=== PATIENT | female | born 1965 | race Caucasian/White ===

== ENCOUNTER → 2020-01-30 | Outpatient (CLI) | payer OTHER ==
[~2020-01-30] MED LIST: BREO1INH INH; GASTROGRAFIN SOLUTION 30ML (Q9963) As Ordered ONE; HYDR25TAB PO; INCR1INH INH; ISOVUE-370 76% 100ML VIAL As Ordered ONE; K-TA10TA2 PO; LOSA50TA88 PO; MULTCAP PO; MULTIVIT PO; OSTE1TAB2 PO; PROAAER10 INH; PROBCAP14 PO; PURE500C5 PO; TRAM50TA2 OR; TYLENOL #3 OR
--- NOTE | 2020-02-22 11:49 | REP ---
CT CHEST WITH IV CONTRAST HISTORY: Non-Hodgkin's lymphoma. COMPARISON: CT 03/08/2017 and 08/03/2019. TECHNIQUE: CT chest performed following the intravenous administration of 100 mL Isovue-370. Sagittal and coronal reconstruction images are performed. FINDINGS: Compared to prior studies, increased interstitial densities are seen in both lower lobes with peribronchial thickening suggesting interstitial pneumonitis. In addition, there are areas of patchy parenchymal opacity in the anterior inferior right upper lobe, inferior right middle lobe and right lower lobe, as well as in the left lower lobe. These may represent patchy areas of atelectasis or infiltrate. There are some mild underlying interstitial fibrotic changes, which were present on the prior study. There is a small calcified granuloma medially in the right upper lobe, which is seen on prior studies. In the right middle lobe, there are two adjacent nodular opacities on Image #72 measuring 4 mm and 3 mm, not seen on prior studies. These are nonspecific and may be related to the suspected inflammatory changes. There is a nodule in the right lower lobe posteriorly, the epicenter is on Image #85. The maximum diameter is 9 mm. There is a slight increase since the prior study of 2019 when the diameter was approximately 6-7 mm. Please note, the nodule in the right lower lobe was also seen on the exam in 2017 and at that time, it measured 7 mm. On the left, in the upper lobe peripherally, a pleural-based ill-defined focal parenchymal opacity is seen with a broad pleural base, measuring approximately 1.2 x 1.8 x 0.7 cm. Just inferior to this, there is an ill-defined nodular opacity 1.2 cm in diameter. There is another more medial 6 mm nodular opacity in this region. The findings are nonspecific and may be related to inflammatory change or neoplasm. In the left lower lobe, there is an 8 mm nodule on Image #76, which has slightly increased in size since prior studies. Another adjacent subcentimeter more peripheral nodular density also appears slightly increased in size. There is a small hiatal hernia. There is a precarinal lymph node, which measures 2.2 x 1.5 cm and is larger than on the prior study. A subcarinal lymph node measures 1.3 cm in short axis dimension. A right hilar lymph node measures 1.1 cm in diameter. Thoracic aorta is normal in caliber. There is no aneurysm. The heart is normal in size. There is no pleural or pericardial effusion. No axillary adenopathy is seen. There are degenerative changes of the spine. IMPRESSION: Increased interstitial densities and peribronchial thickening in both lower lung zones suggests interstitial pneumonitis and inflammatory change. In addition, there are areas of patchy parenchymal opacity, which may represent patchy areas of atelectasis or infiltrate. Two subcentimeter nodular opacities in the right lower lobe may also be related to inflammatory change. Bilateral lower lobe nodules are minimally increased in size compared to prior studies as discussed in detail above. The peripheral irregular parenchymal opacities in the left upper lobe may be related to inflammatory change or neoplasm. There is a mildly enlarged precarinal lymph node and subcarinal lymph node, which have increased in size since prior studies. MTDD
--- NOTE | 2020-02-22 11:50 | REP ---
CT ABDOMEN AND PELVIS WITH ORAL AND IV CONTRAST HISTORY: Non-Hodgkin's lymphoma. TECHNIQUE: CT abdomen and pelvis performed following the administration of oral contrast, as well as the intravenous administration of 100 mL of Isovue-370. Sagittal and coronal reconstruction images are performed. COMPARISON: Prior CT chest 03/08/2017 and 08/03/2019. FINDINGS: The patient has a prior gastric surgery. There is a small hiatal hernia. Abdominal aorta is normal in caliber. There is klso-my-[id number] atherosclerotic calcification. There is occlusion at the origin of the left common iliac artery. This extends through the left external iliac artery. Distal left external iliac artery is reconstituted by collateral vessels. I do not see a significant periaortic adenopathy. A few subcentimeter inguinal lymph nodes are seen bilaterally. No liver mass is seen. There is evidence of intrahepatic an extrahepatic biliary dilatation. This has increased since the prior CT of 2016. Common bile duct measures about 12 mm maximally. There is no gross abnormality at the distal end of the common bile duct, but MRCP may be performed to further evaluate. The spleen is normal in size with no intrinsic abnormality. There is thickening of both adrenal glands, which appears similar to the prior studies. No pancreatic mass is seen. Pancreatic duct measures 4 mm, which is slightly dilated. Small cysts are seen in both kidneys. There is no hydronephrosis. No definite bowel abnormality is seen. No pelvic mass is seen. Urinary bladder is not well distended and not well evaluated. 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 Stable adrenal gland thickening bilaterally. Increase intrahepatic and extrahepatic biliary dilatation with no gross abnormality of the distal common bile duct. Further evaluation may be made with MRCP exam. Subcentimeter inguinal lymph nodes bilaterally. No other evidence of significant adenopathy in the abdomen or pelvis. MTDD
== END ==
LOC: M RAD 13:25
PROVIDERS: ATTEND Specialist
DX: I74.5 Embolism and thrombosis of iliac artery (principal); C82.90 Follicular lymphoma, unspecified, unspecified site; R91.8 Other nonspecific abnormal finding of lung field
CPT/HCPCS: 71260; 74177; Q9963; Q9967

== ENCOUNTER → 2020-03-14 | Outpatient (CLI) | payer OTHER ==
[~2020-03-14] MED LIST changes: -GASTROGRAFIN SOLUTION 30ML (Q9963) As Ordered ONE; -ISOVUE-370 76% 100ML VIAL As Ordered ONE
--- NOTE | 2020-03-14 12:22 | RADONC.CN ---
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 She is seen for consideration of ISRT to address this presumed early-stage disease. Diagnosis/Treatment History Oncologic History Patient presented to PCP in Summer 2019 with a complaint of palpable adenopathy in the left groin. She had an excisional biopsy on 12/27/19 which revealed FL grade I. She underwent staging CT chest abdomen and pelvis, which showed multiple enlarged nodes in the left inguinal region, fewer scattered small nodes in the right inguinal region and occlusion of the left common and external iliac arteries in the absence of clear extrinsic mass effect. Her CT chest showed multiple peripheral pulmonary nodules of uncertain etiology. She was evaluated by Dr. Simms underwent BM biopsy which was negative, and was subsequently referred for ISRT. Interval History Patient reports she has some intermittent nausea which is chronic. She has no fevers, night sweat or unintended weight loss. She describes that she has had left hip pain for many years. She has received intrarticular steroids for this. She reports that any use of the left leg results in descending pain, cramping and heaviness, which has been worsening in recent months. The only thing that improves this pain is rest. She reports no swelling or discoloration of the skin of the left left. No ulceration of the feet BL. Pain affects her daily activities like walking and climbing stairs. She does report that in the past week she has noticed a palpable "lump" in the right groin, previously was not noticeable. Past Medical History: History of morbid obesity Past Surgical History: Darío en y in 1999 Hysterectomy Family History: Father melanoma Paternal grandmother melanoma Social History: Current 1 pack per day smoker for 36 years Does not drink Allergies / Meds Allergies: Coded Allergies: No Known Allergies (Unverified , 01/22/20) Home Meds Reported Medications Potassium Chloride (K-Tab ER) 10 Meq Tablet.er, 1 TAB PO DAILY for 30 Days, #30 TAB 01/22/20 Losartan Potassium (Losartan Potassium) 50 Mg Tablet, 1 TAB PO DAILY for 30 Days, #30 TAB 01/22/20 Hydrochlorothiazide (Hydrochlorothiazide) 25 Mg Tablet, 25 MG PO DAILY for 30 Days, #30 TAB 01/22/20 Ascorbic Acid (Vitamin C) 500 Mg Capsule.er, 1 CAP PO DAILY for 30 Days, #30 CAP 01/22/20 Vit D3-Vit K/Berberine/Hops (Ostera Tablet) 1 Each Tablet, 1 TAB PO, TAB 01/22/20 Lactobacillus Acidophilus (Probiotic) 1 Each Capsule, 1 CAP PO, CAP 01/22/20 Albuterol Sulfate (Proair Hfa) 8.5 Gm Hfa.aer.ad, 2 PUFF INH Q4-6HP PRN for wheezing for 21 Days, #1 INHALER 01/22/20 Umeclidinium [place] (Incruse Ellipta) 62.5 Mcg Blst.w.dev, 1 PUFF INH DAILY, #1 PUFF 01/22/20 Fluticasone/Vilanterol (Breo Ellipta 100-25 Mcg INH) 1 Each Blst.w.dev, 1 PUFF INH DAILY, INHALER 01/22/20 Multivitamin (Multivitamins) 1 Each Capsule, 1 CAP PO DAILY for 30 Days, #30 CAP 01/22/20 Review of Systems Constitutional: Denies: Chills, Fever, Night Sweats Eyes: Denies: Pain, Vision change HEENT: Denies: Head Aches, Dysphagia, Sore Throat Skin: Denies: Rash, Lesions, Bruising Pulmonary: Reports: Dyspnea; Denies: Cough Cardiovascular: Denies: Chest Pain, Palpitations, Edema Gastrointestinal: Reports: Nausea, Vomiting; Denies: Abdominal Pain, Diarrhea Genitourinary: Denies: Dysuria, Frequency, Incontinence Hematologic: Reports: Enlarged Lymph Nodes; Denies: Bruising, Petecchia Musculoskeletal: Denies: Neck pain, Back pain Neurological: Denies: Weakness, Numbness, Incoordination Psych: Reports: Mood Normal; Denies: Memory Issues, Thoughts of Self Harm Vital Signs Ht 65" Wt 114 lb BMI 19 T 98 P 67 RR 18 BP 126/80 O2 94% Pain 0 Fatigue 1 General Exam: Positive: Alert, Cooperative, No Acute Distress Eye Exam: Positive: PERRLA, EOMI ENT EXAM: Positive: Atraumatic, Pharynx Normal, Other ENT (Edentulous) Neck Exam: Positive: Supple Chest Exam: Positive: Clear to auscultation, Normal air movement Heart Exam: Positive: Rate Normal, Regular Rhythm Abdomen Exam: Positive: Normal bowel sounds, Soft; Negative: Tenderness Extremity Exam: Negative: Cyanosis, Edema, Normal pulses (Unable to appreciate popliteal or DP pulses on left, palpable left femoral pulse), Tenderness Skin Exam: Positive: Nl turgor and temperature; Negative: Rash Neuro Exam: Positive: Normal Gait, Normal Speech, Cranial Nerves 3-12 NL Psych Exam: Positive: Mental status NL, Mood NL; Negative: Anxiety Other Physical Findings Complete slava exam: On visual inspection there are no masses appreciable in the posterior oropharynx. There is no palpable cervical, axillary or epitrochlear adenopathy BL. The abdomen is soft and I do not appreciate an enlarged liver or spleen, I feel no masses in the epigastrium, RLQ or LLQ. There are no palpable lesions in the popliteal fossae BL. In the left inguinal region there is a 2 cm healed incision at the biopsy site. I feel multiple mobile nodes in the inguinal chain, the largest approximately 2 cm, it is soft. In the right inguinal region there is a single mobile but firm node palpable, it is non-tender, it is approximately 2 cm in maximal dimension. Diagnostic and Laboratory Diagnostic Review Radiologic images, relevant labs and pathology reports were personally reviewed and discussed with Ms. Dow. Assessment and Plan Impression Ms. 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 She is seen for consideration of ISRT to address this presumed early-stage disease. Stage Stage IA v Stage IIA FL, grade 1 Performance Status ECOG 1 Plan We had an extensive discussion with Ms. Dow regarding the diagnosis at hand and available therapeutic options. We discussed smoking cessation, she expressed no desire to quit at this time. With respect to her LLE pain, I do not think this is musculoskeletal in nature but rather intermittent claudication from her occluded left common and external iliac arteries. I recommended we obtain an ultrasound and refer her to a vascular surgeon regarding revascularization procedures, which I think would be in her immediate best interest. She has a PCP appointment scheduled tomorrow and will raise this issue. If she is unsuccessful at obtaining referral there, I will place the referral order. With respect to the pulmonary nodules present on her CT chest, I think these should be followed expectantly for now with a low threshold for biopsy should they evolve on subsequent imaging, given her tobacco use. With respect to her FL, which is biopsy proven in the left inguinal region, I have suspicion that she may harbor disease in the right inguinal region as well based on my exam today which reveals a previously undocumented, palpable node, which the patient states she first noticed last week. With this new finding in the setting of inconclusive prior CT staging, I think a PET-CT is necessary to characterize the lesion, stage her accurately, and inform treatment. If she has stage IA on PET-CT I will offer her ISRT 24 Gy in 12 fractions with 3D conformal planning. If she has stage IIA disease I will consult Dr. Simms's opinion on whether systemic therapy would be warranted, but would still consider giving her ISRT to the BL groins. We discussed the logistics of receiving radiation therapy in detail including the need for a 1-time planning session. With the low doses used in early stage FL, I explained that her side effects would likely be limited to fatigue and mild skin reaction. I do not think ISRT would pose a risk of complication to any vascular interventions for her claudication. These could be carried out at any time. After discussing the risks, benefits and alternatives to radiation therapy, Ms. Dow was amenable to pursuing radiotherapy. All questions were answered to the patient's satisfaction. We will obtain PET-CT and finalize our plans We instructed the patient that if there were any questions,concerns or changes in clinical status in the interim to contact us. Recommendations PET-CT to complete staging given new palpable node in the right inguinal region Referral to vascular surgery for apparent PVD Expectant management of lung nodules at this time Pending PET, ISRT 24 Gy in 12 fractions with 3D conformal planning KING ANDRADE MD Mar 14, 2020 12:22
== END ==
LOC: M ONCR 09:36
PROVIDERS: ATTEND General Practice
DX: C82.95 Follicular lymphoma, unspecified, lymph nodes of inguinal region and lower limb (principal)

== ENCOUNTER → 2020-04-01 | Outpatient (CLI) | payer OTHER ==
--- NOTE | 2020-04-01 17:56 | REP ---
INDICATION: STAGING FOLLICULAR LYMPHOMA. Left inguinal region. Left groin adenopathy status post excisional biopsy 27 December 2019. COMPARISON: Comparison CT study abdomen pelvis and chest January 30, 2020.. TECHNIQUE: Sixty minutes following the intravenous injection of a 8.44 mCi dose of F-18 FDG, three-dimensional PET scintigraphy is acquired from the skull base to the proximal thighs. Triplanar noncontrast CT scanning is acquired through the same anatomic range for attenuation correction, and image registration with scan parameters optimized to minimize radiation exposure to the patient. PET scintigraphy and CT datasets were fused and displayed on a workstation with multiplanar and projection display capability. FINDINGS: Head and neck soft tissues are unremarkable. There is some focal uptake adjacent to the right mandible which appears to be skeletal muscle uptake in the masseter muscle on the right. No hypermetabolic slava uptake is seen in the head and neck soft tissues. No abnormal hypermetabolic uptake is seen in the axillary or supraclavicular soft tissues. There is faintly hypermetabolic slava uptake in the precarinal lymph node, maximum standard uptake value 3.03. There is similar borderline uptake in the subcarinal lymph node region, maximum SUV value 2.86. The right lower lobe pulmonary nodule is not hypermetabolic, 1.09. No abnormal pulmonary parenchymal hypermetabolic uptake is appreciated. The left upper lobe infiltrate noted on January 30, 2020 has resolved. In the abdomen, normal a [place] and splenic FDG accumulation is seen. The spleen is not enlarged. Patient is status post gastric bypass. There is does appear to be slava uptake in the celiac axis region of the upper abdomen although these are difficult to separate or measure on accompanying CT study because the patient has so little intra-abdominal adipose tissue. Maximum standard uptake value in these a celiac axis lymph nodes is 4.78. No other intra-or pelvic hypermetabolic slava uptake is appreciated. There is mildly hypermetabolic left inguinal slava uptake, maximum standard uptake value 2.41. No abnormal skeletal uptake is seen. By way of reference organ uptake, maximum standard uptake value in the liver ranges to 2.89. Maximum standard uptake value in the blood pool is 2.80. IMPRESSION: Low level borderline 2 faintly hypermetabolic uptake is seen in precarinal and subcarinal lymph nodes. There is mildly hypermetabolic celiac axis adenopathy suspected in the upper abdomen. A 1 cm borderline hypermetabolic lymph node is seen in the left inguinal soft tissues. <Electronically signed by José Miguel Sloan > 04/01/20 [id number]
== END ==
LOC: M PLARAD 13:11
PROVIDERS: ATTEND General Practice
DX: C82.95 Follicular lymphoma, unspecified, lymph nodes of inguinal region and lower limb (principal)
CPT/HCPCS: 78815; A9552

== ENCOUNTER → 2020-05-03 | Outpatient (CLI) | payer OTHER ==
[~2020-05-03] MED LIST changes: +ONDA8TAB10 PO; +PROC10TA4 PO
--- NOTE | 2020-05-03 15:12 | REP ---
INDICATION: ATHSCL NINILCHIK ARTERIES OF EXT W/ CLAUDICATION. COMPARISON: None. TECHNIQUE: Multiple Doppler and real-time ultrasonographic images of the lower extremities. FINDINGS: Right lower extremity: Brachial peak systole: 140 mmHg Dorsalis pedis peak systole: 135 mmHg TECHNICAL DOCUMENTATION SPECIALIST peak systole: 150 mmHg LINDA: 1.07 PLASTERER FOREMAN: 100 velocity, triphasic phasicity Profunda: 49 velocity, triphasic phasicity SFA prox: 67 velocity, triphasic phasicity SFA mid: 85 velocity, triphasic phasicity SFA dist: 75 velocity, triphasic phasicity Pop: 45 velocity, triphasic phasicity ADAL prox: 48 velocity, triphasic phasicity Tib/P tr: 53 velocity, biphasic phasicity TECHNICAL DOCUMENTATION SPECIALIST pr: 55 velocity, triphasic phasicity TECHNICAL DOCUMENTATION SPECIALIST dst: 68 velocity, triphasic phasicity ADAL dst: 21 velocity, biphasic phasicity Left lower extremity: Brachial peak systole: 140 mmHg Dorsalis pedis peak systole: 40 mmHg TECHNICAL DOCUMENTATION SPECIALIST peak systole: 75 mmHg LINDA: 0.54 PLASTERER FOREMAN: 25 velocity, monophasic phasicity Profunda: 12 velocity, monophasic phasicity SFA prox: 30 velocity, monophasic phasicity SFA mid: 30 velocity, monophasic phasicity SFA dist: 26 velocity, monophasic phasicity Pop: 16 velocity, monophasic phasicity ADAL prox: 12 velocity, monophasic phasicity Tib/P tr: 19 velocity, monophasic phasicity TECHNICAL DOCUMENTATION SPECIALIST pr: 18 velocity, monophasic phasicity TECHNICAL DOCUMENTATION SPECIALIST dst: 13 velocity, monophasic phasicity ADAL dst: 6 velocity, phasicity Right lower extremity: There is minimal atheromatous plaque. The velocities and waveforms are normal. Left lower extremity: There is abnormal PLASTERER FOREMAN inflow velocity and waveforms. There is slow flow throughout the left lower extremity. There is minimal atheromatous plaque. IMPRESSION: Peak flow velocities and waveforms as indicated above. <Electronically signed by Edward Cano > 05/03/20 [id number]
== END ==
LOC: M RAD 12:21
PROVIDERS: ATTEND Physician Assistant
DX: I70.213 Atherosclerosis of native arteries of extremities with intermittent claudication, bilateral legs (principal)

== ENCOUNTER → 2020-06-18 | Outpatient (CLI) | payer OTHER ==
[~2020-06-18] MED LIST changes: +ACETAMINOPHEN 325 MG TAB PO PRN; +CLOP75TA2 PO; +CLOPIDOGREL 75 MG TAB As Ordered ONE; +CLOPIDOGREL 75 MG TAB PO ONE; +ISOVUE-300 61% 50ML VIAL As Ordered ONE; +LIDOCAINE 1% MDV 20ML VIAL As Ordered ONE; +MIDAZOLAM INJ 2MG/2ML VIAL (J2250 PER 1MG) As Ordered ONE; +MULT-90 PO; +NS 1,000 ML IV SCH; +ONDANSETRON 4MG/2ML VIAL As Ordered ONE; +OXYC1TAB23 PO; +VENTAER INH; +ceFAZolin 1GM VIAL (J0690 PER 500MG) As Ordered ONE; +fentaNYL 100 MCG/2 ML INJECTION (J3010) As Ordered ONE
[2020-06-18 07:05] LABS: HEMATOCRIT 41.3 % (36.0-47.0); HEMOGLOBIN 13.9 g/dl (12.0-15.5); MEAN CORPUSCULAR HEMOGLOBIN 30.8 pg (27.0-33.0); MEAN CORPUSCULAR HGB CONC 33.7 g/dl (32.0-36.5); MEAN CORPUSCULAR VOLUME 91.4 fl (80.0-96.0); PLATELET COUNT, AUTOMATED 300 10^3/uL (150-450); RED BLOOD COUNT 4.52 10^6/uL (4.00-5.40); WHITE BLOOD COUNT 8.9 10^3/uL (4.0-10.0)
[2020-06-18 07:25] LABS: BLOOD UREA NITROGEN 7 MG/DL (7-18); CALCIUM LEVEL 8.3 MG/DL (8.5-10.1); CARBON DIOXIDE LEVEL 29 MEQ/L (21-32); CHLORIDE LEVEL 98 MEQ/L (98-107); CREATININE FOR GFR 0.54 MG/DL (0.55-1.30); GLOMERULAR FILTRATION RATE > 60.0 (>51); GLUCOSE, FASTING 82 MG/DL (70-100); POTASSIUM SERUM 4.2 MEQ/L (3.5-5.1); SODIUM LEVEL 130 MEQ/L (136-145)
--- NOTE | 2020-06-18 10:15 | ROOPDOC ---
[facility] Report Of Operation Report of Operation DATE OF PROCEDURE: 06/18/20 PREPROCEDURE DIAGNOSES: Atherosclerosis of the [place] arteries with lifestyle limiting claudication left lower extremity POSTPROCEDURE DIAGNOSES: Same PROCEDURE: 1. Ultrasound-guided access bilateral common femoral artery 2. Aortoiliofemoral arteriogram 3. Left lower extremity runoff from left femoral sheath access 4. 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 Stenting left external iliac artery with 7 x 57 express balloon expandable stent, extension proximal with 8 x 57 express stent with right iliac protection with 7 x 40 [place] balloon 6. Bilateral common iliac artery via by 8 x 39 covered viabahn vbx stent placement, kissing stents 7. Proximal extension kissing stents bilaterally with 8 x 27 express stents 8. Completion arteriograms 9. Mynx closure bilateral common femoral artery SURGEON: Myah Rios MD ANESTHESIA: Local anesthesia 9 mL lidocaine. Moderate intravenous conscious sedation was supervised by Dr. Rios. The patient was independent we monitored by registered nurse assigned to the Department of radiology using automated blood pressure, EKG, and pulse oximetry. The detailed sedation record is permanently stored in the hospital information system. The following is a brief sedation record: [Time 07:49, stop time 19:21, Versed 1.5 mg IV, fentanyl 75 g IV, heparin 4000 units IV, Ancef 1 g IV. CONTRAST: 84 mL Isovue-300 INDICATION FOR PROCEDURE: This is a very pleasant 55-year-old patient with atherosclerosis of the [place] arteries and worsening left lower extremity claudication. Risks benefits and alternatives to an arteriogram and potential intervention were explained to the patient. She is agreeable to proceed. Informed consent was obtained. INTERPRETATION: 1. The distal aorta is ectatic but patent with some irregularity in the left lateral aspect near the origin of the left common iliac artery. The right common iliac artery has a dictation calcification but appears otherwise overall patent. He has good flow into the hypogastric which gives collateral circulation over to the left hypogastric. There is also some collateral flow to the left ex ternal iliac artery and common femoral artery. The right external iliac arteries patent with good flow into the right common femoral artery. The left common iliac artery has bulky plaque at its origin is occluded for approximately 4 cm, then has a trickle flow through the external iliac artery from flow from the hypogastric. There is considerable disease and calcium in the external iliac artery proximally, but distally it is widely patent with good flow into the common femoral artery. 2. The left common femoral artery has good runoff into the profunda in the SFA with no signs of stenosis or obvious calcification or disease. There is good flow through the profunda into the posterior tibial artery which is the main runoff to the foot. The peroneal artery is also widely patent. The anterior tibial artery is patent to the lower calf, where it dwindles down to her diminutive size and has some collateral flow distal to that. We do not see reconstitution into the anterior tibial artery at the ankle or the dorsal pedis at the foot. However, the posterior tibial artery supplies the pedal vessels rapidly. 3. After predilation of the left iliac system, we noted still bulky plaque proximally and at the mid external iliac artery, an additional angioplasty was performed. Following this, there was a patent lumen for stent placement. 4. After placement of express stents through the left iliac system with 1 cm overlap, we did not have residual stenosis, but we still did not have antegrade flow due to bulky plaque proximal to the stent origin. After extension with balloon expandable covered viabahn vbx stents from common iliac to kissing stents, there still was some residual proximal to the stent on the left that was preventing good antegrade flow. In order to preserve flow through the lumbar vessels, we extended the kissing stents with bare-metal express balloon expandable stent, and following this there was widely patent flow through both iliac systems an excellent pulse at the left common femoral artery. No extravasation, embolization, or dissection were noted. 5. Arteriogram of the left lower extremity femoral system showed no signs of embolization postprocedure with rapid flow distal. REPORT OF OPERATION: The patient was brought to the angiographic suite in stable condition. Her bilateral groins were prepped and draped in a sterile fashion. A timeout was performed. Sedation was administered without complication. Local anesthesia was administered to the right skin and subcutaneous tissue over the femoral artery and a microneedle was used to access the artery and her ultrasound guidance. A wire was passed through this access needle was removed. A 4 Taiwanese sheath was placed and flushed with saline. A Glidewire and flushing catheter were advanced into the distal aorta. Aortoiliofemoral arteriogram was performed, please see interpretation above. Next, local anesthesia was administered to the skin and subcutaneous tissue over the left groin and a microneedle was used to access left common femoral artery under ultrasound guidance. A wire was passed through this access needle was removed and a 4 [place] sheath was placed and flushed with saline. We could not advance a Glidewire through the blockage, but wanted to try a little harder to cross the lesion. We then exchange the sheath for 5 [place] sheath and flushed the sheath was saline. A [place] catheter was placed over the wire and with this, we were able to cross the lesion into the true lumen of the aorta. Quick arteriogram confirmed we were in the true lumen. Heparin was given and allowed to circulate. Next, we predilated the left iliac system with a 5 x 100 [place] balloon. We still had some pretty tight stenosis proximally and distally, so we repeated the angioplasty both proximal and distal. Following this, we replaced the sheath on the left with a 7 [place]ese sheath and flushed the sheath was saline. We advanced a 7 x 57 express stent into the external iliac artery and deployed this. Arteriogram confirmed there was no extravasation postplacement. We then extended this proximally with an 8 x 57 express stent. We protected the right iliac artery with a 7 x 40 [place] balloon. Following this, there is still bulky pl aque proximal to the stent that was preventing good antegrade flow. We then elected to place bilateral kissing stents, and we utilized vbx covered balloon expandable stents due to the bulky plaque at the distal aorta, with care taken to place and just below the lumbar vessels as these are providing some collateral flow on the left. We deployed the stent from the common iliac artery into the distal aorta, but still there was some bulky plaque on the left that was preventing good antegrade flow. We therefore extended distance proximally with 8 x 27 bare-metal stents to preserve lumbar flow. Following this, the bulky plaque was excluded laterally, and there was good antegrade flow through both stents inflow through the lumbar arteries. There was an excellent pulse in the left femoral artery. There was good flow through the right iliac system as well. Arteriogram of the left femoral arteries confirmed that there was no signs of embolization. There was no dissection or extravasation. We then deployed Mynx closure device in both femoral vessels with good hemostasis. Pressure was held and sterile dressings were applied. The patient was taken to recovery in stable condition. She tolerated the procedure and the sedation well. ESTIMATED BLOOD LOSS: 4 mL COMPLICATIONS: None PLAN: It is okay to resume home diet and medications. We will give the patient a dose of Plavix prior to discharge. 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 No strenuous exercise or lifting greater than 5 pounds for 72 hours. Okay to remove dressings and shower tomorrow. Continue efforts for smoking cessation as this will be imperative to maintain stent patency long-term. We will see her back in a week to check both groin access sites in her perfusion. We appreciate the opportunity to participate in the care of this patient. MYAH RIOS MD Jun 18, 2020 10:15
[2020-06-18] MEDS: ONDANSETRON 4MG/2ML VIAL IV PRN ×2 (11:09→12:00)
[2020-06-18 13:45] VITALS: BP 152/88
== END ==
LOC: M IRPRO 06:33
PROVIDERS: ATTEND Surgery Vascular Surgery
DX: I70.212 Atherosclerosis of native arteries of extremities with intermittent claudication, left leg (principal); I70.8 Atherosclerosis of other arteries; I70.92 Chronic total occlusion of artery of the extremities; I10 Essential (primary) hypertension; F32.9 Major depressive disorder, single episode, unspecified; F41.9 Anxiety disorder, unspecified; F17.210 Nicotine dependence, cigarettes, uncomplicated; M06.9 Rheumatoid arthritis, unspecified; C85.90 Non-Hodgkin lymphoma, unspecified, unspecified site; Z79.899 Other long term (current) drug therapy
CPT/HCPCS: 37221; 75630; 80048; 85027; 99152; 99153; C1725; C1760; C1769; C1874; C1876; C1887; C1894; J0690; J1644; J2250; J2405; J3010; Q9967

== ENCOUNTER 2020-06-19 08:20 | Day surgery (SDC) | payer OTHER ==
[~2020-06-19] VITALS: Ht 162.6 cm; Wt 56.4 kg
[~2020-06-19 08:20] MED LIST changes: -ACETAMINOPHEN 325 MG TAB PO PRN; -CLOPIDOGREL 75 MG TAB As Ordered ONE; -CLOPIDOGREL 75 MG TAB PO ONE; +HYDR-3490 PO; -HYDR25TAB PO; -ISOVUE-300 61% 50ML VIAL As Ordered ONE; -LIDOCAINE 1% MDV 20ML VIAL As Ordered ONE; -MIDAZOLAM INJ 2MG/2ML VIAL (J2250 PER 1MG) As Ordered ONE; -MULT-90 PO; -NS 1,000 ML IV SCH; -ONDANSETRON 4MG/2ML VIAL As Ordered ONE; -OXYC1TAB23 PO; -ceFAZolin 1GM VIAL (J0690 PER 500MG) As Ordered ONE; -fentaNYL 100 MCG/2 ML INJECTION (J3010) As Ordered ONE
[2020-06-19] MEDS ORDERED: NOREPINEPHRINE BITARTRATE 8 MG in D5W 492 ML IV SCH (09:00)
[2020-06-19] MEDS: NS 1,000 ML IV ONE ×2 (09:06)
[2020-06-19] MEDS ORDERED: LIDOCAINE 1% MDV 20ML VIAL As Ordered ONE (09:10)
[2020-06-19] MEDS ORDERED: ISOVUE-300 61% 50ML VIAL As Ordered ONE ×2 (09:10→10:22)
[2020-06-19 09:29] LABS: BASO # 0.1 10^3/uL (0.0-0.2); BASO % 0.3 % (0.0-1.0); EOS % 0.1 % (0.0-3.0); HEMATOCRIT 31.8 % (36.0-47.0); LYMPH # 1.1 10^3/uL (1.5-5.0); LYMPH % 5.5 % (24.0-44.0); MEAN CORPUSCULAR HEMOGLOBIN 30.4 pg (27.0-33.0); MEAN CORPUSCULAR HGB CONC 32.7 g/dl (32.0-36.5); NEUTROPHILS # 16.7 10^3/uL (1.5-8.5); NEUTROPHILS % 83.2 % (36.0-66.0); PLATELET COUNT, AUTOMATED 258 10^3/uL (150-450); RED BLOOD COUNT 3.42 10^6/uL (4.00-5.40)
[2020-06-19 09:30] LABS: PROTHROMBIN TIME 13.4 SECONDS (12.5-14.3)
[2020-06-19 09:31] LABS: HEMOGLOBIN 10.4 g/dl (12.0-15.5); PARTIAL THROMBOPLASTIN TIME 27.6 SECONDS (24.2-38.5)
[2020-06-19] MEDS ORDERED: MIDAZOLAM INJ 2MG/2ML VIAL (J2250 PER 1MG) As Ordered ONE (09:41)
[2020-06-19] MEDS ORDERED: fentaNYL 100 MCG/2 ML INJECTION (J3010) As Ordered ONE (09:41)
[2020-06-19 09:42] LABS: ALBUMIN 2.8 GM/DL (3.2-5.2); ALT/SGPT 104 U/L (12-78); AMYLASE 40 U/L (25-115); BILIRUBIN,DIRECT 0.2 MG/DL (0.0-0.2); BILIRUBIN,TOTAL 0.5 MG/DL (0.2-1.0); CK-MB VALUE MASS 1.9 NG/ML (<3.6); CPK CREATINE PHOSPHOKINASE 77 U/L (26-192); LIPASE 85 U/L (73-393); MB/CK RELATIVE INDEX 2.47 (< OR =4); TOTAL PROTEIN 5.2 GM/DL (6.4-8.2); TROPONIN I < 0.02 NG/ML (< 0.10)
--- NOTE | 2020-06-19 09:44 | CR.PDOC ---
General Date of Consultation: Jun 19, 2020 Consultation REASON FOR CONSULTATION/CHIEF COMPLAINT: Left groin and left lower quadrant abdominal pain HISTORY OF PRESENT ILLNESS: This very pleasant 55-year-old patient who underwent a lower extremity arteriogram yesterday with bilateral femoral access and stenting of the bilateral common iliac arteries into the external iliac artery on the left. Postoperatively, she had mild complaints of groin pain, which I attributed to opening a chronic occlusion in the left iliac arteries with stents, which can cause mild discomfort for 24-48 hours postprocedure. We ultrasounded her groin several times postprocedure and did not note any hematoma, and there was no extravasation on imaging during the procedure. She did not have a high access point on the femoral artery, and her access on the left femoral artery was fairly distal over the femoral head. Nevertheless, today she awoke from sleep at 3 AM with severe left groin and abdominal pain. It was so bad that when she tried to stand up she almost fainted. She was brought to the ER by EMS. They gave her 100 g of fentanyl which did not help her pain. It did however lower her blood pressure considerably and she was 70 mmHg systolic in the ER. They gave her fluid boluses which brought it up appropriately, now it is 135 mmHg. Nevertheless, despite the fact that we don't see extravasation on imaging, we want to make sure that she is not having any bleeding because her blood pressure was low in the ER, and we are not 100% sure that this was due to the fentanyl or if it's due to an active bleeding situation, we elected to bring her urgently to interventional radiology for a repeat angiogram to see if there is active bleeding. We can treated right away which will further expedite her care. Alternatively, we could do a CTA, which still might be necessary if we do not identify a bleeding source, but this could delay the process of treating a bleed if one is present. Therefore, we di scussed the risks benefits alternatives to repeat arteriogram urgently today. The patient is agreeable to proceed. Informed consent was obtained. If we do not identify bleeding, I plan to send her for a CT scan of the abdomen and pelvis to see if there is another etiology for her complaints. She does not have a known history of lower back issues, or other neuropathic pain, so from my standpoint this is bleeding until proven otherwise. ALLERGIES: Please see below. HOME MEDICATIONS: Please see below. PAST MEDICAL HISTORY: Hypertension, depression, anxiety, COPD, rheumatoid arthritis, lymphoma, peripheral vascular disease PAST SURGICAL HISTORY: Arteriogram lower extremities with iliac stenting 06/18/2020 FAMILY HISTORY: Hypertension heart disease SOCIAL HISTORY: Patient is a current smoker. She has cut back to half a pack a day, but is still smoking and having difficulty quitting. She is trying to quit. She lives with her . REVIEW OF SYSTEMS: CONSTITUTIONAL: Denies fevers or chills HEENT: Denies vision or hearing changes CARDIOVASCULAR: Denies chest pain RESPIRATORY: Positive occasional shortness of breath GENITOURINARY: Denies dysuria MUSCULOSKELETAL: Positive left groin and leg pain GASTROINTESTINAL: Denies vomiting diarrhea. Positive nausea SKIN: Denies rashes NEUROLOGICAL: Denies stroke seizures or headaches. PSYCHIATRIC: Positive anxiety depression ENDOCRINE: Denies diabetes or thyroid disease HEMATOLOGIC/LYMPHATIC: History lymphoma ALLERGIC/IMMUNOLOGIC: Denies PHYSICAL EXAMINATION: VITAL SIGNS: Please see below. GENERAL APPEARANCE: Patient is in acute distress from left groin and leg pain HEENT: Vision and hearing grossly intact, normocephalic, TMI RESPIRATORY: Slightly coarse breath sounds bilaterally no wheezes CARDIOVASCULAR: Regular rate and rhythm ABDOMEN: Patient has guarding of her lower abdomen and left groin. No palpable hematoma left groin and access site. EXTREMITIES: DP and PT Doppler signals present bilateral lower extremities. Feet are cool bilaterally. But capillary refill is 1 second. NEUROLOGICAL: Alert and oriented 3. Moves all extremities equally. PSYCHIATRIC: Patient is in distress but cooperative. LABORATORY DATA: Please see below. ASSESSMENT/PLAN: This a very pleasant 55-year-old patient who has severe pain in her left groin and flank status post bilateral common iliac artery kissing stents and extension of her left iliac stents for occlusion of the left iliac arteries, done with an arteriogram yesterday. 1. Plan for urgent repeat arteriogram to see if there is any active bleeding and we plan to treat this if identified. 2. Plan for CT of the abdomen and pelvis if no source of bleeding is identified, to see if we can find an alternative explanation for the patient's pain. We appreciate the opportunity to participate in the care of this patient. Vital Signs/I&O Vital Signs Date Time Temp Pulse Resp B/P (MAP) Pulse Ox O2 Delivery O2 Flow Rate FiO2 06/19/20 08:52 98.8 22 72/49 (57) 100 Room Air 06/19/20 08:50 105 Laboratory Data Labs 24H Laboratory Tests 2 06/19/20 08:53: POC Glucose (Misc Panel) 155H, POC Sodium (Misc Panel) 135L, POC Potassium (Misc Panel) 4.2, POC Chloride (Misc Panel) 99, POC Total CO2 (Misc Panel) 25.0, POC Blood Urea Nitrogen (Misc Panel 13, POC Ionized Calcium (Misc Panel) 4.0L, POC Creatinine (Misc Panel) 1.0, POC Hematocrit (Misc Panel) 34.0L 06/19/20 08:54: Prothrombin Time 13.4, Prothromb Time International Ratio 1.00, Activated Partial Thromboplast Time 27.6 CBC/BMP Allergies Coded Allergies: No Known Allergies (Unverified , 01/22/20) Home Medications Scheduled Ascorbic Acid (Vitamin C) 500 Mg Capsule.er, 1 CAP PO DAILY for 30 Days, #30 (Reported) Clopidogrel Bisulfate (Clopidogrel) 75 Mg Tablet, 75 MG PO DAILY for 60 Days, #60 Fluticasone/Vilanterol (Breo Ellipta 100-25 Mcg INH) 1 Each Blst.w.dev, 1 PUFF INH DAILY, (Reported) Hydrochlorothiazide (Hydrochlorothiazide) 25 Mg Tablet, 25 MG PO DAILY for 30 Days, #30 (Reported) Losartan Potassium (Losartan Potassium) 50 Mg Tablet, 1 TAB PO DAILY for 30 Days, #30 (Reported) Multivitamin (Multivitamins) 1 Each Capsule, 1 CAP PO DAILY for 30 Days, #30 (Reported) Potassium Chloride (K-Tab ER) 10 Meq Tablet.er, 1 TAB PO DAILY for 30 Days, #30 (Reported) Umeclidinium [place] (Incruse Ellipta) 62.5 Mcg Blst.w.dev, 1 PUFF INH DAILY, #1 (Reported) Scheduled PRN Albuterol Sulfate (Proair Hfa) 8.5 Gm Hfa.aer.ad, 2 PUFF INH Q4-6HP PRN for wheezing for 21 Days, #1 (Reported) Albuterol Sulfate (Ventolin Hfa) 18 Gm Hfa.aer.ad, 2 PUFF INH Q4-6HP PRN for wheezing for 30 Days, #1 (Reported) Ondansetron HCl (Ondansetron HCl) 8 Mg Tablet, 8 MG PO Q8HP PRN for NAUSEA OR VOMITING, #30 Prochlorperazine Maleate (Prochlorperazine Maleate) 10 Mg Tablet, 10 MG PO Q8HP PRN for NAUSEA OR VOMITING, #30 Miscellaneous Medications Lactobacillus Acidophilus (Probiotic) 1 Each Capsule, 1 CAP PO, (Reported) Vit D3-Vit K/Berberine/Hops (Ostera Tablet) 1 Each Tablet, 1 TAB PO, (Reported) MYAH GÓMEZ MD Jun 19, 2020 09:44
[2020-06-19] MEDS ORDERED: ceFAZolin 2 GM/D5W 50 ML IV BAG (J0690 PER 500MG) As Ordered ONE (10:05)
--- OUTSIDE RECORDS SUMMARY | 2020-06-19 10:52 | CCD | Continuity of Care Document ---
Author Jessica Coppola Organization Unknown Address [address], [address] [place] [address] Phone [phone] Care Team Providers [facility] Field Coordinator Name Role Phone Melissa Faria M.D. AUTM [phone] Problems Active Problems Provider Date Essential hypertension WING Saab Onset: 04/09/2020 Social History Type Date Description Comments Sex Unknown ETOH Use Denies alcohol use Tobacco Use Start: 05/24/75 Patient is a current smoker, smo kes every day 1 ppd x 20 years Recreational Drug Use Denies Drug Use Smoking Status Reviewed: 04/23/20 Patient is a current smoker, smokes every day 1 ppd x 20 years Allergies, Adverse Reactions, Alerts Description No Known Drug Allergies Medications Active Medications SIG Qnty Indications Ordering Provide r Date Breo Ellipta 100-25mcg/Inh Aerosol 1 inhalation daily 60units Mick Cameron MD 04/04/2018 Incruse Ellipta 62.5mcg/Inh Aeroso l 1 puff every day Unknown Hydrochlorothiazide 12.5mg Capsule s 1 by mouth every day Unknown Potassium Chloride Madelyn ER 10Meq Tablets ER 1 tab by mouth every day Unknown Losartan Potassium 50mg Tablets 1 tab by mouth every day Unknown Ventolin HFA 108(90Base) mcg/Act A erosol 2 puffs qid/prn Unknown Albuterol Sulfate (2 .5mg/3ML) 0.083% Nebulizer 1 vial four times a day as needed Unknown Multi Vitamin Daily Tablets 1 every day Unknown Vitamin D 125mcg (5000 Ut) Capsule s 1 every day Unknown Vitamin C 500mg Capsules 1 ev miryam day Unknown Zinc 50mg Tablets 1 every day 30tabs Unknown Immunizations Description No Information Available Vital Signs Date Vital Result Comment 05/21/2020 10:54am BP Systolic 169 mmHg BP Diastolic 95 mmHg Height 64 inches 5'4" Weight 129.38 lb BMI (Body Mass Index) 22.2 kg/m2 [place] Body Weight 120 lb Weight 58.684 kg BSA (Body Surface Area) 1.63 m2 04/23/2020 11:06am BP Systolic 138 mmHg BP Diastolic 62 mmHg Height 64 inches 5'4" Weight 126.00 lb BMI (Body Mass Index) 21.6 kg/m2 [place] Body Weight 120 lb Weight 57.154 kg BSA (Body Surface Area) 1.61 m2 Results Description No Information Available Procedures Description No Information Available Medical Devices Description No Information Available Encounters Type Date Location Provider Dx Diagnosis Office Visit 04/23/2020 11:00a [facility] WING Mcguire I70.213 Athscl [place] arteries of extrm w intrmt [place], bi legs I70.8 Atherosclerosis of other art eries F17.210 Nicotine dependence, cigaret johnny, uncomplicated Assessments Date Code Description Provider 05/21/2020 I70.213 Atherosclerosis of n ative arteries of extremities with intermittent claudication, bilateral legs WING Saab 05/21/2020 I70.8 Atherosclerosis of other arterie s WING Saab 05/21/2020 F17.210 Nicotine dependence, cigarettes, uncomplicated WING Saab 04/23/2020 I70.213 Atherosclerosis of n ative arteries of extremities with intermittent claudication, bilateral legs WING Saab 04/23/2020 I70.8 Atherosclerosis of other arterie s WING Saab 04/23/2020 F17.210 Nicotine dependence, cigarettes, uncomplicated WING Saab Plan of Treatment No Information Available Functional Status Description No Information Available Mental Status Description No Information Available Referrals Refer to Reason for Referral Status Appt Date Alie Sim, P.AJamal ARTERIAL OCCLUSION Closed 05/2019 [address] [facility] [address], [address] [place] [address] [place] [address] [phone]
--- OUTSIDE RECORDS SUMMARY | 2020-06-19 10:53 | CCD ---
Author Author [facility] Organization [facility] Address [address] [place] [address] Phone Care Team Providers Care Claim Adjuster Name Role Phone Giaan CHING, Melissa Hernandez Unavailable [phone] Reason for Referral No Reason for Referral Recorded Problems Includes: Active, inactive, and resolved Problems All Visits Onset Date - Time Resolved Date - Time Provider Co ndition Status Cardiac Catheterization Technician Malignant Lymphoma Follicular 05/08/2020 - 12:00AM Lula Ramirez DOG RACES MANAGER Active Note: Unchanged Primary Cardiac Catheterization Technician Lymphoma Inguinal & Lower Limb(s) Lymph Nodes - 12:00AM Melissa Faria MD Active Note: Unchanged Essential Hypertension Benign 12/28/2017 - 12:00AM Faustina hy A Jenn POULTRY VACCINATOR Active Note: Unchanged Chronic Obstructive Pulmonary Disease 12/28/2017 - 12:00AM Dorothea A Jenn POULTRY VACCINATOR Active Note: Unchanged Acute bronchitis due to other specified organisms 12/15/2017 - 12:00AM Unknown - Unknown Dorothea A Jenn POULTRY VACCINATOR Resolved Note: Unchanged Arthralgia - Ulna / Radius / Wrist Left 12/15/2017 - 12:00AM Dorothea A Jenn POULTRY VACCINATOR Active Note: Unchanged Chronic Obstructive Pulmonary Disease with Acute Lower Respiratory Infection 12/15/2017 - 12:00AM Mick Ngo MD Active Note: Unchanged Plan of Treatment Pending Tests Order Diagnosis Results Due Ordering Provi jenn X-RAY Wrist Left X-Ray Pain in left wrist 12/29/17 Dorothea A Jenn POULTRY VACCINATOR *Labs (Manual) *FASTING Essential (primary) hypertension Dorothea A Jenn POULTRY VACCINATOR *Labs (Manual) CBC Essential (primary) hypertension Dorothea A Jenn POULTRY VACCINATOR *Labs (Manual) CMP Essential (primary) hypertension Dorothea A Jenn POULTRY VACCINATOR *Labs (Manual) LIPID Essential (primary) hypertension Dorothea A Jenn POULTRY VACCINATOR X-RAY Hip Left X-Ray Pain in left hip 08/24/18 Dorothea Hernandez D er POULTRY VACCINATOR *Labs (Manual) *FASTING Essential (primary) hypertension Dorothea A Jenn POULTRY VACCINATOR *Labs (Manual) CBC Essential (primary) hypertension Dorothea A Jenn POULTRY VACCINATOR *Labs (Manual) CMP Essential (primary) hypertension Dorothea A Jenn POULTRY VACCINATOR *Labs (Manual) LIPID Essential (primary) hypertension Dorothea A Jenn POULTRY VACCINATOR X-RAY Mammography- Ultrasound If Indicated Enc ntr screen mammogram for malignant neoplasm of breast 11/23/18 Dorothea A Jenn POULTRY VACCINATOR *Labs (Manual) CMP 08/08/19 Mick hooker MD *Labs (Manual) CBC 08/08/19 Mick hooker MD *Labs (Manual) TSH 08/08/[address] Scan Chest CT Scan Without Contrast Hypokalemia 08/08/19 Mick Ngo MD Ultrasound Left Groin Area Neoplasm of unspecif ied behavior of other specified sites 11/07/19 Mick Ngo MD Ultrasound Left Groin Area Neoplasm of unspecif ied behavior of other specified sites 11/07/19 Mick Ngo MD Future Appointments Date Time Location Provider STANDARD OV 07/09/2020 1:00PM Family Medicine [facility] Lula Ramirez NP Findings Encounter Date REFERRAL TO DR. HERNANDEZ AT [facility] FOR CONSULTATION ON OTHER CANCER TREATMENT. PLEASE SEND NOTES AND W/U FROM DECEMBER 2019. FFUP 2M MED CHK EXTENDED VISIT with Lula Ramirez NP 05/08/2020 REFER TO VASCULAR SURGEON FOR OCCLUSIO N OF COMMON AND EXTERNAL ILIAC ARTERIES FFUP IN 2M MED CHECK EXTENDED VISIT with Lula Ramirez NP 0 Ordered follow-up visit RTC 3 MONTHS SCHEDULE PE S TANDARD OV with Dorothea Vences POULTRY VACCINATOR 11/09/2018 Ordered follow-up visit RTC 3 MONTHS STANDARD OV with Dorothea A Jenn POULTRY VACCINATOR 08/10/2018 Ordered follow-up visit RTC 1 MONTH EXTENDED VISIT with Faustina hy A Jenn POULTRY VACCINATOR 03/23/2018 Ordered follow-up visit RTC 1 MONTH EMERGENCY ROOM FO LLOW-UP with Dorothea A Jenn POULTRY VACCINATOR 03/15/2018 Ordered follow-up visit RTC 1 MONTH STANDARD OV with Dorothea A Jenn POULTRY VACCINATOR 01/11/2018 Ordered follow-up visit RTC 2 WEEKS EXTENDED VISIT with Faustina hy A Jenn POULTRY VACCINATOR 12/28/2017 Ordered follow-up visit RTC 10 DAYS NEW PATIENT EVALU ATION with Dorothea A Jenn POULTRY VACCINATOR 12/15/2017 Assessments Includes: Assessments for all patient encounters Findings Encounter Date Follicular lymphoma of the [employer]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 EXTENDED VISIT with Lula Lacey Ramirez NP 05/08/2020 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 EXTENDED VISIT with [place] Noe Ramirez NP 03/15/2020 Chronic obstructive pulmonary disease [J 44.9 - Chronic obstructive pulmonary disease, unspecified] EXTENDED VISIT with Lula Noe Ramirez NP 0 Intermittent claudication EXTENDED VISIT with Lula Noe Ramirez NP 03/15/2020 Postprocedural hematoma of skin and subcutaneous tissu e WRITE-IN (SAME DAY) with Mick Ngo MD 01/02/2020 Benign essential hypertension SURGERY with Melissa Clement 12/27/2019 Lymphadenopathy L GROIN SURGERY with Melissa Faria MD 09/2019 Lymphadenopathy EXTENDED VISIT with Mick Ngo MD 11/15/2019 Benign essential hypertension EXTENDED VISIT with Mick Ngo MD 10/24/2019 Chronic obstructive pulmonary disease EXTENDED VISIT with Kianna Ngo MD 10/24/2019 Enlargement of lymph nodes EXTENDED VISIT with Mick hooker MD 10/24/2019 Benign essential hypertension EXTENDED VISIT with Mick Ngo MD 07/25/2019 Chronic obstructive pulmonary disease with acute lower respiratory infection EXTENDED VISIT with Mick Ngo MD 07/25/2019 Chronic obstructive pulmonary disease STANDARD OV with Dorothea A Jenn POULTRY VACCINATOR 11/09/2018 Essential hypertension STANDARD OV with Dorothea A Jenn POULTRY VACCINATOR 10/22 Arthralgia of the left pelvis/hip/femur STANDARD OV with Faustina hy A Jenn POULTRY VACCINATOR 08/10/2018 Benign essential hypertension STANDARD OV with Dorothea A Jenn F DOG RACES MANAGER 08/10/2018 Chronic obstructive pulmonary disease STANDARD OV with Dorothea A Jenn POULTRY VACCINATOR 08/10/2018 Upper respiratory infection STANDARD OV with Dorothea A Jenn POULTRY VACCINATOR 08/10/2018 Pneumonia RESOLVING EXTENDED VISIT with Dorothea Hernandez Jenn POULTRY VACCINATOR Benign essential hypertension EMERGENCY ROOM FOLLOW-UP with Dorothea Hernandez Jenn POULTRY VACCINATOR 03/15/2018 Pneumonia EMERGENCY ROOM FOLLOW-UP with Dorothea Hernandez De r POULTRY VACCINATOR 03/15/2018 Benign essential hypertension STANDARD OV with Dorothea Hernandez Jenn F DOG RACES MANAGER 01/11/2018 Tendonitis STANDARD OV with Dorothea Hernandez Jenn POULTRY VACCINATOR 018 Benign essential hypertension EXTENDED VISIT with Dorothea Hernandez De r POULTRY VACCINATOR 12/28/2017 Bronchitis EXTENDED VISIT with Dorothea A Jenn POULTRY VACCINATOR 11/2017 Chronic obstructive pulmonary disease EXTENDED VISIT with Ka thy A Jenn POULTRY VACCINATOR 12/28/2017 Arthralgia of the left ulna/radius/wrist NEW PATIENT E VALUATION with Dorothea David Jenn POULTRY VACCINATOR 12/15/2017 Benign essential hypertension NEW PATIENT EVALUATION with Ka thy A Jenn POULTRY VACCINATOR 12/15/2017 Bronchitis NEW PATIENT EVALUATION with Dorothea A Jenn POULTRY VACCINATOR 12/15/2017 Chronic obstructive pulmonary disease NEW PATIENT EVAL UATION with Dorothea David Jenn POULTRY VACCINATOR 12/15/2017 Instructions Instructions not supported for this document typeNo Instructions Recorded Medical Equipment - Implanted Devices Includes: Current and historical DevicesNo Medical Equipment Recorded Medications Includes: Current and historical Medications Current Medications (continue as prescribed) Klor-Con M10 10 MEQ Oral Tablet Extended Release 05/03/2020 - 08/01/2020 Provider: Lula Ramirez DOG RACES MANAGER Diagnosis: Hypokalemia TAKE ONE TABLET BY MOUTH EVERY DAY FOR HYPOKALEMIA Losartan Potassium 50 MG Oral Tablet 05/03/2020 - 08/01/2020 Provider: Lula Ramirez DOG RACES MANAGER Diagnosis: Essential (primary) hypertension TAKE ONE TABLET BY MOUTH EVERY MORNING Ventolin HFA 108 (90 Base) MCG/ACT Inhalation Aerosol Solution 03/15/2020 - 07/13/2020 Provider: Lula Ramirez DOG RACES MANAGER Diagnosis: HCC-Chronic obstruct danny pulmon disease w acute lower resp in 2 puffs,4 times a day as needed Incruse Ellipta 62.5 MCG/INH Inhalation Aerosol Powder Breath Activated 03/15/2020 - 07/13/2020 Provider: Lula Ramirez DOG RACES MANAGER Diagnosis: HCC-Chronic obstruct danny pulmon disease w acute lower resp in one puff qd hydroCHLOROthiazide 25 MG Oral Tablet 02/28/2020 Pr ovider: Lula Ramirez DOG RACES MANAGER Diagnosis: Essential (primary) hypertension 1 every day Albuterol Sulfate (2.5 MG/3ML) 0.083% Inhalation Nebul ization solution 11/15/2019 Provider: Mick Ngo MD Diagnosis: Other pneumonia, uns pecified organism 1 vial QIDREVIEWED BUT NOT DISPENSED Breo Ellipta 100-25 MCG/INH Inhalation Aerosol Powder Breath Activated 07/25/2019 Provider: Diagnosis: from pulmo Past Medications on file Klor-Con M10 10 MEQ Oral Tablet Extended Release 02/28/2020 - 05/03/2020 Provider: Lula Ramirez DOG RACES MANAGER Diagnosis: Hypokalemia TAKE ONE TABLET BY MOUTH EVERY DAY FOR HYPOKALEMIA Losartan Potassium 50 MG Oral Tablet 02/28/2020 - 05/03/2020 Provider: Lula Ramirez DOG RACES MANAGER Diagnosis: Essential (primary) hypertension TAKE ONE TABLET BY MOUTH EVERY MORNING Ventolin HFA 108 (90 Base) MCG/ACT Inhalation Aerosol Solution 11/15/2019 - 03/15/2020 Provider: Mick Ngo MD Diagnosis: HCC-Chronic obstruct danny pulmon disease w acute lower resp in 2 puffs,4 times a day as needed Incruse Ellipta 62.5 MCG/INH Inhalation Aerosol Powder Breath Activated 11/15/2019 - 03/15/2020 Provider: Mick Ngo MD Diagnosis: HCC-Chronic obstruct danny pulmon disease w acute lower resp in one puff qd Klor-Con M10 10 MEQ Oral Tablet Extended Release 11/07/2019 - 02/28/2020 Provider: Mick Ngo MD Diagnosis: Hypokalemia TAKE ONE TABLET BY MOUTH EVERY DAY FOR HYPOKALEMIA Losartan Potassium 50 MG Oral Tablet 11/07/2019 - 02/28/2020 Provider: Mick Ngo MD Diagnosis: Essential (primary) hypertension TAKE ONE TABLET BY MOUTH EVERY MORNING hydroCHLOROthiazide 25 MG Oral Tablet 10/24/2019 - 0 Provider: Mick Ngo MD Diagnosis: Essential (primary) hypertension 1 every day Incruse Ellipta 62.5 MCG/INH Inhalation Aerosol Powder Breath Activated 07/25/2019 - 11/15/2019 Provider: Mick Ngo MD Diagnosis: HCC-Chronic obstruct danny pulmon disease w acute lower resp in one puff qd Losartan Potassium 50 MG Oral Tablet 07/25/2019 - 11/07/2019 Provider: Mick Ngo MD Diagnosis: Essential (primary) hypertension 1 Every morning PO Klor-Con M10 10 MEQ Oral Tablet Extended Release 07/25/2019 - 11/07/2019 Provider: Mick Ngo MD Diagnosis: Hypokalemia 10 meq po QD for hypokalemia Ventolin HFA 108 (90 Base) MCG/ACT Inhalation Aerosol Solution 07/25/2019 - 11/15/2019 Provider: Mick Ngo MD Diagnosis: HCC-Chronic obstruct danny pulmon disease w acute lower resp in 2 puffs,4 times a day as needed Albuterol Sulfate (2.5 MG/3ML) 0.083% Inhalation Nebul ization solution 07/25/2019 - 11/15/2019 Provider: Mick Ngo MD Diagnosis: Other pneumonia, uns pecified organism 1 vial QID hydroCHLOROthiazide 12.5 MG Oral Capsule 07/25/2019 - 2019 Provider: Mick Ngo MD Diagnosis: Essential (primary) hypertension 1 Every morning PO Incruse Ellipta 62.5 MCG/INH Inhalation Aerosol Powder Breath Activated 06/26/2019 - 07/25/2019 Provider: Melissa Faria MD Diagnosis: HCC-Chronic obstruct danny pulmon disease w acute lower resp in NEEDS TO KEEP F/U APPT Incruse Ellipta 62.5 MCG/INH Inhalation Aerosol Powder Breath Activated 05/31/2019 - 05/31/2019 Provider: Mick Ngo MD Diagnosis: HCC-Chronic obstruct danny pulmon disease w acute lower resp in 1 every day PO telephoned to [facility] will need a f/u for any m ore fills. Ventolin HFA 108 (90 Base) MCG/ACT Inhalation Aerosol Solution 05/31/2019 - 07/25/2019 Provider: iMck Ngo MD Diagnosis: HCC-Chronic obstruct danny pulmon disease w acute lower resp in 2 puffs,4 times a day as needed Incruse Ellipta 62.5 MCG/INH Inhalation Aerosol Powder Breath Activated 02/03/2019 - 05/31/2019 Provider: Dorothea Campos Diagnosis: HCC-Chronic obstruct danny pulmon disease w acute lower resp in 1 every day PO Breo Ellipta 100-25MCG/INH Inhalation Aerosol Powder B reath Activated 11/09/2018 - 07/25/2019 Provider: Diagnosis: from pulmo Ventolin HFA 108 (90 Base)MCG/ACT Inhalation Aerosol S olution 11/09/2018 - 05/31/2019 Provider: Dorothea Campos Diagnosis: HCC-Chronic obstruct danny pulmon disease w acute lower resp in 2 puffs,4 times a day as needed Losartan Potassium 50MG Oral Tablet 11/09/2018 - 07/25/2019 Provider: Dorothea Campos Diagnosis: Essential (primary) hypertension 1 Every morning PO Klor-Con M10 Oral Tablet Extended Release 11/09/2018 - 07/24 Provider: Dorothea ZunigaP Diagnosis: Hypokalemia 10 meq po QD for hypokalemia Albuterol Sulfate (2.5 MG/3ML)0.083% Inhalation Nebuli zation solution 11/09/2018 - 07/25/2019 Provider: Dorothea ZunigaP Diagnosis: Other pneumonia, uns pecified organism 1 vial QID hydroCHLOROthiazide 12.5MG Oral Capsule 11/09/2018 - 020 Provider: Dorothea ZunigaP Diagnosis: Essential (primary) hypertension 1 Every morning PO Incruse Ellipta 62.5MCG/INH Inhalation Aerosol Powder Breath Activated 11/09/2018 - 02/03/2019 Provider: Dorothea ZunigaP Diagnosis: HCC-Chronic obstruct danny pulmon disease w acute lower resp in 1 every day PO Ventolin HFA 108 (90 Base)MCG/ACT Inhalation Aerosol, solution 08/10/2018 - 11/09/2018 Provider: Dorothea ZunigaP Diagnosis: HCC-Chronic obstruct danny pulmon disease w acute lower resp in 2 puffs,4 times a day as needed predniSONE 20MG Oral Tablet 08/10/2018 - 08/10/2018 Provider : Dorothea ZunigaP Diagnosis: Chronic obstructive pulmonary disease w (acute) exacerbation Take as directed TAKE 2 TABS ONCE A DAY X 5 DAYS Losartan Potassium 50MG Oral Tablet 08/10/2018 - 11/09/2018 Provider: Dorothea ZunigaP Diagnosis: Essential (primary) hypertension 1 Every morning PO Levaquin 500MG Oral Tablet 08/10/2018 - 08/10/2018 Provider: Dorothea ZunigaP Diagnosis: Acute upper respirat ory infection, unspecified 500mg po QD x 10 days Klor-Con M10 Oral Tablet, controlled-release 08/10/2018 - Provider: Dorothea aCmpos Diagnosis: Hypokalemia 10 meq po QD for hypokalemia Incruse Ellipta 62.5MCG/INH Inhalation Aerosol Powder Breath Activated 08/10/2018 - 11/09/2018 Provider: Dorothea Campos Diagnosis: HCC-Chronic obstruct danny pulmon disease w acute lower resp in 1 every day PO hydroCHLOROthiazide 12.5MG Oral Capsule, conventional 2018 - 11/09/2018 Provider: Dorothea Campos Diagnosis: Essential (primary) hypertension 1 Every morning PO Albuterol Sulfate (2.5 MG/3ML)0.083% Inhalation Nebuli zation solution 08/10/2018 - 11/09/2018 Provider: Dorothea ZunigaP Diagnosis: Other pneumonia, uns pecified organism 1 vial QID D/C THE PREVIOUS SCRIPT Albuterol Sulfate (2.5 MG/3ML)0.083% Inhalation Nebuli zation solution 03/15/2018 - 08/10/2018 Provider: Dorothea ZunigaP Diagnosis: Other pneumonia, uns pecified organism 1 vial QID D/C THE PREVIOUS SCRIPT PredniSONE 20MG Oral Tablet 03/15/2018 - 08/10/2018 Provider : Dorothea Campos Diagnosis: Chronic obstructive pulmonary disease w (acute) exacerbation Take as directed TAKE 2 TABS ONCE A DAY X 5 DAYS Albuterol Sulfate 1.25MG/3ML Inhalation Nebulization s olution 03/15/2018 - 03/15/2018 Provider: Dorothea ZunigaP Diagnosis: Other pneumonia, uns pecified organism Four Times a Day Ventolin HFA 108 (90 Base)MCG/ACT Inhalation Aerosol S olution 03/15/2018 - 08/10/2018 Provider: Dorothea Vences POULTRY VACCINATOR Diagnosis: HCC-Chronic obstruct danny pulmon disease w acute lower resp in 2 puffs,4 times a day as needed Incruse Ellipta 62.5MCG/INH Inhalation Aerosol Powder Breath Activated 03/15/2018 - 08/10/2018 Provider: Dorothea Campos Diagnosis: HCC-Chronic obstruct danny pulmon disease w acute lower resp in 1 every day PO Losartan Potassium 50MG Oral Tablet 03/15/2018 - 08/10/2018 Provider: Dorothea ZunigaP Diagnosis: Essential (primary) hypertension 1 Every morning PO HydroCHLOROthiazide 12.5MG Oral Capsule 03/15/2018 - 019 Provider: Dorothea Vences POULTRY VACCINATOR Diagnosis: Essential (primary) hypertension 1 Every morning PO Klor-Con M10 Oral Tablet Extended Release 03/15/2018 - 08/10 Provider: Dorothea Vences POULTRY VACCINATOR Diagnosis: Hypokalemia 10 meq po QD for hypokalemia Levaquin 500MG Oral Tablet 03/09/2018 - 08/10/2018 Provider: Dorothea Vences POULTRY VACCINATOR Diagnosis: Acute upper respirat ory infection, unspecified 500mg po QD x 10 days Klor-Con M10 Oral Tablet Extended Release 03/09/2018 - 03/15 Provider: Dorothea Vences POULTRY VACCINATOR Diagnosis: Hypokalemia 10 meq po QD for hypokalemia HydroCHLOROthiazide 12.5MG Oral Capsule 01/11/2018 - 018 Provider: Dorothea Vences POULTRY VACCINATOR Diagnosis: Essential (primary) hypertension 1 Every morning Tylenol with Codeine #3 300-30MG Oral Tablet 01/11/2018 - Provider: Dorothea Vences POULTRY VACCINATOR Diagnosis: Inj unsp musc/fasc/t end at forearm level, left arm, init 1 every 4 - 6 hours as needed Losartan Potassium 50MG Oral Tablet 12/28/2017 - 03/15/2018 Provider: Dorothea Vences POULTRY VACCINATOR Diagnosis: Essential (primary) hypertension 1 Every morning Zithromax 250MG Oral Tablet 12/15/2017 - 12/28/2017 Provider : Dorothea Vences POULTRY VACCINATOR Diagnosis: Acute bronchitis due to other specified organisms Take as directed 2 TABS TODAY, THEN 1 TAB DAILY X 4 D AYS Losartan Potassium 25MG Oral Tablet 12/15/2017 - 12/28/2017 Provider: Dorothea Vences POULTRY VACCINATOR Diagnosis: Essential (primary) hypertension 1 Every morning Ventolin HFA 108 (90 Base)MCG/ACT Inhalation Aerosol, solution 12/15/2017 - 03/15/2018 Provider: Dorothea Vences POULTRY VACCINATOR Diagnosis: HCC-Chronic obstruct danny pulmon disease w acute lower resp in 2 puffs,4 times a day as needed Incruse Ellipta 62.5MCG/INH Inhalation Aerosol Powder Breath Activated 12/15/2017 - 03/15/2018 Provider: Dorothea Campos Diagnosis: HCC-Chronic obstruct danny pulmon disease w acute lower resp in 1 every day Ventolin HFA 108 (90 Base)MCG/ACT Inhalation Aerosol, solution 12/15/2017 - 12/15/2017 Provider: Diagnosis: Medications Administered Includes: Administered Medications in patient's chartNo Administered Medications Recorded Vital Signs Includes: Vital Signs from 05/09/2019 through 05/09/2020 Vital Name 05/08/2020 01:11P 03/15/2020 10:17A 01/02/2020 01:45P 12/27/2019 02:13P 11/15/2019 11:00A Blood Pressure Sitting L 130/84 162/94 176/80 BP Cuff Size Regular Regular Regular Regular Regular Pulse Rate-Sitting (bpm) 85 76 87 77 92 Respiration Rate (breaths/min) 20 20 18 24 24 Temp-Temporal 97.7 96.9 96.9 97.8 Height (in) 63.25 63.25 63.25 63.25 63.25 Weight (lb) 123 122 122 123 Body Mass Index (kg/m2) 21.6 21.4 21.4 2 1.6 Body Surface Area (m2) 1.58 1.57 1.57 1. 58 Oxygen Saturation (%) 96 94 96 98 93 Flow Rate (l/min) (None (Room Air)) (None (Room Air)) (None (Emily m Air)) (None (Room Air)) FiO2 (%) 21 21 21 21 Blood Pressure Sitting R 132/86 118/92 Temp-Tympanic (F) 98.9 Vital Name 11/15/2019 10:46A 10/24/2019 02:41P 10/24/2019 02:25P 07/25/2019 02:22P 07/25/2019 01:35P Blood Pressure Sitting L 142/86 138/94 190/80 BP Cuff Size Regular Regular Regular Pulse Rate-Sitting (bpm) 88 Respiration Rate (breaths/min) 20 Height (in) 63.25 63.25 Weight (lb) 127.5 Body Mass Index (kg/m2) 22.4 Body Surface Area (m2) 1.60 Oxygen Saturation (%) 92 Blood Pressure Sitting R 160/92 Temp-Tympanic (F) 96.2 Vital Name 07/25/2019 01:28P BP Cuff Size Regular Pulse Rate-Sitting (bpm) 84 Respiration Rate (breaths/min) 24 Height (in) 63.25 Weight (lb) 128 Body Mass Index (kg/m2) 22.5 Body Surface Area (m2) 1.60 Oxygen Saturation (%) 94 Blood Pressure Sitting R 192/100 Temp-Tympanic (F) 98 Results Includes: Results from 05/09/2019 through 05/09/2020 CBC WITH AUTO DIFF [facility] Ordered by Melissa Faria MD on 04/09/[address] [place] [address], [phone] Collected: 04/09/2020 Reported: 04/09/2020 14:42 tel :[phone] WHITE BLOOD COUNT 9.5 3/uL (4.0-10.0) N (Normal) RED BLOOD COUNT 4.56 6/uL (4.00-5.40) N (Normal) HEMOGLOBIN 13.9 g/dl (12.0-15.5) N (Normal) HEMATOCRIT 41.9 % (36.0-47.0) N (Normal) MEAN CORPUSCULAR VOLUME 91.9 fl (80.0-96.0) N (Normal) MEAN CORPUSCULAR HEMOGLOBIN 30.5 pg (27.0-33.0) N (Normal) MEAN CORPUSCULAR HGB CONC 33.2 g/dl (32.0-36.5) N (Normal) RED CELL DISTRIBUTION WIDTH 14.8 % (11.5-14.5) H (High) PLATELET COUNT, AUTOMATED 333 3/uL (150-450) N (Normal) NEUTROPHILS % 68.4 % (36.0-66.0) H (High) LYMPH % 20.7 % (24.0-44.0) L (Low) MONO % 9.5 % (0.0-5.0) H (High) EOS % 0.5 % (0.0-3.0) N (Normal) BASO % 0.6 % (0.0-1.0) N (Normal) IMMATURE GRANULOCYTE % 0.3 % (0-3.0) N (Normal) NUCLEATED RED BLOOD CELL % 0.0 % (0-0) N (Normal) NEUTROPHILS # 6.5 3/uL (1.5-8.5) N (Normal) LYMPH # 2.0 3/uL (1.5-5.0) N (Normal) MONO # 0.9 3/uL (0.0-0.8) H (High) EOS # 0.1 3/uL (0.0-0.5) N (Normal) BASO # 0.1 3/uL (0.0-0.2) N (Normal) Reviewed by Melissa Faria MD on 2019; All test results are final unless otherwise noted. Reported Physicians [facility] Ordered by Melissa Faria MD on 04/09/[address] [place] [address], [phone] Collected: 04/09/2020 Reported: 04/09/2020 14:42 tel :[phone] Reported Physicians See Note None Note: Reported Physicians:Ordering: ELVIRA [id number] ArevaloAttending: Albert FELIX To: Albert FELIX To: Melissa Faria Reviewed by Melissa Faria MD on 2019; All test results are final unless otherwise noted. LDH LACTATE DEHYDROGENASE [facility] Ordered by Melissa Faria MD on 02/29/[address] [place] [address], [phone] Collected: 02/29/2020 Reported: 02/29/2020 14:44 tel :[phone] LDH LACTATE DEHYDROGENASE 152 U/L (84-246) N (Normal) Reviewed by Melissa Faria MD on 2019; All test results are final unless otherwise noted. Reported Physicians [facility] Ordered by Melissa Faria MD on 02/29/[address] [place] [address], [phone] Collected: 02/29/2020 Reported: 02/29/2020 14:44 tel :[phone] Reported Physicians See Note None Note: Reported Physicians:Ordering: ELVIRA [id number], JERRY UJamalAttending: Albert FELIX To: Albert FELIX To: Melissa Faria Reviewed by Melissa Faria MD on 2019; All test results are final unless otherwise noted. COMPREHENSIVE METABOLIC PROFIL [facility] Ordered by Melissa Faria MD on 02/29/[address] [place] [address], [phone] Collected: 02/29/2020 Reported: 02/29/2020 14:44 tel : GLUCOSE, FASTING 95 MG/DL (70-100) N (Normal) BLOOD UREA NITROGEN 8 MG/DL (7-18) N (Normal) CREATININE FOR GFR 0.50 MG/DL (0.55-1.30) L (Low) GLOMERULAR FILTRATION RATE > 60.0 (>51) N (Normal) Note: Units are mL/min/1.73 m2 Chroni c Kidney Disease Staging per NKF: Stage I & II GFR >=60 Normal to Mildly Decreased Stage III GFR 30- 59 Moderately Decreased Stage IV GFR 15-29 Severely Decreased Stage V GFR <15 Very Little GFR Left ESRD GFR <15 on SUPERVISOR ELECTRIC SODIUM LEVEL 128 MEQ/L (136-145) L (Low) POTASSIUM SERUM 3.8 MEQ/L (3.5-5.1) N (Normal) CHLORIDE LEVEL 94 MEQ/L (98-107) L (Low) CARBON DIOXIDE LEVEL 29 MEQ/L (21-32) N (Normal) ANION GAP 5 MEQ/L (8-16) L (Low) CALCIUM LEVEL 8.2 MG/DL (8.5-10.1) L (Low) AST/SGOT 14 U/L (7-37) N (Normal) ALT/SGPT 29 U/L (12-78) N (Normal) ALKALINE PHOSPHATASE 129 U/L (45-117) H (High) BILIRUBIN,TOTAL 0.4 MG/DL (0.2-1.0) N (Normal) TOTAL PROTEIN 7.1 GM/DL (6.4-8.2) N (Normal) ALBUMIN 3.3 GM/DL (3.2-5.2) N (Normal) ALBUMIN/GLOBULIN RATIO 0.9 (1.2-2.2) L (Low) Reviewed by Melissa Faria MD on 2019; All test results are final unless otherwise noted. Reported Physicians [facility] Ordered by Melissa Faria MD on 02/29/[address] [place] [address], [phone] Collected: 02/29/2020 Reported: 02/29/2020 14:44 tel :[phone] Reported Physicians See Note None Note: Reported Physicians:Ordering: ELVIRA [id number], JERRY ArzateAttending: Albert FELIX To: Albert FELIX To: Melissa Faria Reviewed by Melissa Faria MD on 2019; All test results are final unless otherwise noted. CBC WITH AUTO DIFF [facility] Ordered by Melissa Faria MD on 02/29/2020 [address] [place], [phone] Collected: 02/29/2020 Reported: 02/29/2020 14:18 tel :[phone] WHITE BLOOD COUNT 25.6 3/uL (4.0-10.0) H (High) RED BLOOD COUNT 4.25 6/uL (4.00-5.40) N (Normal) HEMOGLOBIN 12.8 g/dl (12.0-15.5) N (Normal) HEMATOCRIT 39.2 % (36.0-47.0) N (Normal) MEAN CORPUSCULAR VOLUME 92.2 fl (80.0-96.0) N (Normal) MEAN CORPUSCULAR HEMOGLOBIN 30.1 pg (27.0-33.0) N (Normal) MEAN CORPUSCULAR HGB CONC 32.7 g/dl (32.0-36.5) N (Normal) RED CELL DISTRIBUTION WIDTH 15.2 % (11.5-14.5) H (High) PLATELET COUNT, AUTOMATED 318 3/uL (150-450) N (Normal) NEUTROPHILS % 86.3 % (36.0-66.0) H (High) LYMPH % 5.7 % (24.0-44.0) L (Low) MONO % 6.8 % (0.0-5.0) H (High) EOS % 0.0 % (0.0-3.0) N (Normal) BASO % 0.3 % (0.0-1.0) N (Normal) IMMATURE GRANULOCYTE % 0.9 % (0-3.0) N (Normal) NUCLEATED RED BLOOD CELL % 0.0 % (0-0) N (Normal) NEUTROPHILS # 22.1 3/uL (1.5-8.5) H (High) LYMPH # 1.5 3/uL (1.5-5.0) N (Normal) MONO # 1.8 3/uL (0.0-0.8) H (High) EOS # 0.0 3/uL (0.0-0.5) N (Normal) BASO # 0.1 3/uL (0.0-0.2) N (Normal) Reviewed by Melissa Faria MD on 2019; All test results are final unless otherwise noted. Reported Physicians [facility] Ordered by Melissa Faria MD on 02/29/[address] [place] [address], [address] Collected: 02/29/2020 Reported: 02/29/2020 14:18 tel :[phone] Reported Physicians See Note None Note: Reported Physicians:Ordering: ELVIRA [id number], JERRY ArzateAttending: Albert FELIX To: Albert FELIX To: Melissa Faria Reviewed by Melissa Faria MD on 2019; All test results are final unless otherwise noted. CBC WITH AUTO DIFF [facility] Ordered by Melissa Faria MD on 02/20/[address] [place] [address], [address] Collected: 02/20/2020 Reported: 02/20/2020 10:05 tel :[phone] WHITE BLOOD COUNT 10.6 3/uL (4.0-10.0) H (High) RED BLOOD COUNT 4.76 6/uL (4.00-5.40) N (Normal) HEMOGLOBIN 14.3 g/dl (12.0-15.5) N (Normal) HEMATOCRIT 43.5 % (36.0-47.0) N (Normal) MEAN CORPUSCULAR VOLUME 91.4 fl (80.0-96.0) N (Normal) MEAN CORPUSCULAR HEMOGLOBIN 30.0 pg (27.0-33.0) N (Normal) MEAN CORPUSCULAR HGB CONC 32.9 g/dl (32.0-36.5) N (Normal) RED CELL DISTRIBUTION WIDTH 14.6 % (11.5-14.5) H (High) PLATELET COUNT, AUTOMATED 277 3/uL (150-450) N (Normal) NEUTROPHILS % 75.6 % (36.0-66.0) H (High) LYMPH % 11.7 % (24.0-44.0) L (Low) MONO % 11.6 % (0.0-5.0) H (High) EOS % 0.2 % (0.0-3.0) N (Normal) BASO % 0.5 % (0.0-1.0) N (Normal) IMMATURE GRANULOCYTE % 0.4 % (0-3.0) N (Normal) NUCLEATED RED BLOOD CELL % 0.0 % (0-0) N (Normal) NEUTROPHILS # 8.0 3/uL (1.5-8.5) N (Normal) LYMPH # 1.2 3/uL (1.5-5.0) L (Low) MONO # 1.2 3/uL (0.0-0.8) H (High) EOS # 0.0 3/uL (0.0-0.5) N (Normal) BASO # 0.1 3/uL (0.0-0.2) N (Normal) Reviewed by Melissa Faria MD on 2019; All test results are final unless otherwise noted. Reported Physicians [facility] Ordered by Melissa Faria MD on 02/20/[address] [place] [address], [address] Collected: 02/20/2020 Reported: 02/20/2020 10:05 tel :[phone] Reported Physicians See Note None Note: Reported Physicians:Ordering: ELVIRA [id number], JERRY ArzateAttending: Albert FELIX To: Albert FELIX To: Melissa Faria Reviewed by Melissa Faria MD on 2019; All test results are final unless otherwise noted. CBC WITH AUTO DIFF [facility] Ordered by Melissa Faria MD on 01/22/[address] [place] [address], [address] Collected: 01/22/2020 Reported: 01/22/2020 15:11 tel :[phone] WHITE BLOOD COUNT 14.0 3/uL (4.0-10.0) H (High) RED BLOOD COUNT 4.55 6/uL (4.00-5.40) N (Normal) HEMOGLOBIN 13.7 g/dl (12.0-15.5) N (Normal) HEMATOCRIT 41.3 % (36.0-47.0) N (Normal) MEAN CORPUSCULAR VOLUME 90.8 fl (80.0-96.0) N (Normal) MEAN CORPUSCULAR HEMOGLOBIN 30.1 pg (27.0-33.0) N (Normal) MEAN CORPUSCULAR HGB CONC 33.2 g/dl (32.0-36.5) N (Normal) RED CELL DISTRIBUTION WIDTH 14.6 % (11.5-14.5) H (High) PLATELET COUNT, AUTOMATED 381 3/uL (150-450) N (Normal) NEUTROPHILS % 82.2 % (36.0-66.0) H (High) LYMPH % 8.6 % (24.0-44.0) L (Low) MONO % 8.2 % (0.0-5.0) H (High) EOS % 0.0 % (0.0-3.0) N (Normal) BASO % 0.5 % (0.0-1.0) N (Normal) IMMATURE GRANULOCYTE % 0.5 % (0-3.0) N (Normal) NUCLEATED RED BLOOD CELL % 0.0 % (0-0) N (Normal) NEUTROPHILS # 11.5 3/uL (1.5-8.5) H (High) LYMPH # 1.2 3/uL (1.5-5.0) L (Low) MONO # 1.1 3/uL (0.0-0.8) H (High) EOS # 0.0 3/uL (0.0-0.5) N (Normal) BASO # 0.1 3/uL (0.0-0.2) N (Normal) Reviewed by Melissa Faria MD on 2019; All test results are final unless otherwise noted. Reported Physicians [facility] Ordered by Melissa Faria MD on 01/22/2020 [address] [place], [address] Collected: 01/22/2020 Reported: 01/22/2020 15:11 tel :[phone] Reported Physicians See Note None Note: Reported Physicians:Ordering: ELVIRA [id number], JERRY UJamalAttending: Albert FELIX To: Albert FELIX To: Melissa Faria Reviewed by Melissa Faria MD on 2019; All test results are final unless otherwise noted. LDH LACTATE DEHYDROGENASE [facility] Ordered by Melissa Faria MD on 01/22/[address] [place] [address], [address] Collected: 01/22/2020 Reported: 01/22/2020 15:32 tel :[phone] LDH LACTATE DEHYDROGENASE 151 U/L (84-246) N (Normal) Reviewed by Melissa Farai MD on 2019; All test results are final unless otherwise noted. Reported Physicians [facility] Ordered by Melissa Faria MD on 01/22/[address] [place] [address], [address] Collected: 01/22/2020 Reported: 01/22/2020 15:32 tel :[phone] Reported Physicians See Note None Note: Reported Physicians:Ordering: ELVIRA [id number], JERRY ArzateAttending: Albert FELIX To: Albert FELIX To: Melissa Faria Reviewed by Melissa Faria MD on 2019; All test results are final unless otherwise noted. COMPREHENSIVE METABOLIC PROFIL [facility] Ordered by Melissa Faria MD on 01/22/[address] [place] [address], [address] Collected: 01/22/2020 Reported: 01/22/2020 15:32 tel :[phone] GLUCOSE, FASTING 95 MG/DL (70-100) N (Normal) BLOOD UREA NITROGEN 5 MG/DL (7-18) L (Low) CREATININE FOR GFR 0.46 MG/DL (0.55-1.30) L (Low) GLOMERULAR FILTRATION RATE > 60.0 (>51) N (Normal) Note: Units are mL/min/1.73 m2 Chroni c Kidney Disease Staging per NKF: Stage I & II GFR >=60 Normal to Mildly Decreased Stage III GFR 30- 59 Moderately Decreased Stage IV GFR 15-29 Severely Decreased Stage V GFR <15 Very Little GFR Left ESRD GFR <15 on SUPERVISOR ELECTRIC SODIUM LEVEL 129 MEQ/L (136-145) L (Low) POTASSIUM SERUM 4.1 MEQ/L (3.5-5.1) N (Normal) CHLORIDE LEVEL 96 MEQ/L (98-107) L (Low) CARBON DIOXIDE LEVEL 31 MEQ/L (21-32) N (Normal) ANION GAP 2 MEQ/L (8-16) L (Low) CALCIUM LEVEL 8.0 MG/DL (8.5-10.1) L (Low) AST/SGOT 18 U/L (7-37) N (Normal) ALT/SGPT 31 U/L (12-78) N (Normal) ALKALINE PHOSPHATASE 171 U/L (45-117) H (High) BILIRUBIN,TOTAL 0.6 MG/DL (0.2-1.0) N (Normal) TOTAL PROTEIN 7.3 GM/DL (6.4-8.2) N (Normal) ALBUMIN 3.2 GM/DL (3.2-5.2) N (Normal) ALBUMIN/GLOBULIN RATIO 0.8 (1.2-2.2) L (Low) Reviewed by Melissa Faria MD on 2019; All test results are final unless otherwise noted. Reported Physicians [facility] Ordered by Melissa Faria MD on 01/22/2020 [address] [place], [address] Collected: 01/22/2020 Reported: 01/22/2020 15:32 tel : Reported Physicians See Note None Note: Reported Physicians:Ordering: ELVIRA [id number], JERRY UJamalAttending: Albert FELIX To: Albert FELIX To: Melissa Faria Reviewed by Melissa Faria MD on 2019; All test results are final unless otherwise noted. CBC W AUTO DIFF [facility] Ordered by Mick Ngo MD on 08/03/2019 Collected: 08/03/2019 Reported: 08/03/2019 12:[address] [place] [address], [address] MCV BldCo Auto 89.0 FemtoLiter_[SI_Volume_Units] (80-96) N (Normal) Note: Responsible Observer: MCV MCV 100 .0600 (B) RDW RBC Auto 15 percent (11-15) N (Normal) Note: Responsible Observer: RDW RDW 100 .0900 (B) Manual diff Bld Manual Diff Added None Note: Responsible Observer: CBC Manual D ifferential Added 100.1990 (B) PMV Bld 10.1 FemtoLiter_[SI_Volume_Units] (9.1-13.1) N (Normal) Note: Responsible Observer: MPV MPV 100 .1100 (B) Imm Granulocytes Bld Ql Auto See Note (0-2) N (Normal) Note: [id number] ible Observer: IG% IG% 100.1375 (B) Hct VFr Bld Auto 47.5 percent (37-47) H (High) Note: Responsible Observer: HEMATOCRIT H EMATOCRIT 100.0500 (B) MCHC BldCo-mCnc 32.8 GramsPerDeciLiter_[Mass_Concentration_Units] (33-37) L (Low) Note: Responsible Observer: MCHC MCHC 1 00.0800 (B) Imm Granulocytes # Bld Auto 0.0 Unit (0-0.1) None Note: Responsible Observer: IG# IG# 100 .1400 (B) Monocytes/leuk NFr Bld Auto 15.8 percent (4-12) H (High) Note: Responsible Observer: MONO % MONO % 100.1225 (B) Hgb Bld-sCnc 15.6 GramsPerDeciLiter_[Mass_Concentration_Units] (10.7-15.4) H (High) Note: Responsible Observer: HGB HEMOGLOB IN 100.0400 (B) WBC # Bld Auto 8.1 ThousandsPerMicroLiter_[Number_Concentration_Units] (4.45-10 .71) N (Normal) Note: Responsible Observer: WBC WHITE BL OOD COUNT 100.0100 (E) Basophils # Bld Auto 0.1 Unit (0.0-0.2) N (Normal) Note: Responsible Observer: BASO # BASO# 100.1350 (B) Basophils/leuk NFr Bld Auto 0.7 percent (0.4-1.3) N (Normal) Note: Responsible Observer: BASO % BASO % 100.1325 (B) Eosinophil # Bld Auto 0.8 Unit (0.0-0.5) H (High) Note: Responsible Observer: EOS # EOS# 100.1300 (D) Eosinophil/leuk NFr Bld Auto 9.4 percent (0-7) H (High) Note: Responsible Observer: EOS % EOS % 100.1275 (B) Lymphocytes # Bld Auto 2.4 Unit (0.6-4.6) N (Normal) Note: Responsible Observer: LYMPH # LYMP H# 100.1200 (B) Lymphocytes/leuk NFr Bld Auto 30.2 percent (14-46) N (Normal) Note: Responsible Observer: LYMPH % LYMP H % 100.1175 (B) Monocytes # Bld Auto 1.3 Unit (0.2-1.2) H (High) Note: Responsible Observer: MONO # MONO# 100.1250 (C) Neutrophils # Bld Auto 3.5 Unit (1.7-7.6) N (Normal) Note: Responsible Observer: NEUT# NEUT# 100.1150 (B) Neutrophils/leuk NFr Bld Auto 43.8 percent (41-77) N (Normal) Note: Responsible Observer: NEUT% NEUT% 100.1125 (B) Platelet # Bld Auto 284 ThousandsPerMicroLiter_[Number_Concentration_Units] (130-472 ) N (Normal) Note: Responsible Observer: PLATELET COU NT PLATELET COUNT 100.1000 (D) MCH RBC Qn Auto 29.2 PicoGram_[SI_Mass_Units] (27-31) N (Normal) Note: Responsible Observer: MCH MCH 100 .0700 (B) RBC # Bld Auto 5.34 MillionsPerMicroLiter_[Number_Concentration_Units] (4.20-5.4 0) N (Normal) Note: Responsible Observer: RBC Red Bloo d Count 100.0300 (B) NUCLEATED RED BLOOD CELL# 0 Unit None Note: Responsible Observer: NRBC# NUCLEA LOOB RBC 100.1362 (A) NUCLEATED RED BLOOD CELL 0 percent None Note: Responsible Observer: NRBC% NRBC% 100.1360 (B) NOTES See Note None Note: @08/03/19 1221: MANUAL DIFF added. RFLXG = DIFF. Reviewed by Mick Ngo MD on 07/22; All test results are final unless otherwise noted. [facility] Ordered by Mick Ngo MD on 08/03/2019 Collected: 08/03/2019 Reported: 08/03/2019 13:[address] [place] [address], [address] ALT SerPl w P-5'-P-cCnc 32 enzyme_unit_per_liter (10-49) N (Normal) Note: Responsible Observer: SGPT/ALT SGP T/ALT 400.1750 (G) Calcium SerPl-mCnc 8.4 MilliGramsPerDeciLiter_[Mass_Concentration_Units] (8.5-10.1) L (Low) Note: Responsible Observer: Calcium Calc ium 400.2500 (G) Bilirub SerPl-mCnc 0.4 MilliGramsPerDeciLiter_[Mass_Concentration_Units] (0.3-1.2) N (Normal) Note: Responsible Observer: T DESIREE Total Bilirubin 400.2600 (G) CO2 SerPl-sCnc 28 MilliMolesPerLiter_[Substance_Concentration_Units] (20-31) N (Normal) Note: Responsible Observer: CO2 Carbon D ioxide 400.1400 (G) Chloride SerPl-sCnc 101 MilliMolesPerLiter_[Substance_Concentration_Units] (99-109) N (Normal) Note: Responsible Observer: Chloride Chl oride 400.1250 (G) Glucose SerPl-mCnc 81 MilliGramsPerDeciLiter_[Mass_Concentration_Units] (74-106) N (Normal) Note: Responsible Observer: Glucose Gluc ose 400.1500 (G) Potassium SerPl-sCnc 4.5 MilliMolesPerLiter_[Substance_Concentration_Units] (3.5-5.5) N (Normal) Note: Responsible Observer: K Potassium 400.1210 (G) Prot SerPl-mCnc 7.0 GramsPerDeciLiter_[Mass_Concentration_Units] (5.7-8.2) N (Normal) Note: Responsible Observer: TP Total Pro tein 400.2800 (G) Sodium SerPl-sCnc 133 MilliMolesPerLiter_[Substance_Concentration_Units] (132-146) N (Normal) Note: Responsible Observer: Sodium Sodiu m 400.1100 (G) AST SerPl w P-5'-P-cCnc 19 enzyme_unit_per_liter (0-33) N (Normal) Note: Responsible Observer: SGOT / AST S GOT / AST 400.1900 (G) BUN SerPl-mCnc 7 MilliGramsPerDeciLiter_[Mass_Concentration_Units] (9-23) L (Low) Note: Responsible Observer: BUN Blood Ur ea Nitrogen 400.1000 (G) Anion Gap SerPl-sCnc 9 MilliMolesPerLiter_[Substance_Concentration_Units] (8-16) N (Normal) Note: Responsible Observer: ANION GAP AN ION GAP 400.1402 (E) Albumin SerPl BCP-mCnc 3.6 GramsPerDeciLiter_[Mass_Concentration_Units] (3.2-4.8) N (Normal) Note: Responsible Observer: Albumin Albu min 400.2700 (G) ALP SerPl-cCnc 125 enzyme_unit_per_liter (45-129) N (Normal) Note: Responsible Observer: ALP Alkaline Phosphatase 400.2000 (G) GFR/BSA.pred SerPl-ArVRat Greater Than 60 (ABOVE 60) None Note: Responsible Observer: GFR Glomerul ar Filt Rate Calc 400.1605 (D) Creatinine 0.6 MilliGramsPerDeciLiter_[Mass_Concentration_Units] (0.5-1.1) N (Normal) Note: Responsible Observer: Creatinine C reatinine 400.1600 (G) Reviewed by Mick Ngo MD on 07/22; All test results are final unless otherwise noted. Reported Physicians [facility] Ordered by Mick Ngo MD on 08/03/2019 Collected: 08/03/2019 Reported: 08/03/2019 13:[address] [place] [address], [address] Reported Physicians See Note None Note: Reported Physicians:Ordering: Mick Morris: Mick Ngo Reviewed by Mick Ngo MD on 07/22; All test results are final unless otherwise noted. MANUAL DIFF [facility] Ordered by Mick Ngo MD on 08/03/2019 Collected: 08/03/2019 Reported: 08/03/2019 12:[address] [place] [address], [address] MANUAL DIFF See Note None Note: NOTES OTHER/NOT INTERPRETED Atypical Mononuc # Bld Manual 3 Basophils # Bld Manual 2 %Cells counted 100 Lymphocytes # Bld Manual 28 %Monocytes # Bld Manual 21 %Morphology Bld-Imp APPEARS NORMAL Neutrophils # Bld Manual 46 %Platelet # Bld Est APPEARS NORMAL @08/03/19 1221: MANUAL DIFF added. RFLXG = DIFF.Responsible Observer: TOTAL CELLS TOTAL CELLS COUNTED 100.2105 (A) Reviewed by Mick Ngo MD on 07/22; All test results are final unless otherwise noted. [facility] Ordered by Mick Ngo MD on 08/03/2019 Collected: 08/03/2019 Reported: 08/03/2019 13:[address] [place] [address], [address] TSH SerPl DL<=0.005 mIU/L-aCnc 1.81 MicroInternationalUnitsPerMilliLiter_[Arbitrary_Con (0.35-5. 50) N (Normal) Note: Responsible Observer: TSH TSH 600 .7055 (D) Reviewed by Mick Ngo MD on 07/22; All test results are final unless otherwise noted. Reported Physicians [facility] Ordered by Mick Ngo MD on 08/03/2019 Collected: 08/03/2019 Reported: 08/03/2019 13:[address] [place] [address], [address] Reported Physicians See Note None Note: Reported Physicians:Ordering: Mick Morris: Mick Ngo Reviewed by Mick Ngo MD on 07/22; All test results are final unless otherwise noted. History of Present Illness History of Present Illness not supported for this document typeNo History of Present Illness Recorded Social History Description Last Updated Current every day smoker 05/08/2020 Current smoker 10CPD 05/08/2020 Social history unchanged 05/08/2020 33 YRS. 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 ~TONSILLECTOMY A CHILD. ~BRINA AGE 24 ~ ~[id number] ~ ~ X 3 12/15/2017 History of essential hypertension 12/15/2017 No history of coronary artery disease 12/15/2017 No history of hyperlipidemia 12/15/2017 No history of type 2 diabetes mellitus 12/15/2017 Family History Includes: Family History in patient's chart Description Last Updated MOTHER 72 CHF, HTN, ~FATHER 75 [facility], HEART PROBLEMS ~4 BROTHERS ALL HEALTHY ~2 SISTERS ALL HEALTHY ~ 64 DM ~SON 34 HEALTHY ~SON 30 HEALTHY 12/15/2017 Family history of heart disease 12/15/2017 Family history of hypertension 12/15/2017 No family history of cancer 12/15/2017 No family history of early deaths 12/15/2017 Review of Systems Review of Systems not supported for this document typeNo Review of Systems Recorded Mental Status Mental Status not supported for this document typeNo Mental Status Recorded Functional Status Functional Status not supported for this document typeNo Functional Status Recorded Physical Exam Physical Exam not supported for this document typeNo Physical Exam Recorded Immunizations Includes: Immunizations in patient's chartNo Immunizations Recorded Allergies Includes: Active, inactive, and resolved AllergiesNo Known Allergies Encounters Includes: Encounters from 05/09/2019 through 05/09/2020 Encounter Provider Location Date Check-In Time Check-Out Time D iagnosis EXTENDED VISIT Lula Ramirez NP [facility] 05/08/2020 12:49PM 2:42PM Cardiac Catheterization Technician Malignant Lympho ma Follicular EXTENDED VISIT Lula Noe Ramirez NP [facility], 03/15/2020 10:03AM 11:13AM Arterial Occlusion, Intermittent Claudication, Chronic Obstructive Pulmonary Disease RX UPDATE Lula Noe Ramirez NP [facility] 02/28/2020 01/04/2020 8:12AM 01/04/2020 11:59PM SUTURE REMOVAL Melissa Faria MD [facility], 2:12PM 2:47PM WRITE-IN (SAME DAY) Mick Ngo MD [facility], 01/02/2020 1:27PM 2:45PM Postprocedural Compl ication of Skin and Subcutaneous Tissue Hematoma SURGERY Melissa Faria MD [facility], 12/27/19 20 2:10PM 3:21PM Essential Hypertension Benign, Lymphaden opathy EXTENDED VISIT Mick Ngo MD [facility], 11/15/2019 10:42AM 11:31AM Lymphadenopathy EXTENDED VISIT Mick Ngo MD [facility], 10/24/2019 2:18PM 3:02PM Chronic Obstructive Pulmonar y Disease, Essential Hypertension Benign, Enlargement of Lymph Nodes EXTENDED VISIT Mick Ngo MD [facility], 07/25/2019 12:52PM 2:50PM Chronic Obstructive Pulmonar y Disease with Acute Lower Respiratory Infection, Essential Hypertension Benign RX UPDATE Mick Ngo MD [facility], 11/09/2018 12:01PM 11/09/2018 11:59PM Insurance Includes: Active Insurance Policies Plan Name Member ID Group # Subscriber Relationship Effective Da johnny 1 - [employer] 1 [id number] Jessica banks Self Advance Directives Includes: Current Advance DirectivesNo Advance Directives Recorded Health Concerns Includes: Active Health ConcernsNo Active Health Concerns Recorded Goals Includes: Active GoalsNo Active Goals Recorded Interventions Includes: Interventions for active GoalsNo Interventions Recorded Evaluations & Outcomes Includes: Evaluations & Outcomes for active GoalsNo Outcomes Recorded
--- OUTSIDE RECORDS SUMMARY | 2020-06-19 10:54 | CCD ---
Author Author [facility] Organization [facility] Address Unknown Phone Unavailable Support Name Relationship Address Phone UE Next Of Kin Unknown Unavailable Michelle OLIVARES Next Of Kin [address] [place] [address] BETO OLIVARES Next Of Kin [address] [place] [address] AD[place] Next Of Kin [address] [place] [address] Marva OLIVARES ANDMAE Next Of Kin [address] [place] [phone] [place] [address] Racquel CESPEDES Next Of Kin [address] [place] [address] HOME ELISE ABRKER Next Of Kin [address] [place] [phone] [employer] Next Of Kin - - -, - - - NO OTHERS Next Of Kin Unknown Unavailable LETTUCE FEED YOU Next Of Kin Unknown Unavailable EFRAIN OLIVARES Next Of Kin [address] [place] [phone] LUCERO OLIVARES Next Of Kin [address] [place] [phone] LUCERO OLIVARES Next Of Kin [address] [place] [phone] UN Next Of Kin Unknown Unavailable [place]CD[place] [address] SH[place]ITA [place] [address] Michelle OLIVARES Next Of Kin [address] [place] [phone] Efrain Olivares ECON Unknown [phone] Rickey Olivares ECON [address] [place] [address] [phone] Care Team Providers Care Comfort Advisor Name Role Phone Dayo Brown MD Unavailable Unavailable Dayo Brown MD Unavailable Unavailable Dayo Brown MD Unavailable Unavailable Dayo Brown MD Unavailable Unavailable Dayo Brown MD Unavailable Unavailable Dayo Brown MD Unavailable Unavailable Sim, L Alie RPA Unavailable Unavailable Sim, L Alie RPA Unavailable Unavailable Sim, L Alie RPA Unavailable Unavailable Sim, L Alie RPA Unavailable Unavailable Sim, L Alie RPA Unavailable Unavailable Sim, L Alie RPA Unavailable Unavailable Sim, L Alie RPA Unavailable Unavailable Sim, L Alie RPA Unavailable Unavailable Sim, L Alie RPA Unavailable Unavailable Sim, L Alie RPA Unavailable Unavailable Sim, L Alie RPA Unavailable Unavailable Sim, L Alie RPA Unavailable Unavailable Sim, L Alie RPA Unavailable Unavailable Sim, L Alie RPA Unavailable Unavailable Sim, L Alie RPA Unavailable Unavailable Sim, L Alie RPA Unavailable Unavailable Sim, L Alie RPA Unavailable Unavailable Sim, L Alie RPA Unavailable Unavailable Sim, L Alie RPA Unavailable Unavailable Sim, L Alie RPA Unavailable Unavailable Sim, L Alie RPA Unavailable Unavailable Sim, L Alie RPA Unavailable Unavailable Sim, L Alie RPA Unavailable Unavailable Sim, L Alie RPA Unavailable Unavailable Sim, L Alie RPA Unavailable Unavailable Sim, L Alie RPA Unavailable Unavailable Sim, L Alie RPA Unavailable Unavailable Sim, L Alie RPA Unavailable Unavailable Sim, L Alie RPA Unavailable Unavailable Sim, L Alie RPA Unavailable Unavailable Sim, L Laie RPA Unavailable Unavailable Sim, L Alie RPA Unavailable Unavailable Mick Ngo MD Unavailable Unavailable Mick Ngo MD Unavailable Unavailable Mick Ngo MD Unavailable Unavailable Mick Ngo MD Unavailable Unavailable Mick Ngo MD Unavailable Unavailable Mick Ngo MD Unavailable Unavailable Mick Ngo MD Unavailable Unavailable Mcik Ngo MD Unavailable Unavailable Mick Ngo MD Unavailable Unavailable Mick Ngo MD Unavailable Unavailable Mick Ngo MD Unavailable Unavailable Mick Ngo MD Unavailable Unavailable Jeni, Mick CHING Unavailable Unavailable Jeni, Mick CHING Unavailable Unavailable Jeni, Mick CHING Unavailable Unavailable Jeni, Mick CHING Unavailable Unavailable Jeni, Mick HCING Unavailable Unavailable Jeni, Mick CHING Unavailable Unavailable Jeni, Mick CHING Unavailable Unavailable Jeni, Mick CHING Unavailable Unavailable Jeni, Mick CHING Unavailable Unavailable Jeni, Mick CHING Unavailable Unavailable Jeni, Mick CHING Unavailable Unavailable Jeni, Mick CHING Unavailable Unavailable Jeni, Mick CHING Unavailable Unavailable Jeni, Mick CHING Unavailable Unavailable Jeni, Mick CHING Unavailable Unavailable Jeni, Mick CHING Unavailable Unavailable Jeni, Mick CHING Unavailable Unavailable Jeni, Mick CHING Unavailable Unavailable Jeni, Mick CHING Unavailable Unavailable Jeni, Mick CHING Unavailable Unavailable Jeni, Mick CHING Unavailable Unavailable Jeni, Mick CHING Unavailable Unavailable Jeni, Mick CHING Unavailable Unavailable Jeni, Mick CHING Unavailable Unavailable Jeni, Mick CHING Unavailable Unavailable Jeni, Mick CHING Unavailable Unavailable Jeni, Mick CHING Unavailable Unavailable Jeni, Mick CHING Unavailable Unavailable Jeni, Mick CHING Unavailable Unavailable Jeni, Mick CHING Unavailable Unavailable Jeni, Mick CHING Unavailable Unavailable Jeni, Mick CHING Unavailable Unavailable Jeni, Mick CHING Unavailable Unavailable Jeni, Mick CHING Unavailable Unavailable Jeni, Mick CHING Unavailable Unavailable Jeni, Mick CHING Unavailable Unavailable Jeni, Mick CHING Unavailable Unavailable Jeni, Mick CHING Unavailable Unavailable Jeni, Mick CHING Unavailable Unavailable Jeni, Mick CHING Unavailable Unavailable Jeni, Mick CHING Unavailable Unavailable Jeni, Mick CHING Unavailable Unavailable PUC, Lopez KAT MD Unavailable Unavailable Lopez HERNANDEZ MD Unavailable Unavailable Lopez HERNANDEZ MD Unavailable Unavailable Lopez HERNANDEZ MD Unavailable Unavailable Lopez HERNANDEZ MD Unavailable Unavailable PUCLopez MD Unavailable Unavailable PUCLopez MD Unavailable Unavailable PUCLopez MD Unavailable Unavailable PUCLopez MD Unavailable Unavailable PUCLopez MD Unavailable Unavailable PUCLopez MD Unavailable Unavailable Lopez HERNANDEZ MD Unavailable Unavailable Lopez HERNANDEZ MD Unavailable Unavailable PUCLopez MD Unavailable Unavailable PUCLopez MD Unavailable Unavailable PUC, Lopez KAT MD Unavailable Unavailable PUC, Lopez KAT MD Unavailable Unavailable PUC, Lopez KAT MD Unavailable Unavailable PUCLopez MD Unavailable Unavailable Lopez HERNANDEZ MD Unavailable Unavailable DAVID, Lopez KAT MD Unavailable Unavailable PUC, Lopez KAT MD Unavailable Unavailable PUC, Lopez KAT MD Unavailable Unavailable PUC, Lopez KAT MD Unavailable Unavailable PUC, Lopez KAT MD Unavailable Unavailable PUC, Lopez KAT MD Unavailable Unavailable PUC, Lopez KAT MD Unavailable Unavailable PUC, Lopez KAT MD Unavailable Unavailable PUC, Lopez KAT MD Unavailable Unavailable PUC, Lopez KAT MD Unavailable Unavailable PUC, Lopez KAT MD Unavailable Unavailable PUC, Lopze KAT MD Unavailable Unavailable PUC, Lopez KTA MD Unavailable Unavailable PUC, Lopez KAT MD Unavailable Unavailable PUC, Lopez KAT MD Unavailable Unavailable PUC, Lopez KAT MD Unavailable Unavailable PUC, Lopez KAT MD Unavailable Unavailable PUC, Lopez KAT MD Unavailable Unavailable PUC, Lopez KAT MD Unavailable Unavailable PUC, Lopez KAT MD Unavailable Unavailable PUC, Lopez KAT MD Unavailable Unavailable PUC, Lopez KAT MD Unavailable Unavailable PUC, Lopez KAT MD Unavailable Unavailable PUC, Lopez KAT MD Unavailable Unavailable PUC, Lopez KAT MD Unavailable Unavailable PUC, Lopez KAT MD Unavailable Unavailable PUC, S NORTH CHING Unavailable Unavailable PUC, Lopez KAT MD Unavailable Unavailable PUC, Lopez KAT MD Unavailable Unavailable PUC, Lopez KAT MD Unavailable Unavailable PUC, Lopez KAT MD Unavailable Unavailable PUC, Lopez KAT MD Unavailable Unavailable PUC, Lopez KAT MD Unavailable Unavailable PUC, Lopez KAT MD Unavailable Unavailable PUC, Lopez KAT MD Unavailable Unavailable PUC, Lopez KAT MD Unavailable Unavailable PUC, Lopez KAT MD Unavailable Unavailable PUC, Lopez KAT MD Unavailable Unavailable PUC, Lopez KAT MD Unavailable Unavailable PUC, Lopez KAT MD Unavailable Unavailable PUC, Lopez KAT MD Unavailable Unavailable PUC, Lopez KAT MD Unavailable Unavailable PUC, Lopez KAT MD Unavailable Unavailable PUC, Lopez KAT MD Unavailable Unavailable PUC, Lopez KAT MD Unavailable Unavailable PUC, Lopez KAT MD Unavailable Unavailable PUC, Lopez KAT MD Unavailable Unavailable PUC, Lopez KAT MD Unavailable Unavailable PUC, Lopez KAT MD Unavailable Unavailable PUC, Lopez KAT MD Unavailable Unavailable PUC, Lopez KAT MD Unavailable Unavailable PUC, Lopez KAT MD Unavailable Unavailable PUC, Lopez KAT MD Unavailable Unavailable PUC, Lopez KAT MD Unavailable Unavailable PUC, Lopez KAT MD Unavailable Unavailable PUC, Lopez KAT MD Unavailable Unavailable PUC, Lopez KAT MD Unavailable Unavailable PUC, Lopez KAT MD Unavailable Unavailable PUC, Lopez KAT MD Unavailable Unavailable PUC, Lopez KAT MD Unavailable Unavailable PUC, Lopez KAT MD Unavailable Unavailable PUC, Lopez KAT MD Unavailable Unavailable Mick Ngo MD Unavailable Unavailable Mick Ngo MD Unavailable Unavailable Mick Ngo MD Unavailable Unavailable Mick Ngo MD Unavailable Unavailable Mick Ngo MD Unavailable Unavailable Mick Ngo MD Unavailable Unavailable Mick Ngo MD Unavailable Unavailable JeniMick MD Unavailable Unavailable JeniMick MD Unavailable Unavailable JeniMick MD Unavailable Unavailable JeniMick MD Unavailable Unavailable JeniMick MD Unavailable Unavailable Jeni, Mick CHING Unavailable Unavailable JeniMick MD Unavailable Unavailable JeniMick MD Unavailable Unavailable JeniMick MD Unavailable Unavailable JeniMick MD Unavailable Unavailable JeniMick krishnamurthy MD Unavailable Unavailable JeniMick krishnamurthy MD Unavailable Unavailable JeniMick MD Unavailable Unavailable JeniMick MD Unavailable Unavailable JeniMick MD Unavailable Unavailable JeniMick MD Unavailable Unavailable JeniMick MD Unavailable Unavailable JeniMick MD Unavailable Unavailable JeniMick MD Unavailable Unavailable JeniMick krishnamurthy MD Unavailable Unavailable JeniMick krishnamurthy MD Unavailable Unavailable JeniMick MD Unavailable Unavailable JeniMick MD Unavailable Unavailable JeniMick MD Unavailable Unavailable JeniMick MD Unavailable Unavailable JeniMick MD Unavailable Unavailable Mick Ngo MD Unavailable Unavailable Mick Ngo MD Unavailable Unavailable Mick Ngo MD Unavailable Unavailable Mick Ngo MD Unavailable Unavailable Mick Ngo MD Unavailable Unavailable Mick Ngo MD Unavailable Unavailable JeniMick MD Unavailable Unavailable JeniMick MD Unavailable Unavailable JeniMick MD Unavailable Unavailable JeniMick MD Unavailable Unavailable Mick Ngo MD Unavailable Unavailable Mick Ngo MD Unavailable Unavailable JeniMick krishnamurthy MD Unavailable Unavailable Mick Ngo MD Unavailable Unavailable JeniMick MD Unavailable Unavailable JeniMick MD Unavailable Unavailable JeniMick MD Unavailable Unavailable JeniMick krishnamurthy MD Unavailable Unavailable JeniMick krishnamurthy MD Unavailable Unavailable Mick Ngo MD Unavailable Unavailable JeniMick krishnamurthy MD Unavailable Unavailable Giana, Marva Torres MD Unavailable Unavailable Giana, Marva Torres MD Unavailable Unavailable Giana, Marva Torres MD Unavailable Unavailable Giana, Marva Torres MD Unavailable Unavailable Giana, Marva Torres MD Unavailable Unavailable Giana, Marva Torres MD Unavailable Unavailable Giana, Marva Torres MD Unavailable Unavailable Giana, Marva Torres MD Unavailable Unavailable Giana, Marva Torres MD Unavailable Unavailable Giana, Marva Torres MD Unavailable Unavailable Giana, Marva Torres MD Unavailable Unavailable Giana, Marva Torres MD Unavailable Unavailable Giana, Marva Torres MD Unavailable Unavailable Giana, Marva Torres MD Unavailable Unavailable Giana, Marva Torres MD Unavailable Unavailable Giana, Marva Torres MD Unavailable Unavailable Giana, Marva Torres MD Unavailable Unavailable Giana, Marva Torres MD Unavailable Unavailable Giana, Marva Torres MD Unavailable Unavailable Giana, Marva Torres MD Unavailable Unavailable Giana, Marva Torres MD Unavailable Unavailable Giana, Marva Torres MD Unavailable Unavailable Giana, Marva Torres MD Unavailable Unavailable Giana, Marva Torres MD Unavailable Unavailable Giana, Marva Torres MD Unavailable Unavailable Giana, Marva Torres MD Unavailable Unavailable Giana, Marva Torres MD Unavailable Unavailable Giana, Marva Torres MD Unavailable Unavailable Giana, Marva Torres MD Unavailable Unavailable Giana, Marva Torres MD Unavailable Unavailable Giana, Marva Torres MD Unavailable Unavailable Giana, Marva Torres MD Unavailable Unavailable Giana, Marva Torres MD Unavailable Unavailable Giana, Marva Torres MD Unavailable Unavailable Giana, Mrava Torres MD Unavailable Unavailable Giana, Marva Torres MD Unavailable Unavailable Giana, Marva Torres MD Unavailable Unavailable Giana, Marva Torres MD Unavailable Unavailable Giana, Marva Torres MD Unavailable Unavailable Giana, Marva Torres MD Unavailable Unavailable Giana, Marva Torres MD Unavailable Unavailable Giana, Marva Torres MD Unavailable Unavailable Giana, Marva Torres MD Unavailable Unavailable Giana, Marva Torres MD Unavailable Unavailable Giana, Marva Torres MD Unavailable Unavailable Giana, Marva Torres MD Unavailable Unavailable Giana, Marva Torres MD Unavailable Unavailable Giana, Marva Torres MD Unavailable Unavailable Giana, Marva Torres MD Unavailable Unavailable Giana, Marva Torres MD Unavailable Unavailable Giana, Marva Torres MD Unavailable Unavailable Giana, Marva Torres MD Unavailable Unavailable Giana, Marva Torres MD Unavailable Unavailable Giana, Marva Torres MD Unavailable Unavailable Giana, Marva Torres MD Unavailable Unavailable Giana, Marva Torres MD Unavailable Unavailable Giana, Marva Torres MD Unavailable Unavailable Giana, Marva Torres MD Unavailable Unavailable Gaina, Marva Torres MD Unavailable Unavailable Giana, Marva Torres MD Unavailable Unavailable Giana, Marva Torres MD Unavailable Unavailable Giana, Marva Torres MD Unavailable Unavailable Giana, Marva Torres MD Unavailable Unavailable Giana, Marva Torres MD Unavailable Unavailable Giana, Marva Torres MD Unavailable Unavailable Giana, Marva Torres MD Unavailable Unavailable Giana, Marva Torres MD Unavailable Unavailable Giana, Marva Torres MD Unavailable Unavailable Giana, Marva Torres MD Unavailable Unavailable Giana, C Melissa CHING Unavailable Unavailable Giana, C Melissa CHING Unavailable Unavailable Giana, C Melissa CHING Unavailable Unavailable Giana, C Melissa CHING Unavailable Unavailable Giana, C Melissa CHING Unavailable Unavailable Giana, C Melissa CHING Unavailable Unavailable Giana, C Melissa MD Unavailable Unavailable [place], Mariae Lula PAPERHANGER PIPE Unavailable Unavailable [place], Mariae [place] PAPERHANGER PIPE Unavailable Unavailable James, Mariae Lula PAPERHANGER PIPE Unavailable Unavailable James, Mariae Lula PAPERHANGER PIPE Unavailable Unavailable [place], Mariae Lula PAPERHANGER PIPE Unavailable Unavailable James, Mariae [place] PAPERHANGER PIPE Unavailable Unavailable [place], Mariae Lula PAPERHANGER PIPE Unavailable Unavailable [place], Mariae Lula PAPERHANGER PIPE Unavailable Unavailable James, Mariae Lula PAPERHANGER PIPE Unavailable Unavailable James, Mariae [place] PAPERHANGER PIPE Unavailable Unavailable [place], Mariae [place] PAPERHANGER PIPE Unavailable Unavailable James, Mariae Lula PAPERHANGER PIPE Unavailable Unavailable James, Mariae [place] PAPERHANGER PIPE Unavailable Unavailable James, Mariae [place] PAPERHANGER PIPE Unavailable Unavailable Re-disclosure Warning The records that you are about to access may contain information from federally-assisted alcohol or drug abuse programs. If such information is present, then the following federally mandated warning applies: This information has been disclosed to you from records protected by federal confidentiality rules (42 CFR part 2). The federal rules prohibit you from making any further disclosure of this information unless further disclosure is expressly permitted by the written consent of the person to whom it pertains or as otherwise permitted by 42 CFR part 2. A general authorization for the release of medical or other information is NOT sufficient for this purpose. The Federal rules restrict any use of the information to criminally investigate or prosecute any alcohol or drug abuse patient.The records that you are about to access may contain highly sensitive health information, the redisclosure of which is protected by Article 27-F of the [place] State Public Health law. If you continue you may have access to information: Regarding HIV / AIDS; Provided by facilities licensed or operated by the [facility] Office of Mental Health; or Provided by the [facility] Office for People With Developmental Disabilities. If such information is present, then the following [facility] mandated warning applies: This information has been disclosed to you from confidential records which are protected by state law. State law prohibits you from making any further disclosure of this information without the specific written consent of the person to whom it pertains, or as otherwise permitted by law. Any unauthorized further disclosure in violation of state law may result in a fine or detention sentence or both. A general authorization for the release of medical or other information is NOT sufficient authorization for further disc losure. Family History Family Member Name Family Member Gender Family Member Status Date o f Status Description Data Source(s) Unknown Male Problem [facility] ([facility]) pacemaker Encounters Encounter Providers Location Date Indications Data Source(s ) Outpatient Attender: NORTH HERNANDEZ MD 06/05/2020 07:29:00 AM E [facility] Admission cancelled. Disregard status an d admitted date. Outpatient<td ID="encounterTypeDescripti onID0">EXTENDED VISIT</td><td>Lula Ramirez NP</td><td>[facility]</td><td>05/08/2020</td><td>12:49PM</td><td>2:42PM</td><td><content ID="encounterDiagnosisID0-0">Alterations Tailor Malignant Lymphoma Follicular</content></td> Attender: Lula Ramirez NP [facility] 05/08/2020 12:49:00 PM EST - 05/08/2020 02:42:00 PM EST Alterations Tailor Malignant Lymphoma Follicular [place] ([facility]) Alterations Tailor Malignant Lymphoma Follicular Outpatient Attender: Alie Zaldivar/Juliana/Raghu/Clari meléndez 04/23/2020 10:00:00 AM EST [facility] Outpatient<td ID="encounterTypeDescripti onID1">EXTENDED VISIT</td><td>Lula Ramirez NP</td><td>[facility]</td><td>03/15/2020</td><td>10:03AM</td><td>11:13AM</td><td><content ID="encounterDiagnosisID1-0">Arterial Occlusion</content>, <content ID="encounterDiagnosisID1-1">Intermittent Claudication</content>, <content ID="encounterDiagnosisID1-2">Chronic Obstructive Pulmonary Disease</content></td> Attender: Lula Ramirez NP [facility] 03/15/2020 10:03:00 AM EDT - 03/15/2020 11:13:00 AM ED T Intermittent ClaudicationArterial OcclusionIntermittent ClaudicationArterial OcclusionChronic Obstructive Pulmonary DiseaseChronic Obstructive Pulmonary Disease PO ([facility]) Intermittent Claudication Arterial Occlusion Intermittent Claudication Arterial Occlusion Chronic Obstructive Pulmonary Disease Chronic Obstructive Pulmonary Disease Outpatient Admitter: Dayo Brown MDReferrer: Dayo Brown MD 02/20/2020 12:00:00 AM EDT [facility] Outpatient<td ID="encounterTypeDescripti onID3">SUTURE REMOVAL</td><td>Melissa Faria MD</td><td>[facility]</td><td>01/04/2020</td><td>2:12PM</td><td>2:47PM</td><td></td> Attender: Melissa Faria MD [facility] 01/04/2020 02:12:00 PM EDT - 01/04/2020 02:47:00 PM EDT PO ([facility]) Outpatient<td ID="encounterTypeDescripti onID2">RX UPDATE</td><td>Lula Ramirez NP</td><td>[facility]</td><td>02/28/2020</td><td>01/04/2020 8:12AM</td><td>01/04/2020 11:59PM</td><td></td> Attender: Lula Ramirez NP [facility] 01/04/2020 08:12:00 AM EDT - 01/04/2020 11:59:00 PM EDT [place] ([facility]) Outpatient<td ID="encounterTypeDescripti onID4">WRITE-IN (SAME DAY)</td><td>Mick Ngo MD</td><td>[facility]</td><td>01/02/2020</td><td>1:27PM</td><td>2:45PM</td><td><content ID="encounterDiagnosisID4-0">Postprocedural Complication of Skin and Subcutaneous Tissue Hematoma</content></td> Attender: Mick Ngo MD [facility], 01/02/2020 01:27:00 PM EDT - 01/02/2020 02:45:00 PM ED T Postprocedural Complication of Skin and Subcutaneous Tissue HematomaPostprocedural Complication of Skin and Subcutaneous Tissue HematomaPostprocedural Complication of Skin and Subcutaneous Tissue Hematoma [place] ([facility]) Postprocedural Complication of Skin and Subcutaneous Tissue Hematoma Postprocedural Complication of Skin and Subcutaneous Tissue Hematoma Postprocedural Complication of Skin and Subcutaneous Tissue Hematoma Outpatient<td ID="encounterTypeDescripti onID5">SURGERY</td><td>Melissa Faria MD</td><td>[facility]</td><td>12/27/2019</td><td>2:10PM</td><td>3:21PM</td><td><content ID="encounterDiagnosisID5-0">Essential Hypertension Benign</content>, <content ID="encounterDiagnosisID5-1">Lymphadenopathy</content></td> Attender: Melissa Faria MD [facility], 12/27/2019 02:10:00 PM EDT - 12/27/2019 03:21:00 PM EDT LymphadenopathyLymphadenopathyLymphadenopathyLymphadenopathyEssential Hypertension BenignEssential Hypertension BenignEssential Hypertension BenignEssential Hypertension Benign [place] ([facility]) Lymphadenopathy Lymphadenopathy Lymphadenopathy Lymphadenopathy Essential Hypertension Benign Essential Hypertension Benign Essential Hypertension Benign Essential Hypertension Benign Outpatient<td ID="encounterTypeDescripti onID6">EXTENDED VISIT</td><td>Mick Ngo MD</td><td>[facility]</td><td>11/15/2019</td><td>10:42AM</td><td>11:31AM</td><td><content ID="encounterDiagnosisID6-0">Lymphadenopathy</content></td> Attender: Mick Ngo MD [facility], 11/15/2019 10:42:00 AM EDT - 11/15/2019 11:31:00 AM EDT LymphadenopathyLymphadenopathyLymphadenopathyLymphadenopathyLymphadenopathy [place] ([facility]) Lymphadenopathy Lymphadenopathy Lymphadenopathy Lymphadenopathy Lymphadenopathy Outpatient Attender: Mick Ngo MD 11/06/2019 0 1:25:00 PM EDT ENLARGED LYNPH NODES R59.0 [facility] ENLARGED LYNPH NODES R59.0 Outpatient<td ID="encounterTypeDescripti onID7">EXTENDED VISIT</td><td>Mick Ngo MD</td><td>[facility],</td><td>10/24/2019</td><td>2:18PM</td><td>3:02PM</td><td><content ID="encounterDiagnosisID7-0">Chronic Obstructive Pulmonary Disease</content>, <content ID="encounterDiagnosisID7-1">Essential Hypertension Benign</content>, <content ID="encounterDiagnosisID7-2">Enlargement of Lymph Nodes</content></td> Attender: Mick Ngo MD [facility], 10/24/2019 02:18:00 PM EDT - 10/24/2019 03:02:00 PM EDT Enlargement of Lymph NodesEnlargement of Lymph NodesEnlargement of Lymph NodesEnlargement of Lymph NodesEnlargement of Lymph NodesEnlargement of Lymph NodesEssential Hypertension BenignChronic Obstru ctive Pulmonary DiseaseEssential Hypertension BenignChronic Obstructive Pulmonary DiseaseEssential Hypertension BenignChronic Obstructive Pulmonary DiseaseEssential Hypertension BenignChronic Obstructive Pulmonary DiseaseEs sential Hypertension BenignChronic Obstructive Pulmonary DiseaseEssential Hypertension BenignChronic Obstructive Pulmonary Disease [place] ([facility]) Enlargement of Lymph Nodes Enlargement of Lymph Nodes Enlargement of Lymph Nodes Enlargement of Lymph Nodes Enlargement of Lymph Nodes Enlargement of Lymph Nodes Essential Hypertension Benign Chronic Obstructive Pulmonary Disease Essential Hypertension Benign Chronic Obstructive Pulmonary Disease Essential Hypertension Benign Chronic Obstructive Pulmonary Disease Essential Hypertension Benign Chronic Obstructive Pulmonary Disease Essential Hypertension Benign Chronic Obstructive Pulmonary Disease Essential Hypertension Benign Chronic Obstructive Pulmonary Disease Outpatient Attender: Mick Ngo MD 08/03/2019 1 1:40:00 AM EDT PULMONARY NODULES, COPD/I10,J44.9 [facility] PULMONARY NODULES, COPD/I10,J44.9 Outpatient<td ID="encounterTypeDescripti [email or web address]">EXTENDED VISIT</td><td>Mick Ngo MD</td><td>[facility],</td><td>07/25/2019</td><td>12:52PM</td><td>2:50PM</td><td><content ID="[email or web address]">Chronic Obstructive Pulmonary Disease with Acute Lower Respiratory Infection</content>, <content ID="[email or web address] 1">Essential Hypertension Benign</content></td> Attender: Mick Ngo MD [facility], 07/25/2019 12:52:00 PM EST - 07/25/2019 02:50:00 PM EST Essential Hypertension BenignEssential H ypertension BenignEssential Hypertension BenignEssential Hypertension BenignEssential Hypertension BenignEssential Hypertension BenignEssential Hypertension BenignChronic Obstructive Pulmonary Disease with Acute Lower Respiratory InfectionChronic Obstructive Pulmonary Disease with Acute Lower Respiratory InfectionChronic Obstructive Pulmonary Disease with Acute Lower Respiratory InfectionChronic Obstructive Pulmonary Disease with Acute Lower Respiratory InfectionChronic Obstructive Pulmonary Disease with Acute Lower Respiratory InfectionChronic Obstructive Pulmonary Disease with Acute Lower Respiratory InfectionChronic Obstructive Pulmonary Disease with Acute Lower Respiratory Infection [place] ([facility]) Essential Hypertension Benign Essential Hypertension Benign Essential Hypertension Benign Essential Hypertension Benign Essential Hypertension Benign Essential Hypertension Benign Essential Hypertension Benign Chronic Obstructive Pulmonary Disease wi th Acute Lower Respiratory Infection Chronic Obstructive Pulmonary Disease wi th Acute Lower Respiratory Infection Chronic Obstructive Pulmonary Disease wi th Acute Lower Respiratory Infection Chronic Obstructive Pulmonary Disease wi th Acute Lower Respiratory Infection Chronic Obstructive Pulmonary Disease wi th Acute Lower Respiratory Infection Chronic Obstructive Pulmonary Disease wi th Acute Lower Respiratory Infection Chronic Obstructive Pulmonary Disease wi th Acute Lower Respiratory Infection Outpatient<td ID="encounterTypeDescripti [email or web address]">RX UPDATE</td><td>Mick Ngo MD</td><td>[facility]</td><td>05/31/2019</td><td>11/09/2018 12:01PM</td><td>11/09/2018 11:59PM</td><td></td> Attender: Mick Ngo MD [facility] 05/31/2019 12:01:00 PM EST - 11/09/2018 11:59:00 PM EDT [place] ([facility]) Medications Medication Brand Name Start Date Product Form Dose Route Admi nistrative Instructions Pharmacy Instructions Status Indications Reaction Description Data Source(s) 50 mg 05/22/2020 12:00:00 AM EST tablet 30 TAKE ONE TABLET BY MOUTH EVERY MORNING TAKE ONE TABLET BY MOUTH EVERY MORNING SOLD: 05/24/2020 [facility] 10 mEq 05/22/2020 12:00:00 AM EST tablet,ER particles/cry stals 30 TAKE ONE TABLET BY MOUTH EVERY DAY FOR HYPOKALEMIA TAKE ONE TABLET BY MOUTH EVERY DAY FOR HYPOKALEMIA SOLD: 05/24/2020 [facility] Losartan Potassium 50 MG Oral Tablet Losartan Potassium 50 M G Oral Tablet 05/03/2020 12:00:00 AM EST active losartan potassium 50 MG Oral Tablet [place] ([facility]) Potassium Chloride 10 MEQ Extended Relea se Oral Tablet [Klor-Con] Klor-Con M10 10 MEQ Oral Tablet Extended Release Klor-Con M10 10 MEQ Oral Tablet Extended Release 05/03/2020 12:00:00 AM EST active potassium chloride 10 MEQ Extended Release Oral Tablet [Klor-Con] [place] ([facility]) 10 mg 04/24/2020 12:00:00 AM EST tablet 30 TAKE ONE TABLET BY MOUTH EVERY 8 HOURS NEEDED FOR NAUSEA AND VOMITING TAKE ONE TABLET BY MOUTH EVERY 8 HOURS NEEDED FOR NAUSEA AND VOMITING SOLD: 04/26/2020 [facility] 8 mg 04/24/2020 12:00:00 AM EST tablet 18 TAKE ONE TABLET BY MOUTH EVERY 8 HOURS NEEDED FOR NAUSEA AND VOMITING TAKE ONE TABLET BY MOUTH EVERY 8 HOURS NEEDED FOR NAUSEA AND VOMITING SOLD: 04/26/2020 [facility] 62.5 mcg/actuation 04/23/2020 12:00:00 AM EST blister with d evice 30 INHALE 1 PUFF ONCE DAILY INHALE 1 PUFF ONCE DAILY SOLD: 04/26/2020 [facility] 62.5 mcg/actuation 04/23/2020 12:00:00 AM EST blister with d evice 30 INHALE 1 PUFF ONCE DAILY INHALE 1 PUFF ONCE DAILY SOLD: 05/24/2020 [facility] 7 ACTUAT umeclidinium 0.0625 MG/ACTUAT D ry Powder Inhaler [Incruse] Incruse Ellipta 62.5 MCG/INH Inhalation Aerosol Powder Breath Activated Incruse Ellipta 62.5 MCG/INH Inhalation Aerosol Powder Breath Activated 03/15/2020 12:00:00 AM EDT 1 active 7 ACTUAT umeclidinium 0.0625 MG/ACTUAT Dry Powder Inhaler [Incruse] PO ([facility]) 200 ACTUAT Albuterol 0.09 MG/ACTUAT Mete red Dose Inhaler [Ventolin] Ventolin HFA 108 (90 Base) MCG/ACT Inhalation Aerosol Solution Ventolin HFA 108 (90 Base) MCG/ACT Inhalation Aerosol Solution 03/15/2020 12:00:00 AM EDT 18 active [id number] 200 ACTUAT albuterol 0.09 MG/ACTUAT Metered Dose Inhaler [Ventolin] [place] ([facility]) 25 mg 02/29/2020 12:00:00 AM EDT tablet 30 TAKE ONE TABLET BY MOUTH EVERY DAY TAKE ONE TABLET BY MOUTH EVERY DAY SOLD: 04/26/2020 [facility] 25 mg 02/29/2020 12:00:00 AM EDT tablet 30 TAKE ONE TABLET BY MOUTH EVERY DAY TAKE ONE TABLET BY MOUTH EVERY DAY SOLD: 03/06/2020 [facility] 25 mg 02/29/2020 12:00:00 AM EDT tablet 30 TAKE ONE TABLET BY MOUTH EVERY DAY TAKE ONE TABLET BY MOUTH EVERY DAY SOLD: 05/24/2020 [facility] 25 mg 02/29/2020 12:00:00 AM EDT tablet 22 TAKE ONE TABLET BY MOUTH EVERY DAY TAKE ONE TABLET BY MOUTH EVERY DAY SOLD: 03/26/2020 [facility] 50 mg 02/28/2020 12:00:00 AM EDT tablet 30 TAKE ONE TABLET BY MOUTH EVERY MORNING TAKE ONE TABLET BY MOUTH EVERY MORNING SOLD: 03/06/2020 [facility] 50 mg 02/28/2020 12:00:00 AM EDT tablet 30 TAKE ONE TABLET BY MOUTH EVERY MORNING TAKE ONE TABLET BY MOUTH EVERY MORNING SOLD: 04/26/2020 [facility] 10 mEq 02/28/2020 12:00:00 AM EDT tablet,ER particles/cry stals 30 TAKE ONE TABLET BY MOUTH EVERY DAY FOR HYPOKALEMIA TAKE ONE TABLET BY MOUTH EVERY DAY FOR HYPOKALEMIA SOLD: 03/06/2020 [facility] 50 mg 02/28/2020 12:00:00 AM EDT tablet 22 TAKE ONE TABLET BY MOUTH EVERY MORNING TAKE ONE TABLET BY MOUTH EVERY MORNING SOLD: 03/26/2020 [facility] Potassium Chloride 10 MEQ Extended Relea se Oral Tablet [Klor-Con] Klor-Con M10 10 MEQ Oral Tablet Extended Release Klor-Con M10 10 MEQ Oral Tablet Extended Release 02/28/2020 12:00:00 AM EDT aborted potassium chloride 10 MEQ Extended Release Oral Tablet [Klor-Con] [place] ([facility]) 10 mEq 02/28/2020 12:00:00 AM EDT tablet,ER particles/cry stals 22 TAKE ONE TABLET BY MOUTH EVERY DAY FOR HYPOKALEMIA TAKE ONE TABLET BY MOUTH EVERY DAY FOR HYPOKALEMIA SOLD: 03/26/2020 [facility] Hydrochlorothiazide 25 MG Oral Tablet hydroCHLOROthiaz joanne 25 MG Oral Tablet hydroCHLOROthiazide 25 MG Oral Tablet 02/28/2020 12:00:00 AM EDT 1 active hydrochlorothiazide 25 MG Oral T ablet [place] ([facility]) Losartan Potassium 50 MG Oral Tablet Losartan Potassium 50 M G Oral Tablet 02/28/2020 12:00:00 AM EDT aborted losartan potassium 50 MG Oral Tablet [place] ([facility]) 10 mEq 02/28/2020 12:00:00 AM EDT tablet,ER particles/cry stals 30 TAKE ONE TABLET BY MOUTH EVERY DAY FOR HYPOKALEMIA TAKE ONE TABLET BY MOUTH EVERY DAY FOR HYPOKALEMIA SOLD: 04/26/2020 [facility] 62.5 mcg/actuation 12/26/2019 12:00:00 AM EDT blister with d evice 30 INHALE ONE PUFF BY MOUTH EVERY DAY INHALE ONE PUFF BY MOUTH EVERY DAY SOLD: 02/27/2020 [facility] 62.5 mcg/actuation 12/26/2019 12:00:00 AM EDT blister with d evice 30 INHALE ONE PUFF BY MOUTH EVERY DAY INHALE ONE PUFF BY MOUTH EVERY DAY SOLD: 12/27/2019 [facility] 62.5 mcg/actuation 12/26/2019 12:00:00 AM EDT blister with d evice 30 INHALE ONE PUFF BY MOUTH EVERY DAY INHALE ONE PUFF BY MOUTH EVERY DAY SOLD: 03/23/2020 [facility] 62.5 mcg/actuation 12/26/2019 12:00:00 AM EDT blister with d evice 30 INHALE ONE PUFF BY MOUTH EVERY DAY INHALE ONE PUFF BY MOUTH EVERY DAY SOLD: 01/23/2020 [facility] 50 mg 11/27/2019 12:00:00 AM EDT tablet 30 TAKE ONE TABLET BY MOUTH EVERY MORNING TAKE ONE TABLET BY MOUTH EVERY MORNING SOLD: 12/27/2019 [facility] 50 mg 11/27/2019 12:00:00 AM EDT tablet 30 TAKE ONE TABLET BY MOUTH EVERY MORNING TAKE ONE TABLET BY MOUTH EVERY MORNING SOLD: 01/23/2020 [facility] 10 mEq 11/27/2019 12:00:00 AM EDT tablet,ER particles/cry stals 30 TAKE ONE TABLET BY MOUTH EVERY DAY FOR HYPOKALEMIA TAKE ONE TABLET BY MOUTH EVERY DAY FOR HYPOKALEMIA SOLD: 01/23/2020 [facility] 50 mg 11/27/2019 12:00:00 AM EDT tablet 30 TAKE ONE TABLET BY MOUTH EVERY MORNING TAKE ONE TABLET BY MOUTH EVERY MORNING SOLD: 12/01/2019 [facility] 10 mEq 11/27/2019 12:00:00 AM EDT tablet,ER particles/cry stals 30 TAKE ONE TABLET BY MOUTH EVERY DAY FOR HYPOKALEMIA TAKE ONE TABLET BY MOUTH EVERY DAY FOR HYPOKALEMIA SOLD: 12/01/2019 [facility] 10 mEq 11/27/2019 12:00:00 AM EDT tablet,ER particles/cry stals 30 TAKE ONE TABLET BY MOUTH EVERY DAY FOR HYPOKALEMIA TAKE ONE TABLET BY MOUTH EVERY DAY FOR HYPOKALEMIA SOLD: 12/27/2019 [facility] 90 mcg/actuation 11/21/2019 12:00:00 AM EDT HFA aerosol inha ler 18 INHALE TWO PUFFS BY MOUTH FOUR TIMES A DAY NEEDED INHALE TWO PUFFS BY MOUTH FOUR TIMES A DAY NEEDED SOLD: 11/25/2019 [facility] 90 mcg/actuation 11/21/2019 12:00:00 AM EDT HFA aerosol inha ler 18 INHALE TWO PUFFS BY MOUTH FOUR TIMES A DAY NEEDED INHALE TWO PUFFS BY MOUTH FOUR TIMES A DAY NEEDED SOLD: 04/26/2020 [facility] 90 mcg/actuation 11/21/2019 12:00:00 AM EDT HFA aerosol inha ler 18 INHALE TWO PUFFS BY MOUTH FOUR TIMES A DAY NEEDED INHALE TWO PUFFS BY MOUTH FOUR TIMES A DAY NEEDED SOLD: 01/28/2020 [facility] 90 mcg/actuation 11/21/2019 12:00:00 AM EDT HFA aerosol inha ler 18 INHALE TWO PUFFS BY MOUTH FOUR TIMES A DAY NEEDED INHALE TWO PUFFS BY MOUTH FOUR TIMES A DAY NEEDED SOLD: 02/29/2020 [facility] 200 ACTUAT Albuterol 0.09 MG/ACTUAT Mete red Dose Inhaler [Ventolin] Ventolin HFA 108 (90 Base) MCG/ACT Inhalation Aerosol Solution Ventolin HFA 108 (90 Base) MCG/ACT Inhalation Aerosol Solution 11/15/2019 12:00:00 AM EDT 18 aborted [id number] 200 ACTUAT albuterol 0.09 MG/ACTUAT Metered Dose Inhaler [Ventolin] [facility]) Albuterol 0.83 MG/ML Inhalant Solution A lbuterol Sulfate (2.5 MG/3ML) 0.083% Inhalation Nebulization solution Albuterol Sulfate (2.5 MG/3ML) 0.083% Inhalation Nebulization solution 11/15/2019 12:00:00 AM EDT active albuterol 0.83 MG/ML Inhalation Solution [place] ([facility]) 7 ACTUAT umeclidinium 0.0625 MG/ACTUAT D ry Powder Inhaler [Incruse] Incruse Ellipta 62.5 MCG/INH Inhalation Aerosol Powder Breath Activated Incruse Ellipta 62.5 MCG/INH Inhalation Aerosol Powder Breath Activated 11/15/2019 12:00:00 AM EDT 1 aborted 7 ACTUAT umeclidinium 0.0625 MG/ACTUAT Dry Powder Inhaler [Incruse] [place] ([facility]) Potassium Chloride 10 MEQ Extended Relea se Oral Tablet [Klor-Con] Klor-Con M10 10 MEQ Oral Tablet Extended Release Klor-Con M10 10 MEQ Oral Tablet Extended Release 11/07/2019 12:00:00 AM EDT aborted potassium chloride 10 MEQ Extended Release Oral Tablet [Klor-Con] [place] ([facility]) Losartan Potassium 50 MG Oral Tablet Losartan Potassium 50 M G Oral Tablet 11/07/2019 12:00:00 AM EDT aborted losartan potassium [address] [facility]) 90 mcg/actuation 11/01/2019 12:00:00 AM EDT HFA aerosol inha ler 18 INHALE 2 PUFFS BY MOUTH FOUR TIMES A DAY NEEDED INHALE 2 PUFFS BY MOUTH FOUR TIMES A DAY NEEDED SOLD: 11/01/2019 [facility] 25 mg 10/25/2019 12:00:00 AM EDT tablet 30 TAKE ONE TABLET BY MOUTH EVERY DAY TAKE ONE TABLET BY MOUTH EVERY DAY SOLD: 12/01/2019 [facility] 25 mg 10/25/2019 12:00:00 AM EDT tablet 30 TAKE ONE TABLET BY MOUTH EVERY DAY TAKE ONE TABLET BY MOUTH EVERY DAY SOLD: 12/27/2019 [facility] 25 mg 10/25/2019 12:00:00 AM EDT tablet 30 TAKE ONE TABLET BY MOUTH EVERY DAY TAKE ONE TABLET BY MOUTH EVERY DAY SOLD: 11/01/2019 [facility] 25 mg 10/25/2019 12:00:00 AM EDT tablet 30 TAKE ONE TABLET BY MOUTH EVERY DAY TAKE ONE TABLET BY MOUTH EVERY DAY SOLD: 01/23/2020 [facility] Hydrochlorothiazide 25 MG Oral Tablet hydroCHLOROthiaz joanne 25 MG Oral Tablet hydroCHLOROthiazide 25 MG Oral Tablet 10/24/2019 12:00:00 AM EDT 1 aborted hydrochlorothiazide 25 MG Oral T ablet [place] ([facility]) 2.5 mg /3 mL (0.083 %) 08/31/2019 12:00:00 AM EDT solu tion for nebulization 75 INHALE ONE VIAL VIA NEBULIZER FOUR TIMES A DAY INHALE ONE VIAL VIA NEBULIZER FOUR TIMES A DAY SOLD: 09/02/2019 [facility] 50 mg 08/31/2019 12:00:00 AM EDT tablet 30 TAKE ONE TABLET BY MOUTH EVERY MORNING TAKE ONE TABLET BY MOUTH EVERY MORNING SOLD: 11/01/2019 [facility] 62.5 mcg/actuation 08/31/2019 12:00:00 AM EDT blister with d evice 30 INHALE ONE PUFF BY MOUTH ONCE DAILY INHALE ONE PUFF BY MOUTH ONCE DAILY SOLD: 10/02/2019 [facility] 62.5 mcg/actuation 08/31/2019 12:00:00 AM EDT blister with d evice 30 INHALE ONE PUFF BY MOUTH ONCE DAILY INHALE ONE PUFF BY MOUTH ONCE DAILY SOLD: 09/02/2019 [facility] 12.5 mg 08/31/2019 12:00:00 AM EDT capsule 30 TAKE ONE CAPSULE BY MOUTH EVERY MORNING TAKE ONE CAPSULE BY MOUTH EVERY MORNING SOLD: 10/02/2019 [facility] 10 mEq 08/31/2019 12:00:00 AM EDT tablet,ER particles/cry stals 30 TAKE ONE TABLET BY MOUTH EVERY DAY FOR HYPOKALEMIA TAKE ONE TABLET BY MOUTH EVERY DAY FOR HYPOKALEMIA SOLD: 09/02/2019 [facility] 10 mEq 08/31/2019 12:00:00 AM EDT tablet,ER particles/cry stals 30 TAKE ONE TABLET BY MOUTH EVERY DAY FOR HYPOKALEMIA TAKE ONE TABLET BY MOUTH EVERY DAY FOR HYPOKALEMIA SOLD: 10/02/2019 [facility] 50 mg 08/31/2019 12:00:00 AM EDT tablet 30 TAKE ONE TABLET BY MOUTH EVERY MORNING TAKE ONE TABLET BY MOUTH EVERY MORNING SOLD: 10/02/2019 [facility] 50 mg 08/31/2019 12:00:00 AM EDT tablet 30 TAKE ONE TABLET BY MOUTH EVERY MORNING TAKE ONE TABLET BY MOUTH EVERY MORNING SOLD: 09/02/2019 [facility] 62.5 mcg/actuation 08/31/2019 12:00:00 AM EDT blister with d evice 30 INHALE ONE PUFF BY MOUTH ONCE DAILY INHALE ONE PUFF BY MOUTH ONCE DAILY SOLD: 11/01/2019 [facility] 10 mEq 08/31/2019 12:00:00 AM EDT tablet,ER particles/cry stals 30 TAKE ONE TABLET BY MOUTH EVERY DAY FOR HYPOKALEMIA TAKE ONE TABLET BY MOUTH EVERY DAY FOR HYPOKALEMIA SOLD: 11/01/2019 [facility] 12.5 mg 08/31/2019 12:00:00 AM EDT capsule 30 TAKE ONE CAPSULE BY MOUTH EVERY MORNING TAKE ONE CAPSULE BY MOUTH EVERY MORNING SOLD: 09/02/2019 [facility] 62.5 mcg/actuation 08/31/2019 12:00:00 AM EDT blister with d evice 30 INHALE ONE PUFF BY MOUTH ONCE DAILY INHALE ONE PUFF BY MOUTH ONCE DAILY SOLD: 12/01/2019 [facility] 7 ACTUAT umeclidinium 0.0625 MG/ACTUAT D ry Powder Inhaler [Incruse] Incruse Ellipta 62.5 MCG/INH Inhalation Aerosol Powder Breath Activated Incruse Ellipta 62.5 MCG/INH Inhalation Aerosol Powder Breath Activated 07/25/2019 12:00:00 AM EST 1 aborted 7 ACTUAT umeclidinium 0.0625 MG/ACTUAT Dry Powder Inhaler [Incruse] [facility] 30 ACTUAT fluticasone furoate 0.1 MG/ACT UAT / vilanterol 0.025 MG/ACTUAT Dry Powder Inhaler [Breo] Breo Ellipta 100-25 MCG/INH Inhalation Aerosol Powder Breath Activated Breo Ellipta 100-25 MCG/INH Inhalation A erosol Powder Breath Activated 07/25/2019 12:00:00 AM EST active 30 ACTUAT fluticasone furoate 0.1 MG/ACTUAT / vilanterol 0.025 MG/ACTUAT Dry Powder Inhaler [Breo] [place] ([facility]) Losartan Potassium 50 MG Oral Tablet Losartan Potassium 50 M G Oral Tablet 07/25/2019 12:00:00 AM EST 1 aborted losartan potassium 50 MG Oral Tablet [place] ([facility]) Potassium Chloride 10 MEQ Extended Relea se Oral Tablet [Klor-Con] Klor-Con M10 10 MEQ Oral Tablet Extended Release Klor-Con M10 10 MEQ Oral Tablet Extended Release 07/25/2019 12:00:00 AM EST aborted potassium chloride 10 MEQ Extended Release Oral Tablet [Klor-Con] [facility]) 200 ACTUAT Albuterol 0.09 MG/ACTUAT Mete red Dose Inhaler [Ventolin] Ventolin HFA 108 (90 Base) MCG/ACT Inhalation Aerosol Solution Ventolin HFA 108 (90 Base) MCG/ACT Inhalation Aerosol Solution 07/25/2019 12:00:00 AM EST 18 aborted [id number] 200 ACTUAT albuterol 0.09 MG/ACTUAT Metered Dose Inhaler [Ventolin] [facility]) Hydrochlorothiazide 12.5 MG Oral Capsule hydroCHLOROthiazide 12.5 MG Oral Capsule hydroCHLOROthiazide 12.5 MG Oral Capsule 07/25/2019 12:00:00 AM EST 1 aborted hydrochlorothiazide 12.[address] [facility]) Albuterol 0.83 MG/ML Inhalant Solution A lbuterol Sulfate (2.5 MG/3ML) 0.083% Inhalation Nebulization solution Albuterol Sulfate (2.5 MG/3ML) 0.083% Inhalation Nebulization solution 07/25/2019 12:00:00 AM EST aborted albuterol 0.83 MG/ML Inhalation Solution [facility]) 7 ACTUAT umeclidinium 0.0625 MG/ACTUAT D ry Powder Inhaler [Incruse] Incruse Ellipta 62.5 MCG/INH Inhalation Aerosol Powder Breath Activated Incruse Ellipta 62.5 MCG/INH Inhalation Aerosol Powder Breath Activated 06/26/2019 12:00:00 AM EST 1 aborted 7 ACTUAT umeclidinium 0.0625 MG/ACTUAT Dry Powder Inhaler [Incruse] [facility]) 7 ACTUAT umeclidinium 0.0625 MG/ACTUAT D ry Powder Inhaler [Incruse] Incruse Ellipta 62.5 MCG/INH Inhalation Aerosol Powder Breath Activated Incruse Ellipta 62.5 MCG/INH Inhalation Aerosol Powder Breath Activated 05/31/2019 12:00:00 AM EST 1 aborted 7 ACTUAT umeclidinium 0.0625 MG/ACTUAT Dry Powder Inhaler [Incruse] [facility]) 200 ACTUAT Albuterol 0.09 MG/ACTUAT Mete red Dose Inhaler [Ventolin] Ventolin HFA 108 (90 Base) MCG/ACT Inhalation Aerosol Solution Ventolin HFA 108 (90 Base) MCG/ACT Inhalation Aerosol Solution 05/31/2019 12:00:00 AM EST 18 aborted [id number] 200 ACTUAT albuterol 0.09 MG/ACTUAT Metered Dose Inhaler [Ventolin] [place] ([facility]) 7 ACTUAT umeclidinium 0.0625 MG/ACTUAT D ry Powder Inhaler [Incruse] Incruse Ellipta 62.5 MCG/INH Inhalation Aerosol Powder Breath Activated Incruse Ellipta 62.5 MCG/INH Inhalation Aerosol Powder Breath Activated 02/03/2019 12:00:00 AM EDT 1 aborted 7 ACTUAT umeclidinium 0.0625 MG/ACTUAT Dry Powder Inhaler [Incruse] [place] ([facility]) Losartan Potassium 50 MG Oral Tablet Losartan Potassiu m 50MG Oral Tablet Losartan Potassium 50MG Oral Tablet 11/09/2018 12:00:00 AM EDT 1 aborted losartan potassium 50 MG Oral Ta blet [place] ([facility]) Potassium Chloride 10 MEQ Extended Relea se Oral Tablet [Klor-Con] Klor-Con M10 Oral Tablet Extended Release Klor-Con M10 Oral Tablet Extended Release 11/09/2018 12:00:00 AM EDT aborted potassium chloride 10 MEQ Extended Release Oral Tablet [Klor-Con] [facility]) Hydrochlorothiazide 12.5 MG Oral Capsule hydroCHLOROthiazide 12.5MG Oral Capsule hydroCHLOROthiazide 12.5MG Oral Capsule 11/09/2018 12:00:00 AM EDT 1 aborted hydrochlorothiazide 12.[address] [facility]) Albuterol 0.83 MG/ML Inhalant Solution A lbuterol Sulfate (2.5 MG/3ML)0.083% Inhalation Nebulization solution Albuterol Sulfate (2.5 MG/3ML)0.083% Inh alation Nebulization solution 11/09/2018 12:00:00 AM EDT aborted albuterol 0.83 MG/ML Inhalation Solution [facility]) 30 ACTUAT fluticasone furoate 0.1 MG/ACT UAT / vilanterol 0.025 MG/ACTUAT Dry Powder Inhaler [Breo] Breo Ellipta 100-25MCG/INH Inhalation Aerosol Powder Breath Activated Breo Ellipta 100-25MCG/INH Inhalation Ae rosol Powder Breath Activated 11/09/2018 12:00:00 AM EDT aborted 30 ACTUAT fluticasone furoate 0.1 MG/ACTUAT / vilanterol 0.025 MG/ACTUAT Dry Powder Inhaler [Breo] [place] ([facility]) 200 ACTUAT Albuterol 0.09 MG/ACTUAT Mete red Dose Inhaler [Ventolin] Ventolin HFA 108 (90 Base)MCG/ACT Inhalation Aerosol Solution Ventolin HFA 108 (90 Base)MCG/ACT Inhalation Aerosol Solution 11/09/2018 12:00:00 AM EDT 18 aborted [id number] 200 ACTUAT albuterol 0.09 MG/ACTUAT Metered Dose Inhaler [Ventolin] [place] ([facility]) Insurance Providers Payer name Policy type / Coverage type Policy ID Covered green party ID Covered green party's relationship to ferguson Policy [place] Plan Information [place]IG[place]EL [place]EL [place] [id number] SP [id number] MIGUEL ANGEL [facility] [id number] S [id number] [place] [id number] SP [id number] Miguel [employer] [place] Other 0 Self 0 [place] Other 0 Self 0 [place] [id number] Self [id number] CARLENE CLAIMS ADMIN [place] W [id number] Empl [id number] EXCELLUS C [id number] Spouse [id number] [place] Other 0 Self 0 [place] Other 0 Self 0 [place] Other 0 Self 0 [place] Other 0 Self 0 [place] Other 0 Self 0 [place] Other 0 Self 0 [place] Other 0 Self 0 [employer] XIX [id number] 18 [id number] [facility] Health Maintenance Organization (HMO) [id number] Self [id number] [facility] Other [place]EPP Self NYEPP [facility] Other [place]EPP Self NYEPP [facility] Other [place]EPP Self NYEPP [facility] Other NYEPP Self NYEPP [facility] Health Maintenance Organization (HMO) [id number] Self [id number] [facility] COMMERCIAL [id number] [facility] Commercial Health Maintenance Organization (HMO) [id number] Self [id number] [facility] Other NYEPP Self NYEPP [facility] Other [place]EPP Self NYEPP [facility] Other [place]EPP Self NYEPP [facility] Other [place]EPP Self [place] MEDICAID (101) [id number] MEDICAID [id number] Patient [id number] MEDICAID [id number] Brandi [id number] [employer] [id number] [facility] [id number] Patient [id number] SELF PAY UNAVAILABLE Patient UNAVAILA BLE [place] CLAIM OPERATIONS [id number] 1 [id number] BC/BS PPO/EPO (28) [id number] CARLENE CLAIMS ADMIN [place] WC W [id number] Empl [id number] BLUE CROSS OUT OF STATE [id number] PT [id number] B/S BLUE PPO/HSA (33) [id number] Problems, Conditions, and Diagnoses Code Display Name Description Problem Type Effective Dates Data Source(s) [id number] 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 Follicular Problem 05/08/2020 12: 00:00 AM ANTONY FONTENOT ([facility]) [id number] Essential hypertension Essential hypertension Problem 04/09/2020 12:00:00 AM EST MEDENT ([facility], ) [id number] 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 Management) 01/04/2020 12:00:00 AM [facility] ([facility]) EXC TR-EXT MLG+IRINEO > 4 CM EXC TR-EXT MLG+IRINEO > 4 CM 2019 12:00:00 AM [facility] ([facility]) REPAIR INTERMEDIATE N/H/F/XTRNL GENT >30.0 CM LAYER CLOSURE OF WOUND(S) 12/27/2019 12:00:00 AM [facility] ([facility]) EXCISION- B9+IRINEO 2.1-3 CM (trunk,arm,leg) EXCISION- B 9+IRINEO 2.1-3 CM (trunk,arm,leg) 12/27/2019 12:00:00 AM [facility] ([facility]) Results ID Date Data Source [id number] 06/05/2020 09:02:00 AM [facility] <0.90 Index Interpretation ----- < 0.90 Negative 0.90-1.09 Equivocal > 1.09 PositiveAs recommended by the Food and Drug Administration(FDA), all samples with positive or equivocalresults in a Borrelia burgdorferi antibody screenwill be tested using a blot method. Positive orequivocal screening test results should not beinterpreted as truly positive until verified as suchusing a supplemental assay (e.g., B. burgdorferi blot).The screening test and/or blot for B. burgdorferiantibodies may be falsely negative in early stagesof Lyme disease, including the period when erythemamigrans is apparent.THIS TEST WAS PERFORMED AT:[employer] [phone] GRIFFIN Reportable Result Name Value Range Interpretation Code Description Data Shanta rce(s) Supporting Document(s) Hemoglobin A1c [Mass/volume] in Blood 5.2 % 3.8-5.6 [facility] The following ranges may be u sed for interpretation of results: HGBA1C degree of glucose control: Greater than 8%: Action Suggested * Less than 7%: Goal of Diabetic Therapy Less than 5.6%: NormalFactors such as duration of diabetes, adherence to therapyand the age of the patient should also be considered inassessing the degree of blood glucose control.* High risk of developing roasterman complications such asretinopathy, nephropathy, neuropathy, cardiopathy, etc. Some danger of hypoglycemic reaction in Type I diabetics.Some glucose intolerant individuals and "Sub Clinical"diabetics may demonstrate HGBA1C levels in this area. Glucose mean value [Moles/volume] in Blood Estimated f rom glycated hemoglobin 103 mg/dL [facility] An A1C of 7% - the goal of diabetic ther apy - is equivalentto an EAG of 154 mg/dl. ID Date Data Source [id number] 06/05/2020 10:24:[address] [facility] <0.90 Index Interpretation ----- < 0.90 Negative 0.90-1.09 Equivocal > 1.09 PositiveAs recommended by the Food and Drug Administration(FDA), all samples with positive or equivocalresults in a Borrelia burgdorferi antibody screenwill be tested using a blot method. Positive orequivocal screening test results should not beinterpreted as truly positive until verified as suchusing a supplemental assay (e.g., B. burgdorferi blot).The screening test and/or blot for B. burgdorferiantibodies may be falsely negative in early stagesof Lyme disease, including the period when erythemamigrans is apparent.THIS TEST WAS PERFORMED AT:[employer] [address]VTRVNYAntonella GRIFFIN Reportable Result Name Value Range Interpretation Code Description Data Shanta rce(s) Supporting Document(s) Urea nitrogen [Mass/volume] in Serum or Plasma 6 mg/dL 9-[address] [facility] Sodium [Moles/volume] in Serum or Plasma 131 mmol/L 132-[address] [facility] Potassium [Moles/volume] in Serum or Plasma 4.6 mmol/L 3.5-5.[address] [facility] Chloride [Moles/volume] in Serum or Plasma 96 mmol/L 99-109 [place] [address] [facility] Carbon dioxide, total [Moles/volume] in Serum or Plasma 29 mmol/L 20 -[address] [facility] Anion gap in Serum or Plasma 11 mmol/L 8-16 N [facility] Glucose [Mass/volume] in Serum or Plasma 89 mg/dL 74-[address] [facility] Creatinine 0.5 mg/dL 0.5-1.1 [facility] Glomerular filtration rate/1.73 sq M.pre dicted [Volume Rate/Area] in Serum or Plasma Greater Than [address] [facility] Alanine aminotransferase [Enzymatic acti vity/volume] in Serum or Plasma by With P-5'-P 199 U/L 10-49 Above high normal [facility] Aspartate aminotransferase [Enzymatic ac tivity/volume] in Serum or Plasma by With P-5'-P 85 U/L 0-33 Above high normal [facility] Alkaline phosphatase [Enzymatic activity/volume] in Serum or Plasma 276 U/L 45-[address] [facility] @Review & document. Calcium [Mass/volume] in Serum or Plasma 8.2 mg/dL 8.5-10.[address] [facility] Bilirubin.total [Mass/volume] in Serum or Plasma 0.5 mg/dL 0.3-1.2 [facility] Albumin [Mass/volume] in Serum or Plasma by Bromocresol purple (BCP) dye binding method 3.5 g/dL 3.2-4.8 [facility] ital Protein [Mass/volume] in Serum or Plasma 6.8 g/dL 5.7-8.2 [facility] ID Date Data Source [id number] 06/05/2020 10:36:[address] [facility] <0.90 Index Interpretation ----- < 0.90 Negative 0.90-1.09 Equivocal > 1.09 PositiveAs recommended by the Food and Drug Administration(FDA), all samples with positive or equivocalresults in a Borrelia burgdorferi antibody screenwill be tested using a blot method. Positive orequivocal screening test results should not beinterpreted as truly positive until verified as suchusing a supplemental assay (e.g., B. burgdorferi blot).The screening test and/or blot for B. burgdorferiantibodies may be falsely negative in early stagesof Lyme disease, including the period when erythemamigrans is apparent.THIS TEST WAS PERFORMED AT:[employer] [id number] GRIFFIN Reportable Result Name Value Range Interpretation Code Description Data Shanta rce(s) Supporting Document(s) Leukocytes [#/volume] in Blood by Automated count 9.6 10*3/uL 4.45-[address] [facility] Erythrocytes [#/volume] in Blood by Automated count 4.67 10*6/uL 4.20 -5.[address] [facility] Hemoglobin [Moles/volume] in Blood 14.5 g/dL 10.7-15.[address] [facility] Hematocrit [Volume Fraction] of Blood by Automated count 43.0 % 3 7-[address] [facility] Erythrocyte mean corpuscular volume [Ent itic volume] in Cord blood by Automated count 92.1 fL 80-96 N [facility] Erythrocyte mean corpuscular hemoglobin [Entitic mass] by Automated count 31.0 pg 27-31 N [facility] l Erythrocyte mean corpuscular hemoglobin concentration [Mass/volume] in Cord blood 33.7 g/dL 33-37 N [facility] Erythrocyte distribution width [Entitic volume] by Automated count 14 % 11-[address] [facility] Platelets [#/volume] in Blood by Automated count 350 10*3/uL 130-[address] [facility] Platelet mean volume [Entitic volume] in Blood 9.4 fL 9.1-13.[address] [facility] Neutrophils/100 leukocytes in Blood by Automated count 76.2 % 41- [address] [facility] Neutrophils [#/volume] in Blood by Automated count 7.3 U 1.7-7.[address] [facility] Lymphocytes/100 leukocytes in Blood by Automated count 12.7 % 14-[address] [facility] Lymphocytes [#/volume] in Blood by Automated count 1.2 U 0.6-4.[address] [facility] Monocytes/100 leukocytes in Blood by Automated count 9.9 % 4-[address] [facility] Monocytes [#/volume] in Blood by Automated count 1.0 U 0.2-1.[address] [facility] Eosinophils/100 leukocytes in Blood by Automated count 0.2 % 0-[address] [facility] Eosinophils [#/volume] in Blood by Automated count 0.0 U 0.0-0.[address] [facility] Basophils/100 leukocytes in Blood by Automated count 0.7 % 0.4-[address] [facility] Basophils [#/volume] in Blood by Automated count 0.1 U 0.0-0.[address] [facility] NUCLEATED RED BLOOD CELL 0 % [facility] NUCLEATED RED BLOOD CELL# 0 U [facility] Immature granulocytes [Presence] in Blood by Automated count 0-[address] [facility] Immature granulocytes [#/volume] in Blood by Automated count 0.0 U 0-0.[address] [facility] Manual Differential panel - Blood NO [facility] ID Date Data Source [id number] 06/05/2020 11:23:00 AM [facility] <0.90 Index Interpretation ----- < 0.90 Negative 0.90-1.09 Equivocal > 1.09 PositiveAs recommended by the Food and Drug Administration(FDA), all samples with positive or equivocalresults in a Borrelia burgdorferi antibody screenwill be tested using a blot method. Positive orequivocal screening test results should not beinterpreted as truly positive until verified as suchusing a supplemental assay (e.g., B. burgdorferi blot).The screening test and/or blot for B. burgdorferiantibodies may be falsely negative in early stagesof Lyme disease, including the period when erythemamigrans is apparent.THIS TEST WAS PERFORMED AT:[employer] [address]INVRDGAntonella GRIFFIN Reportable Result Name Value Range Interpretation Code Description Data Shanta rce(s) Supporting Document(s) Vitamin B12 952 pg/mL 211-911 Above high normal [facility] ID Date Data Source [id number] 06/11/2020 08:12:00 AM [facility] <0.90 Index Interpretation ----- < 0.90 Negative 0.90-1.09 Equivocal > 1.09 PositiveAs recommended by the Food and Drug Administration(FDA), all samples with positive or equivocalresults in a Borrelia burgdorferi antibody screenwill be tested using a blot method. Positive orequivocal screening test results should not beinterpreted as truly positive until verified as suchusing a supplemental assay (e.g., B. burgdorferi blot).The screening test and/or blot for B. burgdorferiantibodies may be falsely negative in early stagesof Lyme disease, including the period when erythemamigrans is apparent.THIS TEST WAS PERFORMED AT:[employer] [address]KYKCCI MERATI,MDNo Reportable Result Name Value Range Interpretation Code Description Data Shanta rce(s) Supporting Document(s) Hepatitis B virus surface Ag [Presence] in Serum or Plasma b y Immunoassay NON-REACTIVE [facility] Hepatitis B Core IgM Ab NON-REACTIVE NON-REACTIVE [facility] Virus identified in Unspecified specimen NON-REACTIVE [facility] For additional information, please refer [email or web address]/faq/[email or web address](This link is being provided for informational/educational purposes only.) Hepatitis C virus Ab [Presence] in Serum or Plasma by Immuno assay NON-REACTIVE [facility] Hepatitis C virus Ab Signal/Cutoff in Serum or Plasma by Imm unoassay 0.[address] <[address] [facility] HCV antibody was non-reactive. There is no laboratoryevidence of HCV infection.In most cases, no further action is required. However,if recent HCV exposure is suspected, a test for HCV RNA(test code 05902) is suggested.For additional information please refer [email or web address]/[email or web address](This link is being provided for informational/educational purposes only.)THIS TEST WAS PERFORMED AT:[employer] [address]MICHAEL CLEMONS MD ID Date Data Source [id number] 06/05/2020 10:24:[address] [facility] <0.90 Index Interpretation ----- < 0.90 Negative 0.90-1.09 Equivocal > 1.09 PositiveAs recommended by the Food and Drug Administration(FDA), all samples with positive or equivocalresults in a Borrelia burgdorferi antibody screenwill be tested using a blot method. Positive orequivocal screening test results should not beinterpreted as truly positive until verified as suchusing a supplemental assay (e.g., B. burgdorferi blot).The screening test and/or blot for B. burgdorferiantibodies may be falsely negative in early stagesof Lyme disease, including the period when erythemamigrans is apparent.THIS TEST WAS PERFORMED AT:[employer] [address]AQBZQLAntonella GRIFFIN Reportable Result Name Value Range Interpretation Code Description Data Shanta rce(s) Supporting Document(s) Lactate dehydrogenase [Enzymatic activity/volume] in Serum o r Plasma 174 U/L 120-[address] [facility] ID Date Data Source [id number] 06/05/2020 10:36:[address] [facility] <0.90 Index Interpretation ----- < 0.90 Negative 0.90-1.09 Equivocal > 1.09 PositiveAs recommended by the Food and Drug Administration(FDA), all samples with positive or equivocalresults in a Borrelia burgdorferi antibody screenwill be tested using a blot method. Positive orequivocal screening test results should not beinterpreted as truly positive until verified as suchusing a supplemental assay (e.g., B. burgdorferi blot).The screening test and/or blot for B. burgdorferiantibodies may be falsely negative in early stagesof Lyme disease, including the period when erythemamigrans is apparent.THIS TEST WAS PERFORMED AT:[employer] [phone] GRIFFIN Reportable Result Name Value Range Interpretation Code Description Data Shanta rce(s) Supporting Document(s) Erythrocyte sedimentation rate by Westergren method 15 mm/hr 0-[address] [facility] @[employer] manual test result: 15@by HuseyinJoaquin hortonaine at 06/05/20 1036. ID Date Data Source [id number] 06/11/2020 08:12:00 AM [facility] <0.90 Index Interpretation ----- < 0.90 Negative 0.90-1.09 Equivocal > 1.09 PositiveAs recommended by the Food and Drug Administration(FDA), all samples with positive or equivocalresults in a Borrelia burgdorferi antibody screenwill be tested using a blot method. Positive orequivocal screening test results should not beinterpreted as truly positive until verified as suchusing a supplemental assay (e.g., B. burgdorferi blot).The screening test and/or blot for B. burgdorferiantibodies may be falsely negative in early stagesof Lyme disease, including the period when erythemamigrans is apparent.THIS TEST WAS PERFORMED AT:[employer] [address]WIRAEK MERATI,MDNo Reportable Result Name Value Range Interpretation Code Description Data Shanta rce(s) Supporting Document(s) Cortisol [Mass/volume] in Serum or Plasma --pre dose cortico tropin 15.5 mcg/dL [facility] Reference Range: For 8 a.m.(7-9 a.m.) Sp ecimen: 4.0-22.0Reference Range: For 4 p.m.(3-5 p.m.) Specimen: 3.0-17.0 * Please interpret above results accordingly *THIS TEST WAS PERFORMED AT:[employer] [address]IKNEKO MERATI,MD ID Date Data Source [id number] 06/05/2020 10:24:00 AM [facility] <0.90 Index Interpretation ----- < 0.90 Negative 0.90-1.09 Equivocal > 1.09 PositiveAs recommended by the Food and Drug Administration(FDA), all samples with positive or equivocalresults in a Borrelia burgdorferi antibody screenwill be tested using a blot method. Positive orequivocal screening test results should not beinterpreted as truly positive until verified as suchusing a supplemental assay (e.g., B. burgdorferi blot).The screening test and/or blot for B. burgdorferiantibodies may be falsely negative in early stagesof Lyme disease, including the period when erythemamigrans is apparent.THIS TEST WAS PERFORMED AT:[employer] [address]BCGNWYAntonella GRIFFIN Reportable Result Name Value Range Interpretation Code Description Data Shanta rce(s) Supporting Document(s) Iron [Mass/volume] in Serum or Plasma 31 ug/dL 50-[address] [facility] Iron values may be falsely elevated in s nguyễn samples frompatients treated with anticoagulants (e.g., hemodialysispatients) Iron binding capacity [Moles/volume] in Serum or Plasma 9 20-[address] [facility] Iron binding capacity [Mass/volume] in Serum or Plasma 334 ug/dL 250 -[address] [facility] ID Date Data Source [id number] 06/11/2020 08:12:[address] [facility] <0.90 Index Interpretation ----- < 0.90 Negative 0.90-1.09 Equivocal > 1.09 PositiveAs recommended by the Food and Drug Administration(FDA), all samples with positive or equivocalresults in a Borrelia burgdorferi antibody screenwill be tested using a blot method. Positive orequivocal screening test results should not beinterpreted as truly positive until verified as suchusing a supplemental assay (e.g., B. burgdorferi blot).The screening test and/or blot for B. burgdorferiantibodies may be falsely negative in early stagesof Lyme disease, including the period when erythemamigrans is apparent.THIS TEST WAS PERFORMED AT:[employer] [address]MUMWPIAntonella GRIFFIN Reportable Result Name Value Range Interpretation Code Description Data Shanta rce(s) Supporting Document(s) Mycoplasma pneumoniae IgG Ab [Units/volume] in Serum by Immu noassay 1.38 <=0.[address] [facility] Reference Range: <=0.90 Negative 0.91-1.09 Equivocal >=1.10 PositiveA positive IgG result indicates that the patient hasantibody to Mycoplasma. It does not differentiatebetween an active or past infection. The clinicaldiagnosis must be interpreted in conjunction withthe clinical signs and symptoms of the patient. Mycoplasma pneumoniae IgM Ab [Units/volume] in Serum by Immu noassay 179 U/mL <770 [facility] Reference Range: <770 U/ml Negativ e 770-950 U/mL Low positive >950 U/mL PositiveA positive IgM antibody result is consistent withrecent infection. However, a negative result does notnecessarily rule out recent infection as someindividuals may not mount another IgM response, ifpreviously infected.A positive IgM antibody result with or without apositive IgG antibody result, is consistent with recentinfection. However, a negative result does notnecessarily rule out recent infection as someindividuals may not mount another IgM response, ifpreviously infected. A positive IgG antibody result inthe absence of a positive IgM antibody result,indicates that the patient has antibody to Mycoplasma.It does not differentiate between an active or pastinfection. The clinical diagnosis must be interpretedin conjunction with the clinical signs and symptoms ofthe patient.THIS TEST WAS PERFORMED AT:[employer]/[address]AYLEEN HERRONGB[address] [place], [place] [address]IDAN GAMEZ MD,PHD ID Date Data Source [id number] 06/05/2020 10:24:[address] [facility] <0.90 Index Interpretation ----- < 0.90 Negative 0.90-1.09 Equivocal > 1.09 PositiveAs recommended by the Food and Drug Administration(FDA), all samples with positive or equivocalresults in a Borrelia burgdorferi antibody screenwill be tested using a blot method. Positive orequivocal screening test results should not beinterpreted as truly positive until verified as suchusing a supplemental assay (e.g., B. burgdorferi blot).The screening test and/or blot for B. burgdorferiantibodies may be falsely negative in early stagesof Lyme disease, including the period when erythemamigrans is apparent.THIS TEST WAS PERFORMED AT:[employer] [address]PONQHCAntonella GRIFFIN Reportable Result Name Value Range Interpretation Code Description Data Shanta rce(s) Supporting Document(s) Folate [Mass/volume] in Serum or Plasma 25.0 ng/mL [facility] @Instrument will autodilute FOLATE INTERPRETATION NORMAL: GREATER THAN 5.38 INDETERMINATE: 3.38 - 5.38 DEFICIENT: LESS THAN 3.37 ID Date Data Source [id number] 06/11/2020 08:12:[address] [facility] <0.90 Index Interpretation ----- < 0.90 Negative 0.90-1.09 Equivocal > 1.09 PositiveAs recommended by the Food and Drug Administration(FDA), all samples with positive or equivocalresults in a Borrelia burgdorferi antibody screenwill be tested using a blot method. Positive orequivocal screening test results should not beinterpreted as truly positive until verified as suchusing a supplemental assay (e.g., B. burgdorferi blot).The screening test and/or blot for B. burgdorferiantibodies may be falsely negative in early stagesof Lyme disease, including the period when erythemamigrans is apparent.THIS TEST WAS PERFORMED AT:[employer] [address]MGNLHJAntonella GRIFFIN Reportable Result Name Value Range Interpretation Code Description Data Shanta rce(s) Supporting Document(s) Nuclear Ab [Presence] in Serum NEGATIVE Above high chang l [facility] For additional information, please refer tohttp://education.[employer]/faq/[email or web address](This link is being provided for informational/educational purposes only.)THIS TEST WAS PERFORMED AT:[employer] [address]MICHAEL CLEMONS MD DNA double strand Ab [Units/volume] in Serum <1 [IU]/mL [facility] IU/mL I nterpretation < or = 4 Negative 5-9 Indeterminate > or = 10 PositiveTHIS TEST WAS PERFORMED AT:[employer] [address]MICHAEL CLEMONS MD ID Date Data Source [id number] 06/05/2020 10:24:00 AM [facility] <0.90 Index Interpretation ----- < 0.90 Negative 0.90-1.09 Equivocal > 1.09 PositiveAs recommended by the Food and Drug Administration(FDA), all samples with positive or equivocalresults in a Borrelia burgdorferi antibody screenwill be tested using a blot method. Positive orequivocal screening test results should not beinterpreted as truly positive until verified as suchusing a supplemental assay (e.g., B. burgdorferi blot).The screening test and/or blot for B. burgdorferiantibodies may be falsely negative in early stagesof Lyme disease, including the period when erythemamigrans is apparent.THIS TEST WAS PERFORMED AT:[employer] [address]GJPEILAntonella GRIFFIN Reportable Result Name Value Range Interpretation Code Description Data Shanta rce(s) Supporting Document(s) Ferritin [Mass/volume] in Serum or Plasma 26 ng/mL 10-[address] [facility] ID Date Data Source [id number] 06/11/2020 08:12:00 AM [facility] <0.90 Index Interpretation ----- < 0.90 Negative 0.90-1.09 Equivocal > 1.09 PositiveAs recommended by the Food and Drug Administration(FDA), all samples with positive or equivocalresults in a Borrelia burgdorferi antibody screenwill be tested using a blot method. Positive orequivocal screening test results should not beinterpreted as truly positive until verified as suchusing a supplemental assay (e.g., B. burgdorferi blot).The screening test and/or blot for B. burgdorferiantibodies may be falsely negative in early stagesof Lyme disease, including the period when erythemamigrans is apparent.THIS TEST WAS PERFORMED AT:[employer] [address]PSZFMKAntonella GRIFFIN Reportable Result Name Value Range Interpretation Code Description Data Shanta rce(s) Supporting Document(s) Thiamine [Mass/volume] in Blood 242 nmol/L 78-[address] [facility] Vitamin supplementation within 24 hours prior toblood draw may affect the accuracy of the results.This test was developed and its analytical performancecharacteristics have been determined by [employer] [place], [place]. It hasnot been cleared or approved by the U.S. Food and DrugAdministration. This assay has been validated pursuantto the CLIA regulations and is used for clinicalpurposes.THIS TEST WAS PERFORMED AT:[employer]/[facility] [place], [place] [address]AIDAN GAMEZ MD,PHD ID Date Data Source [id number] 06/05/2020 10:24:00 AM [facility] <0.90 Index Interpretation ----- < 0.90 Negative 0.90-1.09 Equivocal > 1.09 PositiveAs recommended by the Food and Drug Administration(FDA), all samples with positive or equivocalresults in a Borrelia burgdorferi antibody screenwill be tested using a blot method. Positive orequivocal screening test results should not beinterpreted as truly positive until verified as suchusing a supplemental assay (e.g., B. burgdorferi blot).The screening test and/or blot for B. burgdorferiantibodies may be falsely negative in early stagesof Lyme disease, including the period when erythemamigrans is apparent.THIS TEST WAS PERFORMED AT:[employer] [address]XMIBLBAntonella GRIFFIN Reportable Result Name Value Range Interpretation Code Description Data Shanta rce(s) Supporting Document(s) Thyroxine (T4) free [Mass/volume] in Serum or Plasma 1.17 ng/dL 0.89- 1.[address] [facility] ID Date Data Source [id number] 06/11/2020 08:12:00 AM [facility] <0.90 Index Interpretation ----- < 0.90 Negative 0.90-1.09 Equivocal > 1.09 PositiveAs recommended by the Food and Drug Administration(FDA), all samples with positive or equivocalresults in a Borrelia burgdorferi antibody screenwill be tested using a blot method. Positive orequivocal screening test results should not beinterpreted as truly positive until verified as suchusing a supplemental assay (e.g., B. burgdorferi blot).The screening test and/or blot for B. burgdorferiantibodies may be falsely negative in early stagesof Lyme disease, including the period when erythemamigrans is apparent.THIS TEST WAS PERFORMED AT:[employer] [address]PZYUWOAntonella GRIFFIN Reportable Result Name Value Range Interpretation Code Description Data Shanta rce(s) Supporting Document(s) Corticotropin [Mass/volume] in Plasma 6 pg/mL 6-50 [facility] Reference range applies only to specimen s collectedbetween 7am-10am.THIS TEST WAS PERFORMED AT:[employer]/[address] [id number] [place] [address]DVCZSFVAIDAN GAMEZ MD,PHD ID Date Data Source [id number] 06/05/2020 10:24:[address] [facility] <0.90 Index Interpretation ----- < 0.90 Negative 0.90-1.09 Equivocal > 1.09 PositiveAs recommended by the Food and Drug Administration(FDA), all samples with positive or equivocalresults in a Borrelia burgdorferi antibody screenwill be tested using a blot method. Positive orequivocal screening test results should not beinterpreted as truly positive until verified as suchusing a supplemental assay (e.g., B. burgdorferi blot).The screening test and/or blot for B. burgdorferiantibodies may be falsely negative in early stagesof Lyme disease, including the period when erythemamigrans is apparent.THIS TEST WAS PERFORMED AT:[employer] [address]CWNAFMAntonella GRIFFIN Reportable Result Name Value Range Interpretation Code Description Data Shanta rce(s) Supporting Document(s) Thyrotropin [Units/volume] in Serum or Plasma by Detec tion limit <= 0.005 mIU/L 1.13 u[iU]/mL 0.35[facility]5.50 [facility] Date Data Source [id number] 06/11/2020 08:12:00 AM [facility] <0.90 Index Interpretation ----- < 0.90 Negative 0.90-1.09 Equivocal > 1.09 PositiveAs recommended by the Food and Drug Administration(FDA), all samples with positive or equivocalresults in a Borrelia burgdorferi antibody screenwill be tested using a blot method. Positive orequivocal screening test results should not beinterpreted as truly positive until verified as suchusing a supplemental assay (e.g., B. burgdorferi blot).The screening test and/or blot for B. burgdorferiantibodies may be falsely negative in early stagesof Lyme disease, including the period when erythemamigrans is apparent.THIS TEST WAS PERFORMED AT:[employer] [address]GSLHLQAntonella GRIFFIN Reportable Result Name Value Range Interpretation Code Description Data Shanta rce(s) Supporting Document(s) Pyridoxine [Mass/volume] in Serum or Plasma 12.5 ng/mL 2.1-21.7 [facility] Vitamin supplementation within 24 hours prior toblood draw may affect the accuracy of the results.This test was developed and its analytical performancecharacteristics have been determined by [employer] [place], [place]. It hasnot been cleared or approved by the U.S. Food and DrugAdministration. This assay has been validated pursuantto the CLIA regulations and is used for clinicalpurposes.THIS TEST WAS PERFORMED AT:[employer] [id number] [place], [place] [address]AIDAN GAMEZ MD,PHD ID Date Data Source [id number] 06/05/2020 10:24:00 AM [facility] <0.90 Index Interpretation ----- < 0.90 Negative 0.90-1.09 Equivocal > 1.09 PositiveAs recommended by the Food and Drug Administration(FDA), all samples with positive or equivocalresults in a Borrelia burgdorferi antibody screenwill be tested using a blot method. Positive orequivocal screening test results should not beinterpreted as truly positive until verified as suchusing a supplemental assay (e.g., B. burgdorferi blot).The screening test and/or blot for B. burgdorferiantibodies may be falsely negative in early stagesof Lyme disease, including the period when erythemamigrans is apparent.THIS TEST WAS PERFORMED AT:[employer] [address]ENKOQAAntonella GRIFFIN Reportable Result Name Value Range Interpretation Code Description Data Shanta rce(s) Supporting Document(s) Rheumatoid factor [Units/volume] in Serum by Nephelometry 59.0 [ IU]/mL 0.0-14.[address] [facility] ID Date Data Source [id number] 06/11/2020 08:12:[address] [facility] <0.90 Index Interpretation ----- < 0.90 Negative 0.90-1.09 Equivocal > 1.09 PositiveAs recommended by the Food and Drug Administration(FDA), all samples with positive or equivocalresults in a Borrelia burgdorferi antibody screenwill be tested using a blot method. Positive orequivocal screening test results should not beinterpreted as truly positive until verified as suchusing a supplemental assay (e.g., B. burgdorferi blot).The screening test and/or blot for B. burgdorferiantibodies may be falsely negative in early stagesof Lyme disease, including the period when erythemamigrans is apparent.THIS TEST WAS PERFORMED AT:[employer] [address]NJLERZAntonella GRIFFIN Reportable Result Name Value Range Interpretation Code Description Data Shanta rce(s) Supporting Document(s) Rickettsia spotted fever group IgG Ab [Presence] in Serum Not Detected [facility] Rickettsia spotted fever group IgM Ab [Presence] in Serum Not Detected [facility] THIS TEST WAS PERFORMED AT:[employer]/JAYLEEN [id number] [place] [address]NXLSUYRAIDAN GAMEZ MD,PHD ID Date Data Source [id number] 06/11/2020 08:12:[address] [facility] <0.90 Index Interpretation ----- < 0.90 Negative 0.90-1.09 Equivocal > 1.09 PositiveAs recommended by the Food and Drug Administration(FDA), all samples with positive or equivocalresults in a Borrelia burgdorferi antibody screenwill be tested using a blot method. Positive orequivocal screening test results should not beinterpreted as truly positive until verified as suchusing a supplemental assay (e.g., B. burgdorferi blot).The screening test and/or blot for B. burgdorferiantibodies may be falsely negative in early stagesof Lyme disease, including the period when erythemamigrans is apparent.THIS TEST WAS PERFORMED AT:[employer] [address]EPONUEAntonella GRIFFIN Reportable Result Name Value Range Interpretation Code Description Data Shanta rce(s) Supporting Document(s) Bartonella henselae IgG Ab [Units/volume] in Serum Negative [facility] Bartonella henselae IgM Ab [Units/volume] in Serum Negative [facility] Bartonella lemus IgG Ab [Units/volume] in Serum or Plasma Negative [facility] Bartonella lemus IgM Ab [Units/volume] in Serum Negative [facility] Reference Range: NegativeWhereas sera fr om 10% of healthy controls exhibitBartonella henselae and Bartonella lemus IgG titersof 1:64 - 1:128,none show titers of 1:256 or above.Sera from 95% of patients with clinically defined catscratch disease show IgG titers of 1:64 and above; 79%exhibit titers of 1:256 and above. IgM titers at 1:20or higher have not been detected in the normal adultpopulation. Individuals infected with either B.henselae or B. lemus may not have initial IgGtiters greater than or equal to 1:64; confirmation ofinfection with either organism may therefore requiretesting of serial specimens to detect increasing IgGtiters or the presence of IgM. IgG crossreactivitybetween B. henselae and B. lemus may occur at anytiter. Crossreactivity of IgM between the two speciesis limited, and typically is not seen.The two major clinical manifestations associated withB. lemus infection are urban trench fever andendocarditis. Due to the acute nature of urban trenchfever, both B. lemus IgG and IgM may be positive.In contrast, B. lemus-associated endocarditistypically reflects chronic infection, and thesepatients nearly always exhibit an IgG positive butIgM negative result pattern.This test was developed and its analytical performancecharacteristics have been determined by [employer] [facility] [place], [place]. It hasnot been cleared or approved by the U.S. Food a nd DrugAdministration. This assay has been validated pursuantto the CLIA regulations and is used for clinicalpurposes.THIS TEST WAS PERFORMED AT:[employer]/[address] [id number] [place] [address]PAJON GAMEZ MD,PHD Bartonella henselae IgG Ab [Titer] in Serum by Immunofluorescence [facility] Bartonella henselae IgM Ab [Titer] in Serum by Immunofluorescence [facility] Bartonella lemus IgG Ab [Titer] in Serum [facility] Bartonella lemus IgM Ab [Titer] in Serum [facility] ID Date Data Source [id number] 06/11/2020 08:12:[address] [facility] <0.90 Index Interpretation ----- < 0.90 Negative 0.90-1.09 Equivocal > 1.09 PositiveAs recommended by the Food and Drug Administration(FDA), all samples with positive or equivocalresults in a Borrelia burgdorferi antibody screenwill be tested using a blot method. Positive orequivocal screening test results should not beinterpreted as truly positive until verified as suchusing a supplemental assay (e.g., B. burgdorferi blot).The screening test and/or blot for B. burgdorferiantibodies may be falsely negative in early stagesof Lyme disease, including the period when erythemamigrans is apparent.THIS TEST WAS PERFORMED AT:[employer] [address]HRDEWZAntonella GRIFFIN Reportable Result Name Value Range Interpretation Code Description Data Shanta rce(s) Supporting Document(s) Aegmmgl-9-Wkqbjkjsx dehydrogenase [Entitic Catalytic A ctivity] in Blood 13.5 U/g Hgb 7.0-20.5 [facility] THIS TEST WAS PERFORMED AT:[employer]/[address] [id number] [place] [address]XIJQRKVAIDAN GAMEZ MD,PHD ID Date Data Source [id number] 06/11/2020 08:12:00 AM [facility] <0.90 Index Interpretation ----- < 0.90 Negative 0.90-1.09 Equivocal > 1.09 PositiveAs recommended by the Food and Drug Administration(FDA), all samples with positive or equivocalresults in a Borrelia burgdorferi antibody screenwill be tested using a blot method. Positive orequivocal screening test results should not beinterpreted as truly positive until verified as suchusing a supplemental assay (e.g., B. burgdorferi blot).The screening test and/or blot for B. burgdorferiantibodies may be falsely negative in early stagesof Lyme disease, including the period when erythemamigrans is apparent.THIS TEST WAS PERFORMED AT:[employer] [address]VXZVJYAntonella GRIFFIN Reportable Result Name Value Range Interpretation Code Description Data Shanta rce(s) Supporting Document(s) IgM [Mass/volume] in Serum or Plasma 33 mg/dL 50-[address] [facility] THIS TEST WAS PERFORMED AT:[employer] [address]KZMKOE MERATI,MD ID Date Data Source [id number] 06/11/2020 08:12:00 AM [facility] <0.90 Index Interpretation ----- < 0.90 Negative 0.90-1.09 Equivocal > 1.09 PositiveAs recommended by the Food and Drug Administration(FDA), all samples with positive or equivocalresults in a Borrelia burgdorferi antibody screenwill be tested using a blot method. Positive orequivocal screening test results should not beinterpreted as truly positive until verified as suchusing a supplemental assay (e.g., B. burgdorferi blot).The screening test and/or blot for B. burgdorferiantibodies may be falsely negative in early stagesof Lyme disease, including the period when erythemamigrans is apparent.THIS TEST WAS PERFORMED AT:[employer] [address]GNPKWKAntonella GRIFFIN Reportable Result Name Value Range Interpretation Code Description Data Shanta rce(s) Supporting Document(s) IgG [Mass/volume] in Serum or Plasma 802 mg/dL 600-1640 [facility] THIS TEST WAS PERFORMED AT:[employer] [address]LEOBFJ MERATI,MD ID Date Data Source [id number] 06/11/2020 08:12:[address] [facility] <0.90 Index Interpretation ----- < 0.90 Negative 0.90-1.09 Equivocal > 1.09 PositiveAs recommended by the Food and Drug Administration(FDA), all samples with positive or equivocalresults in a Borrelia burgdorferi antibody screenwill be tested using a blot method. Positive orequivocal screening test results should not beinterpreted as truly positive until verified as suchusing a supplemental assay (e.g., B. burgdorferi blot).The screening test and/or blot for B. burgdorferiantibodies may be falsely negative in early stagesof Lyme disease, including the period when erythemamigrans is apparent.THIS TEST WAS PERFORMED AT:[employer] [address]VOWEPQAntonella GRIFFIN Reportable Result Name Value Range Interpretation Code Description Data Shanta rce(s) Supporting Document(s) IgA [Mass/volume] in Serum or Plasma 205 mg/dL 47-310 [facility] THIS TEST WAS PERFORMED AT:[employer] [address]YCLZPR MERATI,MD ID Date Data Source [id number] 06/11/2020 08:12:00 AM [facility] <0.90 Index Interpretation ----- < 0.90 Negative 0.90-1.09 Equivocal > 1.09 PositiveAs recommended by the Food and Drug Administration(FDA), all samples with positive or equivocalresults in a Borrelia burgdorferi antibody screenwill be tested using a blot method. Positive orequivocal screening test results should not beinterpreted as truly positive until verified as suchusing a supplemental assay (e.g., B. burgdorferi blot).The screening test and/or blot for B. burgdorferiantibodies may be falsely negative in early stagesof Lyme disease, including the period when erythemamigrans is apparent.THIS TEST WAS PERFORMED AT:[employer] [address]TTBRSJ MERATI,MDNo Reportable Result Name Value Range Interpretation Code Description Data [facility] rce(s) Supporting Document(s) IgE [Units/volume] in Serum or Plasma 9 kU/L <EQ=873 [facility] THIS TEST WAS PERFORMED AT:[employer] [address]NSNXVF MERATI,MD ID Date Data Source [id number] 06/11/2020 08:12:00 AM [facility] <0.90 Index Interpretation ----- < 0.90 Negative 0.90-1.09 Equivocal > 1.09 PositiveAs recommended by the Food and Drug Administration(FDA), all samples with positive or equivocalresults in a Borrelia burgdorferi antibody screenwill be tested using a blot method. Positive orequivocal screening test results should not beinterpreted as truly positive until verified as suchusing a supplemental assay (e.g., B. burgdorferi blot).The screening test and/or blot for B. burgdorferiantibodies may be falsely negative in early stagesof Lyme disease, including the period when erythemamigrans is apparent.THIS TEST WAS PERFORMED AT:[employer] [id number] [place] [address]OSLGZIAntonella GRIFFIN Reportable Result Name Value Range Interpretation Code Description Data Shanta rce(s) Supporting Document(s) Babesia microti IgM Ab [Presence] in Serum <1:20 [facility] Babesia microti IgG Ab [Presence] in Serum <1:64 [facility] B microti IgG+IgM Ser-Imp [facility] Antibody Not DetectedElevated antibody l evels to B. microti indicateexposure to the organism. Human babesiosis infectionis transmitted by the bite of an infected Ixodestick or less frequently from transfusion with bloodfrom an infected donor. Definitive diagnosis ismade by identifying intraerythrocytic organisms inperipheral blood. In patients with low parasitemia,antibody detection by IFA is recommended. IgG levelsgreater than or equal to 1:1024 can be detected inacute phase patients with parasites in blood smears.The IFA assay can be used as a seroepidemiologictool to study the frequency and distribution of B.microti in endemic areas especially in persons withmixed infections also involving Borrelia burgdorferi.This test was developed and its analytical performancecharacteristics have been determined by [employer] [place]. It hasnot been cleared or approved by the U.S. Food and DrugAdministration. This assay has been validated pursuantto the CLIA regulations and is used for clinicalpurposes.THIS TEST WAS PERFORMED AT:[employer] [id number] [place], [place] [address]AIDAN GAMEZ MD,PHD ID Date Data Source [id number] 06/11/2020 08:12:00 AM [facility] <0.90 Index Interpretation ----- < 0.90 Negative 0.90-1.09 Equivocal > 1.09 PositiveAs recommended by the Food and Drug Administration(FDA), all samples with positive or equivocalresults in a Borrelia burgdorferi antibody screenwill be tested using a blot method. Positive orequivocal screening test results should not beinterpreted as truly positive until verified as suchusing a supplemental assay (e.g., B. burgdorferi blot).The screening test and/or blot for B. burgdorferiantibodies may be falsely negative in early stagesof Lyme disease, including the period when erythemamigrans is apparent.THIS TEST WAS PERFORMED AT:[employer] [address]PHELYA MERATI,MDNo Reportable Result Name Value Range Interpretation Code Description Data Shanta rce(s) Supporting Document(s) Mary Talley virus early diffuse IgG Ab [Units/volume] in Serum 29.20 U/mL Above high normal [facility] U/mL Interpretation ---- <9.00 Negative 9.00-10.99 Equivocal >10.99 PositiveThe potential exists for cross-reactivity with HIV(Human Immunodeficiency Virus) which could cause afalse positive EBV-EA result.THIS TEST WAS PERFORMED AT:[employer] [address]VRVEKE MERATI,MD ID Date Data Source [id number] 06/11/2020 08:12:[address] [facility] <0.90 Index Interpretation ----- < 0.90 Negative 0.90-1.09 Equivocal > 1.09 PositiveAs recommended by the Food and Drug Administration(FDA), all samples with positive or equivocalresults in a Borrelia burgdorferi antibody screenwill be tested using a blot method. Positive orequivocal screening test results should not beinterpreted as truly positive until verified as suchusing a supplemental assay (e.g., B. burgdorferi blot).The screening test and/or blot for B. burgdorferiantibodies may be falsely negative in early stagesof Lyme disease, including the period when erythemamigrans is apparent.THIS TEST WAS PERFORMED AT:[employer] [place] [address]CLKTOIAntonella GRIFFIN Reportable Result Name Value Range Interpretation Code Description Data Shanta rce(s) Supporting Document(s) Mary Talley virus capsid IgG Ab [Units/volume] in Ser um by Immunoassay >750.00 U/mL Above high normal [facility] spital U/mL Interpretation ---- <18.00 Negative 18.00-21.99 Equivocal >21.99 PositiveTHIS TEST WAS PERFORMED AT:[employer] [address]IOCPQH MERATI,MD ID Date Data Source [id number] 06/11/2020 08:12:[address] [facility] <0.90 Index Interpretation ----- < 0.90 Negative 0.90-1.09 Equivocal > 1.09 PositiveAs recommended by the Food and Drug Administration(FDA), all samples with positive or equivocalresults in a Borrelia burgdorferi antibody screenwill be tested using a blot method. Positive orequivocal screening test results should not beinterpreted as truly positive until verified as suchusing a supplemental assay (e.g., B. burgdorferi blot).The screening test and/or blot for B. burgdorferiantibodies may be falsely negative in early stagesof Lyme disease, including the period when erythemamigrans is apparent.THIS TEST WAS PERFORMED AT:[employer] [address]EOTTMXAntonella GRIFFIN Reportable Result Name Value Range Interpretation Code Description Data Shanta rce(s) Supporting Document(s) Mary Talley virus capsid IgM Ab [Presence] in Serum [facility] U/mL Interpretation ---- <36.00 Negative 36.00-43.99 Equivocal >43.99 PositiveTHIS TEST WAS PERFORMED AT:[employer] [address]CLJYVF MERATI,MD ID Date Data Source [id number] 06/11/2020 08:12:00 AM [facility] <0.90 Index Interpretation ----- < 0.90 Negative 0.90-1.09 Equivocal > 1.09 PositiveAs recommended by the Food and Drug Administration(FDA), all samples with positive or equivocalresults in a Borrelia burgdorferi antibody screenwill be tested using a blot method. Positive orequivocal screening test results should not beinterpreted as truly positive until verified as suchusing a supplemental assay (e.g., B. burgdorferi blot).The screening test and/or blot for B. burgdorferiantibodies may be falsely negative in early stagesof Lyme disease, including the period when erythemamigrans is apparent.THIS TEST WAS PERFORMED AT:[employer] [address]NCQBDY MERATI,MDNo Reportable Result Name Value Range Interpretation Code Description Data Shanta rce(s) Supporting Document(s) DHEA Sulfate 33 mcg/dL 8-188 [facility] DHEA-S values fall with advancing age.Fo r reference, the reference intervals for 31-40 yearold patients are:Male: 106-464 mcg/dLFemale: 23-266 mcg/dLTHIS TEST WAS PERFORMED AT:[employer] [address]NWWHXG MERATI,MD ID Date Data Source [id number] 06/11/2020 08:12:00 AM [facility] <0.90 Index Interpretation ----- < 0.90 Negative 0.90-1.09 Equivocal > 1.09 PositiveAs recommended by the Food and Drug Administration(FDA), all samples with positive or equivocalresults in a Borrelia burgdorferi antibody screenwill be tested using a blot method. Positive orequivocal screening test results should not beinterpreted as truly positive until verified as suchusing a supplemental assay (e.g., B. burgdorferi blot).The screening test and/or blot for B. burgdorferiantibodies may be falsely negative in early stagesof Lyme disease, including the period when erythemamigrans is apparent.THIS TEST WAS PERFORMED AT:[employer] [address]BKYNPZAntonella GRIFFIN Reportable Result Name Value Range Interpretation Code Description Data Shanta rce(s) Supporting Document(s) Borrelia burgdorferi Ab [Units/volume] in Serum by Immunoassay <0.[address] [facility] Index Interpretation ----- < 0.90 Negative 0.90-1.09 Equivocal > 1.09 PositiveAs recommended by the Food and Drug Administration(FDA), all samples with positive or equivocalresults in a Borrelia burgdorferi antibody screenwill be tested using a blot method. Positive orequivocal screening test results should not beinterpreted as truly positive until verified as suchusing a supplemental assay (e.g., B. burgdorferi blot).The screening test and/or blot f or B. burgdorferiantibodies may be falsely negative in early stagesof Lyme disease, including the period when erythemamigrans is apparent.THIS TEST WAS PERFORMED AT:[employer] [address]UFKVIFMD BABITA GRIFFIN Date Data Source [id number] 06/11/2020 08:12:[address] [facility] <0.90 Index Interpretation ----- < 0.90 Negative 0.90-1.09 Equivocal > 1.09 PositiveAs recommended by the Food and Drug Administration(FDA), all samples with positive or equivocalresults in a Borrelia burgdorferi antibody screenwill be tested using a blot method. Positive orequivocal screening test results should not beinterpreted as truly positive until verified as suchusing a supplemental assay (e.g., B. burgdorferi blot).The screening test and/or blot for B. burgdorferiantibodies may be falsely negative in early stagesof Lyme disease, including the period when erythemamigrans is apparent.THIS TEST WAS PERFORMED AT:[employer] [address]JSYPALAntonella GRIFFIN Reportable Result Name Value Range Interpretation Code Description Data Shanta rce(s) Supporting Document(s) Thyroid Peroxidase Abs 1 [IU]/mL <9 [facility] THIS TEST WAS PERFORMED AT:[employer] [id number] MERATI,MD ID Date Data Source [id number] 06/11/2020 08:12:00 AM [facility] <0.90 Index Interpretation ----- < 0.90 Negative 0.90-1.09 Equivocal > 1.09 PositiveAs recommended by the Food and Drug Administration(FDA), all samples with positive or equivocalresults in a Borrelia burgdorferi antibody screenwill be tested using a blot method. Positive orequivocal screening test results should not beinterpreted as truly positive until verified as suchusing a supplemental assay (e.g., B. burgdorferi blot).The screening test and/or blot for B. burgdorferiantibodies may be falsely negative in early stagesof Lyme disease, including the period when erythemamigrans is apparent.THIS TEST WAS PERFORMED AT:[employer] [address]NSEGLE MERATI,MDNo Reportable Result Name Value Range Interpretation Code Description Data [facility](s) Supporting Document(s) TRIIODOTHYRONINE, FREE, SERUM 5.0 pg/mL 2.3-4.[address] [facility] THIS TEST WAS PERFORMED AT:[employer] [id number] MERATI,MD ID Date Data Source [id number] 06/11/2020 08:12:00 AM [facility] <0.90 Index Interpretation ----- < 0.90 Negative 0.90-1.09 Equivocal > 1.09 PositiveAs recommended by the Food and Drug Administration(FDA), all samples with positive or equivocalresults in a Borrelia burgdorferi antibody screenwill be tested using a blot method. Positive orequivocal screening test results should not beinterpreted as truly positive until verified as suchusing a supplemental assay (e.g., B. burgdorferi blot).The screening test and/or blot for B. burgdorferiantibodies may be falsely negative in early stagesof Lyme disease, including the period when erythemamigrans is apparent.THIS TEST WAS PERFORMED AT:[employer] [address] [place] [id number] GRIFFIN Reportable Result Name Value Range Interpretation Code Description Data Shanta rce(s) Supporting Document(s) Ehrlichia chaffeensis IgG Ab [Titer] in Serum by Immunofluoresce nce <1:64 <1:64 [facility] Ehrlichia chaffeensis IgM Ab [Titer] in Serum by Immunofluoresce nce <1:20 <1:20 [facility] Ehrlichia chaffeensis IgG+IgM Ab [Presence] in Serum or Plasma [facility] Antibody Not Detected Service comment [facility] Ehrlichia chaffeenis has been identified as thecausative agent of Human Monocytic Ehrlichiosis (HME).Infected individuals produce specific antibodies toE. chaffeensis that can be detected by an immuno-fluorescent antibody (IFA) test. Single IgG IFAtiters of 1:64 or greater indicate exposure toE. chaffeensis. A four-fold rise in IgG titersbetween acute and convalescent samples and/or thepresence of IgM antibody against E. chaffeensissuggest recent or current infection.This test was developed and its analytical performancecharacteristics have been determined by [employer] [place], [place]. It hasnot been cleared or approved by the U.S. Food and DrugAdministration. This assay has been validated pursuantto the CLIA regulations and is used for clinicalpurposes.THIS TEST WAS PERFORMED AT:[employer] [id number] [place], [place] [address]AIDAN GAMEZ MD,PHD ID Date Data Source [id number] 06/11/2020 08:12:00 AM [facility] <0.90 Index Interpretation ----- < 0.90 Negative 0.90-1.09 Equivocal > 1.09 PositiveAs recommended by the Food and Drug Administration(FDA), all samples with positive or equivocalresults in a Borrelia burgdorferi antibody screenwill be tested using a blot method. Positive orequivocal screening test results should not beinterpreted as truly positive until verified as suchusing a supplemental assay (e.g., B. burgdorferi blot).The screening test and/or blot for B. burgdorferiantibodies may be falsely negative in early stagesof Lyme disease, including the period when erythemamigrans is apparent.THIS TEST WAS PERFORMED AT:[employer] [address]CKYFORAntonella GRIFFIN Reportable Result Name Value Range Interpretation Code Description Data Shanta rce(s) Supporting Document(s) Cyclic citrullinated peptide IgG Ab [Units/volume] in Serum or Plasma <[address] [facility] Reference RangeNegative: <20W eak Positive: 20-39Moderate Positive: 40-59Strong Positive: >59THIS TEST WAS PERFORMED AT:[employer] [address]HAEL CLEMONS MD ID Date Data Source [id number] 06/11/2020 08:12:[address] [facility] <0.90 Index Interpretation ----- < 0.90 Negative 0.90-1.09 Equivocal > 1.09 PositiveAs recommended by the Food and Drug Administration(FDA), all samples with positive or equivocalresults in a Borrelia burgdorferi antibody screenwill be tested using a blot method. Positive orequivocal screening test results should not beinterpreted as truly positive until verified as suchusing a supplemental assay (e.g., B. burgdorferi blot).The screening test and/or blot for B. burgdorferiantibodies may be falsely negative in early stagesof Lyme disease, including the period when erythemamigrans is apparent.THIS TEST WAS PERFORMED AT:[employer] [address]EAUNLJAntonella GRIFFIN Reportable Result Name Value Range Interpretation Code Description Data Shanta rce(s) Supporting Document(s) HSCRP - CRP HIGH SENST(CARDIO) 1.9 mg/L [facility] Reference RangeOptimal <1.0Shavon DUQUE et al. Endocr Pract.2017;23(Suppl 2):1- 87.For ages >17 Years:hs-CRP mg/L Risk According to AHA/CDC Guidelines<1.0 Lower relative cardiovascular risk.1.0-3.0 Average relative cardiovascular risk.3.1-10.0 Higher relative cardiovascular risk. Consider retesting in 1 to 2 weeks to exclude a benign transient elevation in the baseline CRP value secondary to infection or inflammation.>10.0 Persistent elevation, upon retesting, may be associated with infection and inflammation.THIS TEST WAS PERFORMED AT:[employer] [address]WIITDG MERATI,MD ID Date Data Source [id number] 06/11/2020 08:12:00 AM [facility] <0.90 Index Interpretation ----- < 0.90 Negative 0.90-1.09 Equivocal > 1.09 PositiveAs recommended by the Food and Drug Administration(FDA), all samples with positive or equivocalresults in a Borrelia burgdorferi antibody screenwill be tested using a blot method. Positive orequivocal screening test results should not beinterpreted as truly positive until verified as suchusing a supplemental assay (e.g., B. burgdorferi blot).The screening test and/or blot for B. burgdorferiantibodies may be falsely negative in early stagesof Lyme disease, including the period when erythemamigrans is apparent.THIS TEST WAS PERFORMED AT:[employer] [address]OBGJWY MERATI,MDNo Reportable Result Name Value Range Interpretation Code Description Data Shanta rce(s) Supporting Document(s) 25-Hydroxyvitamin D2+25-Hydroxyvitamin D3 [Mass/volume ] in Serum or Plasma 29 ng/mL 30-100 [facility] Vitamin D Status 25-OH Vitamin D :Deficiency: <20 ng/mLInsufficiency: 20 - 29 ng/mLOptimal: > or = 30 ng/mLFor 25-OH Vitamin D testing on patients onD2-supplementation and patients for whom quantitationof D2 and D3 fractions is required, the QuestAssureD(TM)25- OH VIT D, (D2,D3), LC/MS/MS is recommended: ordercode 91532 (patients >2yrs).See Note 1Note 1For additional information, please refer tohttp://education.[employer]/faq/UBM556(This link is being provided for informational/educational purposes only.)THIS TEST WAS PERFORMED AT:[employer] [address]MICHAEL CLEMONS MD ID Date Data Source [id number] 06/11/2020 08:12:[address] [facility] <0.90 Index Interpretation ----- < 0.90 Negative 0.90-1.09 Equivocal > 1.09 PositiveAs recommended by the Food and Drug Administration(FDA), all samples with positive or equivocalresults in a Borrelia burgdorferi antibody screenwill be tested using a blot method. Positive orequivocal screening test results should not beinterpreted as truly positive until verified as suchusing a supplemental assay (e.g., B. burgdorferi blot).The screening test and/or blot for B. burgdorferiantibodies may be falsely negative in early stagesof Lyme disease, including the period when erythemamigrans is apparent.THIS TEST WAS PERFORMED AT:[employer] [address]GBWUUH MERATI,MDNo Reportable Result Name Value Range Interpretation Code Description Data Shanta rce(s) Supporting Document(s) Chlamydophila pneumoniae IgG Ab [Titer] in Serum by Im munofluorescence 1:128 titer <1:64 Above high normal [facility] Chlamydophila pneumoniae IgA Ab [Titer] in Serum by Im munofluorescence 1:128 titer <1:16 Above high normal [facility] Chlamydophila pneumoniae IgM Ab [Titer] in Serum by Im munofluorescence <1:10 titer <1:10 [facility] Chlamydophila pneumoniae IgA and IgG and IgM [Interpretation] in Seru m [facility] Chlamydia trachomatis IgG Ab [Titer] in Serum by Immunofluor escence <1:64 titer <1:64 [facility] Chlamydia trachomatis IgA Ab [Titer] in Serum by Immunofluor escence <1:16 titer <1:16 [facility] Chlamydia trachomatis IgM Ab [Titer] in Serum by Immunofluor escence <1:10 titer <1:10 [facility] Chlamydia trachomatis IgA and IgG and IgM [Interpretation] in Serum [facility] Antibody Not Detected Chlamydophila psittaci IgG Ab [Titer] in Serum by Immu nofluorescence <1:64 titer <1:64 [facility] Chlamydophila psittaci IgA Ab [Titer] in Serum by Immu nofluorescence <1:16 titer <1:16 [facility] Chlamydophila psittaci IgM Ab [Titer] in Serum by Immu nofluorescence <1:10 titer <1:10 [facility] Chlamydophila psittaci IgA and IgG and IgM [Interpretation] in Serum [facility] Antibody Not DetectedReference Range: IgG <1:64 IgA <1:16 IgM <1:10The immunofluorescent detection of specific antibodiesto Chlamydia trachomatis, Chlamydophila pneumoniae andC. psittaci may be complicated by crossreactiveantibodies, non-specific antibody stimulation, or pastexposure to more than one of these organisms. IgMtiters of 1:10 or greater are indicative of recentinfection; however, IgM antibody is very cross-reactive, often demonstrating titers to multipleorganisms. Any IgG titer may indicate past exposureto that particular organism. Infection by a particularorganism typically yields IgG titers that are higherthan antibody titers to non-infecting organisms. IgAtiters may help to identify the infecting organismwhen crossreative IgG is present. IgA is typicallypresent at low titers during primary infection, butmay be elevated in recurrent exposures or in chronicinfection.This test was developed and its analytical performancecharacteristics have been determined by [facility] [place], [place]. It hasnot been cleared or approved by the U.S. Food and DrugAdministration. This assay has been validated pursuantto the CLIA regulations and is used for clinicalpurposes.THIS TEST WAS PERFORMED AT:[employer] [id number] [place], [place] [address]IDAN GAMEZ MD,PHD ID Date Data Source [id number] 06/11/2020 08:12:00 AM [facility] <0.90 Index Interpretation ----- < 0.90 Negative 0.90-1.09 Equivocal > 1.09 PositiveAs recommended by the Food and Drug Administration(FDA), all samples with positive or equivocalresults in a Borrelia burgdorferi antibody screenwill be tested using a blot method. Positive orequivocal screening test results should not beinterpreted as truly positive until verified as suchusing a supplemental assay (e.g., B. burgdorferi blot).The screening test and/or blot for B. burgdorferiantibodies may be falsely negative in early stagesof Lyme disease, including the period when erythemamigrans is apparent.THIS TEST WAS PERFORMED AT:[employer] [address]SMJHQM MERATI,MDNo Reportable Result Name Value Range Interpretation Code Description Data Shanta rce(s) Supporting Document(s) Thyroglobulin Ab [Units/volume] in Serum or Plasma Less Than 1 < or = 1 [facility] Thyroglobulin [Mass/volume] in Serum or Plasma 20.0 ng/mL [facility] Reference Range: Intact Thyro id 2.8-40.9 Athyrotic <0.1 Note: Abnormal flagging is based on the reference interval for patients with intact thyroid.This test was performed using the [employer] Coulterchemiluminescent method. Values obtained fromdifferent assay methods cannot be usedinterchangeably. Thyroglobulin levels, regardlessof value, should not be interpreted as absoluteevidence of the presence or absence of disease.For additional information, please refer tohttp://education.[employer]/faq/PWX149(This link is being provided for informational/educational purposes only.)THIS TEST WAS PERFORMED AT:[employer] [address]MICHAEL CLEMONS MD ID Date Data Source [id number] 06/10/2020 05:07:00 PM [facility] TEST CODE: [id number] TEST NAME: B ABESIA ZULEYMAI ANTIBODY (wa1 iGG) Name Value Range Interpretation Code Description Data Shanta rce(s) Supporting Document(s) Laboratory studies (set) REPORT [facility] TEST NAME FLAG RESULT UNITS OF MEASURE========= ==== ====== BABESIA DUNCANI (WA1) ANTIBODY (IGG), IFA <1:256RESULT COMMENT:REFERENCE RANGE: <1:256 INTERPRETIVE CRITERIA: <1:256 Antibody not detected > or = 1:256 Antibody detectedBabesia zuleymai, also known as WA1, has been associatedwith symptoms similar to those caused by Babesia microti.Little, if any, cross-reactivity occurs between Babesiamicroti and WA1.This test was developed and its analytical performancecharacteristics have been determined by [facility]. It has not been cleared or approvedby FDA. This assay has been validated pursuant to theCLIA regulations and is used for clinical purposes.THIS TEST WAS PERFORMED AT:[employer] [facility]FECTI[facility], [id number] [place] [address]Lacey ZHANG ID Date Data Source [id number] 04/09/2020 02:23:00 PM [facility]) Name Value Range Interpretation Code Description Data Shanta rce(s) Supporting Document(s) Reported Physicians See Note Reported Physici ans [place] ([facility]) Note: Reported Physicians:Ordering: ELVIRA [id number], JERRY ArzateAttending: Albert FELIX To: Albert FELIX To: Melissa Faria ID Date Data Source [id number] 04/09/2020 02:23:00 PM [facility] ([facility]) Name Value Range Interpretation Code Description Data Shanta rce(s) Supporting Document(s) WHITE BLOOD COUNT 9.5 3/uL Normal WHITE BLOOD COUNT [place] ([facility]) RED BLOOD COUNT 4.56 6/uL Normal [facility] B[facility]) Hemoglobin [Mass/volume] in Mixed venous blood by Oximetry 13.9 g/d l Normal HEMOGLOBIN [place] ([facility]) Hematocrit [Pure volume fraction] of Blood by Automated count 41.9 % Normal HEMATOCRIT [place] ([facility]) MEAN CORPUSCULAR HEMOGLOBIN 30.5 pg Normal MEAN COR PUSCULAR HEMOGLOBIN [place] ([facility]) MEAN CORPUSCULAR VOLUME 91.9 fl Normal MEAN CORPUSC ULAR VOLUME [place] ([facility]) RED CELL DISTRIBUTION WIDTH 14.8 % Above high no rmal RED CELL DISTRIBUTION WIDTH [place] ([facility]) MEAN CORPUSCULAR HGB CONC 33.2 g/dl Normal MEAN CORPU SCULAR HGB CONC [place] ([facility]) PLATELET COUNT, AUTOMATED 333 3/uL Normal PLATELET C OUNT, AUTOMATED [place] ([facility]) NEUTROPHILS % 68.4 % Above high normal NEUTROPHILS % [facility]) MONO % 9.5 % Above high normal MONO % [place] ([facility]) LYMPH % 20.7 % Below low normal LYMPH % [place] ([facility]) EOS % 0.5 % Normal EOS % [place] ([facility]) BASO % 0.6 % Normal BASO % [place] ([facility]) IMMATURE GRANULOCYTE % 0.3 % Normal IMMATURE GRAN ULOCYTE % [place] ([facility]) NEUTROPHILS # 6.5 3/uL Normal NEUTROPHILS # [place] ([facility]) NUCLEATED RED BLOOD CELL % 0.0 % Normal NUCLEATED RED BLOOD CELL % [place] ([facility]) LYMPH # 2.0 3/uL Normal LYMPH # [place] ([facility]) MONO # 0.9 3/uL Above high normal MONO # [facility] ([facility]) EOS # 0.1 3/uL Normal EOS # [place] ([facility]) BASO # 0.1 3/uL Normal BASO # [place] ([facility]) ID Date Data Source [id number] 02/29/2020 02:01:00 PM EDT [place] ([facility]) Name Value Range Interpretation Code Description Data Shanta rce(s) Supporting Document(s) Reported Physicians See Note Reported Physici ans [facility]) Note: Reported Physicians:Ordering: ELVIRA [id number]: Albert FELIX To: Albert FELIX To: Melissa Faria ID Date Data Source [id number] 02/29/2020 02:01:00 PM EDT [place] ([facility]) Name Value Range Interpretation Code Description Data Sahnta rce(s) Supporting Document(s) RED BLOOD COUNT 4.25 6/uL Normal [facility]LOOD COUNT [facility] WHITE BLOOD COUNT 25.6 3/uL Above high normal WHITE BLOOD COUNT [facility]) MEAN CORPUSCULAR VOLUME 92.2 fl Normal MEAN CORPUSC ULAR VOLUME [facility]) Hemoglobin [Mass/volume] in Mixed venous blood by Oximetry 12.8 g/d l Normal HEMOGLOBIN [facility]) Hematocrit [Pure volume fraction] of Blood by Automated count 39.2 % Normal HEMATOCRIT [facility]) MEAN CORPUSCULAR HEMOGLOBIN 30.1 pg Normal MEAN COR PUSCULAR HEMOGLOBIN [facility]) MEAN CORPUSCULAR HGB CONC 32.7 g/dl Normal MEAN CORPU SCULAR HGB CONC [place] ([facility]) PLATELET COUNT, AUTOMATED 318 3/uL Normal PLATELET C OUNT, AUTOMATED [place] ([facility]) RED CELL DISTRIBUTION WIDTH 15.2 % Above high no rmal RED CELL DISTRIBUTION WIDTH [facility]) LYMPH % 5.7 % Below low normal LYMPH % [place] ([facility]) NEUTROPHILS % 86.3 % Above high normal NEUTROPHILS % [facility] EOS % 0.0 % Normal EOS % [place] ([facility]) MONO % 6.8 % Above high normal MONO % [facility]) BASO % 0.3 % Normal BASO % [place] ([facility]) NUCLEATED RED BLOOD CELL % 0.0 % Normal NUCLEATED RED BLOOD CELL % [place] ([facility]) IMMATURE GRANULOCYTE % 0.9 % Normal IMMATURE GRAN ULOCYTE % [place] ([facility]) LYMPH # 1.5 3/uL Normal LYMPH # [place] ([facility]) NEUTROPHILS # 22.1 3/uL Above high normal NEUTROPHILS # G [place] ([facility]) EOS # 0.0 3/uL Normal EOS # [place] ([facility]) MONO # 1.8 3/uL Above high normal MONO # [place] ([facility]) BASO # 0.1 3/uL Normal BASO # [place] ([facility]) ID Date Data Source [id number] 02/29/2020 02:01:00 PM EDT [place] ([facility]) Name Value Range Interpretation Code Description Data Shanta rce(s) Supporting Document(s) Reported Physicians See Note Reported Physici ans [place] ([facility]) Note: Reported Physicians:Ordering: ELVIRA [id number], JERRY UJamalAttending: Albert FELIX To: Albert FELIX To: Melissa Faria ID Date Data Source [id number] 02/29/2020 02:01:00 PM EDT [place] ([facility]) Name Value Range Interpretation Code Description Data Shanta rce(s) Supporting Document(s) GLUCOSE, FASTING 95 MG/DL Normal GLUCOSE, FASTING GR EEJ[facility]minSELECT [facility]) BLOOD UREA NITROGEN 8 MG/DL Normal BLOOD UREA NITRO GEN [place] ([facility]) CREATININE FOR GFR 0.50 MG/DL Below low normal CREATININE FOR GFR [place] ([facility]) GLOMERULAR FILTRATION RATE > 60.0 Normal GLOMERULA R FILTRATION RATE [place] ([facility]) Note: Units are mL/min/1.73 m2 Chroni c Kidney Disease Staging per NKF: Stage I & II GFR >=60 Normal to Mildly Decreased Stage III GFR 30- 59 Moderately Decreased Stage IV GFR 15-29 Severely Decreased Stage V GFR <15 Very Little GFR Left ESRD GFR <15 on PAINTER MIRROR SODIUM LEVEL 128 MEQ/L Below low normal SODIUM LEVEL [place] ([facility]) POTASSIUM SERUM 3.8 MEQ/L Normal POTASSIUM SERUM [facility]) CHLORIDE LEVEL 94 MEQ/L Below low normal CHLORIDE LEVEL [facility]) CARBON DIOXIDE LEVEL 29 MEQ/L Normal CARBON DIOXIDE LEVEL [facility]) Anion gap in Body fluid 5 MEQ/L Below low normal ANION GAP [facility]) CALCIUM LEVEL 8.2 MG/DL Below low normal CALCIUM LEVEL [facility]) AST/SGOT 14 U/L Normal AST/SGOT [place] ([facility]) ALT/SGPT 29 U/L Normal ALT/SGPT [place] ([facility]) BILIRUBIN,TOTAL 0.4 MG/DL Normal BILIRUBIN,TOTAL [facility]) Alkaline phosphatase [Enzymatic activity/volume] in Se rum, Plasma or Blood 129 U/L Above high normal ALKALINE PHOSPHATASE [facility]) TOTAL PROTEIN 7.1 GM/DL Normal TOTAL PROTEIN [facility]) Albumin [Mass/volume] in Blood by Bromocresol purple ( BCP) dye binding method 3.3 GM/DL Normal ALBUMIN [facility]) ALBUMIN/GLOBULIN RATIO 0.9 Below low normal ALBUMIN /GLOBULIN RATIO [facility]) ID Date Data Source [id number] 02/29/2020 02:01:00 PM EDT [place] ([facility]) Name Value Range Interpretation Code Description Data Shanta rce(s) Supporting Document(s) Reported Physicians See Note Reported Physici ans [place] ([facility]) Note: Reported Physicians:Ordering: ELVIRA [id number], JERRY ArzateAttending: Albert FELIX To: Albert FELIX To: Melissa Faria ID Date Data Source [id number] 02/29/2020 02:01:00 PM EDT [place] ([facility]) Name Value Range Interpretation Code Description Data Shanta rce(s) Supporting Document(s) LDH LACTATE DEHYDROGENASE 152 U/L Normal LDH LACTAT E DEHYDROGENASE [facility]) ID Date Data Source [id number] 02/22/2020 02:00:00 PM [facility] Hematopathology Report See Addendum Ricardo Sanchez: NILS OLIVARESMRN: [id number] Number: [id number] Date: 02/20/2020 10:00Received Date: 02/21/2020 15:43Physician(s): DAYO BROWN MD Haghir, Shahandeh MDCopy To:[facility]) ReceivedA: Bone Marrow, Flow Cytometry; received 1 green bone marrow, 1 aspiratesmear and 1 pb smearClinical HistoryHistory of follicular lymphoma.TEST REQUESTED/PERFORMED: Flow Cytometry Analysis DiagnosisFlow cytometry of blood/bone marrow: No evidence of previous follicularlymphoma.Anais eYh M.D.;Resident PathologistElectronically Signed By Fransisca Bear M.D. Attending Pathologist 02/22/2020 14:00:35The attending pathologist named above attests that he/she has personallyreviewed the relevant preparation(s) for the specimen(s) and rendered thefinal diagnosis. Addendum 02/28/2020 Cytogenetic report [id number] shows a normal female karyotype. Thediagnosis is unchanged. Addendum Electronically Signed By: Collette Sepulveda MD, PhD 02/28/2020 11:14 ProceduresFlow Cytometry Date Ordered:02/21/2020 Status: Signed Out02/22/2020 InterpretationPERIPHERAL BLOOD: CBC performed at [facility] on 02/20/20.WBC *10.6 K/uLRBC 4.76 M/uLHgb 14.3 g/dLHct 43.5 %MCV 91.4 fLMCH 30.0 pgMCHC 32.9 g/dLRDW *14.6 %Platelets 277 K/uLDifferential Count (automated):75.6 %Neutrophils 0.2 % Eosinophils 0.5 % Kwslxxqdq78.7 % Lymphocytes 0.4 % Immature Oxwnqyohfcvw22.6 % Monocytes-------100.0 % A peripheral blood film is reviewed. BONE MARROW ASPIRATE:Differential Count (100 cells):31 % Erythroid Precursors 2 % Blasts 1 % Xmmruncmqlume32 % N. Myelocytes 8 % N. Metamyelocytes and Band Forms33 % Vteuirpwdoj69 % Lymphocytes 2 % Plasma Cells--------100 % Lymphoid Panel: The following markers were assayed: CD45 (gate), CD2, CD3, CD4, CD5, CD7,CD8, CD10, CD11c, CD19,CD20, CD22, CD23, CD25, CD33, CD34, CD38, CD56, CD57, CD64, CD103, CD117,CD123, HLA-DR, [place],Lambda, and FMC7.# events: [id number]: 92%Flow Cytometry Differential (CD45/SSC)Lymphocyte [place]: 11%CD45 dim [place]: 0%Monocyte [place]: 4%Granulocyte [place]: 72%Nucleated/Erythroid [place]: 7%The lymphocyte gate showsB-cells (CD19): 13%T-cells (CD3): 58%NK-cells (CD3-/CD56+): 28%[place]/Lambda Ratio: 1.6CD4/CD8 Ratio: 1.8Results: (expressed as % of lymphocyte gate)B-cell markers: [place] = 5, Lambda = 4, CD19 = 12, CD20 = 15, CD22 = 13,CD19/10 = 2, CD19/CD5 = 0, CD19/CD2 3 = 6, FMC7 = 11, CD38/CD20 = 11Light chain as % of B-Cells: CD19/[place] = 48, CD19/Lambda = 31,CD19/CD5/[place] = 1, CD19/CD5/Lambda = 1CD19/CD10/[place] = 8, CD19/CD10/Lambda = 5, CD38 on CD19/5 positive cells =71%T-cell Markers: CD2 = 77, CD3 = 58, CD3/CD4 = 37, CD3/CD8 = 20, CD5 = 59,CD7 = 80, CD3/57 = 6NK-cell Markers: CD56 = 27, CD57 = 20Other Markers: CD25 = 6, CD103 = 6, CD11c = 30, CD103/CD11c = 2, CD103/25= 0, CD103/22 = 0, CD10 = 4, CD38 = 69Results: (expressed as % of CD45 dim gate)B-cell markers: [place] = 3, Lambda = 2, CD19 = 20, CD20 = 7, CD22 = 13,CD19/10 = 12, CD19/CD5 = 2, CD19/CD23 = 7, FMC7 = 6, CD38/CD20 = 5Light chain as % of B-Cells: CD19/[place] = 51, CD19/Lambda = 65,CD19/CD10/[place] = 19, CD19/CD10/Lambda = 26T-cell Markers: CD2 = 37, CD3 = 20, CD3/CD4 = 12, CD3/CD8 = 5, CD5 = 14,CD7 = 51, CD3/57 = 2NK-cell Markers: CD56 = 21, CD57 = 18Basophil Markers: CD123 (HLA-DR-) = 6Other Markers: CD10 = 35, CD38 = 61, CD33 = 29, CD34 = 19, CD64 = 28,CD117 = 16, CD123 = 24, HLA-DR = 58, CD25 = 3, CD103 = 4, CD11c = 47Results-CommentsLymphocytes consist predominantly of T cells with normal expression of panT-cell markers and a normal CD4/CD8 ratio, normal proportions of NK andcytotoxic T cells, and polyclonal B cells.CD34+ blasts comprise fewer than 1% of cells studied. Blasts, monocytes,and granulocytes show no definitive immunophenotypic aberrancies.Procedure Electronically Signed By:Fransisca Bear M.D.02/22/2020 This report may include one or more immunohistochemical stain/fluorochromeconjugated monoclonal antibody results that use analyte specific reagents.All positive and negative controls have been reviewed by the attendingpathologist and are satisfactory. The tests were developed and theirperformance characteristics determined by [facility] Pathology department.They have not been cleared or approved by the US Food and DrugAdministration. The FDA has determined that such clearance or approval isnot necessary. Name Value Range Interpretation Code Description Data Shanta rce(s) Supporting Document(s) ID Date Data Source [id number] 02/20/2020 09:38:00 AM [facility] ([facility]) Name Value Range Interpretation Code Description Data Shanta rce(s) Supporting Document(s) Reported Physicians See Note Reported [facility] ([facility]) Note: Reported Physicians:Ordering: ELVIRA [id number], JERRY ArzateAttending: Albert FELIX To: Albert FELIX To: Melissa Faria ID Date Data Source [id number] 02/20/2020 09:38:[facility] Name Value Range Interpretation Code Description Data Shanta rce(s) Supporting Document(s) RED BLOOD COUNT 4.76 6/uL Normal RED BLOOD COUNT YADIRAE JAVIER ([facility]) WHITE BLOOD COUNT 10.6 3/uL Above high normal WHITE BLOOD COUNT [place] ([facility]) Hematocrit [Pure volume fraction] of Blood by Automated count 43.5 % Normal HEMATOCRIT [place] ([facility]) Hemoglobin [Mass/volume] in Mixed venous blood by Oximetry 14.3 g/d l Normal HEMOGLOBIN [place] ([facility]) MEAN CORPUSCULAR VOLUME 91.4 fl Normal MEAN CORPUSC ULAR VOLUME [place] ([facility]) MEAN CORPUSCULAR HEMOGLOBIN 30.0 pg Normal MEAN COR PUSCULAR HEMOGLOBIN [place] ([facility]) MEAN CORPUSCULAR HGB CONC 32.9 g/dl Normal MEAN CORPU SCULAR HGB CONC [place] ([facility]) PLATELET COUNT, AUTOMATED 277 3/uL Normal PLATELET C OUNT, AUTOMATED [place] ([facility]) RED CELL DISTRIBUTION WIDTH 14.6 % Above high no rmal RED CELL DISTRIBUTION WIDTH [place] ([facility]) LYMPH % 11.7 % Below low normal LYMPH % [place] ([facility]) NEUTROPHILS % 75.6 % Above high normal NEUTROPHILS % [facility] EOS % 0.2 % Normal EOS % [place] ([facility]) BASO % 0.5 % Normal BASO % [place] ([facility]) MONO % 11.6 % Above high normal MONO % [place] ([facility]) NUCLEATED RED BLOOD CELL % 0.0 % Normal NUCLEATED RED BLOOD CELL % [place] ([facility]) IMMATURE GRANULOCYTE % 0.4 % Normal IMMATURE GRAN ULOCYTE % [place] ([facility]) LYMPH # 1.2 3/uL Below low normal LYMPH # [place] ([facility]) NEUTROPHILS # 8.0 3/uL Normal NEUTROPHILS # [place] ([facility]) BASO # 0.1 3/uL Normal BASO # [place] ([facility]) MONO # 1.2 3/uL Above high normal MONO # [place] ([facility]) EOS # 0.0 3/uL Normal EOS # [place] ([facility]) ID Date Data Source [id number] 02/27/2020 03:04:00 PM [facility] Cytogenetics ReportName: BENITO OLIVARESMRN: [id number] Number: [id number] Date: 02/20/2020 00:00Received Date: 02/21/2020 15:36Physician(s): DAYO BROWN MD HAGHIR, SHAHANDEH F,MDSpecimen(s) ReceivedA: Bone Marrow - Karyotype analysis and FISHClinical [id number] patient with history of follicular lymphoma.TEST REQUESTED/PERFORMED: Karyotype Analysis and Fluorescence in situhybridization - FISH DiagnosisNormal female karyotype Please correlate with concurrent Hematopathology report ([id number]). Electronically Signed By Vince Infante, Ph.D., [facility], Director ofCytogenetics 02/27/2020 15:04:52Gross DescriptionChromosome Bwkuifko57,XX[20] DescriptionA normal female karyotype was observed in twenty metaphases analyzed.Within the limits of the resolution of this karyotype analysis, noconsistent structural and/ or numerical chromosome aberration wasdetected. As no abnormalities were detected by karyotype analysis, theFISH study was canceled by Dr. Jesus Bear. Test DataSpecimen Processed: Bone Marrow Chromosome Analysis:Metaphases Counted Metaphases Analyzed Metaphases Karyotyped BandingTechnique Band Resolution Culture 20 20 2 GTL 400 48 HR DSP30/ [id number] Disclaimer: Conventional chromosome analysis may not detectsubmicroscopic chromosome aberrations or low level mosaicism. Name Value Range Interpretation Code Description Data Shanta rce(s) Supporting Document(s) ID Date Data Source [id number] 01/22/2020 02:51:00 PM EDT [place] ([facility]) Name Value Range Interpretation Code Description Data Shanta rce(s) Supporting Document(s) Reported Physicians See Note Reported Physici ans [place] ([facility]) Note: Reported Physicians:Ordering: ELVIRA [id number], JERRY ArzateAttending: Albert FELIX To: Albert FELIX To: Melissa Faria ID Date Data Source [id number] 01/22/2020 02:51:00 PM EDT [place] ([facility]) Name Value Range Interpretation Code Description Data Shanta rce(s) Supporting Document(s) GLUCOSE, FASTING 95 MG/DL Normal GLUCOSE, FASTING [facility]) CREATININE FOR GFR 0.46 MG/DL Below low normal CREATININE FOR GFR [facility]) BLOOD UREA NITROGEN 5 MG/DL Below low normal BLOOD UREA NITROGEN [facility]) GLOMERULAR FILTRATION RATE > 60.0 Normal GLOMERULA R FILTRATION RATE [facility]) Note: Units are mL/min/1.73 m2 Chroni c Kidney Disease Staging per NKF: Stage I & II GFR >=60 Normal to Mildly Decreased Stage III GFR 30- 59 Moderately Decreased Stage IV GFR 15-29 Severely Decreased Stage V GFR <15 Very Little GFR Left ESRD GFR <15 on PAINTER MIRROR SODIUM LEVEL 129 MEQ/L Below low normal SODIUM LEVEL [facility]) POTASSIUM SERUM 4.1 MEQ/L Normal POTASSIUM SERUM [facility]) CARBON DIOXIDE LEVEL 31 MEQ/L Normal CARBON DIOXIDE LEVEL [facility]) CHLORIDE LEVEL 96 MEQ/L Below low normal CHLORIDE LEVEL [facility]) CALCIUM LEVEL 8.0 MG/DL Below low normal CALCIUM LEVEL [facility]) AST/SGOT 18 U/L Normal AST/SGOT [facility]) Anion gap in Body fluid 2 MEQ/L Below low normal ANION GAP [facility]) ALT/SGPT 31 U/L Normal ALT/SGPT [place] ([facility]) Alkaline phosphatase [Enzymatic activity/volume] in Se rum, Plasma or Blood 171 U/L Above high normal ALKALINE PHOSPHATASE [place] ([facility]) BILIRUBIN,TOTAL 0.6 MG/DL Normal BILIRUBIN,TOTAL GREE [facility] ([facility]) Albumin [Mass/volume] in Blood by Bromocresol purple ( BCP) dye binding method 3.2 GM/DL Normal ALBUMIN [place] ([facility]) TOTAL PROTEIN 7.3 GM/DL Normal TOTAL PROTEIN [place] ([facility]) ALBUMIN/GLOBULIN RATIO 0.8 Below low normal ALBUMIN /GLOBULIN RATIO [place] ([facility]) ID Date Data Source [id number] 01/22/2020 02:51:00 PM EDT [place] ([facility]) Name Value Range Interpretation Code Description Data Shanta rce(s) Supporting Document(s) Reported Physicians See Note Reported Physici ans [place] ([facility]) Note: Reported Physicians:Ordering: ELVIRA [id number] ArevaloAttending: Albert FELIX To: Albert FELIX To: Melissa Faria ID Date Data Source [id number] 01/22/2020 02:51:00 PM EDT [place] ([facility]) Name Value Range Interpretation Code Description Data Shanta rce(s) Supporting Document(s) LDH LACTATE DEHYDROGENASE 151 U/L Normal LDH LACTAT E DEHYDROGENASE [facility]) ID Date Data Source [id number] 01/22/2020 02:51:00 PM EDT [place] ([facility]) Name Value Range Interpretation Code Description Data Shanta rce(s) Supporting Document(s) Reported Physicians See Note Reported Physici ans [place] ([facility]) Note: Reported Physicians:Ordering: ELVIRA [id number], JERRY UJamalAttending: Albert FELIX To: Albert FELIX To: Melissa Faria ID Date Data Source [id number] 01/22/2020 02:51:00 PM EDT [place] ([facility]) Name Value Range Interpretation Code Description Data Shanta rce(s) Supporting Document(s) WHITE BLOOD COUNT 14.0 3/uL Above high normal WHITE BLOOD COUNT [place] ([facility]) Hemoglobin [Mass/volume] in Mixed venous blood by Oximetry 13.7 g/d l Normal HEMOGLOBIN [place] ([facility]) RED BLOOD COUNT 4.55 6/uL Normal RED BLOOD COUNT [place] ([facility]) MEAN CORPUSCULAR VOLUME 90.8 fl Normal MEAN CORPUSC ULAR VOLUME [place] ([facility]) MEAN CORPUSCULAR HEMOGLOBIN 30.1 pg Normal MEAN COR PUSCULAR HEMOGLOBIN [place] ([facility]) Hematocrit [Pure volume fraction] of Blood by Automated count 41.3 % Normal HEMATOCRIT [place] ([facility]) RED CELL DISTRIBUTION WIDTH 14.6 % Above high no rmal RED CELL DISTRIBUTION WIDTH [place] ([facility]) MEAN CORPUSCULAR HGB CONC 33.2 g/dl Normal MEAN CORPU SCULAR HGB CONC [place] ([facility]) NEUTROPHILS % 82.2 % Above high normal NEUTROPHILS % [facility] ([facility]) LYMPH % 8.6 % Below low normal LYMPH % [place] ([facility]) PLATELET COUNT, AUTOMATED 381 3/uL Normal PLATELET C OUNT, AUTOMATED [place] ([facility]) MONO % 8.2 % Above high normal MONO % [place] ([facility]) EOS % 0.0 % Normal EOS % [place] ([facility]) BASO % 0.5 % Normal BASO % [place] ([facility]) IMMATURE GRANULOCYTE % 0.5 % Normal IMMATURE GRAN ULOCYTE % [place] ([facility]) NUCLEATED RED BLOOD CELL % 0.0 % Normal NUCLEATED RED BLOOD CELL % [place] ([facility]) LYMPH # 1.2 3/uL Below low normal LYMPH # [place] ([facility]) MONO # 1.1 3/uL Above high normal MONO # [place] ([facility]) NEUTROPHILS # 11.5 3/uL Above high normal NEUTROPHILS # [facility] BASO # 0.1 3/uL Normal BASO # [place] ([facility]) EOS # 0.0 3/uL Normal EOS # [place] ([facility]) ID Date Data Source [id number] 01/01/2020 10:29:00 AM EDT [facility] Name Value Range Interpretation Code Description Data Shanta rce(s) Supporting Document(s) Pathology Report [facility] . 01Material submitted: .inguinal area - LEFT GROIN. Modifiers: left. 01Clinician provided ICD-10:R59.1. 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 Thefollicles are mostly comprised of small round to irregular lymphoid cellsand fewer than five centroblasts per high power field are presentconsistent with low grade. Immunoperoxidase stain for B-cell marker LZ08hehaht the neoplastic cells while T-cell marker CD3 stains backgroundbenign T lymphocytes. T-cell marker CD5 also stains benign lymphocytes.Bcl-2 and CD10 are both strongly positive consistent with the diagnosis offollicular lymphoma. *This case was presented for intradepartmental review*[facility] 01/01/2020 0936 Local . 01Comment:These findings were discussed with Dr. Faria at 9:00 am on 01/01/2020. This report may include one or more immunoperoxidase stain results whichuse analyte-specific reagents. These tests were developed and theirperformance characteristics determined by [facility]. They have not beencleared or approved by the U.S. Food and Drug Administration. The F.D.A.has determined that such clearance or approval is not necessary. Thepositive and negative controls have been reviewed by the pathologist andare satisfactory.. 01Electronically signed: .Vidal Quintero MD, Pathologist. Gross description: .Specimen received in formalin and labeled "left groin" is a crawford to dullyellow smooth to irregular rubbery mass measuring 2.6 x 1.6 x 1.1 cm.Specimen is serially sectioned revealing a faint crawford to glass homogeneouscut surface. Submitted entirely. (4 blocks) [facility] 12/28/2019 1052 Local. 01Pathologist provided ICD- 10:C83.80. 01CPT .997633, [id number], [id number] ID Date Data Source [id number] 11/07/2019 03:02:00 PM EDT [place] [address] [id number] [phone] NAME SEX PT STATUS ACCOUNT NUMBER NILS OLIVARES REG REF [id number] ORDERING PHYSICIAN LOCATION MEDICAL RECORD NO. Mick Ngo M.D. [place] [id number] ATTENDING PHYSICIAN DATE OF DATE OF EXAM/TIME Mick Ngo MD 1965 11/06/19 / 5 TYPE / EXAM US EXTREMITY NON VASC LIMITED REASON FOR EXAM ENLARGED LYMPH NODES COMPARISON: None available. FINDINGS: Images demonstrate enlarged nodes in the left groin area one of the nodes measures approximately 2.3 x 0.9 x 1.9 cm another node measures approximately 2.1 x 0.8 x 1.6 cm. A third node is seen, as well. IMPRESSION: Enlarged groin lymph nodes, as described. Reported By Crow Oliveira MD on 11/07/19 1502 Signed By Crow Oliveira MD on 11/07/19 1507 Date Time CC: Crow Oliveira MD; Mick Ngo M.D. Techn: OLAF Trans Dt/Tm: Trans by: DT Prt Dt/Tm: : Total DLP = 0.00 mGy-cm : Total Radiation Dose = 0.0000 mSv Lifetime Dose: 2.1320 mSv Name Value Range Interpretation Code Description Data Shanta rce(s) Supporting Document(s) ID Date Data Source [id number] 08/07/2019 08:50:00 AM EDT [facility] [address] [place] [address] [phone] NAME SEX PT STATUS ACCOUNT NUMBER NILS OLIVARES REG REF [id number] ORDERING PHYSICIAN LOCATION MEDICAL RECORD NO. Mick Ngo M.D. CT [id number] ATTENDING PHYSICIAN DATE OF DATE OF EXAM/TIME Mick Ngo MD 1965 08/03/191249 TYPE / EXAM CT Thorax without contrast REASON FOR EXAM PULMONARY NODULES, COPD CLINICAL HISTORY: 54 years of age, Female, pulmonary nodules, COPD. TECHNIQUE: Noncontrast CT helical sections of the chest obtained scanning from the thoracic inlet to the hemidiaphragms. Multiple coronal, sagittal, and MIPS reformatted images were generated. Evaluation of solid organs and vasculature are limited, due to the lack of intravenous contrast administration. Dose reduction techniques were used including automated exposure control and adjustment of mA and/or KV according to patient size. Radiation dose: CTDI: 4.28 DLP: [address]: 03/08/2017. FINDINGS: Thyroid: Status post left thyroid lobectomy. The right thyroid gland is unremarkable. Lungs: The trachea and central airways are patent. There are no focal pulmonary consolidations. Mild hyperinflation with flattening of the diaphragms, compatible with COPD. There is emphysematous changes in the medial aspect of the right upper lobe. There is no pleural effusion or pneumothorax. Pulmonary nodules: * 2 mm right upper lobe no dule, (series 3, image 31), unchanged. * 5 mm subpleural right upper lobe nodule, (series 3, image 34), unchanged. * 3 mm right upper lobe nodule, (series 3, image 57), unchanged. * 4 mm subpleural left middle lobe nodule, (series 3, image 67), unchanged. * 2 mm right middle lobe nodule, (series 3, image 82), unchanged. * 6 mm subpleural right middle lobe nodule, (series 3, image 86), unchanged. * 2 mm right lower lobe nodule, (series 3, image 83), unchanged. * 6 mm right lower lobe nodule, (series 3, image 84), unchanged. * 5 mm fissural nodule in the right major fissure, (series 5, image 55), unchanged. * 5 mm lingular nodule, (series 3, image 80), unchanged. * 2 mm left lower lobe nodule, (series 3, image 27), unchanged. * 5 mm left lower lobe nodule, (series 3, image 83), unchanged. * 3 mm left lower lobe nodule, (series 3, image 84), unchanged. Mediastinum/vascular: The heart is normal in size. There is no significant pericardial effusion. The aorta is normal in course and caliber. Scattered atherosclerotic calcifications are present. Shotty mediastinal and hilar lymph nodes are present, a nonspecific finding. Upper abdomen: Status post gastric surgery, possibly gastric sleeve procedure. Mild left hepatic biliary ductal dilatation, similar, slightly increased from previous study. Limited noncontrast evaluation of the upper abdomen is otherwise grossly unremarkable. Musculoskeletal: Multilevel degenerative changes are present involving the thoracic spine. IMPRESSION: 1. Hyperinflation with flattening the diaphragms compatible with COPD. Emphysematous changes. No focal pulmonary consolidation, pleural effusion or pneumothorax. 2. Multiple pulmonary nodules measuring up to 6 mm without significant change from prior study. Follow-up recommended as per the Fleischner study recommendations, see below. 3. Other incidental findings are present in the body the report. Fleischner Society 2017 Guidelines for Management of Incidentally Detected Pulmonary Nodules in Adults: SOLID NODULES Nodule Size: <6mm Patient at Low Risk: No routine follow-up. Patient at High Risk: Optional CT at 12 months. Nodule Size: 6-8 mm Patient at Low Risk: CT at 3-6 months, then consider CT at 18-24 months. Patient at High Risk: CT at 3-6 months, then CT at 18-24 months. Reference: "Guidelines for Management of Incidental Pulmonary Nodules Detected on CT Images: From the Fleischner Society 2017" by Loyda Dodson et al. Radiology. 2017. Volume 284: Issue 1, pages images 228 to 243 Reported By Michael Ibrahim DO on 08/07/19 0850 Signed By Michael Ibrahim DO on 08/07/19 0943 Date Time CC: Michael Ibrahim DO; Mick Ngo M.D. Techn: EBEBR Trans Dt/Tm: Trans by: DT Prt Dt/Tm: : Total DLP = 164.00 mGy-cm : Total Radiation Dose = 2.1320 mSv Lifetime Dose: 2.1320 mSv Name Value Range Interpretation Code Description Data Shanta rce(s) Supporting Document(s) ID Date Data Source [id number] 08/03/2019 12:46:[address] [facility] @08/03/19 1221: MANUAL DIFF added. RFLXG = DIFF. @08/03/19 1221: MANUAL DIFF added. RFLXG = DIFF. Name Value Range Interpretation Code Description Data Shanta rce(s) Supporting Document(s) Leukocytes [#/volume] in Blood by Automated count 8.1 10*3/uL 4.45-10 .71 [facility] Erythrocytes [#/volume] in Blood by Automated count 5.34 10*6/uL 4.20 -5.40 [facility] Hemoglobin [Moles/volume] in Blood 15.6 g/dL 10.7-15.[address] Above high n ormal [facility] Hematocrit [Volume Fraction] of Blood by Automated count 47.5 % 37-[address] [facility] Erythrocyte mean corpuscular volume [Ent itic volume] in Cord blood by Automated count 89.0 fL 80-96 N [facility] Erythrocyte mean corpuscular hemoglobin [Entitic mass] by Automated count 29.2 pg 27-31 N [facility] l Erythrocyte mean corpuscular hemoglobin concentration [Mass/volume] in Cord blood 32.8 g/dL 33-37 Below low normal [facility] Erythrocyte distribution width [Entitic volume] by Automated count 15 % 11-15 [facility] Platelets [#/volume] in Blood by Automated count 284 10*3/uL 130-[address] [facility] Platelet mean volume [Entitic volume] in Blood 10.1 fL 9.1-13.[address] [facility] Neutrophils/100 leukocytes in Blood by Automated count 43.8 % 41- [address] [facility] Neutrophils [#/volume] in Blood by Automated count 3.5 U 1.7-7.[address] [facility] Lymphocytes/100 leukocytes in Blood by Automated count 30.2 % 14- [address] [facility] Lymphocytes [#/volume] in Blood by Automated count 2.4 U 0.6-4.[address] [facility] Monocytes/100 leukocytes in Blood by Automated count 15.8 % 4-[address] [facility] Monocytes [#/volume] in Blood by Automated count 1.3 U 0.2-1.[address] [facility] Eosinophils/100 leukocytes in Blood by Automated count 9.4 % 0-[address] [facility] Eosinophils [#/volume] in Blood by Automated count 0.8 U 0.0-0.[address] [facility] Basophils/100 leukocytes in Blood by Automated count 0.7 % 0.4-[address] [facility] Basophils [#/volume] in Blood by Automated count 0.1 U 0.0-0.[address] [facility] NUCLEATED RED BLOOD CELL 0 % [facility] NUCLEATED RED BLOOD CELL# 0 U [facility] Immature granulocytes [Presence] in Blood by Automated count 0-[address] [facility] Immature granulocytes [#/volume] in Blood by Automated count 0.0 U 0-0.[address] [facility] Manual Differential panel - Blood Manual Diff Added [facility] ID Date Data Source [id number] 08/03/2019 01:18:[address] [facility] @08/03/19 1221: MANUAL DIFF added. RFLXG = DIFF. @08/03/19 1221: MANUAL DIFF added. RFLXG = DIFF. Name Value Range Interpretation Code Description Data Shanta rce(s) Supporting Document(s) Urea nitrogen [Mass/volume] in Serum or Plasma 7 mg/dL 9-[address] [facility] Sodium [Moles/volume] in Serum or Plasma 133 mmol/L 132-[address] [facility] Potassium [Moles/volume] in Serum or Plasma 4.5 mmol/L 3.5-5.[address] [facility] Chloride [Moles/volume] in Serum or Plasma 101 mmol/L 99-[address] [facility] Carbon dioxide, total [Moles/volume] in Serum or Plasma 28 mmol/L 20 -[address] [facility] Anion gap in Serum or Plasma 9 mmol/L 8-16 N [facility] Glucose [Mass/volume] in Serum or Plasma 81 mg/dL 74-[address] [facility] Creatinine 0.6 mg/dL 0.5-1.1 N [facility] Glomerular filtration rate/1.73 sq M.pre dicted [Volume Rate/Area] in Serum or Plasma Greater Than [address] [facility] Alanine aminotransferase [Enzymatic acti vity/volume] in Serum or Plasma by With P-5'-P 32 U/L 10-49 N [facility] ital Aspartate aminotransferase [Enzymatic ac tivity/volume] in Serum or Plasma by With P-5'-P 19 U/L 0-33 N [facility] pital Alkaline phosphatase [Enzymatic activity/volume] in Serum or Plasma 125 U/L 45-[address] [facility] Calcium [Mass/volume] in Serum or Plasma 8.4 mg/dL 8.5-10.[address] [facility] Bilirubin.total [Mass/volume] in Serum or Plasma 0.4 mg/dL 0.3-1.[address] [facility] Albumin [Mass/volume] in Serum or Plasma by Bromocresol purple (BCP) dye binding method 3.6 g/dL 3.2-4.8 [facility] ital Protein [Mass/volume] in Serum or Plasma 7.0 g/dL 5.7-8.[address] [facility] ID Date Data Source [id number] 08/03/2019 12:46:[address] [facility] @08/03/19 1221: MANUAL DIFF added. RFLXG = DIFF. @08/03/19 1221: MANUAL DIFF added. RFLXG = DIFF. Name Value Range Interpretation Code Description Data Shanta rce(s) Supporting Document(s) Cells counted [#] 100 [facility] Neutrophils [#/volume] in Blood by Manual count 46 % 41-[address] [facility] Lymphocytes [#/volume] in Blood by Manual count 28 % 14-[address] [facility] Monocytes [#/volume] in Blood by Manual count 21 % 4-12 [place] [facility] Basophils [#/volume] in Blood by Manual count 2 % 0-[address] [facility] Mononuclear cells atypical [#/volume] in Blood by Manual count 3 0-[address] [facility] Platelets [#/volume] in Blood by Estimate APPEARS NORMAL NORMAL [facility] Morphology [Interpretation] in Blood Narrative APPEARS NORMAL NORMAL [facility] ID Date Data Source [id number] 08/03/2019 01:18:[address] [facility] @08/03/19 1221: MANUAL DIFF added. RFLXG = DIFF. @08/03/19 1221: MANUAL DIFF added. RFLXG = DIFF. Name Value Range Interpretation Code Description Data Shanta rce(s) Supporting Document(s) Thyrotropin [Units/volume] in Serum or Plasma by Detec tion limit <= 0.005 mIU/L 1.81 u[iU]/mL 0.35-5.50 [facility] Date Data Source [id number] 08/03/2019 11:46:[address] [facility] PO ([facility]) Name Value Range Interpretation Code Description Data Sahnta rce(s) Supporting Document(s) Reported Physicians See Note Reported [facility] [place] ([facility]) Note: Reported Physicians:Ordering: Mick Morrisding: Mick Ngo ID Date Data Source [id number] 08/03/2019 11:46:[address] [facility] PO ([facility]) Name Value Range Interpretation Code Description Data Shanta rce(s) Supporting Document(s) Thyrotropin [Units/volume] in Serum or Plasma by Detec tion limit <= 0.005 mIU/L 1.81 MicroInternationalUnitsPerMilliLiter_[Arbitrary_Con Nor mal TSH SerPl DL<=0.005 mIU/L[facility] ([facility]) Note: Responsible Observer: TSH TSH 600 .7055 (D) ID Date Data Source [id number] 08/03/2019 11:46:00 AM EDT PO ([facility]) Name Value Range Interpretation Code Description Data Shanta rce(s) Supporting Document(s) MANUAL DIFF See Note MANUAL DIFF PO ([facility]) Note: NOTES OTHER/NOT INTERPRETED Atypical Mononuc # Bld Manual 3 Basophils # Bld Manual 2 %Cells counted 100 Lymphocytes # Bld Manual 28 %Monocytes # Bld Manual 21 %Morphology Bld-Imp APPEARS NORMAL Neutrophils # Bld Manual 46 %Platelet # Bld Est APPEARS NORMAL @08/03/19 1221: MANUAL DIFF added. RFLXG = DIFF.Responsible Observer: TOTAL CELLS TOTAL CELLS COUNTED 100.2105 (A) ID Date Data Source [id number] 08/03/2019 11:46:00 AM EDT PO ([facility]) Name Value Range Interpretation Code Description Data Shanta rce(s) Supporting Document(s) Reported Physicians See Note Reported Physici ans [place] ([facility]) Note: Reported Physicians:Ordering: Mick Morrisding: Mick Ngo ID Date Data Source [id number] 08/03/2019 11:46:00 AM EDT PO ([facility]) Name Value Range Interpretation Code Description Data Shanta rce(s) Supporting Document(s) Calcium [Mass/volume] in Serum or Plasma 8.4 MilliGramsPerDeciLiter_[Mass_Concentration_Units] Below low normal Calcium SerPl-mCnc [place] ([facility]) Note: Responsible Observer: Calcium Calc ium 400.2500 (G) Alanine aminotransferase [Enzymatic acti vity/volume] in Serum or Plasma by With P-5'-P 32 enzyme_unit_per_liter Normal ALT SerPl w P-5' -P-cCnc [place] ([facility]) Note: Responsible Observer: SGPT/ALT SGP T/ALT 400.1750 (G) Carbon dioxide, total [Moles/volume] in Serum or Plasm a 28 MilliMolesPerLiter_[Substance_Concentration_Units] Normal CO2 [facility] ([facility]) Note: Responsible Observer: CO2 Carbon D ioxide 400.1400 (G) Bilirubin.total [Mass/volume] in Serum or Plasma 0.4 MilliGramsPerDeciLiter_[Mass_Concentration_Units] Normal Bilirub [facility] ([facility]) Note: Responsible Observer: T DESIREE Total Bilirubin 400.2600 (G) Glucose [Mass/volume] in Serum or Plasma 81 MilliGramsPerDeciLiter_[Mass_Concentration_Units] Normal Glucose [facility] ([facility]) Note: Responsible Observer: Glucose Gluc ose 400.1500 (G) Chloride [Moles/volume] in Serum or Plasma 101 MilliMolesPerLiter_[Substance_Concentration_Units] Normal Chloride [facility] ([facility]) Note: Responsible Observer: Chloride Chl oride 400.1250 (G) Potassium [Moles/volume] in Serum or Plasma 4.5 MilliMolesPerLiter_[Substance_Concentration_Units] Normal Potassium [facility] ([facility]) Note: Responsible Observer: K Potassium 400.1210 (G) Protein [Mass/volume] in Serum or Plasma 7.0 GramsPerDeciLiter_[Mass_Concentration_Units] Normal Pro t [facility] ([facility]) Note: Responsible Observer: TP Total Pro tein 400.2800 (G) Sodium [Moles/volume] in Serum or Plasma 133 MilliMolesPerLiter_[Substance_Concentration_Units] Normal Sodium [facility] ([facility]) Note: Responsible Observer: Sodium Sodiu m 400.1100 (G) Aspartate aminotransferase [Enzymatic ac tivity/volume] in Serum or Plasma by With P-5'-P 19 enzyme_unit_per_liter Normal AST [facility] P-[facility]' [facility] [place] ([facility]) Note: Responsible Observer: SGOT / AST S GOT / AST 400.1900 (G) Urea nitrogen [Mass/volume] in Serum or Plasma 7 MilliGramsPerDeciLiter_[Mass_Concentration_Units] Below low normal BUN [facility] ([facility]) Note: Responsible Observer: BUN Blood Ur ea Nitrogen 400.1000 (G) Anion gap in Serum or Plasma 9 MilliMolesPerLiter_[Substance_Concentration_Units] Normal Anion Gap [facility] ([facility]) Note: Responsible Observer: ANION GAP AN ION GAP 400.1402 (E) Creatinine [Moles/volume] in Vitreous fluid 0.6 MilliGramsPerDeciLiter_[Mass_Concentration_Units] Normal Creatinine [place] ([facility]) Note: Responsible Observer: Creatinine C reatinine 400.1600 (G) Alkaline phosphatase [Enzymatic activity/volume] in Se rum or Plasma 125 enzyme_unit_per_liter Normal ALP [facility] ( [facility]) Note: Responsible Observer: ALP Alkaline Phosphatase 400.2000 (G) Albumin [Mass/volume] in Serum or Plasma by Bromocresol purple (BCP) dye binding method 3.6 GramsPerDeciLiter_[Mass_Concentration_Units] Normal Albumin [facility]) Note: Responsible Observer: Albumin [place] 400.2700 (G) Glomerular filtration rate/1.73 sq M.pre dicted [Volume Rate/Area] in Serum or Plasma Greater Than 60 [facility] [place] [facility]) Note: Responsible Observer: GFR Glomerul ar Filt Rate Calc 400.1605 (D) ID Date Data Source [id number] 08/03/2019 11:46:00 AM [facility] ([facility]) Name Value Range Interpretation Code Description Data Shanta rce(s) Supporting Document(s) Erythrocyte mean corpuscular volume [Ent itic volume] in Cord blood by Automated count 89.0 FemtoLiter_[SI_Volume_Units] Normal MCV Bld Co Auto [place] ([facility]) Note: Responsible Observer: MCV MCV 100 .0600 (B) Erythrocyte distribution width [Entitic volume] by Automated cou nt 15 percent Normal RDW RBC Auto [place] ([facility]) Note: Responsible Observer: RDW RDW 100 .0900 (B) Manual Differential panel - Blood Manual Diff Added Manual diff d [place] ([facility]) Note: Responsible Observer: CBC Manual D ifferential Added 100.1990 (B) Platelet mean volume [Entitic volume] in Blood 10.1 Fe mtoLiter_[SI_Volume_Units] Normal PMV Bld [place] ([facility]) Note: Responsible Observer: MPV MPV 100 .1100 (B) Immature granulocytes [Presence] in Blood by Automated count See No te Normal Imm Granulocytes Bld Ql Auto [place] ([facility]) Note: [id number] ible Observer: IG% IG% 100.1375 (B) Erythrocyte mean corpuscular hemoglobin concentration [Mass/volume] in Cord blood 32.8 GramsPerDeciLiter_[Mass_Concentration_Units] Below low normal MCHC BldCo-mCnc [place] ([facility]) Note: Responsible Observer: MCHC MCHC 1 00.0800 (B) Hematocrit [Volume Fraction] of Blood by Automated count 47.5 pe rcent Above high normal Hct VFr d Auto [place] ([facility]) Note: Responsible Observer: HEMATOCRIT H EMATOCRIT 100.0500 (B) Monocytes/100 leukocytes in Blood by Automated count 15.8 percen t Above high normal Monocytes/leuk NFr Bld Auto PO ([facility]) Note: Responsible Observer: MONO % MONO % 100.1225 (B) Immature granulocytes [#/volume] in Blood by Automated count 0.0 Un it Imm Granulocytes # d Auto [place] ([facility]) Note: Responsible Observer: IG# IG# 100 .1400 (B) Hemoglobin [Moles/volume] in Blood 15.6 GramsPerDeciLiter_[Mass_Concentration_Units] Above high normal H gb Bld-sCnc [place] ([facility]) Note: Responsible Observer: HGB HEMOGLOB IN 100.0400 (B) Leukocytes [#/volume] in Blood by Automated count 8.1 ThousandsPerMicroLiter_[Number_Concentration_Units] Normal WBC # d Auto [place] ([facility]) Note: Responsible Observer: WBC WHITE BL OOD COUNT 100.0100 (E) Eosinophils [#/volume] in Blood by Automated count 0.8 Unit Above high normal Eosinophil # Bld Auto [place] ([facility]) Note: Responsible Observer: EOS # EOS# 100.1300 (D) Basophils [#/volume] in Blood by Automated count 0.1 Unit Normal Basophils # Bld Auto [place] ([facility]) Note: Responsible Observer: BASO # BASO# 100.1350 (B) Basophils/100 leukocytes in Blood by Automated count 0.7 percent Normal Basophils/leuk NFr Bld Auto [place] ([facility]) Note: Responsible Observer: BASO % BASO % 100.1325 (B) Eosinophils/100 leukocytes in Blood by Automated count 9.4 perce nt Above high normal Eosinophil/leuk NFr Bld Auto PO ([facility]) Note: Responsible Observer: EOS % EOS % 100.1275 (B) Lymphocytes [#/volume] in Blood by Automated count 2.4 Unit Normal Lymphocytes # Bld Auto [place] ([facility]) Note: Responsible Observer: LYMPH # LYMP H# 100.1200 (B) Lymphocytes/100 leukocytes in Blood by Automated count 30.2 percent Normal Lymphocytes/leuk NFr Bld Auto [place] ([facility]) Note: Responsible Observer: LYMPH % LYMP H % 100.1175 (B) Monocytes [#/volume] in Blood by Automated count 1.3 Unit Above high normal Monocytes # Bld Auto [place] ([facility]) Note: Responsible Observer: MONO # MONO# 100.1250 (C) Neutrophils [#/volume] in Blood by Automated count 3.5 Unit Normal Neutrophils # Bld Auto [place] ([facility]) Note: Responsible Observer: NEUT# NEUT# 100.1150 (B) Neutrophils/100 leukocytes in Blood by Automated count 43.8 percent Normal Neutrophils/leuk NFr Bld Auto PO ([facility]) Note: Responsible Observer: NEUT% NEUT% 100.1125 (B) Platelets [#/volume] in Blood by Automated count 284 ThousandsPerMicroLiter_[Number_Concentration_Units] Normal Platelet # Bld Auto PO ([facility]) Note: Responsible Observer: PLATELET COU NT PLATELET COUNT 100.1000 (D) Erythrocyte mean corpuscular hemoglobin [Entitic mass] by Automated count 29.2 PicoGram_[SI_Mass_Units] Normal MCH RBC Qn Auto [place] ([facility]) Note: Responsible Observer: MCH MCH 100 .0700 (B) Erythrocytes [#/volume] in Blood by Automated count 5. 34 MillionsPerMicroLiter_[Number_Concentration_Units] Normal RBC # Bld Auto [place] ([facility]) Note: Responsible Observer: RBC Red Bloo d Count 100.0300 (B) NUCLEATED RED BLOOD CELL# 0 Unit NUCLEATED RED BLOOD CELL# PO ([facility]) Note: Responsible Observer: NRBC# NUCLEA LOBO RBC 100.1362 (A) NUCLEATED RED BLOOD CELL 0 percent NUCLEATED R ED BLOOD CELL [place] ([facility]) Note: Responsible Observer: NRBC% NRBC% 100.1360 (B) Notes [TIMP] See Note NOTES [place] ([facility]) Note: @08/03/19 1221: MANUAL DIFF added. RFLXG = DIFF. Procedure Vital Signs ID Date Data Source UNK Name Value Range Interpretation Code Description Data Source(s) Body surface area Derived from formula 1.63 m2 1.63 m2 [facility] ([facility]) Body weight 58.684 kg 58.684 kg [facility] ([facility]) [place] body weight 120 [lb_av] 120 [lb_av] [facility] Body mass index (BMI) [Ratio] 22.2 kg/m2 22.2 k g/m2 [facility] ([facility]) Body weight 129.38 [lb_av] 129.38 [lb_av] [facility] Body height 64 [in_i] 64 [in_i] [facility] ([facility]) 5'4" Diastolic blood pressure 95 mm[Hg] 95 mm[Hg] [facility] ([facility]) Systolic blood pressure 169 mm[Hg] 169 mm[Hg] [facility] Inhaled oxygen concentration 21 % 21 % [place] ([facility]) Inhaled oxygen flow rate 0 L/min 0 L/min [place] ([facility]) Oxygen saturation in Arterial blood by Pulse oximetry 96 % 96 % [place] ([facility]) Body surface area Derived from formula 1.58 m2 1.58 m2 [place] ([facility]) Body mass index (BMI) [Ratio] 21.6 kg/m2 21.6 k g/m2 [place] ([facility]) Body weight 123 [lb_av] 123 [lb_av] [place] ([facility]) Body height 63.25 [in_i] 63.25 [in_i] [place] ([facility]) Body temperature 97.7 [degF] 97.7 [degF] [facility] ([facility]) Respiratory rate 20 /min 20 /min [place] ([facility]) Heart rate 85 /min 85 /min [place] ([facility]) Diastolic blood pressure 84 mm[Hg] 84 mm[Hg] [place] ([facility]) Systolic blood pressure 130 mm[Hg] 130 mm[Hg] [facility] Body surface area Derived from formula 1.61 m2 1.61 m2 [facility] ([facility], ) Body weight 57.154 kg 57.154 kg [facility] ([facility]) [place] body weight 120 [lb_av] 120 [lb_av] [place] [facility] ([facility], ) Body mass index (BMI) [Ratio] 21.6 kg/m2 21.6 k g/m2 [facility] ([facility], ) Body weight 126.00 [lb_av] 126.00 [lb_av] [facility] [facility] ([facility]) Body height 64 [in_i] 64 [in_i] [facility] ([facility], ) 5'4" Diastolic blood pressure 62 mm[Hg] 62 mm[Hg] [facility] ([facility]) Systolic blood pressure 138 mm[Hg] 138 mm[Hg] [facility] Inhaled oxygen concentration 21 % 21 % [facility]) Inhaled oxygen flow rate 0 L/min 0 L/min [place] ([facility]) Oxygen saturation in Arterial blood by Pulse oximetry 94 % 94 % [place] ([facility]) Body surface area Derived from formula 1.57 m2 1.57 m2 [place] ([facility]) Body mass index (BMI) [Ratio] 21.4 kg/m2 21.4 k g/m2 [place] ([facility]) Body weight 122 [lb_av] 122 [lb_av] [place] ([facility]) Body height 63.25 [in_i] 63.25 [in_i] [place] ([facility]) Body temperature 96.9 [degF] 96.9 [degF] [place] ([facility]) Respiratory rate 20 /min 20 /min [place] ([facility]) Heart rate 76 /min 76 /min [place] ([facility]) Diastolic blood pressure 86 mm[Hg] 86 mm[Hg] [place] ([facility]) Systolic blood pressure 132 mm[Hg] 132 mm[Hg] G [facility]) Inhaled oxygen concentration 21 % 21 % [place] ([facility]) Inhaled oxygen flow rate 0 L/min 0 L/min [place] ([facility]) Oxygen saturation in Arterial blood by Pulse oximetry 96 % 96 % [place] ([facility]) Body surface area Derived from formula 1.57 m2 1.57 m2 [place] ([facility]) Body mass index (BMI) [Ratio] 21.4 kg/m2 21.4 k g/m2 [place] ([facility]) Body weight 122 [lb_av] 122 [lb_av] [place] ([facility]) Body height 63.25 [in_i] 63.25 [in_i] [place] ([facility]) Body temperature 96.9 [degF] 96.9 [degF] [place] ([facility]) Respiratory rate 18 /min 18 /min [place] ([facility]) Heart rate 87 /min 87 /min [place] ([facility]) Diastolic blood pressure 92 mm[Hg] 92 mm[Hg] [place] ([facility]) Systolic blood pressure 118 mm[Hg] 118 mm[Hg] [facility] ([facility]) Inhaled oxygen concentration 21 % 21 % [place] ([facility]) Inhaled oxygen flow rate 0 L/min 0 L/min [place] ([facility]) Oxygen saturation in Arterial blood by Pulse oximetry 98 % 98 % [place] ([facility]) Body height 63.25 [in_i] 63.25 [in_i] [place] ([facility]) Body temperature 97.8 [degF] 97.8 [degF] [place] ([facility]) Respiratory rate 24 /min 24 /min [place] ([facility]) Heart rate 77 /min 77 /min [place] ([facility]) Diastolic blood pressure 94 mm[Hg] 94 mm[Hg] [place] ([facility]) Systolic blood pressure 162 mm[Hg] 162 mm[Hg] [facility] ([facility]) Oxygen saturation in Arterial blood by Pulse oximetry 93 % 93 % [place] ([facility]) Body surface area Derived from formula 1.58 m2 1.58 m2 [place] ([facility]) Body mass index (BMI) [Ratio] 21.6 kg/m2 21.6 k g/m2 [place] ([facility]) Body weight 123 [lb_av] 123 [lb_av] [place] ([facility]) Body height 63.25 [in_i] 63.25 [in_i] [place] ([facility]) Body temperature 98.9 [degF] 98.9 [degF] [place] ([facility]) Respiratory rate 24 /min 24 /min [place] ([facility]) Heart rate 92 /min 92 /min [place] ([facility]) Diastolic blood pressure 80 mm[Hg] 80 mm[Hg] [place] ([facility]) Systolic blood pressure 176 mm[Hg] 176 mm[Hg] [facility] ([facility]) Body height 63.25 [in_i] 63.25 [in_i] [place] ([facility]) Diastolic blood pressure 86 mm[Hg] 86 mm[Hg] [place] ([facility]) Systolic blood pressure 142 mm[Hg] 142 mm[Hg] [facility] ([facility]) Oxygen saturation in Arterial blood by Pulse oximetry 92 % 92 % [place] ([facility]) Body surface area Derived from formula 1.60 m2 1.60 m2 [place] ([facility]) Body mass index (BMI) [Ratio] 22.4 kg/m2 22.4 k g/m2 [place] ([facility]) Body weight 127.5 [lb_av] 127.5 [lb_av] [facility] ([facility]) Body height 63.25 [in_i] 63.25 [in_i] [place] ([facility]) Body temperature 96.2 [degF] 96.2 [degF] [facility] ([facility]) Respiratory rate 20 /min 20 /min [place] ([facility]) Heart rate 88 /min 88 /min [place] ([facility]) Diastolic blood pressure 94 mm[Hg] 94 mm[Hg] [place] ([facility]) Systolic blood pressure 138 mm[Hg] 138 mm[Hg] [facility] ([facility]) Diastolic blood pressure 92 mm[Hg] 92 mm[Hg] [place] ([facility]) Systolic blood pressure 160 mm[Hg] 160 mm[Hg] [facility] ([facility]) Diastolic blood pressure 80 mm[Hg] 80 mm[Hg] [place] ([facility]) Systolic blood pressure 190 mm[Hg] 190 mm[Hg] [facility] ([facility]) Oxygen saturation in Arterial blood by Pulse oximetry 94 % 94 % [place] ([facility]) Body surface area Derived from formula 1.60 m2 1.60 m2 [place] ([facility]) Body mass index (BMI) [Ratio] 22.5 kg/m2 22.5 k g/m2 [place] ([facility]) Body weight 128 [lb_av] 128 [lb_av] [place] ([facility]) Body height 63.25 [in_i] 63.25 [in_i] [place] ([facility]) Body temperature 98 [degF] 98 [degF] [place] ([facility]) Respiratory rate 24 /min 24 /min [place] ([facility]) Heart rate 84 /min 84 /min [place] ([facility]) Diastolic blood pressure 100 mm[Hg] 100 mm[Hg] [place] ([facility]) Systolic blood pressure 192 mm[Hg] 192 mm[Hg] [facility] Patient Treatment Plan of Care Planned Activity Planned Date Details Description Data Source (s) Losartan Potassium 50 MG Oral Tablet 05/03/2020 12:00:00 AM [facility] ([facility]) Potassium Chloride 10 MEQ Extended Release Oral Tablet [Klor-Con] 05/03/2020 12:00:00 AM [facility] ([facility]) 7 ACTUAT umeclidinium 0.0625 MG/ACTUAT Dry Powder Inha ler [Incruse] 03/15/2020 [facility] 200 ACTUAT Albuterol 0.09 MG/ACTUAT Metered Dose Inhal er [Ventolin] 03/15/2020 12:00:00 AM [facility] ([facility]) Losartan Potassium 50 MG Oral Tablet 02/28/2020 12:00[facility] Potassium Chloride 10 MEQ Extended Release Oral Tablet [Klor-Con] 02/28/2020 12:00:00 AM EDT [place] ([facility]) Hydrochlorothiazide 25 MG Oral Tablet 02/28/2020 12:00[facility] 7 ACTUAT umeclidinium 0.0625 MG/ACTUAT Dry Powder Inha ler [Incruse] 11/15/2019 12:00:[facility] 200 ACTUAT Albuterol 0.09 MG/ACTUAT Metered Dose Inhal er [Ventolin] 11/15/2019 12:00:00 AM EDT [place] ([facility]) Albuterol 0.83 MG/ML Inhalant Solution 11/15/2019 12:00:00 AM EDT [place] ([facility]) Losartan Potassium 50 MG Oral Tablet 11/07/2019 12:00:00 AM EDT [place] ([facility]) Potassium Chloride 10 MEQ Extended Release Oral Tablet [Klor-Con] 11/07/2019 12:00:00 AM EDT [place] ([facility]) Hydrochlorothiazide 25 MG Oral Tablet 10/24/2019 12:00:00 AM [facility] ([facility]) Hydrochlorothiazide 12.5 MG Oral Capsule 07/25/2019 12:00:00 AM [facility]) Albuterol 0.83 MG/ML Inhalant Solution 07/25/2019 12:00:00 AM [facility] ([facility]) 200 ACTUAT Albuterol 0.09 MG/ACTUAT Metered Dose Inhal er [Ventolin] 07/25/2019 12:00:00 AM [facility] ([facility]) Potassium Chloride 10 MEQ Extended Release Oral Tablet [Klor-Con] 07/25/2019 12:00:00 AM [facility] ([facility]) Losartan Potassium 50 MG Oral Tablet 07/25/2019 12:00:00 AM [facility]) 7 ACTUAT umeclidinium 0.0625 MG/ACTUAT Dry Powder Inha ler [Incruse] 07/25/2019 12:00:00 AM EST [place] ([facility]) 7 ACTUAT umeclidinium 0.0625 MG/ACTUAT Dry Powder Inha ler [Incruse] 06/26/2019 12:00:00 AM EST [place] ([facility]) 200 ACTUAT Albuterol 0.09 MG/ACTUAT Metered Dose Inhal er [Ventolin] 05/31/2019 12:00:00 AM EST [place] ([facility]) 7 ACTUAT umeclidinium 0.0625 MG/ACTUAT Dry Powder Inha ler [Incruse] 05/31/2019 12:00:00 AM EST [place] ([facility]) 7 ACTUAT umeclidinium 0.0625 MG/ACTUAT Dry Powder Inha ler [Incruse] 02/03/2019 12:00:00 AM EDT [place] ([facility]) Hydrochlorothiazide 12.5 MG Oral Capsule 11/09/2018 12:00:00 AM EDT [place] ([facility]) Albuterol 0.83 MG/ML Inhalant Solution 11/09/2018 12:00:00 AM EDT [place] ([facility]) Potassium Chloride 10 MEQ Extended Release Oral Tablet [Klor-Con] 11/09/2018 12:00:00 AM EDT [place] ([facility]) Losartan Potassium 50 MG Oral Tablet 11/09/2018 12:00:00 AM EDT [place] ([facility]) 200 ACTUAT Albuterol 0.09 MG/ACTUAT Metered Dose Inhal er [Ventolin] 11/09/2018 12:00:00 AM EDT [place] ([facility])
--- NOTE | 2020-06-19 11:37 | ROOPDOC ---
[facility] Report Of Operation Report of Operation DATE OF PROCEDURE: 06/19/20 PREPROCEDURE DIAGNOSES: 1. Atherosclerosis of the [place] arteries 2. Pain left lower quadrant abdomen and left groin POSTPROCEDURE DIAGNOSES: 1. Atherosclerosis of the [place] arteries 2. Pseudoaneurysm posterior wall left iliac artery PROCEDURE: 1. Ultrasound-guided access left common femoral artery 2. Left aortoiliac arteriogram 3. Placement of 8 x 39, 8 x 39, 8 x 29, 8 x 29, 8 x 29 VBX stents left common iliac artery to distal left external iliac artery 4. Completion arteriogram 5. Mynx closure left common femoral artery SURGEON: Myah Rios MD ANESTHESIA: Local anesthesia 8 mL lidocaine. Moderate intravenous conscious sedation with supervised by Dr. Rios. The patient was independently monitored by registered nurse assigned to the Department of radiology using automated blood pressure, EKG, and pulse oximetry. The detailed sedation record is presently stored in the hospital information system. The following is a brief sedation record: Start time 09:42, stop time 10:43, Versed 1 mg IV, fentanyl 25 g IV. 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 She did well post procedure, and multiple completion images with arteriogram showed widely patent flow through the left iliac system case closed, no extravasation or pseudoaneurysm was noted at that time. The patient had acute severe left lower quadrant and left groin pain early this morning, and was brought to the emergency room. She was hypotensive and in severe pain. I was notified and we brought her urgently for an arteriogram to rule out bleeding postprocedure. Even though we did not see extravasation on her completion images, her symptoms certainly were consistent with an active bleeding issue. Risks benefits and alternatives to arteriogram and potential intervention were explained to the patient. She was agreeable to proceed. Informed consent was obtained. INTERPRETATION: 1. The left iliac artery stents are widely patent. On initial contrast inject ion, there is a large blush around the central portion of the distal common iliac artery proximal external iliac artery on the left, but it is extremely difficult to say where this is coming from. 2. After placement of an 8 x 39 covered stent in the midportion of the vessel, we still did not note occlusion of the source of the bleed. We then placed additional stents distally because it appeared the blush originated distally, but this did not resolve the blush. We then extended proximally, but this also did not resolve the blush. There was one millimeter between the common iliac artery kissing covered stent placed yesterday and the most proximal of her new stents today, and when I covered this with the balloon, arteriogram revealed resolution of the pseudo-aneurysm blush. Oblique imaging was performed, and we initially still could not see the source of bleed, but further oblique imaging with an almost lateral exposure did reveal that there was a small pseudoaneurysm on the posterior aspect of the iliac artery between the 2 covered stents. We therefore covered this last proximal bit of artery with a covered stent, and there was widely patent flow through the left iliac system with no extravasation, no ongoing bleeding, and the patient's pain immediately subsided. Runoff through the femoral arteries was still widely patent. REPORT OF OPERATION: The patient was brought the angiographic suite urgently. Her bilateral groins were prepped and draped in a sterile fashion. A timeout was performed. Sedation and antibiotics were administered without complication. Microneedle was used to access left common femoral artery under ultrasound guidance. A wire was passed through this access needle was removed. A 4 [place] sheath was placed and flushed with saline. An aorto left iliac arteriogram was performed, please see interpretation above. We exchange the sheath over an O35 wire for 7 [place] sheath. An 8 x 39 balloon expandable covered stent was placed in the midportion of the vessel, but we still did not note occlusion of the s ource of the bleed. We then placed additional stents distally because it appeared the blush originated distally, but this also did not resolve the blush. We then extended with another covered stent proximally, but this also did not resolve the blush. There was one millimeter between the common iliac artery kissing covered stent placed yesterday and the most proximal of her new stents today, and when I covered this with the balloon, arteriogram revealed resolution of the pseudo-aneurysm blush. Oblique imaging was performed, and we initially still could not see the source of bleed, but further oblique imaging with an almost lateral exposure did reveal that there was a small pseudoaneurysm on the posterior aspect of the iliac artery between the 2 covered stents. We therefore covered this last proximal bit of artery with a covered stent, and there was widely patent flow through the left iliac system with no extravasation, no ongoing bleeding, and the patient's pain immediately subsided. Runoff through the femoral arteries was still widely patent. A Mynx closure device was deployed in the left common femoral artery with good hemostasis. Pressure was held and sterile dressings were applied. The patient was taken to recovery in stable condition. She tolerated the procedure well. ESTIMATED BLOOD LOSS: Approximately 4 mL. COMPLICATIONS: None. PLAN: We will monitor the patient for hours postprocedure. At that time, if she is hemodynamically stable and is able to ambulate without significant pain, she can be discharged home. However, I have spoken to the patient and said that if her blood pressure remains low or if she is having ongoing pain that prevents her from ambulating safely, we would like to keep her overnight for observation and analgesia. She is resistant to the idea of staying overnight, but we will insist if needed. For now, we'll continue to monitor her closely. She can restart her Plavix tomorrow. Okay to resume home diet and medications. We appreciate the opportunity to participate in the care of this patient. MYAH RIOS MD Jun 19, 2020 11:37
--- OUTSIDE RECORDS SUMMARY | 2020-06-19 11:40 | CCD ---
Author Author [facility] Organization [facility] Address Unknown Phone Unavailable Support Name Relationship Address Phone UE Next Of Kin Unknown Unavailable Michelle OLIVARES Next Of Kin [address] [place] [address] BETO OLIVARES Next Of Kin [address] [place] [address] ADIRONDACK Next Of Kin [address] [place] [address] Marva OLIVARES ANDMAE Next Of Kin [address] [place] [phone] [place] [address] Racquel CESPEDES Next Of Kin [address] [place] [address] HOME ELISE BARKER Next Of Kin [address] [place] [phone] [employer] Next Of Kin - - -, - - - NO OTHERS Next Of Kin Unknown Unavailable LETTUCE FEED YOU Next Of Kin Unknown Unavailable EFRAIN OLIVARES Next Of Kin [address] [place] [address] LUCERO OLIVARES Next Of Kin [address] [place] [phone] LUCERO OLIVARES Next Of Kin [address] [place] [phone] UN Next Of Kin Unknown Unavailable [place] [address] SHANITA [place] [address] Michelle OLIVARES Next Of Kin [address] [place] [phone] Efrain Olivares ECON Unknown [phone] Rickey Olivares ECON [address] [place] [address] [phone] Care Team Providers Care Line Runner Name Role Phone Dayo Brown MD Unavailable [...] L Alie RPA Unavailable Unavailable Sim, L Alei RPA Unavailable Unavailable Sim, L Alie RPA [...] Unavailable Sim, L Alie RPA Unavailable Unavailable Ism, L Alie RPA Unavailable Unavailable Sim, L [...] Unavailable Giana, C Melissa MD Unavailable Unavailable [place], Mariae Lula TECHNOLOGY RESOURCE TEACHER Unavailable Unavailable [place], Mariae Corning TECHNOLOGY RESOURCE TEACHER Unavailable Unavailable James, Mariae Lula TECHNOLOGY RESOURCE TEACHER Unavailable Unavailable James, Mariae Lula TECHNOLOGY RESOURCE TEACHER Unavailable Unavailable [place], Mariae Lula TECHNOLOGY RESOURCE TEACHER Unavailable Unavailable James, Mariae Corning TECHNOLOGY RESOURCE TEACHER Unavailable Unavailable [place], Mariae Lula TECHNOLOGY RESOURCE TEACHER Unavailable Unavailable [place], Mariae Lula TECHNOLOGY RESOURCE TEACHER Unavailable Unavailable James, Mariae Lula TECHNOLOGY RESOURCE TEACHER Unavailable Unavailable James, Mariae Corning TECHNOLOGY RESOURCE TEACHER Unavailable Unavailable [place], Mariae Corning TECHNOLOGY RESOURCE TEACHER Unavailable Unavailable James, Mariae Lula TECHNOLOGY RESOURCE TEACHER Unavailable Unavailable James, Mariae Corning TECHNOLOGY RESOURCE TEACHER Unavailable Unavailable James, Mariae Corning TECHNOLOGY RESOURCE TEACHER Unavailable Unavailable Re-disclosure Warning The records that [...] is protected by Article 27-F of the [place] Public Health law. If you continue you may have access to information: Regarding HIV / AIDS; Provided by facilities licensed or operated by the [facility] Office of Mental Health; or Provided by the [facility] Office for People With Developmental Disabilities. If such information is present, then the following [facility] mandated warning applies: This information has been [...] law may result in a fine or chcf sentence or both. A general authorization for the release of medical or other information is NOT sufficient authorization for further disc losure. Family History Family Member Name Family Member Gender Family Member Status Date o f Status Description Data Source(s) Unknown Male Problem [facility] ([facility]) pacemaker Encounters Encounter Providers Location Date Indications Data Source(s ) Outpatient Attender: NORTH HERNANDEZ MD 06/05/2020 07:29:00 AM E [facility] Admission cancelled. Disregard status an d admitted date. Outpatient<td ID="encounterTypeDescripti onID0">EXTENDED VISIT</td><td>Lula Ramirez NP</td><td>[facility]</td><td>05/08/2020</td><td>12:49PM</td><td>2:42PM</td><td><content ID="encounterDiagnosisID0-0">Corporate Development Analyst Malignant Lymphoma Follicular</content></td> Attender: Lula Ramirez NP [facility] 05/08/2020 12:49:00 PM EST - 05/08/2020 02:42:00 PM EST Corporate Development Analyst Malignant Lymphoma Follicular PO ([facility]) Corporate Development Analyst Malignant Lymphoma Follicular Outpatient Attender: Alie Zaldivar/Juliana/Raghu/Clari meléndez 04/23/2020 10:00:00 AM EST [facility] ([facility] ) Outpatient<td ID="encounterTypeDescripti onID1">EXTENDED VISIT</td><td>Lula Ramirez NP</td><td>[facility]</td><td>03/15/2020</td><td>10:03AM</td><td>11:13AM</td><td><content ID="encounterDiagnosisID1-0">Arterial Occlusion</content>, <content ID="encounterDiagnosisID1-1">Intermittent Claudication</content>, <content ID="encounterDiagnosisID1-2">Chronic Obstructive Pulmonary Disease</content></td> Attender: Lula Ramirez NP [facility] 03/15/2020 10:03:00 AM EDT - 03/15/2020 11:13:00 AM ED T Intermittent ClaudicationArterial OcclusionIntermittent ClaudicationArterial OcclusionChronic Obstructive Pulmonary DiseaseChronic Obstructive Pulmonary Disease PO ([facility]) Intermittent Claudication Arterial Occlusion Intermittent Claudication Arterial Occlusion Chronic Obstructive Pulmonary Disease Chronic Obstructive Pulmonary Disease Outpatient Admitter: Dayo Brown MDReferrer: Dayo Brown MD 02/20/2020 12:00:00 AM EDT C85.10 [facility] C85.10 Outpatient<td ID="encounterTypeDescripti onID3">SUTURE REMOVAL</td><td>Melissa Faria MD</td><td>[facility]</td><td>01/04/2020</td><td>2:12PM</td><td>2:47PM</td><td></td> Attender: Melissa Faria MD [facility] 01/04/2020 02:12:00 PM EDT - 01/04/2020 02:47:00 PM EDT PO ([facility]) Outpatient<td ID="encounterTypeDescripti onID2">RX UPDATE</td><td>Lula Ramirez NP</td><td>[facility]</td><td>02/28/2020</td><td>01/04/2020 8:12AM</td><td>01/04/2020 11:59PM</td><td></td> Attender: Lula Ramirez NP [facility] 01/04/2020 08:12:00 AM EDT - 01/04/2020 11:59:00 PM EDT [place] ([facility]) Outpatient<td ID="encounterTypeDescripti onID4">WRITE-IN (SAME DAY)</td><td>Mick Ngo MD</td><td>[facility]</td><td>01/02/2020</td><td>1:27PM</td><td>2:45PM</td><td><content ID="encounterDiagnosisID4-0">Postprocedural Complication of Skin and Subcutaneous Tissue Hematoma</content></td> Attender: Mick Ngo MD [facility], 01/02/2020 01:27:00 PM EDT - 01/02/2020 02:45:00 PM ED T Postprocedural Complication of Skin and Subcutaneous Tissue HematomaPostprocedural Complication of Skin and Subcutaneous Tissue HematomaPostprocedural Complication of Skin and Subcutaneous Tissue Hematoma [place] ([facility]) Postprocedural Complication of Skin and Subcutaneous Tissue Hematoma Postprocedural Complication of Skin and Subcutaneous Tissue Hematoma Postprocedural Complication of Skin and Subcutaneous Tissue Hematoma Outpatient<td ID="encounterTypeDescripti onID5">SURGERY</td><td>Melissa Faria MD</td><td>[facility]</td><td>12/27/2019</td><td>2:10PM</td><td>3:21PM</td><td><content ID="encounterDiagnosisID5-0">Essential Hypertension Benign</content>, <content ID="encounterDiagnosisID5-1">Lymphadenopathy</content></td> Attender: Melissa Faria MD [facility], 12/27/2019 02:10:00 PM EDT - 12/27/2019 03:21:00 PM EDT LymphadenopathyLymphadenopathyLymphadenopathyLymphadenopathyEssential Hypertension BenignEssential Hypertension BenignEssential Hypertension BenignEssential Hypertension Benign PO ([facility]) Lymphadenopathy Lymphadenopathy Lymphadenopathy Lymphadenopathy Essential Hypertension Benign Essential Hypertension Benign Essential Hypertension Benign Essential Hypertension Benign Outpatient<td ID="encounterTypeDescripti onID6">EXTENDED VISIT</td><td>Mick Ngo MD</td><td>[facility]</td><td>11/15/2019</td><td>10:42AM</td><td>11:31AM</td><td><content ID="encounterDiagnosisID6-0">Lymphadenopathy</content></td> Attender: Mick Ngo MD [facility], 11/15/2019 10:42:00 AM EDT - 11/15/2019 11:31:00 AM EDT LymphadenopathyLymphadenopathyLymphadenopathyLymphadenopathyLymphadenopathy [place] ([facility]) Lymphadenopathy Lymphadenopathy Lymphadenopathy Lymphadenopathy Lymphadenopathy Outpatient Attender: Mick Ngo MD 11/06/2019 0 1:25:00 PM EDT ENLARGED LYNPH NODES R59.0 [facility] ENLARGED LYNPH NODES R59.0 Outpatient<td ID="encounterTypeDescripti onID7">EXTENDED VISIT</td><td>Mick Ngo MD</td><td>[facility],</td><td>10/24/2019</td><td>2:18PM</td><td>3:02PM</td><td><content ID="encounterDiagnosisID7-0">Chronic Obstructive Pulmonary Disease</content>, <content ID="encounterDiagnosisID7-1">Essential Hypertension Benign</content>, <content ID="encounterDiagnosisID7-2">Enlargement of Lymph Nodes</content></td> Attender: Mick Ngo MD [facility], 10/24/2019 02:18:00 PM EDT - 10/24/2019 03:02:00 PM EDT Enlargement of Lymph NodesEnlargement of Lymph NodesEnlargement of Lymph NodesEnlargement of Lymph NodesEnlargement of Lymph NodesEnlargement of Lymph NodesEssential Hypertension BenignChronic Obstru ctive Pulmonary DiseaseEssential Hypertension BenignChronic Obstructive Pulmonary DiseaseEssential Hypertension BenignChronic Obstructive Pulmonary DiseaseEssential Hypertension BenignChronic Obstructive Pulmonary DiseaseEs sential Hypertension BenignChronic Obstructive Pulmonary DiseaseEssential Hypertension BenignChronic Obstructive Pulmonary Disease [place] ([facility]) Enlargement of Lymph Nodes Enlargement of Lymph [...] 1 1:40:00 AM EDT PULMONARY NODULES, COPD/I10,J44.9 [facility] PULMONARY NODULES, COPD/I10,J44.9 Outpatient<td ID="encounterTypeDescripti onID8">EXTENDED VISIT</td><td>Mick Ngo MD</td><td>[facility],</td><td>07/25/2019</td><td>12:52PM</td><td>2:50PM</td><td><content ID="encounterDiagnosisID8-0">Chronic Obstructive Pulmonary Disease with Acute Lower Respiratory Infection</content>, <content ID="encounterDiagnosisID8- 1">Essential Hypertension Benign</content></td> Attender: Mick Ngo MD [facility], 07/25/2019 12:52:00 PM EST - 07/25/2019 [...] Pulmonary Disease with Acute Lower Respiratory Infection [place] ([facility]) Essential Hypertension Benign Essential Hypertension Benign Essential [...] Respiratory Infection Outpatient<td ID="encounterTypeDescripti onID9">RX UPDATE</td><td>Mick Ngo MD</td><td>[facility]</td><td>05/31/2019</td><td>11/09/2018 12:01PM</td><td>11/09/2018 11:59PM</td><td></td> Attender: Mick Ngo MD [facility] 05/31/2019 12:01:00 PM EST - 11/09/2018 11:59:00 PM EDT PO ([facility]) Medications Medication Brand Name Start Date Product [...] active losartan potassium 50 MG Oral Tablet [place] ([facility]) Potassium Chloride 10 MEQ Extended Relea se Oral Tablet [Klor-Con] Klor-Con M10 10 MEQ Oral Tablet Extended Release Klor-Con M10 10 MEQ Oral Tablet Extended Release 05/03/2020 12:00:00 AM EST active potassium chloride 10 MEQ Extended Release Oral Tablet [Klor-Con] [place] ([facility]) 10 mg 04/24/2020 12:00:00 AM EST tablet [...] 0.0625 MG/ACTUAT Dry Powder Inhaler [Incruse] PO ([facility]) 200 ACTUAT Albuterol 0.09 MG/ACTUAT Mete red Dose Inhaler [Ventolin] Ventolin HFA 108 (90 Base) MCG/ACT Inhalation Aerosol Solution Ventolin HFA 108 (90 Base) MCG/ACT Inhalation Aerosol Solution 03/15/2020 12:00:00 AM EDT 18 active [id number] 200 ACTUAT albuterol 0.09 MG/ACTUAT Metered Dose Inhaler [Ventolin] [place] ([facility]) 25 mg 02/29/2020 12:00:00 AM EDT tablet [...] 10 MEQ Extended Release Oral Tablet [Klor-Con] [place] ([facility]) 10 mEq 02/28/2020 12:00:00 AM EDT tablet,ER particles/cry stals 22 TAKE ONE TABLET BY MOUTH EVERY DAY FOR HYPOKALEMIA TAKE ONE TABLET BY MOUTH EVERY DAY FOR HYPOKALEMIA SOLD: 03/26/2020 [facility] Hydrochlorothiazide 25 MG Oral Tablet hydroCHLOROthiaz joanne 25 MG Oral Tablet hydroCHLOROthiazide 25 MG Oral Tablet 02/28/2020 12:00:00 AM EDT 1 active hydrochlorothiazide 25 MG Oral T ablet [place] ([facility]) Losartan Potassium 50 MG Oral Tablet Losartan Potassium 50 M G Oral Tablet 02/28/2020 12:00:00 AM EDT aborted losartan potassium 50 MG Oral Tablet [place] ([facility]) 10 mEq 02/28/2020 12:00:00 AM EDT tablet,ER [...] Solution 11/15/2019 12:00:00 AM EDT 18 aborted [id number] 200 ACTUAT albuterol 0.09 MG/ACTUAT Metered Dose Inhaler [Ventolin] [facility]) Albuterol 0.83 MG/ML Inhalant Solution A lbuterol Sulfate (2.5 MG/3ML) 0.083% Inhalation Nebulization solution Albuterol Sulfate (2.5 MG/3ML) 0.083% Inhalation Nebulization solution 11/15/2019 12:00:00 AM EDT active albuterol 0.83 MG/ML Inhalation Solution [facility] ([facility]) 7 ACTUAT umeclidinium 0.0625 MG/ACTUAT D ry Powder Inhaler [Incruse] Incruse Ellipta 62.5 MCG/INH Inhalation Aerosol Powder Breath Activated Incruse Ellipta 62.5 MCG/INH Inhalation Aerosol Powder Breath Activated 11/15/2019 12:00:00 AM EDT 1 aborted 7 ACTUAT umeclidinium 0.0625 MG/ACTUAT Dry Powder Inhaler [Incruse] [place] ([facility]) Potassium Chloride 10 MEQ Extended Relea se Oral Tablet [Klor-Con] Klor-Con M10 10 MEQ Oral Tablet Extended Release Klor-Con M10 10 MEQ Oral Tablet Extended Release 11/07/2019 12:00:00 AM EDT aborted potassium chloride 10 MEQ Extended Release Oral Tablet [Klor-Con] [place] ([facility]) Losartan Potassium 50 MG Oral Tablet Losartan Potassium 50 M G Oral Tablet 11/07/2019 12:00:00 AM EDT aborted losartan potassium 50 MG Oral Tablet [facility]) 90 mcg/actuation 11/01/2019 12:00:00 AM EDT [...] aborted hydrochlorothiazide 25 MG Oral T ablet [place] ([facility]) 2.5 mg /3 mL (0.083 %) 08/31/2019 12:00:00 AM EDT solu tion for nebulization 75 INHALE ONE VIAL VIA NEBULIZER FOUR TIMES A DAY INHALE ONE VIAL VIA NEBULIZER FOUR TIMES A DAY SOLD: 09/02/2019 [facility] 50 mg 08/31/2019 12:00:00 AM EDT tablet 30 TAKE ONE TABLET BY MOUTH EVERY MORNING TAKE ONE TABLET BY MOUTH EVERY MORNING SOLD: 11/01/2019 [facility] 62.5 mcg/actuation 08/31/2019 12:00:00 AM [...] umeclidinium 0.0625 MG/ACTUAT Dry Powder [facility]UAT fluticasone furoate 0.1 MG/ACT UAT / vilanterol 0.025 MG/ACTUAT Dry Powder Inhaler [Breo] Breo Ellipta 100-25 MCG/INH Inhalation Aerosol Powder Breath Activated Breo Ellipta 100-25 MCG/INH Inhalation A erosol Powder Breath Activated 07/25/2019 12:00:00 AM EST active 30 ACTUAT fluticasone furoate 0.1 MG/ACTUAT / vilanterol 0.025 MG/ACTUAT Dry Powder Inhaler [Breo] [place] ([facility]) Losartan Potassium 50 MG Oral Tablet Losartan Potassium 50 M G Oral Tablet 07/25/2019 12:00:00 AM EST 1 aborted losartan potassium 50 MG Oral Tablet [place] ([facility]) Potassium Chloride 10 MEQ Extended Relea se Oral Tablet [Klor-Con] Klor-Con M10 10 MEQ Oral Tablet Extended Release Klor-Con M10 10 MEQ Oral Tablet Extended Release 07/25/2019 12:00:00 AM EST aborted potassium chloride 10 MEQ Extended Release Oral Tablet [Klor-Con] [facility]) 200 ACTUAT Albuterol 0.09 MG/ACTUAT Mete red Dose Inhaler [Ventolin] Ventolin HFA 108 (90 Base) MCG/ACT Inhalation Aerosol Solution Ventolin HFA 108 (90 Base) MCG/ACT Inhalation Aerosol Solution 07/25/2019 12:00:00 AM EST 18 aborted [id number] 200 ACTUAT albuterol 0.09 MG/ACTUAT Metered Dose Inhaler [Ventolin] [facility]) Hydrochlorothiazide 12.5 MG Oral Capsule hydroCHLOROthiazide 12.5 MG Oral Capsule hydroCHLOROthiazide 12.5 MG Oral Capsule 07/25/2019 12:00:00 AM EST 1 aborted hydrochlorothiazide 12.5 MG Oral Capsule [facility]) Albuterol 0.83 MG/ML Inhalant Solution A lbuterol Sulfate (2.5 MG/3ML) 0.083% Inhalation Nebulization solution Albuterol Sulfate (2.5 MG/3ML) 0.083% Inhalation Nebulization solution 07/25/2019 12:00:00 AM EST aborted albuterol 0.83 MG/ML Inhalation Solution [facility]) 7 ACTUAT umeclidinium 0.0625 MG/ACTUAT D ry Powder Inhaler [Incruse] Incruse Ellipta 62.5 MCG/INH Inhalation Aerosol Powder Breath Activated Incruse Ellipta 62.5 MCG/INH Inhalation Aerosol Powder Breath Activated 06/26/2019 12:00:00 AM EST 1 aborted 7 ACTUAT umeclidinium 0.0625 MG/ACTUAT Dry Powder Inhaler [Incruse] [facility]) 7 ACTUAT umeclidinium 0.0625 MG/ACTUAT D ry Powder Inhaler [Incruse] Incruse Ellipta 62.5 MCG/INH Inhalation Aerosol Powder Breath Activated Incruse Ellipta 62.5 MCG/INH Inhalation Aerosol Powder Breath Activated 05/31/2019 12:00:00 AM EST 1 aborted 7 ACTUAT umeclidinium 0.0625 MG/ACTUAT Dry Powder Inhaler [Incruse] [facility]) 200 ACTUAT Albuterol 0.09 MG/ACTUAT Mete red Dose Inhaler [Ventolin] Ventolin HFA 108 (90 Base) MCG/ACT Inhalation Aerosol Solution Ventolin HFA 108 (90 Base) MCG/ACT Inhalation Aerosol Solution 05/31/2019 12:00:00 AM EST 18 aborted [id number] 200 ACTUAT albuterol 0.09 MG/ACTUAT Metered Dose Inhaler [Ventolin] [place] ([facility]) 7 ACTUAT umeclidinium 0.0625 MG/ACTUAT D ry Powder Inhaler [Incruse] Incruse Ellipta 62.5 MCG/INH Inhalation Aerosol Powder Breath Activated Incruse Ellipta 62.5 MCG/INH Inhalation Aerosol Powder Breath Activated 02/03/2019 12:00:00 AM EDT 1 aborted 7 ACTUAT umeclidinium 0.0625 MG/ACTUAT Dry Powder Inhaler [Incruse] [place] ([facility]) Losartan Potassium 50 MG Oral Tablet Losartan Potassiu m 50MG Oral Tablet Losartan Potassium 50MG Oral Tablet 11/09/2018 12:00:00 AM EDT 1 aborted losartan potassium 50 MG Oral Ta blet [place] ([facility]) Potassium Chloride 10 MEQ Extended Relea se Oral Tablet [Klor-Con] Klor-Con M10 Oral Tablet Extended Release Klor-Con M10 Oral Tablet Extended Release 11/09/2018 12:00:00 AM EDT aborted potassium chloride 10 MEQ Extended Release Oral Tablet [Klor-Con] [facility]) Hydrochlorothiazide 12.5 MG Oral Capsule hydroCHLOROthiazide 12.5MG Oral Capsule hydroCHLOROthiazide 12.5MG Oral Capsule 11/09/2018 12:00:00 AM EDT 1 aborted hydrochlorothiazide 12.5 MG Oral Capsule [facility]) Albuterol 0.83 MG/ML Inhalant Solution A lbuterol Sulfate (2.5 MG/3ML)0.083% Inhalation Nebulization solution Albuterol Sulfate (2.5 MG/3ML)0.083% Inh alation Nebulization solution 11/09/2018 12:00:00 AM EDT aborted albuterol 0.83 MG/ML Inhalation Solution [facility]) 30 ACTUAT fluticasone furoate 0.1 MG/ACT UAT / vilanterol 0.025 MG/ACTUAT Dry Powder Inhaler [Breo] Breo Ellipta 100-25MCG/INH Inhalation Aerosol Powder Breath Activated Breo Ellipta 100-25MCG/INH Inhalation Ae rosol Powder Breath Activated 11/09/2018 12:00:00 AM EDT aborted 30 ACTUAT fluticasone furoate 0.1 MG/ACTUAT / vilanterol 0.025 MG/ACTUAT Dry Powder Inhaler [Breo] PO ([facility]) 200 ACTUAT Albuterol 0.09 MG/ACTUAT Mete red Dose Inhaler [Ventolin] Ventolin HFA 108 (90 Base)MCG/ACT Inhalation Aerosol Solution Ventolin HFA 108 (90 Base)MCG/ACT Inhalation Aerosol Solution 11/09/2018 12:00:00 AM EDT 18 aborted [id number] 200 ACTUAT albuterol 0.09 MG/ACTUAT Metered Dose Inhaler [Ventolin] [place] ([facility]) Insurance Providers Payer name Policy type / Coverage type Policy ID Covered green party ID Covered green party's relationship to ferguson Policy [place] Plan Information [place] [id number] SP [id number] MIGUEL ANGEL CARE [facility] [id number] S [id number] [place] [id number] SP [id number] Miguel Angel Care [place] Other 0 Self 0 [place] Other 0 Self 0 MIGUEL ANG[place] [id number] Self [id number] CARLENE CLAIMS ADMIN [facility] W [id number] Empl [id number] EXCELLUS C [id number] Spouse [id number] [place] Other 0 Self 0 Miguel Angel Care [place] Other 0 Self 0 [place] Other 0 Self 0 [place] [facility] [place] Other 0 Self 0 [place] [facility] [place] Other 0 Self 0 Miguel Angel Care [place] Other 0 Self 0 [place] [facility] [place] Other 0 Self 0 [employer] COMMUNITY PLAN XIX [id number] 18 [id number] [facility] Health Maintenance Organization (HMO) [id number] Self [id number] [facility] Other [employer] Self [employer] UB - [facility] Other [employer] Self [employer] [facility] Other [employer] Self [employer] [facility] Other NYEPP Self NYEPP [facility] Health Maintenance Organization (HMO) [id number] Self [id number] [facility] COMMERCIAL [id number] [facility] Commercial Health Maintenance Organization (HMO) [id number] Self [id number] UB - [facility] Other [employer] Self [employer]EPP [facility] Other [employer] Self [employer] [facility] Other [employer] Self [employer] [facility]B - [facility] Other [employer] Self [place] MEDICAID (101) [id number] MEDICAID [id number] Patient [id number] MEDICAID [id number] Brandi [id number] EMPLOYER PLAN SERVICES [id number] [facility] [id number] Patient [id number] SELF PAY UNAVAILABLE Patient UNAVAILA BLE [place] CLAIM OPERATIONS [id number] BC/BS PPO/EPO (28) [id number] CARLENE CLAIMS ADMIN [place] WC W [id number] Empl [id number] BLUE CROSS OUT OF STATE [id number] PT [id number] B/S BLUE PPO/HSA (33) [id number] Problems, Conditions, and Diagnoses Code Display Name Description Problem Type Effective Dates Data Source(s) [id number] 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) Corporate Development Analyst Malignant Lymphoma Follicular Problem 05/08/2020 12: 00:00 AM ANTONY FONTENOT ([facility]) [id number] Essential hypertension Essential hypertension Problem 04/09/2020 12:00:00 AM EST MEDENT ([facility] ) [id number] Malignant lymphoma of lymph nodes of inguinal region AND/OR lower limb (disorder) Primary Corporate Development Analyst Lymphoma Inguinal & Lower Limb(s) Lymph Nodes Pr oblem 01/09/2020 12:00:00 AM ADALGISA FONTENOT ([facility]) [id number] Malignant lymphoma of lymph nodes of inguinal region AND/OR lower limb (disorder) Primary Corporate Development Analyst Lymphoma Inguinal & Lower Limb(s) Lymph Nodes Pr oblem 01/09/2020 12:00:00 AM ADALGISA FONTENOT ([facility]) C85.10 C85.10 Diagnosis 02/20/2020 03:07:00 PM [facility] Surgeries/Procedures Procedure Description Date Indications Data Source(s) REMOVAL SUTURES UNDER ANESTHESIA OTHER SURGEON REMOVAL OF SUTURES/LIONEL (Post Op. Management) 01/04/2020 12:00:00 AM [facility] ([facility]) EXC TR-EXT MLG+IRINEO > 4 CM EXC TR-EXT MLG+IRINEO > 4 CM 2019 12:00:00 AM [facility] ([facility]) REPAIR INTERMEDIATE N/H/F/XTRNL GENT >30.0 CM LAYER CLOSURE OF WOUND(S) 12/27/2019 12:00:00 AM [facility] ([facility]) EXCISION- B9+IRINEO 2.1-3 CM (trunk,arm,leg) EXCISION- B 9+IRINEO 2.1-3 CM (trunk,arm,leg) 12/27/2019 12:00:00 AM [facility] ([facility]) Results ID Date Data Source [id number] 06/05/2020 09:02:00 AM [facility] <0.90 Index Interpretation ----- < 0.90 [...] when erythemamigrans is apparent.THIS TEST WAS PERFORMED AT:[employer] [id number] GRIFFIN Reportable Result Name Value Range Interpretation Code Description Data Shanta rce(s) Supporting Document(s) Hemoglobin A1c [Mass/volume] in Blood 5.2 % 3.8-5.6 [facility] The following ranges may be u sed for interpretation of results: HGBA1C degree of glucose control: Greater than 8%: Action Suggested * Less than 7%: Goal of Diabetic Therapy Less than 5.6%: NormalFactors such as duration of diabetes, adherence to therapyand the age of the patient should also be considered inassessing the degree of blood glucose control.* High risk of developing termite treater complications such asretinopathy, nephropathy, neuropathy, cardiopathy, etc. Some danger of hypoglycemic reaction in Type I diabetics.Some glucose intolerant individuals and "Sub Clinical"diabetics may demonstrate HGBA1C levels in this area. Glucose mean value [Moles/volume] in Blood Estimated f rom glycated hemoglobin 103 mg/dL [facility] An A1C of 7% - the goal of diabetic ther apy - is equivalentto an EAG of 154 mg/dl. ID Date Data Source [id number] 06/05/2020 10:24:00 AM EST [facility] <0.90 Index Interpretation ----- < 0.90 [...] when erythemamigrans is apparent.THIS TEST WAS PERFORMED AT:[employer] [address]PCYEOYAntonella GRIFFIN Reportable Result Name Value Range Interpretation Code Description Data Shanta rce(s) Supporting Document(s) Urea nitrogen [Mass/volume] in Serum or Plasma 6 mg/dL 9-23 Below low normal [facility] Sodium [Moles/volume] in Serum or Plasma 131 mmol/L 132-146 Below low normal [facility] Potassium [Moles/volume] in Serum or Plasma 4.6 mmol/L 3.5-5.5 N [facility] Chloride [Moles/volume] in Serum or Plasma 96 mmol/L 99-109 Belo w low normal [facility] Carbon dioxide, total [Moles/volume] in Serum or Plasma 29 mmol/L 20 -31 N [facility] Anion gap in Serum or Plasma 11 mmol/L 8-16 N [facility] Glucose [Mass/volume] in Serum or Plasma 89 mg/dL 74-106 N [facility] Creatinine 0.5 mg/dL 0.5-1.1 [facility] Glomerular filtration rate/1.73 sq M.pre dicted [Volume Rate/Area] in Serum or Plasma Greater Than 60 ABOVE 60 [facility] Alanine aminotransferase [Enzymatic acti vity/volume] in Serum or Plasma by With P-5'-P 199 U/L 10-49 Above high normal [facility] Aspartate aminotransferase [Enzymatic ac tivity/volume] in Serum or Plasma by With P-5'-P 85 U/L 0-33 Above high normal [facility] Alkaline phosphatase [Enzymatic activity/volume] in Serum or Plasma 276 U/L 45-129 Above high normal [facility] @Review & document. Calcium [Mass/volume] in Serum or Plasma 8.2 mg/dL 8.5-10.1 Below low normal [facility] Bilirubin.total [Mass/volume] in Serum or Plasma 0.5 mg/dL 0.3-1.2 [facility] Albumin [Mass/volume] in Serum or Plasma by Bromocresol purple (BCP) dye binding method 3.5 g/dL 3.2-4.8 [facility] ital Protein [Mass/volume] in Serum or Plasma 6.8 g/dL 5.7-8.2 [facility] ID Date Data Source [id number] 06/05/2020 10:36:00 AM EST [facility] <0.90 Index Interpretation ----- < 0.90 [...] when erythemamigrans is apparent.THIS TEST WAS PERFORMED AT:[employer] [address]KAGIOSAntonella GRIFFIN Reportable Result Name Value Range Interpretation Code Description Data Shanta rce(s) Supporting Document(s) Leukocytes [#/volume] in Blood by Automated count 9.6 10*3/uL 4.45-10 .71 N [facility] Erythrocytes [#/volume] in Blood by Automated count 4.67 10*6/uL 4.20 -5.40 N [facility] Hemoglobin [Moles/volume] in Blood 14.5 g/dL 10.7-15.4 N [facility] Hematocrit [Volume Fraction] of Blood by Automated count 43.0 % 3 7-47 N [facility] Erythrocyte mean corpuscular volume [Ent itic volume] in Cord blood by Automated count 92.1 fL 80-96 N [facility] Erythrocyte mean corpuscular hemoglobin [Entitic mass] by Automated count 31.0 pg 27-31 N [facility] l Erythrocyte mean corpuscular hemoglobin concentration [Mass/volume] in Cord blood 33.7 g/dL 33-37 N [facility] Erythrocyte distribution width [Entitic volume] by Automated count 14 % 11-15 N [facility] Platelets [#/volume] in Blood by Automated count 350 10*3/uL 130-472 N [facility] Platelet mean volume [Entitic volume] in Blood 9.4 fL 9.1-13.1 N [facility] Neutrophils/100 leukocytes in Blood by Automated count 76.2 % 41- 77 N [facility] Neutrophils [#/volume] in Blood by Automated count 7.3 U 1.7-7.6 N [facility] Lymphocytes/100 leukocytes in Blood by Automated count 12.7 % 14-46 Below low normal [facility] Lymphocytes [#/volume] in Blood by Automated count 1.2 U 0.6-4.6 N [facility] Monocytes/100 leukocytes in Blood by Automated count 9.9 % 4-12 N [facility] Monocytes [#/volume] in Blood by Automated count 1.0 U 0.2-1.2 N [facility] Eosinophils/100 leukocytes in Blood by Automated count 0.2 % 0-7 N [facility] Eosinophils [#/volume] in Blood by Automated count 0.0 U 0.0-0.5 N [facility] Basophils/100 leukocytes in Blood by Automated count 0.7 % 0.4-1 .3 N [facility] Basophils [#/volume] in Blood by Automated count 0.1 U 0.0-0.2 N [facility] NUCLEATED RED BLOOD CELL 0 % [facility] NUCLEATED RED BLOOD CELL# 0 U [facility] Immature granulocytes [Presence] in Blood by Automated count 0-2 N [facility] Immature granulocytes [#/volume] in Blood by Automated count 0.0 U 0-0.1 N [facility] Manual Differential panel - Blood NO [facility] ID Date Data Source [id number] 06/05/2020 11:23:00 AM [facility] <0.90 Index Interpretation ----- < 0.90 [...] when erythemamigrans is apparent.THIS TEST WAS PERFORMED AT:[employer] [address]HWMWSXAntonella GRIFFIN Reportable Result Name Value Range Interpretation Code Description Data Shanta rce(s) Supporting Document(s) Vitamin B12 952 pg/mL 211-[address] high [address] [facility] ID Date Data Source [id number] 06/11/2020 08:12:00 AM [facility] <0.90 Index Interpretation ----- < 0.90 [...] when erythemamigrans is apparent.THIS TEST WAS PERFORMED AT:[employer] [address]IHCGUL MERATI,MDNo Reportable Result Name Value Range Interpretation Code Description Data Shanta rce(s) Supporting Document(s) Hepatitis B virus surface Ag [Presence] in Serum or Plasma b y Immunoassay NON-REACTIVE [facility] Hepatitis B Core IgM Ab NON-REACTIVE NON-REACTIVE [facility] Virus identified in Unspecified specimen NON-REACTIVE [facility] For additional information, please refer [email or web address] [place]/faq/JCH869(This link is being provided for informational/educational purposes only.) Hepatitis C virus Ab [Presence] in Serum or Plasma by Immuno assay NON-REACTIVE [facility] Hepatitis C virus Ab Signal/Cutoff in Serum or Plasma by Imm unoassay 0.02 <1.00 [facility] HCV antibody was non-reactive. There is no laboratoryevidence of HCV infection.In most cases, no further action is required. However,if recent HCV exposure is suspected, a test for HCV RNA(test code 88426) is suggested.For additional information please refer [email or web address] [place]/faq/DRG15b9(This link is being provided for informational/educational purposes only.)THIS TEST WAS PERFORMED AT:[employer] [address]MICHAEL CLEMONS MD ID Date Data Source [id number] 06/05/2020 10:24:00 AM EST [facility] <0.90 Index Interpretation ----- < 0.90 [...] when erythemamigrans is apparent.THIS TEST WAS PERFORMED AT:[employer] [address]NAJYCHAntonella GRIFFIN Reportable Result Name Value Range Interpretation Code Description Data Shanta rce(s) Supporting Document(s) Lactate dehydrogenase [Enzymatic activity/volume] in Serum o r Plasma 174 U/L 120-246 N [facility] ID Date Data Source [id number] 06/05/2020 10:36:00 AM EST [facility] <0.90 Index Interpretation ----- < 0.90 [...] when erythemamigrans is apparent.THIS TEST WAS PERFORMED AT:[employer] [address]HBDZZRAntonella GRIFFIN Reportable Result Name Value Range Interpretation Code Description Data Shanta rce(s) Supporting Document(s) Erythrocyte sedimentation rate by Westergren method 15 mm/hr 0-30 N [facility] @Reenter manual test result: 15@by HuseyinJoaquin hortonaine at 06/05/20 1036. ID Date Data Source [id number] 06/11/2020 08:12:00 AM [facility] <0.90 Index Interpretation ----- < 0.90 [...] when erythemamigrans is apparent.THIS TEST WAS PERFORMED AT:[employer] [address]HKQPQO MERATI,MDNo Reportable Result Name Value Range Interpretation Code Description Data Shanta rce(s) Supporting Document(s) Cortisol [Mass/volume] in Serum or Plasma --pre dose cortico tropin 15.5 mcg/dL [facility] Reference Range: For 8 a.m.(7-9 a.m.) Sp ecimen: 4.0-22.0Reference Range: For 4 p.m.(3-5 p.m.) Specimen: 3.0-17.0 * Please interpret above results accordingly *THIS TEST WAS PERFORMED AT:[employer] [address]XDBKJX MERATI,MD ID Date Data Source [id number] 06/05/2020 10:24:00 AM [facility] <0.90 Index Interpretation ----- < 0.90 [...] when erythemamigrans is apparent.THIS TEST WAS PERFORMED AT:[employer] [address]MPPUEHAntonella GRIFFIN Reportable Result Name Value Range Interpretation Code Description Data Shanta rce(s) Supporting Document(s) Iron [Mass/volume] in Serum or Plasma 31 ug/dL 50-170 Below low normal [facility] Iron values may be falsely elevated in s nguyễn samples frompatients treated with anticoagulants (e.g., hemodialysispatients) Iron binding capacity [Moles/volume] in Serum or Plasma 9 20-55 Below low normal [facility] Iron binding capacity [Mass/volume] in Serum or Plasma 334 ug/dL 250 -450 N [facility] ID Date Data Source [id number] 06/11/2020 08:12:00 AM EST [facility] <0.90 Index Interpretation ----- < 0.90 [...] when erythemamigrans is apparent.THIS TEST WAS PERFORMED AT:[employer] [address]MRBQCGAntonella GRIFFIN Reportable Result Name Value Range Interpretation Code Description Data Shanta rce(s) Supporting Document(s) Mycoplasma pneumoniae IgG Ab [Units/volume] in Serum by Immu noassay 1.38 <=0.90 Above high normal [facility] Reference Range: <=0.90 Negative 0.91-1.09 Equivocal >=1.10 PositiveA positive IgG result indicates that the patient hasantibody to Mycoplasma. It does not differentiatebetween an active or past infection. The clinicaldiagnosis must be interpreted in conjunction withthe clinical signs and symptoms of the patient. Mycoplasma pneumoniae IgM Ab [Units/volume] in Serum by Immu noassay 179 U/mL <770 [facility] Reference Range: <770 U/ml Negativ e 770-950 [...] and symptoms ofthe patient.THIS TEST WAS PERFORMED AT:[employer]/[id number] [place], [place] [address]IDAN GAMEZ MD,PHD ID Date Data Source [id number] 06/05/2020 10:24:00 AM EST [facility] <0.90 Index Interpretation ----- < 0.90 [...] when erythemamigrans is apparent.THIS TEST WAS PERFORMED AT:[employer] [address]UYGVHLAntonella GRIFFIN Reportable Result Name Value Range Interpretation Code Description Data Shanta rce(s) Supporting Document(s) Folate [Mass/volume] in Serum or Plasma 25.0 ng/mL [facility] @Instrument will autodilute FOLATE INTERPRETATION NORMAL: GREATER THAN 5.38 INDETERMINATE: 3.38 - 5.38 DEFICIENT: LESS THAN 3.37 ID Date Data Source [id number] 06/11/2020 08:12:00 AM EST [facility] <0.90 Index Interpretation ----- < 0.90 [...] when erythemamigrans is apparent.THIS TEST WAS PERFORMED AT:[employer] [address]TRVZJIAntonella GRIFFIN Reportable Result Name Value Range Interpretation Code Description Data Shanta rce(s) Supporting Document(s) Nuclear Ab [Presence] in Serum NEGATIVE Above high chang l [facility] For additional information, please refer tohttp://education.[employer]/faq/DID619(This link is being provided for informational/educational purposes only.)THIS TEST WAS PERFORMED AT:[employer] [address]MICHAEL CLEMONS MD DNA double strand Ab [Units/volume] in Serum <1 [IU]/mL [facility] IU/mL I nterpretation < or = 4 Negative 5-9 Indeterminate > or = 10 PositiveTHIS TEST WAS PERFORMED AT:[employer] [address]MICHAEL CLEMONS MD ID Date Data Source [id number] 06/05/2020 10:24:00 AM [facility] <0.90 Index Interpretation ----- < 0.90 [...] when erythemamigrans is apparent.THIS TEST WAS PERFORMED AT:[employer] [address]ZSHOLYAntonella GRIFFIN Reportable Result Name Value Range Interpretation Code Description Data Shanta rce(s) Supporting Document(s) Ferritin [Mass/volume] in Serum or Plasma 26 ng/mL 10-291 N [facility] ID Date Data Source [id number] 06/11/2020 08:12:00 AM [facility] <0.90 Index Interpretation ----- < 0.90 [...] when erythemamigrans is apparent.THIS TEST WAS PERFORMED AT:[employer] [address]PYIRWKAntonella GRIFFIN Reportable Result Name Value Range Interpretation Code Description Data Shanta rce(s) Supporting Document(s) Thiamine [Mass/volume] in Blood 242 nmol/L 78-185 Above high norm al [facility] Vitamin supplementation within 24 hours prior toblood draw may affect the accuracy of the results.This test was developed and its analytical performancecharacteristics have been determined by [employer] [place], [place]. It hasnot been cleared or approved by the U.S. Food and DrugAdministration. This assay has been validated pursuantto the CLIA regulations and is used for clinicalpurposes.THIS TEST WAS PERFORMED AT:[id number] [place], [place] [address]IDAN GAMEZ MD,PHD ID Date Data Source [id number] 06/05/2020 10:24:00 AM [facility] <0.90 Index Interpretation ----- < 0.90 [...] when erythemamigrans is apparent.THIS TEST WAS PERFORMED AT:[employer] [address]MYLIJYAntonella GRIFFIN Reportable Result Name Value Range Interpretation Code Description Data Shanta rce(s) Supporting Document(s) Thyroxine (T4) free [Mass/volume] in Serum or Plasma 1.17 ng/dL 0.89- 1.76 N [facility] ID Date Data Source [id number] 06/11/2020 08:12:00 AM [facility] <0.90 Index Interpretation ----- < 0.90 [...] when erythemamigrans is apparent.THIS TEST WAS PERFORMED AT:[employer] [address]NZWQMQAntonella GRIFFIN Reportable Result Name Value Range Interpretation Code Description Data Shanta rce(s) Supporting Document(s) Corticotropin [Mass/volume] in Plasma 6 pg/mL 6-50 [facility] Reference range applies only to specimen s collectedbetween 7am-10am.THIS TEST WAS PERFORMED AT:[employer]/[id number] [place] [address]KUAQMJSAIDAN GAMEZ MD,PHD ID Date Data Source [id number] 06/05/2020 10:24:00 AM EST [facility] <0.90 Index Interpretation ----- < 0.90 [...] when erythemamigrans is apparent.THIS TEST WAS PERFORMED AT:[employer] [address]PGZPBNAntonella GRIFFIN Reportable Result Name Value Range Interpretation Code Description Data Shanta rce(s) Supporting Document(s) Thyrotropin [Units/volume] in Serum or Plasma by Detec tion limit <= 0.005 mIU/L 1.13 u[iU]/mL 0.35-5.50 [facility] Date Data Source [id number] 06/11/2020 08:12:00 AM [facility] <0.90 Index Interpretation ----- < 0.90 [...] when erythemamigrans is apparent.THIS TEST WAS PERFORMED AT:[employer] [address]NQLZWPAntonella GRIFFIN Reportable Result Name Value Range Interpretation Code Description Data Shanta rce(s) Supporting Document(s) Pyridoxine [Mass/volume] in Serum or Plasma 12.5 ng/mL 2.1-21.7 [facility] Vitamin supplementation within 24 hours prior toblood draw may affect the accuracy of the results.This test was developed and its analytical performancecharacteristics have been determined by [employer] [place], [place]. It hasnot been cleared or approved by the U.S. Food and DrugAdministration. This assay has been validated pursuantto the CLIA regulations and is used for clinicalpurposes.THIS TEST WAS PERFORMED AT:[employer] [id number] [place], [place] [address]IDAN GAMEZ MD,PHD ID Date Data Source [id number] 06/05/2020 10:24:00 AM [facility] <0.90 Index Interpretation ----- < 0.90 [...] when erythemamigrans is apparent.THIS TEST WAS PERFORMED AT:[employer] [address]IBYKSBAntonella GRIFFIN Reportable Result Name Value Range Interpretation Code Description Data Shanta rce(s) Supporting Document(s) Rheumatoid factor [Units/volume] in Serum by Nephelometry 59.0 [ IU]/mL 0.0-14.0 Above high normal [facility] ID Date Data Source [id number] 06/11/2020 08:12:00 AM EST [facility] <0.90 Index Interpretation ----- < 0.90 [...] when erythemamigrans is apparent.THIS TEST WAS PERFORMED AT:[employer] [address]JWHQHBAntonella GRIFFIN Reportable Result Name Value Range Interpretation Code Description Data Shanta rce(s) Supporting Document(s) Rickettsia spotted fever group IgG Ab [Presence] in Serum Not Detected [facility] Rickettsia spotted fever group IgM Ab [Presence] in Serum Not Detected [facility] THIS TEST WAS PERFORMED AT:[employer]/[id number] [place] [address]GUCYFPBAIDAN GAMEZ MD,PHD ID Date Data Source [id number] 06/11/2020 08:12:00 AM EST [facility] <0.90 Index Interpretation ----- < 0.90 [...] when erythemamigrans is apparent.THIS TEST WAS PERFORMED AT:[employer] [address]QIWYZYAntonella GRIFFIN Reportable Result Name Value Range Interpretation Code Description Data Shanta rce(s) Supporting Document(s) Bartonella henselae IgG Ab [Units/volume] in Serum Negative [facility] Bartonella henselae IgM Ab [Units/volume] in Serum Negative [facility] Bartonella lemus IgG Ab [Units/volume] in Serum or Plasma Negative [facility] Bartonella lemus IgM Ab [Units/volume] in Serum Negative [facility] Reference Range: NegativeWhereas sera fr om 10% [...] its analytical performancecharacteristics have been determined by [employer] [facility] [place], [place], [place]. It hasnot been cleared or approved by the U.S. Food a nd DrugAdministration. This assay has been validated pursuantto the CLIA regulations and is used for clinicalpurposes.THIS TEST WAS PERFORMED AT:[employer]/[id number] [place] [address]PAJON GAMEZ MD,PHD Bartonella henselae IgG Ab [Titer] in Serum by Immunofluorescence [facility] Bartonella henselae IgM Ab [Titer] in Serum by Immunofluorescence [facility] Bartonella lemus IgG Ab [Titer] in Serum [facility] Bartonella lemus IgM Ab [Titer] in Serum [facility] ID Date Data Source [id number] 06/11/2020 08:12:00 AM EST [facility] <0.90 Index Interpretation ----- < 0.90 [...] when erythemamigrans is apparent.THIS TEST WAS PERFORMED AT:[employer] [address]YAINACAntonella GRIFFIN Reportable Result Name Value Range Interpretation Code Description Data Shanta rce(s) Supporting Document(s) Gjkfrlh-7-Vdywefbdz dehydrogenase [Entitic Catalytic A ctivity] in Blood 13.5 U/g Hgb 7.0-20.5 [facility] THIS TEST WAS PERFORMED AT:[employer]/[address] [id number] [place] [address]OEJDWQNAIDAN GAMEZ MD,PHD ID Date Data Source [id number] 06/11/2020 08:12:00 AM [facility] <0.90 Index Interpretation ----- < 0.90 [...] when erythemamigrans is apparent.THIS TEST WAS PERFORMED AT:[employer] [address]ZKWZPXAntonella GRIFFIN Reportable Result Name Value Range Interpretation Code Description Data Shanta rce(s) Supporting Document(s) IgM [Mass/volume] in Serum or Plasma 33 mg/dL 50-300 [place] [facility] THIS TEST WAS PERFORMED AT:[employer] [address]HKCHNH MERATI,MD ID Date Data Source [id number] 06/11/2020 08:12:00 AM [facility] <0.90 Index Interpretation ----- < 0.90 [...] when erythemamigrans is apparent.THIS TEST WAS PERFORMED AT:[employer] [address]BAGWIFAntonella GRIFFIN Reportable Result Name Value Range Interpretation Code Description Data Shanta rce(s) Supporting Document(s) IgG [Mass/volume] in Serum or Plasma 802 mg/dL 600-1640 [facility] THIS TEST WAS PERFORMED AT:[employer] [address]UBMHFP MERATI,MD ID Date Data Source [id number] 06/11/2020 08:12:00 AM EST [facility] <0.90 Index Interpretation ----- < 0.90 [...] when erythemamigrans is apparent.THIS TEST WAS PERFORMED AT:[employer] [address]ZKZLTXAntonella GRIFFIN Reportable Result Name Value Range Interpretation Code Description Data Shanta rce(s) Supporting Document(s) IgA [Mass/volume] in Serum or Plasma 205 mg/dL 47-310 [facility] THIS TEST WAS PERFORMED AT:[employer] [address]OCIXVN MERATI,MD ID Date Data Source [id number] 06/11/2020 08:12:00 AM [facility] <0.90 Index Interpretation ----- < 0.90 [...] when erythemamigrans is apparent.THIS TEST WAS PERFORMED AT:[employer] [address]HPLKFN MERATI,MDNo Reportable Result Name Value Range Interpretation Code Description Data [facility] rce(s) Supporting Document(s) IgE [Units/volume] in Serum or Plasma 9 kU/L <II=639 [facility] THIS TEST WAS PERFORMED AT:[employer] [address]UAGDRD MERATI,MD ID Date Data Source [id number] 06/11/2020 08:12:00 AM [facility] <0.90 Index Interpretation ----- < 0.90 [...] when erythemamigrans is apparent.THIS TEST WAS PERFORMED AT:[facility] [id number] [place] [address]FTKWNAAntonella GRIFFIN Reportable Result Name Value Range Interpretation Code Description Data Shanta rce(s) Supporting Document(s) Babesia microti IgM Ab [Presence] in Serum <1:20 [facility] Babesia microti IgG Ab [Presence] in Serum <1:64 [facility] B microti IgG+IgM Ser-Imp [facility] [...] its analytical performancecharacteristics have been determined by [employer] [place]. It hasnot been cleared or approved by the U.S. Food and DrugAdministration. This assay has been validated pursuantto the CLIA regulations and is used for clinicalpurposes.THIS TEST WAS PERFORMED AT:[employer] [id number] [place], [place] [address]AN GAMEZ MD,PHD ID Date Data Source [id number] 06/11/2020 08:12:00 AM [facility] <0.90 Index Interpretation ----- < 0.90 [...] when erythemamigrans is apparent.THIS TEST WAS PERFORMED AT:[employer] [address]LWBDCT MERATI,MDNo Reportable Result Name Value Range Interpretation Code Description Data Shanta rce(s) Supporting Document(s) Mary Talley virus early diffuse IgG Ab [Units/volume] in Serum 29.20 U/mL Above high normal [facility] U/mL Interpretation ---- <9.00 Negative 9.00-10.99 Equivocal >10.99 PositiveThe potential exists for cross-reactivity with HIV(Human Immunodeficiency Virus) which could cause afalse positive EBV-EA result.THIS TEST WAS PERFORMED AT:[employer] [address]MQNGGV MERATI,MD ID Date Data Source [id number] 06/11/2020 08:12:00 AM EST [facility] <0.90 Index Interpretation ----- < 0.90 [...] when erythemamigrans is apparent.THIS TEST WAS PERFORMED AT:[employer] [place] [address]FWPYMZAntonella GRIFFIN Reportable Result Name Value Range Interpretation Code Description Data Shanta rce(s) Supporting Document(s) Mary Talley virus capsid IgG Ab [Units/volume] in Ser um by Immunoassay >750.00 U/mL Above high normal [facility] spital U/mL Interpretation ---- <18.00 Negative 18.00-21.99 Equivocal >21.99 PositiveTHIS TEST WAS PERFORMED AT:[employer] [address]CLYDMG MERATI,MD ID Date Data Source [id number] 06/11/2020 08:12:00 AM EST [facility] <0.90 Index Interpretation ----- < 0.90 [...] when erythemamigrans is apparent.THIS TEST WAS PERFORMED AT:[employer] [address]OWNIULAntonella GRIFFIN Reportable Result Name Value Range Interpretation Code Description Data Shanta rce(s) Supporting Document(s) Mary Talley virus capsid IgM Ab [Presence] in Serum [facility] U/mL Interpretation ---- <36.00 Negative 36.00-43.99 Equivocal >43.99 PositiveTHIS TEST WAS PERFORMED AT:[employer] [address]JGJIYC MERATI,MD ID Date Data Source [id number] 06/11/2020 08:12:00 AM [facility] <0.90 Index Interpretation ----- < 0.90 [...] when erythemamigrans is apparent.THIS TEST WAS PERFORMED AT:[employer] [address]ULUMII MERATI,MDNo Reportable Result Name Value Range Interpretation Code Description Data Shanta rce(s) Supporting Document(s) DHEA Sulfate 33 mcg/dL 8-188 [facility] DHEA-S values fall with advancing age.Fo r reference, the reference intervals for 31-40 yearold patients are:Male: 106-464 mcg/dLFemale: 23-266 mcg/dLTHIS TEST WAS PERFORMED AT:[employer] [address]GTUGFU MERATI,MD ID Date Data Source [id number] 06/11/2020 08:12:00 AM [facility] <0.90 Index Interpretation ----- < 0.90 [...] when erythemamigrans is apparent.THIS TEST WAS PERFORMED AT:[employer] [address]MTAFOTAntonella GRIFFIN Reportable Result Name Value Range Interpretation Code Description Data Shanta rce(s) Supporting Document(s) Borrelia burgdorferi Ab [Units/volume] in Serum by Immunoassay <0.9 0 index [facility] Index Interpretation ----- < 0.90 Negative 0.90-1.09 [...] when erythemamigrans is apparent.THIS TEST WAS PERFORMED AT:[employer] [address]OHMDGHMD BABITA GRIFFIN Date Data Source [id number] 06/11/2020 08:12:00 AM EST [facility] <0.90 Index Interpretation ----- < 0.90 [...] when erythemamigrans is apparent.THIS TEST WAS PERFORMED AT:[employer] [address]PNAZLSAntonella GRIFFIN Reportable Result Name Value Range Interpretation Code Description Data Shanta rce(s) Supporting Document(s) Thyroid Peroxidase Abs 1 [IU]/mL <9 [facility] THIS TEST WAS PERFORMED AT:[employer] [address]TFOEOW MERATI,MD ID Date Data Source [id number] 06/11/2020 08:12:00 AM [facility] <0.90 Index Interpretation ----- < 0.90 [...] when erythemamigrans is apparent.THIS TEST WAS PERFORMED AT:[employer] [address]YFJEZJ MERATI,MDNo Reportable Result Name Value Range Interpretation Code Description Data [facility](s) Supporting Document(s) TRIIODOTHYRONINE, FREE, SERUM 5.0 pg/mL 2.3-4.2 Above high normal [facility] THIS TEST WAS PERFORMED AT:[employer] [address]FGDOFN MERATI,MD ID Date Data Source [id number] 06/11/2020 08:12:00 AM [facility] <0.90 Index Interpretation ----- < 0.90 [...] when erythemamigrans is apparent.THIS TEST WAS PERFORMED AT:[facility] [id number] [place] [address]FQYQARAntonella GRIFFIN Reportable Result Name Value Range Interpretation Code Description Data Shanta rce(s) Supporting Document(s) Ehrlichia chaffeensis IgG Ab [Titer] in Serum by Immunofluoresce nce <1:64 <1:64 [facility] Ehrlichia chaffeensis IgM Ab [Titer] in Serum by Immunofluoresce nce <1:20 <1:20 [facility] Ehrlichia chaffeensis IgG+IgM Ab [Presence] in Serum or Plasma [facility] Antibody Not Detected Service comment [facility] Ehrlichia chaffeenis has been identified as thecausative [...] its analytical performancecharacteristics have been determined by [employer] [place], [place]. It hasnot been cleared or approved by the U.S. Food and DrugAdministration. This assay has been validated pursuantto the CLIA regulations and is used for clinicalpurposes.THIS TEST WAS PERFORMED AT:[employer] [id number] [place], [place] [address]AIDAN GAMEZ MD,PHD ID Date Data Source [id number] 06/11/2020 08:12:00 AM [facility] <0.90 Index Interpretation ----- < 0.90 [...] when erythemamigrans is apparent.THIS TEST WAS PERFORMED AT:[employer] [address]WQLUUOAntonella GRIFFIN Reportable Result Name Value Range Interpretation Code Description Data Shanta rce(s) Supporting Document(s) Cyclic citrullinated peptide IgG Ab [Units/volume] in Serum or Plasma <16 UNITS [facility] Reference RangeNegative: <20W eak Positive: 20-39Moderate Positive: 40-59Strong Positive: >59THIS TEST WAS PERFORMED AT:[employer] [address]HAEL CLEMONS MD ID Date Data Source [id number] 06/11/2020 08:12:00 AM EST [facility] <0.90 Index Interpretation ----- < 0.90 [...] when erythemamigrans is apparent.THIS TEST WAS PERFORMED AT:[employer] [address]TXFCMIAntonella GRIFFIN Reportable Result Name Value Range Interpretation Code Description Data Shanta rce(s) Supporting Document(s) HSCRP - CRP HIGH SENST(CARDIO) 1.9 mg/L [facility] Reference RangeOptimal <1.0Shavon DUQUE et al. Endocr [...] with infection and inflammation.THIS TEST WAS PERFORMED AT:[employer] [address]HQJQEB MERATI,MD ID Date Data Source [id number] 06/11/2020 08:12:00 AM [facility] <0.90 Index Interpretation ----- < 0.90 [...] when erythemamigrans is apparent.THIS TEST WAS PERFORMED AT:[employer] [address]WRUQYQ MERATI,MDNo Reportable Result Name Value Range Interpretation Code Description Data Shanta rce(s) Supporting Document(s) 25-Hydroxyvitamin D2+25-Hydroxyvitamin D3 [Mass/volume ] in Serum or Plasma 29 ng/mL 30-100 Health system Vitamin D Status 25-OH Vitamin D :Deficiency: <20 ng/mLInsufficiency: 20 - 29 ng/mLOptimal: > or = 30 ng/mLFor 25-OH Vitamin D testing on patients onD2-supplementation and patients for whom quantitationof D2 and D3 fractions is required, the QuestAssureD(TM)25- OH VIT D, (D2,D3), LC/MS/MS is recommended: ordercode 70724 (patients >2yrs).See Note 1Note 1For additional information, please refer tohttp://education.[employer]/faq/FCT623(This link is being provided for informational/educational purposes only.)THIS TEST WAS PERFORMED AT:[employer] [address]MICHAEL CLEMONS MD ID Date Data Source [id number] 06/11/2020 08:12:00 AM EST [facility] <0.90 Index Interpretation ----- < 0.90 [...] when erythemamigrans is apparent.THIS TEST WAS PERFORMED AT:[employer] [address]ZQHRBX MERATI,MDNo Reportable Result Name Value Range Interpretation Code Description Data Shanta rce(s) Supporting Document(s) Chlamydophila pneumoniae IgG Ab [Titer] in Serum by Im munofluorescence 1:128 titer <1:64 Above high normal [facility] spital Chlamydophila pneumoniae IgA Ab [Titer] in Serum by Im munofluorescence 1:128 titer <1:16 Above high normal [facility] spital Chlamydophila pneumoniae IgM Ab [Titer] in Serum by Im munofluorescence <1:10 titer <1:10 [facility] Chlamydophila pneumoniae IgA and IgG and IgM [Interpretation] in Seru m [facility] Chlamydia trachomatis IgG Ab [Titer] in Serum by Immunofluor escence <1:64 titer <1:64 [facility] Chlamydia trachomatis IgA Ab [Titer] in Serum by Immunofluor escence <1:16 titer <1:16 [facility] Chlamydia trachomatis IgM Ab [Titer] in Serum by Immunofluor escence <1:10 titer <1:10 [facility] Chlamydia trachomatis IgA and IgG and IgM [Interpretation] in Serum [facility] Antibody Not Detected Chlamydophila psittaci IgG Ab [Titer] in Serum by Immu nofluorescence <1:64 titer <1:64 [facility] Chlamydophila psittaci IgA Ab [Titer] in Serum by Immu nofluorescence <1:16 titer <1:16 [facility] Chlamydophila psittaci IgM Ab [Titer] in Serum by Immu nofluorescence <1:10 titer <1:10 [facility] Chlamydophila psittaci IgA and IgG and IgM [Interpretation] in Serum [facility] Antibody Not DetectedReference Range: IgG <1:64 IgA [...] its analytical performancecharacteristics have been determined [facility] [place], [place], [place]. It hasnot been cleared or approved by the U.S. Food and DrugAdministration. This assay has been validated pursuantto the CLIA regulations and is used for clinicalpurposes.THIS TEST WAS PERFORMED AT:[employer] [id number] [place], [place] [address]IDAN GAMEZ MD,PHD ID Date Data Source [id number] 06/11/2020 08:12:00 AM [facility] <0.90 Index Interpretation ----- < 0.90 [...] when erythemamigrans is apparent.THIS TEST WAS PERFORMED AT:[employer] [phone] MERATI,MDNo Reportable Result Name Value Range Interpretation Code Description Data Shanta rce(s) Supporting Document(s) Thyroglobulin Ab [Units/volume] in Serum or Plasma Less Than 1 < or = 1 [facility] Thyroglobulin [Mass/volume] in Serum or Plasma 20.0 ng/mL [facility] Reference Range: Intact Thyro id 2.8-40.9 Athyrotic <0.1 Note: Abnormal flagging is based on the reference interval for patients with intact thyroid.This test was performed using the Yododo Coulterchemiluminescent method. Values obtained fromdifferent assay methods cannot be usedinterchangeably. Thyroglobulin levels, regardlessof value, should not be interpreted as absoluteevidence of the presence or absence of disease.For additional information, please refer tohttp://education.[employer]/faq/GGG201(This link is being provided for informational/educational purposes only.)THIS TEST WAS PERFORMED AT:[employer] [address]MICHAEL CLEMOSN MD ID Date Data Source [id number] 06/10/2020 05:07:00 PM [facility] TEST CODE: [id number] TEST NAME: B ABESIA ZULEYMAI ANTIBODY (wa1 iGG) Name Value Range Interpretation Code Description Data Shanta rce(s) Supporting Document(s) Laboratory studies (set) REPORT [facility] TEST NAME FLAG RESULT UNITS OF MEASURE========= [...] its analytical performancecharacteristics have been determined by [facility]. It has not been cleared or approvedby FDA. This assay has been validated pursuant to theCLIA regulations and is used for clinical purposes.THIS TEST WAS PERFORMED AT:[employer] INFECTIOUS DISEASE, [id number] [place] [address]Lacey ZHANG ID Date Data Source [id number] 04/09/2020 02:23:00 PM [facility]) Name Value Range Interpretation Code Description Data Shanta rce(s) Supporting Document(s) Reported Physicians See Note Reported Physici ans [place] ([facility]) Note: Reported Physicians:Ordering: ELVIRA [id number], JERRY ArzateAttending: Albert FELIX To: Albert FELIX To: Melissa Faria ID Date Data Source [id number] 04/09/2020 02:23:00 PM [facility] ([facility]) Name Value Range Interpretation Code Description Data Shanta rce(s) Supporting Document(s) WHITE BLOOD COUNT 9.5 3/uL Normal WHITE BLOOD COUNT [place] ([facility]) RED BLOOD COUNT 4.56 6/uL Normal [facility] B[facility] Hemoglobin [Mass/volume] in Mixed venous blood by Oximetry 13.9 g/d l Normal HEMOGLOBIN [place] ([facility]) Hematocrit [Pure volume fraction] of Blood by Automated count 41.9 % Normal HEMATOCRIT [place] ([facility]) MEAN CORPUSCULAR HEMOGLOBIN 30.5 pg Normal MEAN COR PUSCULAR HEMOGLOBIN [place] ([facility]) MEAN CORPUSCULAR VOLUME 91.9 fl Normal MEAN CORPUSC ULAR VOLUME [place] ([facility]) RED CELL DISTRIBUTION WIDTH 14.8 % Above high no rmal RED CELL DISTRIBUTION WIDTH [place] ([facility]) MEAN CORPUSCULAR HGB CONC 33.2 g/dl Normal MEAN CORPU SCULAR HGB CONC [place] ([facility]) PLATELET COUNT, AUTOMATED 333 3/uL Normal PLATELET C OUNT, AUTOMATED [place] ([facility]) NEUTROPHILS % 68.4 % Above high normal NEUTROPHILS % [facility] MONO % 9.5 % Above high normal MONO % [place] ([facility]) LYMPH % 20.7 % Below low normal LYMPH % [place] ([facility]) EOS % 0.5 % Normal EOS % [place] ([facility]) BASO % 0.6 % Normal BASO % [place] ([facility]) IMMATURE GRANULOCYTE % 0.3 % Normal IMMATURE GRAN ULOCYTE % [place] ([facility]) NEUTROPHILS # 6.5 3/uL Normal NEUTROPHILS # [place] ([facility]) NUCLEATED RED BLOOD CELL % 0.0 % Normal NUCLEATED RED BLOOD CELL % [place] ([facility]) LYMPH # 2.0 3/uL Normal LYMPH # [place] ([facility]) MONO # 0.9 3/uL Above high normal MONO # [facility] Y ([facility]) EOS # 0.1 3/uL Normal EOS # [place] ([facility]) BASO # 0.1 3/uL Normal BASO # [place] ([facility]) ID Date Data Source [id number] 02/29/2020 02:01:00 PM EDT [place] ([facility]) Name Value Range Interpretation Code Description Data Shanta rce(s) Supporting Document(s) Reported Physicians See Note Reported Physici ans [facility]) Note: Reported Physicians:Ordering: ELVIRA [id number]: Albert FELIX To: Albert FELIX To: Melissa Faria ID Date Data Source [id number] 02/29/2020 02:01:00 PM EDT [place] ([facility]) Name Value Range Interpretation Code Description Data Shanta rce(s) Supporting Document(s) RED BLOOD COUNT 4.25 6/uL Normal [facility] WHITE BLOOD COUNT 25.6 3/uL Above high normal WHITE BLOOD COUNT [facility]) MEAN CORPUSCULAR VOLUME 92.2 fl Normal MEAN CORPUSC ULAR VOLUME [facility]) Hemoglobin [Mass/volume] in Mixed venous blood by Oximetry 12.8 g/d l Normal HEMOGLOBIN [facility]) Hematocrit [Pure volume fraction] of Blood by Automated count 39.2 % Normal HEMATOCRIT [facility]) MEAN CORPUSCULAR HEMOGLOBIN 30.1 pg Normal MEAN COR PUSCULAR HEMOGLOBIN [facility]) MEAN CORPUSCULAR HGB CONC 32.7 g/dl Normal MEAN CORPU SCULAR HGB CONC [place] ([facility]) PLATELET COUNT, AUTOMATED 318 3/uL Normal PLATELET C OUNT, AUTOMATED [place] ([facility]) RED CELL DISTRIBUTION WIDTH 15.2 % Above high no rmal RED CELL DISTRIBUTION WIDTH [facility]) LYMPH % 5.7 % Below low normal LYMPH % [place] ([facility]) NEUTROPHILS % 86.3 % Above high normal NEUTROPHILS % [facility] EOS % 0.0 % Normal EOS % [place] ([facility]) MONO % 6.8 % Above high normal MONO % [facility]) BASO % 0.3 % Normal BASO % [place] ([facility]) NUCLEATED RED BLOOD CELL % 0.0 % Normal NUCLEATED RED BLOOD CELL % [place] ([facility]) IMMATURE GRANULOCYTE % 0.9 % Normal IMMATURE GRAN ULOCYTE % [place] ([facility]) LYMPH # 1.5 3/uL Normal LYMPH # [facility] ([facility]) NEUTROPHILS # 22.1 3/uL Above high normal NEUTROPHILS # G REENW[place] ([facility]) EOS # 0.0 3/uL Normal EOS # [facility] ([facility]) MONO # 1.8 3/uL Above high normal MONO # [place] ([facility]) BASO # 0.1 3/uL Normal BASO # [facility] ([facility]) ID Date Data Source [id number] 02/29/2020 02:01:00 PM EDT [place] ([facility]) Name Value Range Interpretation Code Description Data Shanta rce(s) Supporting Document(s) Reported Physicians See Note Reported Physici ans [place] ([facility]) Note: Reported Physicians:Ordering: ELVIRA [id number], JERRY UJamalAttending: Albert FELIX To: Albert FELIX To: Melissa Faria ID Date Data Source [id number] 02/29/2020 02:01:00 PM EDT [place] ([facility]) Name Value Range Interpretation Code Description Data Shanta rce(s) Supporting Document(s) GLUCOSE, FASTING 95 MG/DL Normal GLUCOSE, FASTING GR [facility] ([facility]) BLOOD UREA NITROGEN 8 MG/DL Normal BLOOD UREA NITRO GEN [place] ([facility]) CREATININE FOR GFR 0.50 MG/DL Below low normal CREATININE FOR GFR [place] ([facility]) GLOMERULAR FILTRATION RATE > 60.0 Normal GLOMERULA R FILTRATION RATE [place] ([facility]) Note: Units are mL/min/1.73 m2 Chroni c Kidney Disease Staging per NKF: Stage I & II GFR >=60 Normal to Mildly Decreased Stage III GFR 30- 59 Moderately Decreased Stage IV GFR 15-29 Severely Decreased Stage V GFR <15 Very Little GFR Left ESRD GFR <15 on SAMPLE PULLER SODIUM LEVEL 128 MEQ/L Below low normal SODIUM LEVEL [place] ([facility]) POTASSIUM SERUM 3.8 MEQ/L Normal POTASSIUM SERUM [facility]) CHLORIDE LEVEL 94 MEQ/L Below low normal CHLORIDE LEVEL [facility]) CARBON DIOXIDE LEVEL 29 MEQ/L Normal CARBON DIOXIDE LEVEL [facility]) Anion gap in Body fluid 5 MEQ/L Below low normal ANION GAP [facility]) CALCIUM LEVEL 8.2 MG/DL Below low normal CALCIUM LEVEL GR [facility] ([facility]) AST/SGOT 14 U/L Normal AST/SGOT [place] ([facility]) ALT/SGPT 29 U/L Normal ALT/SGPT [place] ([facility]) BILIRUBIN,TOTAL 0.4 MG/DL Normal BILIRUBIN,TOTAL [facility]) Alkaline phosphatase [Enzymatic activity/volume] in Se rum, Plasma or Blood 129 U/L Above high normal ALKALINE PHOSPHATASE [facility]) TOTAL PROTEIN 7.1 GM/DL Normal TOTAL PROTEIN [facility]) Albumin [Mass/volume] in Blood by Bromocresol purple ( BCP) dye binding method 3.3 GM/DL Normal ALBUMIN [facility]) ALBUMIN/GLOBULIN RATIO 0.9 Below low normal ALBUMIN /GLOBULIN RATIO [facility]) ID Date Data Source [id number] 02/29/2020 02:01:00 PM EDT [place] ([facility]) Name Value Range Interpretation Code Description Data Shanta rce(s) Supporting Document(s) Reported Physicians See Note Reported Physici ans [place] ([facility]) Note: Reported Physicians:Ordering: ELVIRA [id number], JERRY ArzateAttending: Albert FELIX To: Albert FELIX To: Melissa Faria ID Date Data Source [id number] 02/29/2020 02:01:00 PM EDT [place] ([facility]) Name Value Range Interpretation Code Description Data Shanta rce(s) Supporting Document(s) LDH LACTATE DEHYDROGENASE 152 U/L Normal LDH LACTAT E DEHYDROGENASE [facility]) ID Date Data Source [id number] 02/22/2020 02:00:00 PM T [facility] Hematopathology Report See Addendum Ricardo Sanchez: NILS OLIVARESMRN: [id number] Number: [id number] Date: 02/20/2020 10:00Received Date: 02/21/2020 15:43Physician(s): DAYO BROWN MD Haghir, Shahandeh MDCopy To:[facility]s) ReceivedA: Bone Marrow, Flow Cytometry; received 1 green bone marrow, 1 aspiratesmear and 1 pb smearClinical HistoryHistory of follicular lymphoma.TEST REQUESTED/PERFORMED: Flow Cytometry Analysis DiagnosisFlow cytometry of blood/bone marrow: No evidence of previous follicularlymphoma.Anais Yeh M.D.;Resident PathologistElectronically Signed By Fransisca Bear M.D. Attending Pathologist 02/22/2020 14:00:35The attending pathologist named above attests that he/she has personallyreviewed the relevant preparation(s) for the specimen(s) and rendered thefinal diagnosis. Addendum 02/28/2020 Cytogenetic report [id number] shows a normal female karyotype. Thediagnosis is unchanged. Addendum Electronically Signed By: Collette Sepulveda MD, PhD 02/28/2020 11:14 ProceduresFlow Cytometry Date Ordered:02/21/2020 Status: Signed Out02/22/2020 InterpretationPERIPHERAL BLOOD: CBC performed at [facility] on 02/20/20.WBC *10.6 K/uLRBC 4.76 M/uLHgb 14.3 g/dLHct 43.5 %MCV 91.4 fLMCH 30.0 pgMCHC 32.9 g/dLRDW *14.6 %Platelets 277 K/uLDifferential Count (automated):75.6 %Neutrophils 0.2 % Eosinophils 0.5 % Kybsvvdbm58.7 % Lymphocytes 0.4 % Immature Isieraklstje05.6 % Monocytes-------100.0 % A peripheral blood film is reviewed. BONE MARROW ASPIRATE:Differential Count (100 cells):31 % Erythroid Precursors 2 % Blasts 1 % Rnmflhwsqpmff67 % N. Myelocytes 8 % N. Metamyelocytes and Band Forms33 % Yhdzkvitisd64 % Lymphocytes 2 % Plasma Cells--------100 % Lymphoid Panel: The following markers were assayed: CD45 (gate), CD2, CD3, CD4, CD5, CD7,CD8, CD10, CD11c, CD19,CD20, CD22, CD23, CD25, CD33, CD34, CD38, CD56, CD57, CD64, CD103, CD117,CD123, HLA-DR, Scissors,Lambda, and FMC7.# events: 14819Atcogohiv: 92%Flow Cytometry Differential (CD45/SSC)Lymphocyte [place]: 11%CD45 dim [place]: 0%Monocyte [place]: 4%Granulocyte [place]: 72%Nucleated/Erythroid [place]: 7%The lymphocyte gate showsB-cells (CD19): 13%T-cells (CD3): 58%NK-cells (CD3-/CD56+): 28%Scissors/Lambda Ratio: 1.6CD4/CD8 Ratio: 1.8Results: (expressed as % of lymphocyte gate)B-cell markers: Scissors = 5, Lambda = 4, CD19 = 12, CD20 = 15, CD22 = 13,CD19/10 = 2, CD19/CD5 = 0, CD19/CD2 3 = 6, FMC7 = 11, CD38/CD20 = 11Light chain as % of B-Cells: CD19/Scissors = 48, CD19/Lambda = 31,CD19/CD5/Scissors = 1, CD19/CD5/Lambda = 1CD19/CD10/Scissors = 8, CD19/CD10/Lambda = 5, CD38 on [...] as % of CD45 dim gate)B-cell markers: Scissors = 3, Lambda = 2, CD19 = 20, CD20 = 7, CD22 = 13,CD19/10 = 12, CD19/CD5 = 2, CD19/CD23 = 7, FMC7 = 6, CD38/CD20 = 5Light chain as % of B-Cells: CD19/Scissors = 51, CD19/Lambda = 65,CD19/CD10/Scissors = 19, CD19/CD10/Lambda = 26T-cell Markers: CD2 [...] were developed and theirperformance characteristics determined by [facility] Pathology department.They have not been cleared or approved by the US Food and DrugAdministration. The FDA has determined that such clearance or approval isnot necessary. Name Value Range Interpretation Code Description Data Shanta rce(s) Supporting Document(s) ID Date Data Source [id number] 02/20/2020 09:38:00 AM [facility] ([facility]) Name Value Range Interpretation Code Description Data Shanta rce(s) Supporting Document(s) Reported Physicians See Note Reported Physici [facility] ([facility]) Note: Reported Physicians:Ordering: ELVIRA [id number], JERRY ArzateAttending: Albert FELIX To: Albert FELIX To: Mleissa Faria ID Date Data Source [id number] 02/20/2020 09:38:[facility] Name Value Range Interpretation Code Description Data Shanta rce(s) Supporting Document(s) RED BLOOD COUNT 4.76 6/uL Normal RED BLOOD COUNT YADIRAE JAVIER ([facility]) WHITE BLOOD COUNT 10.6 3/uL Above high normal WHITE BLOOD COUNT [place] ([facility]) Hematocrit [Pure volume fraction] of Blood by Automated count 43.5 % Normal HEMATOCRIT [place] ([facility]) Hemoglobin [Mass/volume] in Mixed venous blood by Oximetry 14.3 g/d l Normal HEMOGLOBIN [place] ([facility]) MEAN CORPUSCULAR VOLUME 91.4 fl Normal MEAN CORPUSC ULAR VOLUME [place] ([facility]) MEAN CORPUSCULAR HEMOGLOBIN 30.0 pg Normal MEAN COR PUSCULAR HEMOGLOBIN [place] ([facility]) MEAN CORPUSCULAR HGB CONC 32.9 g/dl Normal MEAN CORPU SCULAR HGB CONC [place] ([facility]) PLATELET COUNT, AUTOMATED 277 3/uL Normal PLATELET C OUNT, AUTOMATED [place] ([facility]) RED CELL DISTRIBUTION WIDTH 14.6 % Above high no rmal RED CELL DISTRIBUTION WIDTH [place] ([facility]) LYMPH % 11.7 % Below low normal LYMPH % [place] ([facility]) NEUTROPHILS % 75.6 % Above high normal NEUTROPHILS % [facility] EOS % 0.2 % Normal EOS % [place] ([facility]) BASO % 0.5 % Normal BASO % [place] ([facility]) MONO % 11.6 % Above high normal MONO % [place] ([facility]) NUCLEATED RED BLOOD CELL % 0.0 % Normal NUCLEATED RED BLOOD CELL % [place] ([facility]) IMMATURE GRANULOCYTE % 0.4 % Normal IMMATURE GRAN ULOCYTE % [place] ([facility]) LYMPH # 1.2 3/uL Below low normal LYMPH # [place] ([facility]) NEUTROPHILS # 8.0 3/uL Normal NEUTROPHILS # [place] ([facility]) BASO # 0.1 3/uL Normal BASO # [place] ([facility]) MONO # 1.2 3/uL Above high normal MONO # [place] ([facility]) EOS # 0.0 3/uL Normal EOS # [place] ([facility]) ID Date Data Source [id number] 02/27/2020 03:04:00 PM [facility] ReportName: BENITO OLIVARESMRN: [id number] Number: [id number] Date: 02/20/2020 00:00Received Date: 02/21/2020 15:36Physician(s): DAYO BROWN MD HAGHIR, SHAHANDEH F,MDSpecimen(s) ReceivedA: Bone Marrow - Karyotype analysis and FISHClinical [id number] patient with history of follicular lymphoma.TEST REQUESTED/PERFORMED: Karyotype Analysis and Fluorescence in situhybridization - FISH DiagnosisNormal female karyotype Please correlate with concurrent Hematopathology report ([id number]). Electronically Signed By Vince Infante, Ph.D., [facility], Director ofCytogenetics 02/27/2020 15:04:52Gross DescriptionChromosome [id number][20] DescriptionA normal female karyotype was observed in [...] 20 2 GTL 400 48 HR DSP30/ [id number] Disclaimer: Conventional chromosome analysis may not detectsubmicroscopic chromosome aberrations or low level mosaicism. Name Value Range Interpretation Code Description Data Shanta rce(s) Supporting Document(s) ID Date Data Source [id number] 01/22/2020 02:51:00 PM EDT [place] ([facility]) Name Value Range Interpretation Code Description Data Shanta rce(s) Supporting Document(s) Reported Physicians See Note Reported Physici ans [place] ([facility]) Note: Reported Physicians:Ordering: ELVIRA [id number], JERRY ArzateAttending: Albert FELIX To: Albert FELIX To: Melissa Faria ID Date Data Source [id number] 01/22/2020 02:51:00 PM EDT [place] ([facility]) Name Value Range Interpretation Code Description Data Shanta rce(s) Supporting Document(s) GLUCOSE, FASTING 95 MG/DL Normal GLUCOSE, FASTING [facility]) CREATININE FOR GFR 0.46 MG/DL Below low normal CREATININE FOR GFR [facility]) BLOOD UREA NITROGEN 5 MG/DL Below low normal BLOOD UREA NITROGEN [facility]) GLOMERULAR FILTRATION RATE > 60.0 Normal GLOMERULA R FILTRATION RATE [facility]) Note: Units are mL/min/1.73 m2 Chroni c Kidney Disease Staging per NKF: Stage I & II GFR >=60 Normal to Mildly Decreased Stage III GFR 30- 59 Moderately Decreased Stage IV GFR 15-29 Severely Decreased Stage V GFR <15 Very Little GFR Left ESRD GFR <15 on SAMPLE PULLER SODIUM LEVEL 129 MEQ/L Below low normal SODIUM LEVEL [facility]) POTASSIUM SERUM 4.1 MEQ/L Normal POTASSIUM SERUM [facility]) CARBON DIOXIDE LEVEL 31 MEQ/L Normal CARBON DIOXIDE LEVEL [facility]) CHLORIDE LEVEL 96 MEQ/L Below low normal CHLORIDE LEVEL [facility]) CALCIUM LEVEL 8.0 MG/DL Below low normal CALCIUM LEVEL [facility]) AST/SGOT 18 U/L Normal AST/SGOT [facility]) Anion gap in Body fluid 2 MEQ/L Below low normal ANION GAP [facility]) ALT/SGPT 31 U/L Normal ALT/SGPT [place] ([facility]) Alkaline phosphatase [Enzymatic activity/volume] in Se rum, Plasma or Blood 171 U/L Above high normal ALKALINE PHOSPHATASE [place] ([facility]) BILIRUBIN,TOTAL 0.6 MG/DL Normal BILIRUBIN,TOTAL [facility] ([facility]) Albumin [Mass/volume] in Blood by Bromocresol purple ( BCP) dye binding method 3.2 GM/DL Normal ALBUMIN [place] ([facility]) TOTAL PROTEIN 7.3 GM/DL Normal TOTAL PROTEIN [place] ([facility]) ALBUMIN/GLOBULIN RATIO 0.8 Below low normal ALBUMIN /GLOBULIN RATIO [place] ([facility]) ID Date Data Source [id number] 01/22/2020 02:51:00 PM EDT [place] ([facility]) Name Value Range Interpretation Code Description Data Shanta rce(s) Supporting Document(s) Reported Physicians See Note Reported Physici ans [place] ([facility]) Note: Reported Physicians:Ordering: ELVIRA [id number] ArevaloAttending: Albert FELIX To: Albert FELIX To: Melissa Faria ID Date Data Source [id number] 01/22/2020 02:51:00 PM EDT [place] ([facility]) Name Value Range Interpretation Code Description Data Shanta rce(s) Supporting Document(s) LDH LACTATE DEHYDROGENASE 151 U/L Normal LDH LACTAT E DEHYDROGENASE [facility]) ID Date Data Source [id number] 01/22/2020 02:51:00 PM EDT [place] ([facility]) Name Value Range Interpretation Code Description Data Shanta rce(s) Supporting Document(s) Reported Physicians See Note Reported Physici ans [place] ([facility]) Note: Reported Physicians:Ordering: ELVIRA [id number], JERRY UJamalAttending: Albert FELIX To: Albert FELIX To: Melissa Faria ID Date Data Source [id number] 01/22/2020 02:51:00 PM EDT [place] ([facility]) Name Value Range Interpretation Code Description Data Shanta rce(s) Supporting Document(s) WHITE BLOOD COUNT 14.0 3/uL Above high normal WHITE BLOOD COUNT [place] ([facility]) Hemoglobin [Mass/volume] in Mixed venous blood by Oximetry 13.7 g/d l Normal HEMOGLOBIN [place] ([facility]) RED BLOOD COUNT 4.55 6/uL Normal RED BLOOD COUNT [place] ([facility]) MEAN CORPUSCULAR VOLUME 90.8 fl Normal MEAN CORPUSC ULAR VOLUME [place] ([facility]) MEAN CORPUSCULAR HEMOGLOBIN 30.1 pg Normal MEAN COR PUSCULAR HEMOGLOBIN [place] ([facility]) Hematocrit [Pure volume fraction] of Blood by Automated count 41.3 % Normal HEMATOCRIT [place] ([facility]) RED CELL DISTRIBUTION WIDTH 14.6 % Above high no rmal RED CELL DISTRIBUTION WIDTH [place] ([facility]) MEAN CORPUSCULAR HGB CONC 33.2 g/dl Normal MEAN CORPU SCULAR HGB CONC [place] ([facility]) NEUTROPHILS % 82.2 % Above high normal NEUTROPHILS % G [facility] ([facility]) LYMPH % 8.6 % Below low normal LYMPH % [place] ([facility]) PLATELET COUNT, AUTOMATED 381 3/uL Normal PLATELET C OUNT, AUTOMATED [place] ([facility]) MONO % 8.2 % Above high normal MONO % [place] ([facility]) EOS % 0.0 % Normal EOS % [place] ([facility]) BASO % 0.5 % Normal BASO % [place] ([facility]) IMMATURE GRANULOCYTE % 0.5 % Normal IMMATURE GRAN ULOCYTE % [place] ([facility]) NUCLEATED RED BLOOD CELL % 0.0 % Normal NUCLEATED RED BLOOD CELL % [place] ([facility]) LYMPH # 1.2 3/uL Below low normal LYMPH # [place] ([facility]) MONO # 1.1 3/uL Above high normal MONO # [place] ([facility]) NEUTROPHILS # 11.5 3/uL Above high normal NEUTROPHILS # [facility]) BASO # 0.1 3/uL Normal BASO # [facility] ([facility]) EOS # 0.0 3/uL Normal EOS # [place] ([facility]) ID Date Data Source [id number] 01/01/2020 10:29:00 AM EDT [facility] Name Value [...] low grade. Immunoperoxidase stain for B-cell marker SL19amulhr the neoplastic cells while T-cell marker CD3 stains backgroundbenign T lymphocytes. T-cell marker CD5 also stains benign lymphocytes.Bcl-2 and CD10 are both strongly positive consistent with the diagnosis offollicular lymphoma. *This case was presented for intradepartmental review*[facility] 01/01/2020 0936 Local . 01Comment:These [...] 1052 Local. 01Pathologist provided ICD- 10:C83.80. 01CPT .[id number], [id number], [id number] ID Date Data Source [id number] 11/07/2019 03:02:00 PM EDT [place] [address] [id number] [phone] NAME SEX PT STATUS ACCOUNT NUMBER NILS OLIVARES REG REF [id number] ORDERING PHYSICIAN LOCATION MEDICAL RECORD NO. Mick Ngo M.D. [place] [id number] ATTENDING PHYSICIAN DATE OF DATE OF EXAM/TIME [...] rce(s) Supporting Document(s) ID Date Data Source [id number] 08/07/2019 08:50:00 AM EDT [facility] [address] [place] [address] [phone] NAME SEX PT STATUS ACCOUNT NUMBER NILS OLIVARES REG REF [id number] ORDERING PHYSICIAN LOCATION MEDICAL RECORD NO. Mick Ngo M.D. CT [id number] ATTENDING PHYSICIAN DATE OF DATE OF EXAM/TIME [...] rce(s) Supporting Document(s) ID Date Data Source [id number] 08/03/2019 12:46:00 PM EDT [facility] @08/03/19 1221: MANUAL DIFF added. RFLXG = DIFF. @08/03/19 1221: MANUAL DIFF added. RFLXG = DIFF. Name Value Range Interpretation Code Description Data Shanta rce(s) Supporting Document(s) Leukocytes [#/volume] in Blood by Automated count 8.1 10*3/uL 4.45-10 .71 [facility] Erythrocytes [#/volume] in Blood by Automated count 5.34 10*6/uL 4.20 -5.40 [facility] Hemoglobin [Moles/volume] in Blood 15.6 g/dL 10.7-15.4 Above high n ormal [facility] Hematocrit [Volume Fraction] of Blood by Automated count 47.5 % 37-47 Above high normal [facility] Erythrocyte mean corpuscular volume [Ent itic volume] in Cord blood by Automated count 89.0 fL 80-96 N [facility] Erythrocyte mean corpuscular hemoglobin [Entitic mass] by Automated count 29.2 pg 27-31 N [facility] l Erythrocyte mean corpuscular hemoglobin concentration [Mass/volume] in Cord blood 32.8 g/dL 33-37 Below low normal [facility] Erythrocyte distribution width [Entitic volume] by Automated count 15 % 11-15 [facility] Platelets [#/volume] in Blood by Automated count 284 10*3/uL 130-472 N [facility] Platelet mean volume [Entitic volume] in Blood 10.1 fL 9.1-13.1 N [facility] Neutrophils/100 leukocytes in Blood by Automated count 43.8 % 41- 77 N [facility] Neutrophils [#/volume] in Blood by Automated count 3.5 U 1.7-7.6 N [facility] Lymphocytes/100 leukocytes in Blood by Automated count 30.2 % 14- 46 N [facility] Lymphocytes [#/volume] in Blood by Automated count 2.4 U 0.6-4.6 N [facility] Monocytes/100 leukocytes in Blood by Automated count 15.8 % 4-12 Above high normal [facility] Monocytes [#/volume] in Blood by Automated count 1.3 U 0.2-1.2 Above high normal [facility] Eosinophils/100 leukocytes in Blood by Automated count 9.4 % 0-7 Above high normal [facility] Eosinophils [#/volume] in Blood by Automated count 0.8 U 0.0-0.5 Above high normal [facility] Basophils/100 leukocytes in Blood by Automated count 0.7 % 0.4-1 .3 N [facility] Basophils [#/volume] in Blood by Automated count 0.1 U 0.0-0.2 N [facility] NUCLEATED RED BLOOD CELL 0 % [facility] NUCLEATED RED BLOOD CELL# 0 U [facility] Immature granulocytes [Presence] in Blood by Automated count 0-2 N [facility] Immature granulocytes [#/volume] in Blood by Automated count 0.0 U 0-0.1 N [facility] Manual Differential panel - Blood Manual Diff Added [facility] ID Date Data Source [id number] 08/03/2019 01:18:00 PM EDT [facility] @08/03/19 1221: MANUAL DIFF added. RFLXG = DIFF. @08/03/19 1221: MANUAL DIFF added. RFLXG = DIFF. Name Value Range Interpretation Code Description Data Shanta rce(s) Supporting Document(s) Urea nitrogen [Mass/volume] in Serum or Plasma 7 mg/dL 9-23 Below low normal [facility] Sodium [Moles/volume] in Serum or Plasma 133 mmol/L 132-146 N [facility] Potassium [Moles/volume] in Serum or Plasma 4.5 mmol/L 3.5-5.5 N [facility] Chloride [Moles/volume] in Serum or Plasma 101 mmol/L 99-109 N [facility] Carbon dioxide, total [Moles/volume] in Serum or Plasma 28 mmol/L 20 -31 N [facility] Anion gap in Serum or Plasma 9 mmol/L 8-16 N [facility] Glucose [Mass/volume] in Serum or Plasma 81 mg/dL 74-106 N [facility] Creatinine 0.6 mg/dL 0.5-1.1 N [facility] Glomerular filtration rate/1.73 sq M.pre dicted [Volume Rate/Area] in Serum or Plasma Greater Than 60 ABOVE 60 [facility] Alanine aminotransferase [Enzymatic acti vity/volume] in Serum or Plasma by With P-5'-P 32 U/L 10-49 N [facility] ital Aspartate aminotransferase [Enzymatic ac tivity/volume] in Serum or Plasma by With P-5'-P 19 U/L 0-33 N [facility] pital Alkaline phosphatase [Enzymatic activity/volume] in Serum or Plasma 125 U/L 45-129 N [facility] Calcium [Mass/volume] in Serum or Plasma 8.4 mg/dL 8.5-10.1 Below low normal [facility] Bilirubin.total [Mass/volume] in Serum or Plasma 0.4 mg/dL 0.3-1.2 N [facility] Albumin [Mass/volume] in Serum or Plasma by Bromocresol purple (BCP) dye binding method 3.6 g/dL 3.2-4.8 [facility] ital Protein [Mass/volume] in Serum or Plasma 7.0 g/dL 5.7-8.2 N [facility] ID Date Data Source [id number] 08/03/2019 12:46:00 PM EDT [facility] @08/03/19 1221: MANUAL DIFF added. RFLXG = DIFF. @08/03/19 1221: MANUAL DIFF added. RFLXG = DIFF. Name Value Range Interpretation Code Description Data Shanta rce(s) Supporting Document(s) Cells counted [#] 100 [facility] Neutrophils [#/volume] in Blood by Manual count 46 % 41-77 N [facility] Lymphocytes [#/volume] in Blood by Manual count 28 % 14-46 N [facility] Monocytes [#/volume] in Blood by Manual count 21 % 4-12 [place] high normal [facility] Basophils [#/volume] in Blood by Manual count 2 % 0-2 N [facility] Mononuclear cells atypical [#/volume] in Blood by Manual count 3 0-5 N [facility] Platelets [#/volume] in Blood by Estimate APPEARS NORMAL NORMAL [facility] Morphology [Interpretation] in Blood Narrative APPEARS NORMAL NORMAL [facility] ID Date Data Source [id number] 08/03/2019 01:18:00 PM EDT [facility] @08/03/19 1221: MANUAL DIFF added. RFLXG = DIFF. @08/03/19 1221: MANUAL DIFF added. RFLXG = DIFF. Name Value Range Interpretation Code Description Data Shanta rce(s) Supporting Document(s) Thyrotropin [Units/volume] in Serum or Plasma by Detec tion limit <= 0.005 mIU/L 1.81 u[iU]/mL 0.35-5.50 [facility] ID Date Data Source [id number] 08/03/2019 11:46:[address] [facility] [place] ([facility]) Name Value Range Interpretation Code Description Data Shanta rce(s) Supporting Document(s) Reported Physicians See Note Reported [facility] gali [place] ([facility]) Note: Reported Physicians:Ordering: Mick Morrisding: Mick Ngo ID Date Data Source [id number] 08/03/2019 11:46:[address] [facility] [place] ([facility]) Name Value Range Interpretation Code Description Data Shanta rce(s) Supporting Document(s) Thyrotropin [Units/volume] in Serum or Plasma by Detec tion limit <= 0.005 mIU/L 1.81 MicroInternationalUnitsPerMilliLiter_[Arbitrary_Con Nor mal TSH SerPl DL<=0.005 mIU/L-[facility] ([facility]) Note: Responsible Observer: TSH TSH 600 .7055 (D) ID Date Data Source [id number] 08/03/2019 11:46:00 AM EDT [place] ([facility]) Name Value Range Interpretation Code Description Data Shanta rce(s) Supporting Document(s) MANUAL DIFF See Note MANUAL DIFF [place] ([facility]) Note: NOTES OTHER/NOT INTERPRETED Atypical Mononuc # Bld Manual 3 Basophils # Bld Manual 2 %Cells counted 100 Lymphocytes # Bld Manual 28 %Monocytes # Bld Manual 21 %Morphology Bld-Imp APPEARS NORMAL Neutrophils # Bld Manual 46 %Platelet # Bld Est APPEARS NORMAL @08/03/19 1221: MANUAL DIFF added. RFLXG = DIFF.Responsible Observer: TOTAL CELLS TOTAL CELLS COUNTED 100.2105 (A) ID Date Data Source [id number] 08/03/2019 11:46:00 AM EDT [place] ([facility]) Name Value Range Interpretation Code Description Data Shanta rce(s) Supporting Document(s) Reported Physicians See Note Reported Physici ans [place] ([facility]) Note: Reported Physicians:Ordering: Mick Morrisding: Mick Ngo ID Date Data Source [id number] 08/03/2019 11:46:00 AM EDT [place] ([facility]) Name Value Range Interpretation Code Description Data Shanta rce(s) Supporting Document(s) Calcium [Mass/volume] in Serum or Plasma 8.4 MilliGramsPerDeciLiter_[Mass_Concentration_Units] Below low normal Calcium SerPl-mCnc [place] ([facility]) Note: Responsible Observer: Calcium Calc ium 400.2500 (G) Alanine aminotransferase [Enzymatic acti vity/volume] in Serum or Plasma by With P-5'-P 32 enzyme_unit_per_liter Normal ALT SerPl w P-5' -P-cCnc [place] ([facility]) Note: Responsible Observer: SGPT/ALT SGP T/ALT 400.1750 (G) Carbon dioxide, total [Moles/volume] in Serum or Plasm a 28 MilliMolesPerLiter_[Substance_Concentration_Units] Normal CO2 [facility] ([facility]) Note: Responsible Observer: CO2 Carbon D ioxide 400.1400 (G) Bilirubin.total [Mass/volume] in Serum or Plasma 0.4 MilliGramsPerDeciLiter_[Mass_Concentration_Units] Normal Bilirub [facility] ([facility]) Note: Responsible Observer: T DESIREE Total Bilirubin 400.2600 (G) Glucose [Mass/volume] in Serum or Plasma 81 MilliGramsPerDeciLiter_[Mass_Concentration_Units] Normal Glucose [facility] ([facility]) Note: Responsible Observer: Glucose Gluc ose 400.1500 (G) Chloride [Moles/volume] in Serum or Plasma 101 MilliMolesPerLiter_[Substance_Concentration_Units] Normal Chloride [facility] ([facility]) Note: Responsible Observer: Chloride Chl oride 400.1250 (G) Potassium [Moles/volume] in Serum or Plasma 4.5 MilliMolesPerLiter_[Substance_Concentration_Units] Normal Potassium [facility] ([facility]) Note: Responsible Observer: K Potassium 400.1210 (G) Protein [Mass/volume] in Serum or Plasma 7.0 GramsPerDeciLiter_[Mass_Concentration_Units] Normal Pro t [facility] ([facility]) Note: Responsible Observer: TP Total Pro tein 400.2800 (G) Sodium [Moles/volume] in Serum or Plasma 133 MilliMolesPerLiter_[Substance_Concentration_Units] Normal Sodium [facility] ([facility]) Note: Responsible Observer: Sodium Sodiu m 400.1100 (G) Aspartate aminotransferase [Enzymatic ac tivity/volume] in Serum or Plasma by With P-5'-P 19 enzyme_unit_per_liter Normal AST [facility] [place] ([facility]) Note: Responsible Observer: SGOT / AST S GOT / AST 400.1900 (G) Urea nitrogen [Mass/volume] in Serum or Plasma 7 MilliGramsPerDeciLiter_[Mass_Concentration_Units] Below low normal BUN [facility] ([facility]) Note: Responsible Observer: BUN Blood Ur ea Nitrogen 400.1000 (G) Anion gap in Serum or Plasma 9 MilliMolesPerLiter_[Substance_Concentration_Units] Normal Anion Gap [facility] ([facility]) Note: Responsible Observer: ANION GAP AN ION GAP 400.1402 (E) Creatinine [Moles/volume] in Vitreous fluid 0.6 MilliGramsPerDeciLiter_[Mass_Concentration_Units] Normal Creatinine [place] ([facility]) Note: Responsible Observer: Creatinine C reatinine 400.1600 (G) Alkaline phosphatase [Enzymatic activity/volume] in Se rum or Plasma 125 enzyme_unit_per_liter Normal ALP [facility] ( [facility]) Note: Responsible Observer: ALP Alkaline Phosphatase 400.2000 (G) Albumin [Mass/volume] in Serum or Plasma by Bromocresol purple (BCP) dye binding method 3.6 GramsPerDeciLiter_[Mass_Concentration_Units] Normal Albumin [facility]) Note: Responsible Observer: Albumin [place] min 400.2700 (G) Glomerular filtration rate/1.73 sq M.pre dicted [Volume Rate/Area] in Serum or Plasma Greater Than 60 [facility] [place] [facility] Note: Responsible Observer: GFR Glomerul ar Filt Rate Calc 400.1605 (D) ID Date Data Source [id number] 08/03/2019 11:46:00 AM [facility] ([facility]) Name Value Range Interpretation Code Description Data Shanta rce(s) Supporting Document(s) Erythrocyte mean corpuscular volume [Ent itic volume] in Cord blood by Automated count 89.0 FemtoLiter_[SI_Volume_Units] Normal MCV Bld Co Auto [place] ([facility]) Note: Responsible Observer: MCV MCV 100 .0600 (B) Erythrocyte distribution width [Entitic volume] by Automated cou nt 15 percent Normal RDW RBC Auto [place] ([facility]) Note: Responsible Observer: RDW RDW 100 .0900 (B) Manual Differential panel - Blood Manual Diff Added Manual diff d [place] ([facility]) Note: Responsible Observer: CBC Manual D ifferential Added 100.1990 (B) Platelet mean volume [Entitic volume] in Blood 10.1 Fe mtoLiter_[SI_Volume_Units] Normal PMV Bld [facility] ([facility]) Note: Responsible Observer: MPV MPV 100 .1100 (B) Immature granulocytes [Presence] in Blood by Automated count See No te Normal Imm Granulocytes Bld Ql Auto [place] ([facility]) Note: [id number] ible Observer: IG% IG% 100.1375 (B) Erythrocyte mean corpuscular hemoglobin concentration [Mass/volume] in Cord blood 32.8 GramsPerDeciLiter_[Mass_Concentration_Units] Below low normal MCHC BldCo-mCnc [place] ([facility]) Note: Responsible Observer: MCHC MCHC 1 00.0800 (B) Hematocrit [Volume Fraction] of Blood by Automated count 47.5 pe rcent Above high normal Hct VFr d Auto [place] ([facility]) Note: Responsible Observer: HEMATOCRIT H EMATOCRIT 100.0500 (B) Monocytes/100 leukocytes in Blood by Automated count 15.8 percen t Above high normal Monocytes/leuk NFr Bld Auto PO ([facility]) Note: Responsible Observer: MONO % MONO % 100.1225 (B) Immature granulocytes [#/volume] in Blood by Automated count 0.0 Un it Imm Granulocytes # d Auto [place] ([facility]) Note: Responsible Observer: IG# IG# 100 .1400 (B) Hemoglobin [Moles/volume] in Blood 15.6 GramsPerDeciLiter_[Mass_Concentration_Units] Above high normal H gb Bld-sCnc [place] ([facility]) Note: Responsible Observer: HGB HEMOGLOB IN 100.0400 (B) Leukocytes [#/volume] in Blood by Automated count 8.1 ThousandsPerMicroLiter_[Number_Concentration_Units] Normal WBC # d Auto [place] ([facility]) Note: Responsible Observer: WBC WHITE BL OOD COUNT 100.0100 (E) Eosinophils [#/volume] in Blood by Automated count 0.8 Unit Above high normal Eosinophil # Bld Auto [facility] ([facility]) Note: Responsible Observer: EOS # EOS# 100.1300 (D) Basophils [#/volume] in Blood by Automated count 0.1 Unit Normal Basophils # Bld Auto [facility] ([facility]) Note: Responsible Observer: BASO # BASO# 100.1350 (B) Basophils/100 leukocytes in Blood by Automated count 0.7 percent Normal Basophils/leuk NFr Bld Auto PO ([facility]) Note: Responsible Observer: BASO % BASO % 100.1325 (B) Eosinophils/100 leukocytes in Blood by Automated count 9.4 perce nt Above high normal Eosinophil/leuk NFr Bld Auto PO ([facility]) Note: Responsible Observer: EOS % EOS % 100.1275 (B) Lymphocytes [#/volume] in Blood by Automated count 2.4 Unit Normal Lymphocytes # Bld Auto PO ([facility]) Note: Responsible Observer: LYMPH # LYMP H# 100.1200 (B) Lymphocytes/100 leukocytes in Blood by Automated count 30.2 percent Normal Lymphocytes/leuk NFr Bld Auto PO ([facility]) Note: Responsible Observer: LYMPH % LYMP H % 100.1175 (B) Monocytes [#/volume] in Blood by Automated count 1.3 Unit Above high normal Monocytes # Bld Auto PO ([facility]) Note: Responsible Observer: MONO # MONO# 100.1250 (C) Neutrophils [#/volume] in Blood by Automated count 3.5 Unit Normal Neutrophils # Bld Auto PO ([facility]) Note: Responsible Observer: NEUT# NEUT# 100.1150 (B) Neutrophils/100 leukocytes in Blood by Automated count 43.8 percent Normal Neutrophils/leuk NFr Bld Auto PO ([facility]) Note: Responsible Observer: NEUT% NEUT% 100.1125 (B) Platelets [#/volume] in Blood by Automated count 284 ThousandsPerMicroLiter_[Number_Concentration_Units] Normal Platelet # Bld Auto PO ([facility]) Note: Responsible Observer: PLATELET COU NT PLATELET COUNT 100.1000 (D) Erythrocyte mean corpuscular hemoglobin [Entitic mass] by Automated count 29.2 PicoGram_[SI_Mass_Units] Normal MCH RBC Qn Auto BARRON Y ([facility]) Note: Responsible Observer: MCH MCH 100 .0700 (B) Erythrocytes [#/volume] in Blood by Automated count 5. 34 MillionsPerMicroLiter_[Number_Concentration_Units] Normal RBC # Bld Auto PO ([facility]) Note: Responsible Observer: RBC Red Bloo d Count 100.0300 (B) NUCLEATED RED BLOOD CELL# 0 Unit NUCLEATED RED BLOOD CELL# PO ([facility]) Note: Responsible Observer: NRBC# NUCLEA LOBO RBC 100.1362 (A) NUCLEATED RED BLOOD CELL 0 percent NUCLEATED R ED BLOOD CELL PO ([facility]) Note: Responsible Observer: NRBC% NRBC% 100.1360 (B) Notes [TIMP] See Note NOTES PO ([facility]) Note: @08/03/19 1221: MANUAL DIFF added. RFLXG = DIFF. Procedure Vital Signs ID Date Data Source UNK Name Value Range Interpretation Code Description Data Source(s) Body surface area Derived from formula 1.63 m2 1.63 m2 [facility] ([facility]) Body weight 58.684 kg 58.684 kg [facility] [place] body weight 120 [lb_av] 120 [[facility]_av] [facility] Body mass index (BMI) [Ratio] 22.2 kg/m2 22.2 k g/m2 [facility] ([facility]) Body weight 129.38 [lb_av] 129.38 [lb_av] [facility] Body height 64 [in_i] 64 [in_i] [facility] ([facility] system) 5'4" Diastolic blood pressure 95 mm[Hg] 95 mm[Hg] [facility] ([facility]) Systolic blood pressure 169 mm[Hg] 169 mm[Hg] [facility] Inhaled oxygen concentration 21 % 21 % [place] ([facility]) Inhaled oxygen flow rate 0 L/min 0 L/min [place] ([facility]) Oxygen saturation in Arterial blood by Pulse oximetry 96 % 96 % [place] ([facility]) Body surface area Derived from formula 1.58 m2 1.58 m2 [place] ([facility]) Body mass index (BMI) [Ratio] 21.6 kg/m2 21.6 k g/m2 [place] ([facility]) Body weight 123 [lb_av] 123 [lb_av] [facility]) Body height 63.25 [in_i] 63.25 [in_i] [facility] ([facility]) Body temperature 97.7 [degF] 97.7 [degF] [facility] ([facility]) Respiratory rate 20 /min 20 /min [place] ([facility]) Heart rate 85 /min 85 /min [place] ([facility]) Diastolic blood pressure 84 mm[Hg] 84 mm[Hg] [facility] ([facility]) Systolic blood pressure 130 mm[Hg] 130 mm[Hg] [facility] ([facility]) Body surface area Derived from formula 1.61 m2 1.61 m2 [facility] ([facility] ) Body weight 57.154 kg 57.154 kg [facility] [place] body weight 120 [lb_av] 120 [lb_av] [facility] ([facility], ) Body mass index (BMI) [Ratio] 21.6 kg/m2 21.6 k g/m2 [facility] ([facility], ) Body weight 126.00 [lb_av] 126.00 [lb_av] [facility] ([facility]) Body height 64 [in_i] 64 [in_i] [facility] ) 5'4" Diastolic blood pressure 62 mm[Hg] 62 mm[Hg] [facility] ([facility]) Systolic blood pressure 138 mm[Hg] 138 mm[Hg] [facility] Inhaled oxygen concentration 21 % 21 % [facility]) Inhaled oxygen flow rate 0 L/min 0 L/min [place] ([facility]) Oxygen saturation in Arterial blood by Pulse oximetry 94 % 94 % [place] ([facility]) Body surface area Derived from formula 1.57 m2 1.57 m2 [place] ([facility]) Body mass index (BMI) [Ratio] 21.4 kg/m2 21.4 k g/m2 [place] ([facility]) Body weight 122 [lb_av] 122 [lb_av] [facility] ([facility]) Body height 63.25 [in_i] 63.25 [in_i] [facility] ([facility]) Body temperature 96.9 [degF] 96.9 [degF] [place] [facility] ([facility]) Respiratory rate 20 /min 20 /min [place] ([facility]) Heart rate 76 /min 76 /min [place] ([facility]) Diastolic blood pressure 86 mm[Hg] 86 mm[Hg] [place] ([facility]) Systolic blood pressure 132 mm[Hg] 132 mm[Hg] G [facility]) Inhaled oxygen concentration 21 % 21 % [place] ([facility]) Inhaled oxygen flow rate 0 L/min 0 L/min [place] ([facility]) Oxygen saturation in Arterial blood by Pulse oximetry 96 % 96 % [place] ([facility]) Body surface area Derived from formula 1.57 m2 1.57 m2 [place] ([facility]) Body mass index (BMI) [Ratio] 21.4 kg/m2 21.4 k g/m2 [place] ([facility]) Body weight 122 [lb_av] 122 [lb_av] [facility] ([facility]) Body height 63.25 [in_i] 63.25 [in_i] [facility] ([facility]) Body temperature 96.9 [degF] 96.9 [degF] [place] [facility] ([facility]) Respiratory rate 18 /min 18 /min [place] ([facility]) Heart rate 87 /min 87 /min [place] ([facility]) Diastolic blood pressure 92 mm[Hg] 92 mm[Hg] [place] ([facility]) Systolic blood pressure 118 mm[Hg] 118 mm[Hg] G [facility] ([facility]) Inhaled oxygen concentration 21 % 21 % [place] ([facility]) Inhaled oxygen flow rate 0 L/min 0 L/min [place] ([facility]) Oxygen saturation in Arterial blood by Pulse oximetry 98 % 98 % [place] ([facility]) Body height 63.25 [in_i] 63.25 [in_i] [facility] ([facility]) Body temperature 97.8 [degF] 97.8 [degF] [place] [facility] ([facility]) Respiratory rate 24 /min 24 /min [place] ([facility]) Heart rate 77 /min 77 /min [place] ([facility]) Diastolic blood pressure 94 mm[Hg] 94 mm[Hg] [facility] ([facility]) Systolic blood pressure 162 mm[Hg] 162 mm[Hg] [facility] ([facility]) Oxygen saturation in Arterial blood by Pulse oximetry 93 % 93 % [place] ([facility]) Body surface area Derived from formula 1.58 m2 1.58 m2 [place] ([facility]) Body mass index (BMI) [Ratio] 21.6 kg/m2 21.6 k g/m2 [place] ([facility]) Body weight 123 [lb_av] 123 [lb_av] [facility] ([facility]) Body height 63.25 [in_i] 63.25 [in_i] [facility] ([facility]) Body temperature 98.9 [degF] 98.9 [degF] [place] [facility] ([facility]) Respiratory rate 24 /min 24 /min [place] ([facility]) Heart rate 92 /min 92 /min [place] ([facility]) Diastolic blood pressure 80 mm[Hg] 80 mm[Hg] [facility] ([facility]) Systolic blood pressure 176 mm[Hg] 176 mm[Hg] [facility] ([facility]) Body height 63.25 [in_i] 63.25 [in_i] [place] ([facility]) Diastolic blood pressure 86 mm[Hg] 86 mm[Hg] [place] ([facility]) Systolic blood pressure 142 mm[Hg] 142 mm[Hg] [facility] ([facility]) Oxygen saturation in Arterial blood by Pulse oximetry 92 % 92 % [place] ([facility]) Body surface area Derived from formula 1.60 m2 1.60 m2 [place] ([facility]) Body mass index (BMI) [Ratio] 22.4 kg/m2 22.4 k g/m2 [place] ([facility]) Body weight 127.5 [lb_av] 127.5 [lb_av] [facility] ([facility]) Body height 63.25 [in_i] 63.25 [in_i] [place] ([facility]) Body temperature 96.2 [degF] 96.2 [degF] [facility] ([facility]) Respiratory rate 20 /min 20 /min [place] ([facility]) Heart rate 88 /min 88 /min [place] ([facility]) Diastolic blood pressure 94 mm[Hg] 94 mm[Hg] [place] ([facility]) Systolic blood pressure 138 mm[Hg] 138 mm[Hg] [facility] ([facility]) Diastolic blood pressure 92 mm[Hg] 92 mm[Hg] [place] ([facility]) Systolic blood pressure 160 mm[Hg] 160 mm[Hg] [facility] ([facility]) Diastolic blood pressure 80 mm[Hg] 80 mm[Hg] [facility] ([facility]) Systolic blood pressure 190 mm[Hg] 190 mm[Hg] [facility] ([facility]) Oxygen saturation in Arterial blood by Pulse oximetry 94 % 94 % [place] ([facility]) Body surface area Derived from formula 1.60 m2 1.60 m2 [place] ([facility]) Body mass index (BMI) [Ratio] 22.5 kg/m2 22.5 k g/m2 [facility] ([facility]) Body weight 128 [lb_av] 128 [lb_av] [facility] ([facility]) Body height 63.25 [in_i] 63.25 [in_i] [facility] ([facility]) Body temperature 98 [degF] 98 [degF] [facility] ([facility]) Respiratory rate 24 /min 24 /min [facility] ([facility]) Heart rate 84 /min 84 /min [place] ([facility]) Diastolic blood pressure 100 mm[Hg] 100 mm[Hg] [facility] ([facility]) Systolic blood pressure 192 mm[Hg] 192 mm[Hg] [facility] ([facility]) Patient Treatment Plan of Care Planned Activity Planned Date Details Description Data Source (s) Losartan Potassium 50 MG Oral Tablet 05/03/2020 12:00:00 AM [facility] ([facility]) Potassium Chloride 10 MEQ Extended Release Oral Tablet [Klor-Con] 05/03/2020 12:00:00 AM [facility] ([facility]) 7 ACTUAT umeclidinium 0.0625 MG/ACTUAT Dry Powder Inha ler [Incruse] [facility] 200 ACTUAT Albuterol 0.09 MG/ACTUAT Metered Dose Inhal er [Ventolin] 03/15/2020 12:00:00 AM [facility] ([facility]) Losartan Potassium 50 MG Oral Tablet 02/28/2020 [facility] Potassium Chloride 10 MEQ Extended Release Oral Tablet [Klor-Con] 02/28/2020 12:00:00 AM EDT [place] ([facility]) Hydrochlorothiazide 25 MG Oral Tablet 02/28/2020 [facility] 7 ACTUAT umeclidinium 0.0625 MG/ACTUAT Dry Powder Inha ler [Incruse] 11/15/2019 [facility] 200 ACTUAT Albuterol 0.09 MG/ACTUAT Metered Dose Inhal er [Ventolin] 11/15/2019 12:00:00 AM EDT [place] ([facility]) Albuterol 0.83 MG/ML Inhalant Solution 11/15/2019 12:00:00 AM EDT [place] ([facility]) Losartan Potassium 50 MG Oral Tablet 11/07/2019 12:00:00 AM EDT [place] ([facility]) Potassium Chloride 10 MEQ Extended Release Oral Tablet [Klor-Con] 11/07/2019 12:00:00 AM EDT [place] ([facility]) Hydrochlorothiazide 25 MG Oral Tablet 10/24/2019 12:00:00 AM [facility] ([facility]) Hydrochlorothiazide 12.5 MG Oral Capsule 07/25/2019 12:00:00 AM [facility]) Albuterol 0.83 MG/ML Inhalant Solution 07/25/2019 12:00:00 AM [facility] ([facility]) 200 ACTUAT Albuterol 0.09 MG/ACTUAT Metered Dose Inhal er [Ventolin] 07/25/2019 12:00:00 AM [facility] ([facility]) Potassium Chloride 10 MEQ Extended Release Oral Tablet [Klor-Con] 07/25/2019 12:00:00 AM [facility] ([facility]) Losartan Potassium 50 MG Oral Tablet 07/25/2019 12:00:00 AM [facility]) 7 ACTUAT umeclidinium 0.0625 MG/ACTUAT Dry Powder Inha ler [Incruse] 07/25/2019 12:00:00 AM EST [place] ([facility]) 7 ACTUAT umeclidinium 0.0625 MG/ACTUAT Dry Powder Inha ler [Incruse] 06/26/2019 12:00:00 AM EST [place] ([facility]) 200 ACTUAT Albuterol 0.09 MG/ACTUAT Metered Dose Inhal er [Ventolin] 05/31/2019 12:00:00 AM EST [place] ([facility]) 7 ACTUAT umeclidinium 0.0625 MG/ACTUAT Dry Powder Inha ler [Incruse] 05/31/2019 12:00:00 AM EST [place] ([facility]) 7 ACTUAT umeclidinium 0.0625 MG/ACTUAT Dry Powder Inha ler [Incruse] 02/03/2019 12:00:00 AM EDT [place] ([facility]) Hydrochlorothiazide 12.5 MG Oral Capsule 11/09/2018 12:00:00 AM EDT [place] ([facility]) Albuterol 0.83 MG/ML Inhalant Solution 11/09/2018 12:00:00 AM EDT [place] ([facility]) Potassium Chloride 10 MEQ Extended Release Oral Tablet [Klor-Con] 11/09/2018 12:00:00 AM EDT [place] ([facility]) Losartan Potassium 50 MG Oral Tablet 11/09/2018 12:00:00 AM EDT [place] ([facility]) 200 ACTUAT Albuterol 0.09 MG/ACTUAT Metered Dose Inhal er [Ventolin] 11/09/2018 12:00:00 AM EDT [place] ([facility])
[2020-06-19] MEDS ORDERED: OXYC1TAB23 PO (13:16)
[2020-06-19 16:15] VITALS: BP 133/79
[2020-06-24] MEDS ORDERED: MULT-90 PO (15:09)
== END 2020-06-19 16:30 | disposition home or self-care (01) ==
LOC: EDBD 08:20 → M ED 08:20 → M IRPRO 11:33 → M SDC 11:33 → M IRPRO 16:30
PROVIDERS: ATTEND Surgery Vascular Surgery
DX: I70.222 Atherosclerosis of native arteries of extremities with rest pain, left leg (principal); I72.3 Aneurysm of iliac artery; R10.32 Left lower quadrant pain; I95.9 Hypotension, unspecified; I10 Essential (primary) hypertension; F17.210 Nicotine dependence, cigarettes, uncomplicated; F32.9 Major depressive disorder, single episode, unspecified; F41.9 Anxiety disorder, unspecified; J44.9 Chronic obstructive pulmonary disease, unspecified; M06.9 Rheumatoid arthritis, unspecified; C85.90 Non-Hodgkin lymphoma, unspecified, unspecified site; Z79.899 Other long term (current) drug therapy
CPT/HCPCS: 36415; 37221; 75710; 80047; 80076; 82150; 82550; 82553; 83605; 83690; 85025; 85610; 85730; 86850; 86900; 86901; 93041; 99152; 99153; 99284; C1760; C1769; C1874; C1887; C1894; J0690; J1644; J2250; J3010; Q9967

== ENCOUNTER → 2020-07-24 | Outpatient (CLI) | payer OTHER ==
[~2020-07-24] MED LIST changes: +MULT-90 PO; +OXYC1TAB23 PO
--- NOTE | 2020-07-24 15:52 | REP ---
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 TECHNIQUE: Real time brennan scale and Duplex Doppler evaluation of the bilateral lower extremity arterial vasculature using linear high frequency transducer. FINDINGS: Brennan scale and duplex doppler images demonstrate mild diffuse plaquing bilaterally. Biphasic and triphasic waveforms are seen diffusely bilaterally. There is approximately 2-1 stenosis of the right posterior tibial artery distal aspect. There is a patent left external iliac stent. There is no other evidence of stenosis or occlusion bilaterally. LINDA right 1.1 and left 1.0. A complex cystic structure is seen in the left lower quadrant. This measures 10.8 x 7.4 x 11.3 cm. Peak systolic velocities (cm/sec) Common femoral artery: Right 109; Left 74 Profunda femoris: Right 45; Left 50 SFA (proximal): Right 84; Left 72 SFA (mid): Right 86; Left 94 SFA (distal): Right 59; Left 74 Popliteal artery: Right 44; Left 36 ADAL (prox.): Right 35; Left 539 Tibioperoneal trunk: Right 58; Left 54 SPACER TYPE BAR AND SEGMENT (prox.): Right 52; Left 62 SPACER TYPE BAR AND SEGMENT (distal): Right 104; Left 49 ADAL (distal): Right 51; Left 43 IMPRESSION: There is mild diffuse plaquing bilaterally. There is approximately 2-1 stenosis of the distal right posterior tibial artery. Otherwise no significant stenosis or occlusion. Complex cystic structure left lower quadrant may be related to bowel or a cystic mass. Recommend CT abdomen and pelvis with IV contrast. <Electronically signed by Edward Brennan > 07/24/20 [id number]
== END ==
LOC: M RAD 12:32
PROVIDERS: ATTEND Physician Assistant
DX: I70.213 Atherosclerosis of native arteries of extremities with intermittent claudication, bilateral legs (principal)

== ENCOUNTER → 2021-01-02 | Outpatient (CLI) | payer OTHER ==
[~2021-01-02] MED LIST changes: +CALC600C3 PO; +COQ150CH PO
--- NOTE | 2021-01-02 16:53 | REP ---
INDICATION: FLUID COLLECTION NEXT BLADDER FOLLICULAR LYMPHOMA. COMPARISON: None. TECHNIQUE: Transvesical imaging FINDINGS: The urinary bladder volume calculation is 335 cc. No postvoid volume calculation was requested. There is no evidence of a gross mucosal abnormality or intraluminal mass. The Andreia vesicular soft tissues are within normal limits. IMPRESSION: No abnormality is identified. Findings as described above. The fluid collection seen anterior and to the left of the urinary bladder on the CT examination from 09/18/2020 is not sonographically visible if present. Consider repeat CT so like modalities can be compared. <Electronically signed by Scott Monteiro > 01/02/21 [id number]
== END ==
LOC: M RAD 13:36
PROVIDERS: ATTEND Specialist
DX: C82.80 Other types of follicular lymphoma, unspecified site (principal)

== ENCOUNTER → 2021-03-26 | Outpatient (CLI) | payer OTHER ==
[~2021-03-26] MED LIST changes: +ISOVUE-370 76% 100ML VIAL ONE
--- NOTE | 2021-03-26 15:02 | REP ---
INDICATION: RENAL CYST. COMPARISON: CT 09/18/2020. I do not have a renal ultrasound for comparison. TECHNIQUE: CT abdomen and pelvis performed without IV contrast. CT abdomen pelvis performed with IV contrast as well, following intravenous administration of 100 cc of Isovue 370. Venous phase axial images and 2 delays of 8 and 15 minutes were also obtained. Sagittal, coronal and 3D MIP reconstruction images are performed. FINDINGS: Lung bases: 7.5 mm nodule posterior basal segment right lower lobe unchanged. Some basilar fibrotic changes noted bilaterally and stable. The heart is not enlarged there is no pericardial thickening or effusion. A small sliding hiatal hernia again noted. Prior gastric bypass surgery evident. Liver: Liver is homogeneous. There are dilated bile ducts as before with the common bile duct dilated in the brittany hepatis and down into the pancreatic head, unchanged.. No visible stone or lesion common duct within in the pancreatic head. Gallbladder: A few tiny dependent calcifications are seen in the gallbladder. Best seen on image 63 of the axial sets. Spleen: Normal. Adrenals: Thickened limbs bilaterally unchanged in suggesting adrenal hyperplasia. Pancreas: Common duct in the pancreatic head is dilated but does not show calcification or mass pancreatic duct intact. No gross pancreatic mass. Kidneys: There are 2 simple cysts in the left kidney the larger peripherally the upper pole 1.5 cm. The smaller a peripherally in the medial left apex about 8 mm. The left kidney shows a simple cyst 14 mm medially in the interpolar lower pole junction and all 3 of these are unchanged. In addition there is a cortical hypodensity peripherally in the interpolar region on the right side is about 10 mm in size. It is the slightly hypodense 2 the cortex on noncontrast images with attenuation 13.5 HU. With venous, 8 minute and 15 minute delayed images attenuation values are 15.9, 14.6 and 13.4. Accordingly there is no enhancement. It becomes progressively more visible with contrast enhancement. No abnormal calcification or other complex features. No solid renal mass, hydronephrosis or perinephric edema. No ureteral dilatation. No visible stones. Aorta: Aorta iliac stent graft unchanged from previous study. On the left the stent extends to the distal external iliac. Small and large bowel: Fluid-filled small bowel loops without the dilatation or obstruction. Nonspecific bowel wall thickening of some loops of small bowel that may be some gastroenteritis or other. Stool and gas scattered throughout the colon without definite evidence of colitis, diverticulitis mass or stricture. Free fluid: Generalized ascites or free air.. Adenopathy: None definitely visible.. Appendix: Not inflamed. Best seen on axial image 96 of the series 5. Osseous structures: Degenerative changes in the spine without destructive lesion or fracture. Visualized lower ribs intact. Sacrum, pelvis and hips with some degenerative change but no destructive lesion. Pelvis: Previous fluid collection in the August study is resolved bladder well filled without stone, mass or wall thickening. There is trace amount of free fluid in the cul-de-sac. No pelvic mass. No inguinal or pelvic lymphadenopathy. IMPRESSION: 1. There are 3 simple cysts in the bilateral kidneys as described. Peripherally on the right is a 10 mm isodose slightly hypodense focus in the renal cortex which does not enhance and the comes progressively more visible on the 3 phase delayed imaging sequence. This too is a simple cyst. I do not have an ultrasound to characterize it's internal architecture and can only say Bosniak class [address] 2. Stable 7.5 mm nodule posterior basal segment right lower lobe unchanged. Some underlying basilar fibrotic changes bilaterally. 3. A few tiny dependent calcifications in the gallbladder. 4. Dilated common bile duct and intrahepatic ducts without any definite calcifications or other findings in the common duct. This appearance is stable. Side from dilated common duct in the pancreatic head there are no other pancreatic findings or interval change. 5. Fluid-filled small bowel loops with some nonspecific bowel wall thickening. No free fluid or loculated collection/abscess. 6. Aorta bi-iliac stent with the left stent extending down to the distal external iliac artery unchanged. <Electronically signed by Arias Caballero > 03/26/21 [id number]
== END ==
LOC: M PLAIMG 11:26
PROVIDERS: ATTEND Urology
DX: N28.1 Cyst of kidney, acquired (principal)
CPT/HCPCS: 74178; Q9967

== ENCOUNTER → 2021-04-03 | Outpatient (REF) | payer OTHER ==
[~2021-04-03] MED LIST changes: -ISOVUE-370 76% 100ML VIAL ONE
[2021-04-03 15:51] LABS: APPEARANCE, URINE CLEAR (CLEAR); BACTERIA, URINE AUTO NEGATIVE (NEGATIVE); BILIRUBIN, URINE AUTO NEGATIVE (NEGATIVE); BLOOD, URINE BLOOD NEGATIVE (NEGATIVE); COLOR, URINE YELLOW (YELLOW); GLUCOSE, URINE (UA) AUTO NEGATIVE (NEGATIVE); KETONE, URINE AUTO NEGATIVE (NEGATIVE); LEUKOCYTE ESTERASE, URINE AUTO NEGATIVE (NEGATIVE); NITRITE, URINE AUTO NEGATIVE (NEGATIVE); PROTEIN, URINE AUTO NEGATIVE (NEGATIVE); RBC, URINE AUTO 11 /HPF (0-3); SPECIFIC GRAVITY URINE AUTO 1.005 (1.002-1.035); SQUAMOUS EPITHELIAL CELL UR AU 0 /HPF (0-6); UROBILINOGEN, URINE AUTO 0.2 mg/dL (0.0-2.0); WBC, URINE AUTO 0 /HPF (0-3)
== END ==
LOC: M SMT 13:08
PROVIDERS: ATTEND Urology
DX: N28.1 Cyst of kidney, acquired (principal)

== ENCOUNTER → 2021-05-06 | Outpatient (REF) | payer OTHER ==
[~2021-05-06] MED LIST changes: +LOSA50TA28 PO; -LOSA50TA88 PO; +ONDA-84 PO; -ONDA8TAB10 PO; -PROC10TA4 PO; +PROC10TA5 PO
[2021-05-06 14:04] LABS: APPEARANCE, URINE CLEAR (CLEAR); BACTERIA, URINE AUTO NEGATIVE (NEGATIVE); BILIRUBIN, URINE AUTO NEGATIVE (NEGATIVE); BLOOD, URINE BLOOD NEGATIVE (NEGATIVE); COLOR, URINE YELLOW (YELLOW); GLUCOSE, URINE (UA) AUTO NEGATIVE (NEGATIVE); KETONE, URINE AUTO NEGATIVE (NEGATIVE); LEUKOCYTE ESTERASE, URINE AUTO NEGATIVE (NEGATIVE); NITRITE, URINE AUTO NEGATIVE (NEGATIVE); PROTEIN, URINE AUTO NEGATIVE (NEGATIVE); RBC, URINE AUTO 1 /HPF (0-3); SPECIFIC GRAVITY URINE AUTO 1.011 (1.002-1.035); SQUAMOUS EPITHELIAL CELL UR AU 0 /HPF (0-6); UROBILINOGEN, URINE AUTO 0.2 mg/dL (0.0-2.0); WBC, URINE AUTO 0 /HPF (0-3)
== END ==
LOC: M SMT 13:22
PROVIDERS: ATTEND Urology
DX: R31.29 Other microscopic hematuria (principal)

== ENCOUNTER → 2021-08-25 | Outpatient (CLI) | payer OTHER ==
[~2021-08-25] MED LIST changes: +GASTROGRAFIN SOLUTION 30ML (Q9963) As Ordered ONE; +ISOVUE-370 76% 100ML VIAL As Ordered ONE; +TREL1AER INH
== END ==
LOC: M RAD 14:46
PROVIDERS: ATTEND Internal Medicine Hematology & Oncology
DX: C85.90 Non-Hodgkin lymphoma, unspecified, unspecified site (principal)
CPT/HCPCS: 71260; 74177; Q9963; Q9967

== ENCOUNTER → 2022-03-21 | Outpatient (REF) ==
[~2022-03-21] MED LIST changes: +ASCO500C3 PO; -GASTROGRAFIN SOLUTION 30ML (Q9963) As Ordered ONE; +IRON1TAB2 PO; -ISOVUE-370 76% 100ML VIAL As Ordered ONE; +METO1TAB32; -PURE500C5 PO; +SPIR-10
== END ==
LOC: M LAB REF 22:48
DX: E87.1 Hypo-osmolality and hyponatremia (principal)

== ENCOUNTER → 2022-09-07 | Outpatient (CLI) | payer OTHER ==
[~2022-09-07] MED LIST changes: +GASTROGRAFIN SOLUTION 30ML As Ordered ONE; +ISOVUE-370 76% 100ML VIAL As Ordered ONE
== END ==
LOC: M RAD 11:36
PROVIDERS: ATTEND Internal Medicine Hematology & Oncology
DX: R91.8 Other nonspecific abnormal finding of lung field (principal); N28.1 Cyst of kidney, acquired; C82.90 Follicular lymphoma, unspecified, unspecified site
CPT/HCPCS: 71260; 74177; Q9963; Q9967

== ENCOUNTER → 2022-12-17 | Outpatient (CLI) | payer OTHER ==
[~2022-12-17] MED LIST changes: +CHLO125TA; -GASTROGRAFIN SOLUTION 30ML As Ordered ONE; +HYDR-3911; -K-TA10TA2 PO; +POTA-165 PO
== END ==
LOC: M RAD 10:08
PROVIDERS: ATTEND Internal Medicine Hematology & Oncology
DX: C82.90 Follicular lymphoma, unspecified, unspecified site (principal)
CPT/HCPCS: 71260; Q9967

== ENCOUNTER → 2023-11-09 | Outpatient (CLI) | payer OTHER ==
[~2023-11-09] MED LIST changes: +ALBU8.5H; +ALPR0.25; +ATOM40CA9; +FLUT1BLS8; +GASTROGRAFIN SOLUTION 30ML As Ordered ONE; +HYDR-3363; -HYDR-3911; +HYDR50TA46; +METO1TAB7; +TORS5TAB2
== END ==
LOC: M RAD 08:42
PROVIDERS: ATTEND Specialist
DX: C85.90 Non-Hodgkin lymphoma, unspecified, unspecified site (principal)
CPT/HCPCS: 71260; 74177; Q9963; Q9967